=== PATIENT | female | born 1940 | race Caucasian/White ===

== ENCOUNTER 2018-06-20 16:50 | Inpatient (IN) ==
[2018-06-20] MEDS ORDERED: 0.9 % SODIUM CHLORIDE 1,000 ML IV ONE (16:56)
--- NOTE | 2018-06-20 17:32 | XRay Report ---
CLINICAL INFORMATION: hypoxia COMPARISON: 06/19/2018 FINDINGS: Mild cardiomegaly is unchanged. Implantable cardioverter defibrillator is in stable satisfactory position without application. Mediastinum is unremarkable. Pulmonary vessels are now mildly distended and there is minimal perihilar edema. No infiltrates. Chronic elevation right diaphragm again noted. Small bilateral pleural effusions are present. IMPRESSION: Mild CHF Interpreted and Authenticated by: Inocente Cuellar 06/20/18
[2018-06-20] MEDS ORDERED: IPRATROPIUM/ALBUTEROL 3 ML AMPUL.NEB NEB ONE (17:37)
[2018-06-20 18:54] LABS: Basophils # (Auto) 0 K/mcL (0.0-0.3); Basophils % (Auto) 0.3 % (0.0-2.0); Eosinophils # (Auto) 0.1 K/mcL (0.0-0.7); Granulocytes % (Auto) 70.7 % (38.0-78.0); Lymphocytes % (Auto) 20.6 % (15.5-49.0); Mean Cell Volume 81.1 fL (80.0-100.0); Mean Corpuscular HGB Conc 31.7 g/dL (31.0-36.0); Mean Corpuscular Hemoglobin 25.7 pg (26.0-34.0); Monocytes # (Auto) 0.7 K/mcL (0.1-0.9); Monocytes % (Auto) 7.4 % (1.0-12.0); Platelet Count 309 K/mcL (140-440); RBC 4.19 M/mcL (4.00-5.20); Red Cell Distribution Width 16.4 % (11.5-14.5)
[2018-06-20 19:27] LABS: ALT/SGPT 9 U/l (0-40); Albumin 3.9 gm/dL (3.2-5.2); Albumin/Globulin Ratio 1.6 (1.0-2.3); Alkaline Phosphatase 61 U/L (39-117); Blood Urea Nitrogen 17 mg/dl (8-23)
[2018-06-20] MEDS ORDERED: FUROSEMIDE 20 MG/2 ML VIAL IV ONE (19:27)
--- NOTE | 2018-06-20 19:29 | Emergency Department Note ---
SOB HPI - General Chief Complaint: Shortness of Breath/Dyspnea Stated Complaint: SOB Time Seen by Provider: 06/20/18 16:55 Source: patient, EMS, old records reviewed Mode of arrival: EMS Limitations: no limitations - History of Present Illness 70-year-old female here from [facility] with shortness of breath but has not been getting better over the last 3 weeks. She was seen previously and diagnosed with pneumonia but not better on antibiotics. She is not on home oxygen however now she is requiring 2 L oxygen to keep her saturations up. She is having shortness of breath along with a productive cough. Notes fever. Denies nausea vomiting diarrhea Reviewed last note by Dr. beard in the ER - Related Data Home Medications Medication Instructions Recorded Confirmed aluminum-mag hydroxide-simethicone 30 ml PO Q6HP PRN ml 07/02/17 06/21/18 200 mg-200 mg-20 mg/5 mL oral susp bisacodyl 10 mg rectal suppository 10 mg MD QDAY PRN 07/02/17 06/21/18 emollient combination no.93 1 applic TOPICAL DAILYP PRN 07/02/17 06/20/18 topical cream hydrocodone 7.5 mg-acetaminophen 1 tab PO Q4H PRN tab 07/02/17 06/20/18 325 mg tablet magnesium hydroxide 400 mg/5 mL 400 mg PO DAILYP PRN 07/02/17 06/20/18 oral suspension nystatin 100,000 unit/gram topical 1 applic TOPICAL BID PRN 07/02/17 06/20/18 powder polyvinyl alcohol 1.4 % eye drops 1 drp OPHTHALMIC BID-QID PRN 07/02/17 06/20/18 simvastatin 20 mg tablet 20 mg PO QPM 07/02/17 06/20/18 acetaminophen 500 mg tablet 1,000 mg PO Q6H PRN 09/17/17 06/20/18 sennosides 8.6 mg tablet 8.6 mg PO QDAY PRN 09/17/17 06/20/18 guaifenesin ER 600 mg tablet, 600 mg PO Q12H PRN 06/19/18 06/20/18 extended release 12 hr trolamine salicylate 10 % lotion 1 applic TOPICAL QDAY PRN 06/19/18 06/20/18 Cranberry Conc/C/Bacill Coag 1 each PO BID 06/20/18 06/20/18 [Cranberry Tablet] Estradiol [Estrace] 0.5 g VAGINAL Q48H 06/20/18 06/20/18 Furosemide [Lasix] 40 mg PO QDAY 06/20/18 06/20/18 Imipramine HCl [Tofranil] 25 mg PO QHS 06/20/18 06/20/18 Insulin Aspart [Novolog Flexpen] 2 unit SQ DAILYP PRN 06/20/18 06/20/18 Insulin Aspart [Novolog Flexpen] 100 unit SQ ACHS 06/20/18 06/20/18 Insulin Glargine,Hum.rec.anlog 35 unit SQ QHS 06/20/18 06/20/18 [Lantus Solostar] Melatonin 5 mg PO QHS PRN 06/20/18 06/20/18 Solifenacin Succinate [Vesicare] 10 mg PO QHS 06/20/18 06/20/18 guaiFENesin/DEXTROMETHORPHAN 10 ml PO Q6HP PRN 06/20/18 06/20/18 [Robafen Dm Cgh-Chest Jaya Liq] rOPINIRole HCL [Requip] 1 mg PO QHS 06/20/18 06/20/18 traMADol HCL [Ultram] 100 mg PO QHS PRN 06/20/18 06/20/18 traZODone HCL [Trazodone HCl] 100 mg PO QHS 06/20/18 06/20/18 Previous Rx's Medication Instructions Recorded duloxetine 60 mg capsule,delayed 60 mg PO QDAY #90 cap 04/15/17 release liraglutide 0.6 mg/0.1 mL (18 mg/3 1.8 mg SUB-Q QDAY #6 ml 04/15/17 mL) subcutaneous pen injector amlodipine 5 mg tablet 5 mg PO QDAY #90 tab 04/17/17 gabapentin 300 mg capsule 300 mg PO QDAY #90 cap 04/22/17 ropinirole 1 mg tablet 1 mg PO BID #60 tab 04/22/17 metformin 1,000 mg tablet 1,000 mg PO BID #180 tab 04/23/17 potassium chloride ER 20 mEq 20 meq PO QDAY #90 tab 04/28/17 tablet,extended release hydroxychloroquine 200 mg tablet 400 mg PO QDAY #180 tab 06/16/17 polyethylene glycol 3350 17 gram 17 g PO QDAY #100 each 09/08/17 oral powder packet carvedilol 25 mg tablet 12.5 mg PO BID #180 tab 09/17/17 losartan 100 mg tablet 100 mg PO QDAY #90 tab 03/11/18 mupirocin 2 % topical ointment 1 applic TOPICAL BID #30 g 05/04/18 Allergies Allergy/AdvReac Type Severity Reaction Status Date / Time kiwi Allergy Severe Throat Verified 06/21/18 07:10 swells shut meperidine [From Demerol] AdvReac Mild Vomiting Verified 06/21/18 07:10 Review of Systems All systems ED: reviewed and negative except as stated. Past Medical History - Past Medical History Attestation: Yes: The following information was validated with the patient. 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) Other specified urinary incontinence (Chronic) Urinary tract infection (Chronic) Muscle weakness (generalized) (Chronic) Low back pain (Chronic) Cervicalgia (Chronic) Pain in right shoulder (Chronic) Disorder of the skin and subcutaneous tissue, unspecified (Chronic) Constipation, unspecified (Chronic) GERD without esophagitis (Chronic) Allergic rhinitis, unspecified (Chronic) Heart failure, unspecified (Chronic) Other cardiomyopathies (Chronic) Essential (primary) hypertension (Chronic) Dry eye syndrome (Chronic) Other chronic pain (Chronic) Obstructive sleep apnea (adult) (pediatric) (Chronic) Insomnia, unspecified (Chronic) Restless leg syndrome (Chronic) Parkinson disease (Chronic) Anxiety disorder, unspecified (Chronic) Major depressive disorder, single episode, unspecified (Chronic) Hyperlipidemia, unspecified (Chronic) Vitamin deficiency, unspecified (Chronic) Type 2 diabetes mellitus without complications (Chronic) Type 2 diabetes mellitus with diabetic polyneuropathy (Chronic) Presence of cardiac pacemaker (Chronic) Past Surgical History (Last Reviewed 06/19/18 @ 11:22 by Brionna Jamison PA-C) Cardiac defibrillator in place (Chronic) History of cholecystectomy (Chronic ~1977) History of foot surgery (Chronic) History of knee replacement (Chronic ~2004) History of laparotomy (Chronic ~1975) History of orthopedic surgery (Chronic ~2003) History of permanent cardiac pacemaker placement (Chronic) History of shoulder surgery (Chronic ~1982) History of toe surgery (Chronic) History of tonsillectomy and adenoidectomy (Chronic ~1944) History of total abdominal hysterectomy (Chronic ~1983) Family History (Last Reviewed 06/19/18 @ 11:22 by Brionna Jamison PA-C) Unknown Heart problem Emphysema, unspecified Other Breast cancer Cancer Diabetes Hypertension Stroke Medical history: Reports: CHF, other (Diabetes, chronic pain. 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 Normocephalic atraumatic. Conjunctive are clear sclerae nonicteric. No nasal discharge or congestion. Wearing nasal cannula oxygen without difficulty. Oropharynx is pink and moist. Posterior pharynx clear. Neck is supple without lymphadenopathy thyromegaly or carotid bruit. Heart is regular rate and rhythm no murmur appreciated. Lungs are clear to auscultation bilaterally without wheezes rales rhonchi or respiratory distress. Abdomen is soft nontender nondistended. No rigidity peritoneal signs or guarding. No pedal edema. +2 radial pulse. Alert oriented Limitations: no limitations Course Vital Signs Pulse Rate 96 H 06/20/18 16:50 Respiratory Rate 28 H 06/20/18 16:50 Temperature 97.7 F 06/21/18 04:00 Pulse Rate 105 H 06/20/18 23:54 Respiratory Rate 32 H 06/21/18 06:47 Blood Pressure 123/66 06/21/18 04:00 Pulse Oximetry (%) 92 06/21/18 06:47 Shortness of Breath/Dyspnea - Lab Data Lab results reviewed: Yes I reviewed the patient's lab results. Result diagrams: 06/20/18 16:56 06/20/18 16:56 Lab Results 06/20/18 06/20/18 06/20/18 Range/Units 16:56 16:56 16:56 WBC 9.6 (4.5-11.0) K/mcL RBC 4.19 (4.00-5.20) M/mcL Hgb 10.8 L (12.0-15.0) g/dL Hct 34.0 L (36.0-48.0) % MCV 81.1 (80.0-100.0) fL MCH 25.7 L (26.0-34.0) pg MCHC 31.7 (31.0-36.0) g/dL RDW 16.4 H (11.5-14.5) % Plt Count 309 (140-440) K/mcL MPV 7.9 (7.4-10.4) fL Gran % 70.7 (38.0-78.0) % Lymph % (Auto) 20.6 (15.5-49.0) % [place] % (Auto) 7.4 (1.0-12.0) % Eos % (Auto) 1.0 (0.0-7.0) % Baso % (Auto) 0.3 (0.0-2.0) % Gran # 6.8 (1.8-8.0) K/mcL Lymph # (Auto) 2.0 (1.5-4.8) K/mcL [place] # (Auto) 0.7 (0.1-0.9) K/mcL Eos # (Auto) 0.1 (0.0-0.7) K/mcL Baso # (Auto) 0 (0.0-0.3) K/mcL VBG Lactic Acid 1.6 (0.5-2.0) mmol/L Sodium 138 (133-145) mmol/L Potassium 4.7 (3.3-5.1) mmol/L Chloride 99 (96-108) mmol/L Carbon Dioxide 24 (22-30) mmol/L Anion Gap 15.0 (8-16) BUN 17 (8-23) mg/dl Creatinine 0.9 (0.6-1.1) mg/dl GFR Calculation 61 Glucose 139 H (70-105) mg/dL Calcium 9.1 (8.6-10.4) mg/dl Magnesium 1.7 (1.6-2.5) mg/dL Total Bilirubin 0.5 (0.0-1.0) mg/dL AST 14 (0-37) U/l ALT 9 (0-40) U/l Alkaline Phosphatase 61 (39-117) U/L NT-Pro-B Natriuret Pep (0-450) pg/ml Total Protein 6.3 (5.9-8.4) gm/dL Albumin 3.9 (3.2-5.2) gm/dL Globulin 2.4 (2.2-3.7) gm/dL Albumin/Globulin Ratio 1.6 (1.0-2.3) Procalcitonin (<0.10) ng/mL 06/20/18 06/20/18 Range/Units 16:58 17:58 WBC (4.5-11.0) K/mcL RBC (4.00-5.20) M/mcL Hgb (12.0-15.0) g/dL Hct (36.0-48.0) % MCV (80.0-100.0) fL MCH (26.0-34.0) pg MCHC (31.0-36.0) g/dL RDW (11.5-14.5) % Plt Count (140-440) K/mcL MPV (7.4-10.4) fL Gran % (38.0-78.0) % Lymph % (Auto) (15.5-49.0) % [place] % (Auto) (1.0-12.0) % Eos % (Auto) (0.0-7.0) % Baso % (Auto) (0.0-2.0) % Gran # (1.8-8.0) K/mcL Lymph # (Auto) (1.5-4.8) K/mcL [place] # (Auto) (0.1-0.9) K/mcL Eos # (Auto) (0.0-0.7) K/mcL Baso # (Auto) (0.0-0.3) K/mcL VBG Lactic Acid (0.5-2.0) mmol/L Sodium (133-145) mmol/L Potassium (3.3-5.1) mmol/L Chloride (96-108) mmol/L Carbon Dioxide (22-30) mmol/L Anion Gap (8-16) BUN (8-23) mg/dl Creatinine (0.6-1.1) mg/dl GFR Calculation Glucose (70-105) mg/dL Calcium (8.6-10.4) mg/dl Magnesium (1.6-2.5) mg/dL Total Bilirubin (0.0-1.0) mg/dL AST (0-37) U/l ALT (0-40) U/l Alkaline Phosphatase (39-117) U/L NT-Pro-B Natriuret Pep 4836.0 H (0-450) pg/ml Total Protein (5.9-8.4) gm/dL Albumin (3.2-5.2) gm/dL Globulin (2.2-3.7) gm/dL Albumin/Globulin Ratio (1.0-2.3) Procalcitonin < 0.05 (<0.10) ng/mL - Radiology Data Radiology results reviewed: Yes I reviewed the patient's radiology results. Chest x-ray shows pulmonary vascular congestion - EKG Data EKG attestation: Yes I reviewed and interpreted this EKG. EKG results narrative: EKG shows a rate of 93 with possible atrial fibrillation and T wave inversion in 1 and aVL. It is difficult to see P waves so this could be atrial fibrillation versus artifact Disposition Pt seen by [employer]OR SCREEN DRIER/PA only: No Clinical Impression: Bronchitis, Hypoxia CHF (congestive heart failure) Qualifiers: Heart failure type: unspecified Heart failure chronicity: acute on chronic Qualified Code(s): I50.9 - Heart failure, unspecified Summary: Worked up for shortness of breath with x-ray EKG laboratory. Continue oxygen for hypoxia on admission. Workup shows likely CHF with elevated BNP and pulmonary vascular markings on x- ray. However she also has fever. Suspect bronchitis as well. Start antibiotics after cultures; increase diuretic Discussed case with Dr. Stephanie Hills, hospitalist, who agreed to accept the patient for further care and evaluation in the hospital Disposition: Xfer As Inpt ([facility]) Condition: Fair
[2018-06-20] MEDS ORDERED: LEVOFLOXACIN 500 MG/100 ML BAG IV ONE (19:30)
--- NOTE | 2018-06-20 22:06 | Internal Med History&Physical ---
Medical - H&P: HPI Patient information: Note initiated : 06/20/18 at 10:04 pm Service Date, if different from initiated Date: [] Patient: Stacie Thomas a 78 y/o F admitted on for Shortness of breath. Chief Complaint: Dyspnea History of present illness: Ms. Thomas is a 78 year old F with a history of type 2 diabetes mellitus and mild dilated cardiomyopathy with history of pacemaker and defibrillator placed about 12 years ago, anemia, sleep apnea who presents with worsening dyspnea. History is obtained in speaking with the patient, as well as reviewing old records as summarized below. The patient was seen in this facility on 06/03 and diagnosed right upper lobe pneumonia. She was treated with azithromycin. Since that time she states that she is "still ill". By that means she has exhaustion with any exertion as well as significant dyspnea with any exertion. She is coughs, particularly at night when she is supine. She gets short of breath when she lies supine, that worsened over the last few days, to where she is spent a portion of the evening sitting up in a recliner due to dyspnea. She wakes up short of breath, has to sit up to catch her breath. She's noted no lower extremity edema associated with this. She's had no abdominal bloating or distention. She's had a cough which occurs at night, it's nonproductive. Has noticed worse while supine. She 's had some burning lower chest symptoms, similar to reflux symptoms she's had in the past, though it coming more frequently. Her "heartburn" is not necessarily associated with exertion. She has no history of myocardial infarction or angina. Patient has a history of dilated cardiomyopathy, ejection fraction in July of this year was 4045 percent. There is borderline dilated. She states back when she had her defibrillator placed about 12 years ago her ejection fraction was 25%. At that time she was told she had clean coronaries. She is unsure why her heart was not functioning well. She presented for follow-up yesterday at Dr. Messer's office. Radiograph confirmed that there was near complete resolution of her pneumonia. Lab work was drawn and the patient was to call for follow-up. Today she was looking even more poorly and someone at [facility] encouraged to come to the ED. The emergency department she was found to have new hypoxia, requiring 3 L nasal cannula to maintain saturations. Radiograph today shows evidence of heart failure, BNP is in the 4800 range, when it was in the 2100 range yesterday. Mejias, the patient had fever to 100.2 in the ED, was wheezing. She received nebulizer treatment with some improvement in her symptoms, received furosemide, however still requires oxygen is being admitted for acute exacerbation of chronic systolic heart failure. The patient is having reflux symptoms as noted. Occasionally she gets nauseated and has emesis without warning, the last occurred about one month ago. She's had some dysuria recently, and appears to have a new urinary tract infection. No abdominal pain, no diarrhea. No pleuritic chest pains, no anginal symptoms with exertion or at rest. All systems: reviewed and no additional remarkable complaints except as stated Medical - H&P: PMH Medical history: Diabetes mellitus with peripheral angiopathy (Chronic) High cholesterol (Chronic) GERD without esophagitis (Chronic) Heart failure, unspecified (Chronic) Presence of cardiac pacemaker (Chronic) Other cardiomyopathies (Chronic) Essential (primary) hypertension (Chronic) Other specified urinary incontinence (Chronic) Urinary tract infection (Chronic) Obstructive sleep apnea (adult) (pediatric) (Chronic) Allergic rhinitis, unspecified (Chronic) Knee contusion (Chronic) Bilateral knee pain (Chronic) Lumbar spondylosis (Chronic) Cervical sprain (Chronic) Primary osteoarthritis of left knee (Chronic) Callus (Chronic) Onychomycosis (Chronic) Paresthesias (Chronic) Hammertoe (Chronic) 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) Muscle weakness (generalized) (Chronic) Pain in right shoulder (Chronic) Disorder of the skin and subcutaneous tissue, unspecified (Chronic) Constipation, unspecified (Chronic) Other chronic pain (Chronic) Insomnia, unspecified (Chronic) Restless leg syndrome (Chronic) Parkinson disease (Chronic) Anxiety disorder, unspecified (Chronic) Major depressive disorder, single episode, unspecified (Chronic) Vitamin deficiency, unspecified (Chronic) Surgical history: Cardiac defibrillator in place (Chronic) History of cholecystectomy (Chronic ~1977) History of foot surgery (Chronic) History of knee replacement (Chronic ~2004) History of laparotomy (Chronic ~1975) History of orthopedic surgery (Chronic ~2003) History of permanent cardiac pacemaker placement (Chronic) History of shoulder surgery (Chronic ~1982) History of toe surgery (Chronic) History of tonsillectomy and adenoidectomy (Chronic ~194) History of total abdominal hysterectomy (Chronic ~1983) Pertinent family history: Unknown Heart problem Emphysema, unspecified Other Breast cancer Cancer Diabetes Hypertension Stroke Social history: The patient will except [facility] [place] [facility] assisted [facility]. She does not smoke cigarettes. She has a rare alcoholic beverage. Medical - H&P: Meds Home Medications Medication Instructions Recorded Confirmed Type duloxetine 60 mg capsule,delayed 60 mg PO QDAY #90 cap 04/15/17 06/20/18 Rx release liraglutide 0.6 mg/0.1 mL (18 mg/3 1.8 mg SUB-Q QDAY #6 ml 04/15/17 06/20/18 Rx mL) subcutaneous pen injector amlodipine 5 mg tablet 5 mg PO QDAY #90 tab 04/17/17 06/20/18 Rx gabapentin 300 mg capsule 300 mg PO QDAY #90 cap 04/22/17 06/20/18 Rx ropinirole 1 mg tablet 1 mg PO BID #60 tab 04/22/17 06/20/18 Rx metformin 1,000 mg tablet 1,000 mg PO BID #180 tab 04/23/17 06/20/18 Rx potassium chloride ER 20 mEq 20 meq PO QDAY #90 tab 04/28/17 06/20/18 Rx tablet,extended release hydroxychloroquine 200 mg tablet 400 mg PO QDAY #180 tab 06/16/17 06/20/18 Rx aluminum-mag hydroxide-simethicone 30 ml PO Q6HP PRN ml 07/02/17 06/20/18 History 200 mg-200 mg-20 mg/5 mL oral susp bisacodyl 10 mg rectal suppository 10 mg [place] QDAY PRN 07/02/17 06/20/18 History emollient combination no.93 1 applic TOPICAL DAILYP PRN 07/02/17 06/20/18 History topical cream hydrocodone 7.5 mg-acetaminophen 1 tab PO Q4H PRN tab 07/02/17 06/20/18 History 325 mg tablet magnesium hydroxide 400 mg/5 mL 400 mg PO DAILYP PRN 07/02/17 06/20/18 History oral suspension nystatin 100,000 unit/gram topical 1 applic TOPICAL BID PRN 07/02/17 06/20/18 History powder polyvinyl alcohol 1.4 % eye drops 1 drp OPHTHALMIC BID-QID PRN 07/02/17 History simvastatin 20 mg tablet 20 mg PO QPM 07/02/17 06/20/18 History polyethylene glycol 3350 17 gram 17 g PO QDAY #100 each 09/08/17 06/20/18 Rx oral powder packet acetaminophen 500 mg tablet 1,000 mg PO Q6H PRN 09/17/17 06/20/18 History carvedilol 25 mg tablet 12.5 mg PO BID #180 tab 09/17/17 06/20/18 Rx sennosides 8.6 mg tablet 8.6 mg PO QDAY PRN 09/17/17 06/20/18 History losartan 100 mg tablet 100 mg PO QDAY #90 tab 03/11/18 06/20/18 Rx mupirocin 2 % topical ointment 1 applic TOPICAL BID #30 g 05/04/18 06/20/18 Rx guaifenesin ER 600 mg tablet, 600 mg PO Q12H PRN 06/19/18 06/20/18 History extended release 12 hr trolamine salicylate 10 % lotion 1 applic TOPICAL QDAY PRN 06/19/18 06/20/18 History ALPRAZolam [Xanax] 1 mg PO DAILYP PRN 06/20/18 06/20/18 History Acetaminophen [Tylenol] 1,000 mg PO Q6HP PRN 06/20/18 06/20/18 History Cranberry Conc/C/Bacill Coag 1 each PO BID 06/20/18 06/20/18 History [Cranberry Tablet] Estradiol [Estrace] 0.5 g VAGINAL Q48H 06/20/18 06/20/18 History Furosemide [Lasix] 40 mg PO QDAY 06/20/18 06/20/18 History Imipramine HCl [Tofranil] 25 mg PO QHS 06/20/18 06/20/18 History Insulin Aspart [Novolog Flexpen] 2 unit SQ DAILYP PRN 06/20/18 06/20/18 History Insulin Aspart [Novolog Flexpen] 100 unit SQ ACHS 06/20/18 06/20/18 History Insulin Glargine,Hum.rec.anlog 35 unit SQ QHS 06/20/18 06/20/18 History [Lantus Solostar] Melatonin 5 mg PO QHS PRN 06/20/18 06/20/18 History Solifenacin Succinate [Vesicare] 10 mg PO QHS 06/20/18 06/20/18 History guaiFENesin/DEXTROMETHORPHAN 10 ml PO Q6HP PRN 06/20/18 06/20/18 History [Robafen Dm Cgh-Chest Jaya Liq] rOPINIRole HCL [Requip] 1 mg PO QHS 06/20/18 06/20/18 History traMADol HCL [Ultram] 100 mg PO QHS PRN 06/20/18 06/20/18 History traZODone HCL [Trazodone HCl] 100 mg PO QHS 06/20/18 06/20/18 History Allergies Allergy/AdvReac Type Severity Reaction Status Date / Time kiwi Allergy Unknown Throat Verified 06/20/18 16:50 swells shut meperidine [From Demerol] Allergy Unknown Vomiting Verified 06/20/18 16:50 Medical - H&P: Exam - Constitutional Vitals: Temp Pulse Resp BP Pulse Ox 98.1 F 98 H 30 H 135/62 94 06/20/18 18:44 06/20/18 20:16 06/20/18 21:31 06/20/18 21:31 06/20/18 20:16 Exam: GENERAL: Alert, oriented, in no acute distress. Cooperative, appears stated age. HEENT: Atraumatic. PERRL, conjunctiva clear, no scleral icterus. Hearing grossly intact. Oropharynx with dry mucous membranes, no lip or gum lesions, no pharyngeal erythema or exudate. Tongue midline. NECK: Supple without meningismus, no thyromegaly RESPIRATORY: Breath sounds decreased at the right base, a few rales above that, few rales at the left base. Respirations are mildly labored. CARDIOVASCULAR: Regular rate and rhythm, no murmur gallop or rub appreciated though heart tones are a bit distant.. No peripheral edema. Carotid pulses 2+ without bruit. Pedal pulses 1+. Jugular venous pressure is 3 cm above the clavicle while sitting at 60 upright GI: Abdomen obese soft, nontender, no guarding or rebound. Bowel sounds are present. No hepatosplenomegaly appreciated though exam is limited by body habitus. LYMPHATIC: No cervical or supraclavicular lymphadenopathy MUSCULOSKELETAL: No joint erythema or swelling, normal range of motion in extremities. SKIN: Intact, warm, dry. Skin turgor normal. NEUROLOGIC: Cranial nerves II through XII grossly intact. Muscle mass normal for age. Strength 5/5 in the upper and lower extremities. Sensation intact to light touch bilaterally. PSYCHIATRIC: Alert, oriented x3, normal mood and affect, normal insight. Medical - H&P: Reslt - Labs CBC & Chem 7: 06/20/18 16:56 06/20/18 16:56 Labs: Short CBC 06/20/18 Range/Units 16:56 WBC 9.6 (4.5-11.0) K/mcL Hgb 10.8 L (12.0-15.0) g/dL Hct 34.0 L (36.0-48.0) % Plt Count 309 (140-440) K/mcL BMP 06/20/18 16:56 Sodium 138 Potassium 4.7 Chloride 99 Carbon Dioxide 24 BUN 17 Creatinine 0.9 Glucose 139 H Calcium 9.1 Liver Function 06/20/18 Range/Units 16:56 Total Bilirubin 0.5 (0.0-1.0) mg/dL AST 14 (0-37) U/l ALT 9 (0-40) U/l Alkaline Phosphatase 61 (39-117) U/L Albumin 3.9 (3.2-5.2) gm/dL - EKG Data Prior EKG available for review: yes EKG comments: Sinus rhythm at 96 with interventricular conduction delay. No acute injury. - Imaging and Cardiology Chest x-ray Status: image reviewed by me Additional comments: Date of Service: 06/20/18 Procedure(s): XR chest 2V FINDINGS: Mild cardiomegaly is unchanged. Implantable cardioverter defibrillator is in stable satisfactory position without application. Mediastinum is unremarkable. Pulmonary vessels are now mildly distended and there is minimal perihilar edema. No infiltrates. Chronic elevation right diaphragm again noted. Small bilateral pleural effusions are present. IMPRESSION: Mild CHF Medical - H&P: A/P (1) Acute on chronic systolic (congestive) heart failure Current visit: Yes Status: Acute - Narrative A/P Narrative: 78-year-old female presents with worsening dyspnea for the last 2-1/2 weeks and she is diagnosed with pneumonia on 06/03. Found to have congestive heart failure, also fever and evidence bronchitis. Acute on chronic systolic congestive heart failure. Patient has a known dilated cardiomyopathy, previously an ejection fraction 25%, most recently 40 45 percent in July this year. On exam she has evidence of volume overload, BNP has increased significantly over the last few weeks and is in the 4800 range. Radiograph shows volume overload. Etiology may be dietary indiscretion , may have been increased fluid intake associated with illness. Cannot rule out intervening coronary disease, though has no history of angina. May also be a possible effect of viral illness if that was a viral pneumonia. Plan: 1. Inpatient admission 2. IV diuresis, follow intake and output, daily weights 3. Check echocardiogram to reevaluate ejection fraction. Bronchitis. The patient fever and wheezing presentation. Improved after DuoNeb. May have been secondary to heart failure, though given low-grade fever suspect some bronchitis as well. She received levofloxacin in the ED. Plan: Continue levofloxacin. If no evidence of recurrent infiltrate and no further fever, will stop after 3 doses. Type 2 diabetes mellitus. Plan: Controlled carbohydrate diet, continue with diabetes meds. Hypercholesterolemia. Stable. Plan: Continue medications. Urinary incontinence, urge incontinence. Seen by Dr. Junior Plan: Continue Vesicare. Prophylaxis: Lovenox. CODE STATUS: Patient has had DNR in the past, but at this point for this hospitalization she wishes a CODE STATUS of full code.
[2018-06-20] MEDS ORDERED: MAG HYDROX/AL HYDROX/SIMETH 30 ML ORAL.SUSP PO PRN (23:39)
[2018-06-20] MEDS ORDERED: ONDANSETRON 4 MG/2 ML VIAL IV PRN (23:39)
[2018-06-20] MEDS ORDERED: HYDROCODONE/APAP 7.5/325MG TABLET PO PRN (23:39)
[2018-06-20] MEDS ORDERED: POLYVINYL ALCOHOL OPHTH DROPS 15ML BOTTLE OU PRN (23:39)
[2018-06-20] MEDS ORDERED: guaiFENesin 600 MG TAB.SR.12H PO PRN (23:39)
[2018-06-20] MEDS ORDERED: ALPRAZolam 0.5 MG TABLET PO PRN (23:39)
[2018-06-20] MEDS ORDERED: ACETAMINOPHEN 325 MG TABLET PO PRN (23:39)
[2018-06-20] MEDS ORDERED: ALBUTEROL SULFATE 2.5 MG/3 ML NEBULIZER NEB PRN (23:39)
[2018-06-21] MEDS ORDERED: traMADol 50 MG TABLET PO ONE ×2 (00:07→00:08)
[2018-06-21] MEDS: 0.9 % SODIUM CHLORIDE 10 ML SYRINGE IV SCH ×4 (00:14→21:13)
[2018-06-21] MEDS: SIMVASTATIN 20 MG TABLET PO SCH ×2 (00:15→21:00)
[2018-06-21] MEDS: rOPINIRole 1 MG TABLET PO SCH ×4 (00:16→21:01)
[2018-06-21] MEDS: MELATONIN 3 MG TABLET PO PRN (00:20)
[2018-06-21] MEDS: Solifenacin Succinate [Vesicare] 10 mg Tab PO SCH ×2 (00:23→21:02)
[2018-06-21] MEDS: IMIPRAMINE 25 MG TABLET PO SCH ×2 (00:24→21:05)
[2018-06-21 07:58] LABS: Basophils # (Auto) 0 K/mcL (0.0-0.3); Basophils % (Auto) 0.4 % (0.0-2.0); Eosinophils # (Auto) 0.1 K/mcL (0.0-0.7); Eosinophils % (Auto) 1.4 % (0.0-7.0); Granulocytes % (Auto) 72.5 % (38.0-78.0); Lymphocytes # (Auto) 1.7 K/mcL (1.5-4.8); Lymphocytes % (Auto) 17.7 % (15.5-49.0); Mean Cell Volume 82.5 fL (80.0-100.0); Mean Corpuscular HGB Conc 31.7 g/dL (31.0-36.0); Mean Corpuscular Hemoglobin 26.1 pg (26.0-34.0); Monocytes # (Auto) 0.8 K/mcL (0.1-0.9); Platelet Count 249 K/mcL (140-440); Red Cell Distribution Width 16.4 % (11.5-14.5)
[2018-06-21] MEDS: POTASSIUM CHLORIDE 20 MEQ TABLET PO SCH (08:01)
[2018-06-21] MEDS: CARVEDILOL 12.5 MG TABLET PO SCH ×2 (08:01→17:38)
[2018-06-21 08:27] LABS: Blood Urea Nitrogen 16 mg/dl (8-23)
[2018-06-21] MEDS: ENOXAPARIN 40 MG/0.4 ML SYRINGE SQ SCH (08:47)
[2018-06-21] MEDS: DULoxetine 30 MG CAPSULE PO SCH (08:47)
[2018-06-21] MEDS: LEVOFLOXACIN 500 MG TABLET PO SCH (08:48)
[2018-06-21] MEDS: GABAPENTIN 300 MG CAPSULE PO SCH (08:48)
[2018-06-21] MEDS: HYDROXYCHLOROQUINE 200 MG TABLET PO SCH (08:48)
[2018-06-21] MEDS: amLODIPine 5 MG TABLET PO SCH (08:48)
[2018-06-21] MEDS: FUROSEMIDE 40 MG/4 ML VIAL IV SCH ×2 (08:49→15:52)
[2018-06-21] MEDS ORDERED: LOSARTAN 50 MG TABLET PO SCH (09:00)
[2018-06-21] MEDS: MAGNESIUM HYDROXIDE 30 ML ORAL.SUSP PO PRN (15:13)
--- NOTE | 2018-06-21 17:10 | Internal Med Progress Note ---
Medical - PN: Subj Patient information: Note initiated : 06/21/18 at 5:06 pm Service Date, if different from initiated Date: [] Patient: Stacie Thomas a 78 y/o F admitted on 06/20/18 for Shortness of breath. Chief Complaint: f/u CHF Interval history: 06/20 Ms. Thomas is a 78 year old F with a history of type 2 diabetes mellitus and mild dilated cardiomyopathy with history of pacemaker and defibrillator placed about 12 years ago, anemia, sleep apnea who presents with worsening dyspnea. History is obtained in speaking with the patient, as well as reviewing old records as summarized below. The patient was seen in this facility on 06/03 and diagnosed right upper lobe pneumonia. She was treated with azithromycin. Since that time she states that she is "still ill". By that means she has exhaustion with any exertion as well as significant dyspnea with any exertion. She is coughs, particularly at night when she is supine. She gets short of breath when she lies supine, that worsened over the last few days, to where she is spent a portion of the evening sitting up in a recliner due to dyspnea. She wakes up short of breath, has to sit up to catch her breath. She's noted no lower extremity edema associated with this. She's had no abdominal bloating or distention. She's had a cough which occurs at night, it's nonproductive. Has noticed worse while supine. She 's had some burning lower chest symptoms, similar to reflux symptoms she's had in the past, though it coming more frequently. Her "heartburn" is not necessarily associated with exertion. She has no history of myocardial infarction or angina. Patient has a history of dilated cardiomyopathy, ejection fraction in July of this year was 4045 percent. There is borderline dilated. She states back when she had her defibrillator placed about 12 years ago her ejection fraction was 25%. At that time she was told she had clean coronaries. She is unsure why her heart was not functioning well. She presented for follow-up yesterday at Dr. Messer's office. Radiograph confirmed that there was near complete resolution of her pneumonia. Lab work was drawn and the patient was to call for follow-up. Today she was looking even more poorly and someone at [facility] encouraged to come to the ED. In the emergency department she was found to have new hypoxia, requiring 3 L nasal cannula to maintain saturations. Radiograph today shows evidence of heart failure, BNP is in the 4800 range, when it was in the 2100 range yesterday. Mejias, the patient had fever to 100.2 in the ED, was wheezing. She received nebulizer treatment with some improvement in her symptoms, received furosemide, however still requires oxygen is being admitted for acute exacerbation of chronic systolic heart failure. 06/21 Feels improved this afternoon, has had diuresis with IV furosemide. Still on oxygen, still with dyspnea, though better than admission. No chest pain, no nausea vomiting. - Constitutional Vitals: Vital Signs Temp Pulse Resp BP Pulse Ox 97.8 F 85 26 H 118/58 96 06/21/18 15:25 06/21/18 15:25 06/21/18 15:25 06/21/18 15:25 06/21/18 15:25 Period Temp Pulse Resp BP Sys/Mcintosh Pulse Ox Last 24 Hr 97.7 F-98.8 F 85-105 16-38 104-153/53-140 87-100 Intake and Output 06/21/18 06/21/18 06/21/18 05:59 13:59 21:59 Intake Total 50 / 50 200 / 200 540 / 540 Output Total 400 / 400 403 / 403 725 / 725 Balance -350 / -350 -203 / -203 -185 / -185 Weight 277 lb 8 oz Intake & Output: Intake & Output 06/21/18 06/21/18 06/21/18 05:59 13:59 21:59 Intake Total 50 / 50 200 / 200 540 / 540 Output Total 400 / 400 403 / 403 725 / 725 Balance -350 / -350 -203 / -203 -185 / -185 Weight 277 lb 8 oz Intake: Oral 50 / 50 200 / 200 540 / 540 Output: Void Amount 400 / 400 400 / 400 725 / 725 # of times incontinent of urine 3 / 3 Other: Meal Breakfast Lunch Percent of Meal Consumed 100% 100% Feeding Ability Independent Independent Urine Appearance Clear Clear Urine Color Pale Pale Urine Odor Normal # Voids 4 1 Exam: General: In no acute distress Chest: Few basilar rales, decreased right base, unlabored Cardiovascular: Regular, JVP 3 cm above clavicle while sitting upright Abdomen: Obese, soft, nontender Neuro: Alert, oriented 3, nonfocal Medical - PN: Obj Da - Labs CBC & Chem 7: 06/21/18 04:30 06/21/18 04:30 Labs: Abnormal Lab Results 06/21/18 06/20/18 06/20/18 04:30 17:58 16:56 Hgb 10.4 L Hct 33.0 L MCH RDW 16.4 H Glucose 139 H NT-Pro-B Natriuret Pep 4836.0 H 06/20/18 16:56 Hgb 10.8 L Hct 34.0 L MCH 25.7 L RDW 16.4 H Glucose NT-Pro-B Natriuret Pep Meds: Medications Acetaminophen (Tylenol) 650 mg PO Q6HP PRN PRN Reason: PAIN/FEVER > 101 Hydrocodone Bitart/Acetaminophen (Alamo 7.5/325mg) 1 tab PO Q4H PRN PRN Reason: pain Al Hydrox/Mg Hydrox/Simethicone (Maalox) 30 ml PO Q6HP PRN PRN Reason: stomach upset Albuterol Sulfate (Ventolin) 2.5 mg NEB Q4HP PRN PRN Reason: Wheezing Alprazolam (Xanax) 1 mg PO DAILYP PRN PRN Reason: Anxiety Amlodipine Besylate (Norvasc) 5 mg PO QDAY [facility] Last Admin: 06/21/18 08:48 Dose: 5 mg Artificial Tears (Artificial Tears Ophth Drops) 1 gtt OU BID-QID PRN PRN Reason: Dry Eyes Carvedilol (Coreg) 12.5 mg PO BIDCC [facility] Last Admin: 06/21/18 08:01 Dose: 12.5 mg Duloxetine HCl (Cymbalta) 60 mg PO DAILY [facility] Last Admin: 06/21/18 08:47 Dose: 60 mg Enoxaparin Sodium (Lovenox) 40 mg SQ DAILY [facility] Last Admin: 06/21/18 08:47 Dose: 40 mg Furosemide (Lasix) 40 mg IV BIDD [facility] Last Admin: 06/21/18 15:52 Dose: 40 mg Gabapentin (Neurontin) 300 mg PO QDAY [facility] Last Admin: 06/21/18 08:48 Dose: 300 mg Guaifenesin (Mucinex) 600 mg PO Q12H PRN PRN Reason: Congestion Hydroxychloroquine Sulfate (Plaquenil) 400 mg PO QDAY [facility] Last Admin: 06/21/18 08:48 Dose: 400 mg Imipramine HCl (Tofranil) 25 mg PO QHS [facility] Last Admin: 06/21/18 00:24 Dose: 25 mg Insulin Glargine (Lantus) 35 unit SQ [facility] Levofloxacin (Levaquin) 500 mg PO DAILY [facility] Last Admin: 06/21/18 08:48 Dose: 500 mg Losartan Potassium (Cozaar) 100 mg PO DAILY [facility] Last Admin: 06/21/18 08:48 Dose: 100 mg Magnesium Hydroxide (Milk Of Magnesia) 30 ml PO DAILYP PRN PRN Reason: Constipation Last Admin: 06/21/18 15:13 Dose: 30 ml Melatonin (Melatonin 3mg Tablet) 6 mg PO HSP PRN PRN Reason: Sleep Last Admin: 06/21/18 00:20 Dose: 6 mg Solifenacin Succinate [Vesicare] 10 Mg Tab 10 mg PO QHS [facility] Last Admin: 06/21/18 00:23 Dose: 10 mg Ondansetron HCl (Zofran) 4 mg IV Q4HP PRN PRN Reason: Nausea And Vomiting Potassium Chloride (Kdur) 20 meq PO QAC [facility] Last Admin: 06/21/18 08:01 Dose: 20 meq Ropinirole HCl (Requip) 1 mg PO QHS [facility] Last Admin: 06/21/18 00:16 Dose: 1 mg Ropinirole HCl (Requip) 1 mg PO BID [facility] Last Admin: 06/21/18 08:48 Dose: 1 mg Simvastatin (Zocor) 20 mg PO QPM [facility] Last Admin: 06/21/18 00:15 Dose: 20 mg Sodium Chloride (Saline Flush) 10 ml IV Q8 [facility] Last Admin: 06/21/18 15:13 Dose: 10 ml Tramadol HCl (Ultram) 100 mg PO QHS PRN PRN Reason: Pain Trazodone HCl (Desyrel) 100 mg PO QHS [facility] Medical - PN: A/P - Time Spent With Patient Total time spent is greater than 50% in coordination of care (as documented) at patient's floor/unit and/or counseling patient: 25 - 35 minutes (1) Acute on chronic systolic (congestive) heart failure Status: Acute Current Visit: Yes - Narrative A/P Narrative: 78-year-old female presents with worsening dyspnea for the last 2-1/2 weeks and she is diagnosed with pneumonia on 06/03. Found to have congestive heart failure, also fever and evidence bronchitis. Acute on chronic systolic congestive heart failure. Patient has a known dilated cardiomyopathy, previously an ejection fraction 25%, most recently 40-45 % in July this year. Starting to improve with diuresis. Echocardiogram performed, results pending. Plan: Continue to diurese, follow I/O, daily weights. F/u echo results for LV function. Bronchitis. The patient fever and wheezing presentation. Improved after DuoNeb. Plan: Continue levofloxacin, if no evidence of recurrent infiltrate and no further fever, will stop after 3 doses. Type 2 diabetes mellitus. Plan: Controlled carbohydrate diet, continue with diabetes meds. Hypercholesterolemia. Stable. Plan: Continue medications. Urinary incontinence, urge incontinence. Seen by Dr. Junior Plan: Continue Vesicare. Medical - PN: Qual - VTE Deep Vein Thrombosis/Pulmonary Embolism Present on Admission: No
[2018-06-21] MEDS ORDERED: DEXTROSE 50% 50 ML VIAL IV PRN (17:25)
[2018-06-21] MEDS ORDERED: DEXTROSE 31 GM ORAL.SUSP PO PRN (17:25)
[2018-06-21] MEDS: INSULIN LISPRO 1 UNIT/0.01 ML UNIT SQ SCH (20:55)
[2018-06-21] MEDS: traZODone HCL 100 MG TABLET PO SCH (20:59)
[2018-06-21] MEDS: INSULIN GLARGINE, HUMAN 1 UNIT/0.01 ML SQ SCH (21:00)
[2018-06-21] MEDS: traMADol 50 MG TABLET PO PRN (21:12)
[2018-06-22] MEDS: 0.9 % SODIUM CHLORIDE 10 ML SYRINGE IV SCH ×3 (05:07→20:29)
[2018-06-22] MEDS: INSULIN LISPRO 1 UNIT/0.01 ML UNIT SQ SCH ×4 (07:02→20:22)
[2018-06-22 07:11] LABS: Blood Urea Nitrogen 29 mg/dl (8-23)
[2018-06-22] MEDS: CARVEDILOL 12.5 MG TABLET PO SCH ×2 (08:00→16:27)
[2018-06-22] MEDS: POTASSIUM CHLORIDE 20 MEQ TABLET PO SCH (08:00)
[2018-06-22] MEDS: GABAPENTIN 300 MG CAPSULE PO SCH (08:01)
[2018-06-22] MEDS: HYDROXYCHLOROQUINE 200 MG TABLET PO SCH (08:01)
[2018-06-22] MEDS: LEVOFLOXACIN 500 MG TABLET PO SCH (08:01)
[2018-06-22] MEDS: DULoxetine 30 MG CAPSULE PO SCH (08:01)
[2018-06-22] MEDS: amLODIPine 5 MG TABLET PO SCH (08:01)
[2018-06-22] MEDS: FUROSEMIDE 40 MG/4 ML VIAL IV SCH (08:02)
[2018-06-22] MEDS: ENOXAPARIN 40 MG/0.4 ML SYRINGE SQ SCH (08:02)
[2018-06-22] MEDS: rOPINIRole 1 MG TABLET PO SCH ×3 (08:02→20:13)
--- NOTE | 2018-06-22 09:04 | Internal Med Progress Note ---
Medical - PN: Subj Patient information: Note initiated : 06/22/18 at 9:02 am Service Date, if different from initiated Date: [] Patient: Stacie Thomas a 78 y/o F admitted on 06/20/18 for SOB . Chief Complaint: Follow-up CHF Interval history: 06/20 Ms. Thomas is a 78 year old F with a history of type 2 diabetes mellitus and mild dilated cardiomyopathy with history of pacemaker and defibrillator placed about 12 years ago, anemia, sleep apnea who presents with worsening dyspnea. History is obtained in speaking with the patient, as well as reviewing old records as summarized below. The patient was seen in this facility on 06/03 and diagnosed right upper lobe pneumonia. She was treated with azithromycin. Since that time she states that she is "still ill". By that means she has exhaustion with any exertion as well as significant dyspnea with any exertion. She is coughs, particularly at night when she is supine. She gets short of breath when she lies supine, that worsened over the last few days, to where she is spent a portion of the evening sitting up in a recliner due to dyspnea. She wakes up short of breath, has to sit up to catch her breath. She's noted no lower extremity edema associated with this. She's had no abdominal bloating or distention. She's had a cough which occurs at night, it's nonproductive. Has noticed worse while supine. She 's had some burning lower chest symptoms, similar to reflux symptoms she's had in the past, though it coming more frequently. Her "heartburn" is not necessarily associated with exertion. She has no history of myocardial infarction or angina. Patient has a history of dilated cardiomyopathy, ejection fraction in July of this year was 4045 percent. There is borderline dilated. She states back when she had her defibrillator placed about 12 years ago her ejection fraction was 25%. At that time she was told she had clean coronaries. She is unsure why her heart was not functioning well. She presented for follow-up yesterday at Dr. Messer's office. Radiograph confirmed that there was near complete resolution of her pneumonia. Lab work was drawn and the patient was to call for follow-up. Today she was looking even more poorly and someone at [facility] encouraged to come to the ED. In the emergency department she was found to have new hypoxia, requiring 3 L nasal cannula to maintain saturations. Radiograph today shows evidence of heart failure, BNP is in the 4800 range, when it was in the 2100 range yesterday. Mejias, the patient had fever to 100.2 in the ED, was wheezing. She received nebulizer treatment with some improvement in her symptoms, received furosemide, however still requires oxygen is being admitted for acute exacerbation of chronic systolic heart failure. 06/21 Feels improved this afternoon, has had diuresis with IV furosemide. Still on oxygen, still with dyspnea, though better than admission. No chest pain, no nausea vomiting. 06/22 Did not notice much diuresis after p.m. dose of Lasix yesterday. Creatinine is creeping up. Up and ambulating, off of oxygen this morning. Dyspnea continues slowly improved. Slept much better last night. No chest pain, no nausea, no vomiting. Appetite is good. - Constitutional Vitals: Vital Signs Temp Pulse Resp BP Pulse Ox 98.3 F 78 14 122/60 94 06/22/18 07:03 06/22/18 07:03 06/22/18 07:03 06/22/18 07:03 06/22/18 07:03 Period Temp Pulse Resp BP Sys/Mcintosh Pulse Ox Last 24 Hr 97.4 F-98.6 F 78-91 14-26 99-122/58-73 94-100 Intake and Output 06/21/18 06/22/18 06/22/18 21:59 05:59 13:59 Intake Total 1040 / 1040 150 / 150 240 / 240 Output Total 926 / 926 Balance 114 / 114 150 / 150 240 / 240 Weight 218 lb 8 oz Intake & Output: Intake & Output 06/21/18 06/22/18 06/22/18 21:59 05:59 13:59 Intake Total 1040 / 1040 150 / 150 240 / 240 Output Total 926 / 926 Balance 114 / 114 150 / 150 240 / 240 Weight 218 lb 8 oz Intake: Oral 1040 / 1040 150 / 150 240 / 240 Output: Void Amount 925 / 925 # of times incontinent of urine Other: Meal Dinner Percent of Meal Consumed 100% Feeding Ability Independent Urine Appearance Clear Urine Color Bright Yellow Exam: General: Up in chair in no acute distress Chest: Diminished at right base (chronic) with some superior bronchial breath sounds, improve after deep respirations. Few left basal rales Cardiovascular: Regular rate and rhythm, JVP above clavicle while sitting upright Abdomen: Obese, soft, nontender Neuro: Alert, oriented, ambulating with walker Medical - PN: Obj Da - Labs CBC & Chem 7: 06/21/18 04:30 06/22/18 04:00 Labs: Abnormal Lab Results 06/22/18 06/21/18 06/20/18 04:00 04:30 17:58 Hgb 10.4 L Hct 33.0 L MCH RDW 16.4 H BUN 29 H Creatinine 1.4 H Glucose NT-Pro-B Natriuret Pep 4836.0 H 06/20/18 06/20/18 16:56 16:56 Hgb 10.8 L Hct 34.0 L MCH 25.7 L RDW 16.4 H BUN Creatinine Glucose 139 H NT-Pro-B Natriuret Pep Meds: Medications Acetaminophen (Tylenol) 650 mg PO Q6HP PRN PRN Reason: PAIN/FEVER > 101 Hydrocodone Bitart/Acetaminophen ([place] 7.5/325mg) 1 tab PO Q4H PRN PRN Reason: pain Al Hydrox/Mg Hydrox/Simethicone (Maalox) 30 ml PO Q6HP PRN PRN Reason: stomach upset Albuterol Sulfate (Ventolin) 2.5 mg NEB Q4HP PRN PRN Reason: Wheezing Alprazolam (Xanax) 1 mg PO DAILYP PRN PRN Reason: Anxiety Amlodipine Besylate (Norvasc) 5 mg PO QDAY [facility] Last Admin: 06/22/18 08:01 Dose: 5 mg Artificial Tears (Artificial Tears Ophth Drops) 1 gtt OU BID-QID PRN PRN Reason: Dry Eyes Carvedilol (Coreg) 12.5 mg PO BIDCC [facility] Last Admin: 06/22/18 08:00 Dose: 12.5 mg Dextrose (Dextrose 50%) 0 ml IV UD PRN PRN Reason: Hypoglycemia Diagnostic Test (Pha) (Accu-Chek) 1 each FS ACHS [facility] Last Admin: 06/22/18 07:02 Dose: 1 each Duloxetine HCl (Cymbalta) 60 mg PO DAILY [facility] Last Admin: 06/22/18 08:01 Dose: 60 mg Enoxaparin Sodium (Lovenox) 40 mg SQ DAILY [facility] Last Admin: 06/22/18 08:02 Dose: 40 mg Furosemide (Lasix) 40 mg IV DAILY [facility] Last Admin: 06/22/18 08:02 Dose: 40 mg Gabapentin (Neurontin) 300 mg PO QDAY [facility] Last Admin: 06/22/18 08:01 Dose: 300 mg Glucose (Insta-Glucose) 15 gm PO PRN PRN PRN Reason: Hypoglycemia Guaifenesin (Mucinex) 600 mg PO Q12H PRN PRN Reason: Congestion Hydroxychloroquine Sulfate (Plaquenil) 400 mg PO QDAY [facility] Last Admin: 06/22/18 08:01 Dose: 400 mg Imipramine HCl (Tofranil) 25 mg PO QHS [facility] Last Admin: 06/21/18 21:05 Dose: 25 mg Insulin Glargine (Lantus) 35 unit SQ [facility] Last Admin: 06/21/18 21:00 Dose: 35 unit Insulin Human Lispro (Humalog) 0 unit SQ [facility]; Protocol Last Admin: 06/22/18 07:02 Dose: Not Given Magnesium Hydroxide (Milk Of Magnesia) 30 ml PO DAILYP PRN PRN Reason: Constipation Last Admin: 06/21/18 15:13 Dose: 30 ml Melatonin (Melatonin 3mg Tablet) 6 mg PO HSP PRN PRN Reason: Sleep Last Admin: 06/21/18 00:20 Dose: 6 mg Solifenacin Succinate [Vesicare] 10 Mg Tab 10 mg PO QHS [facility] Last Admin: 06/21/18 21:02 Dose: 10 mg Ondansetron HCl (Zofran) 4 mg IV Q4HP PRN PRN Reason: Nausea And Vomiting Potassium Chloride (Kdur) 20 meq PO QAMCC [facility] Last Admin: 06/22/18 08:00 Dose: 20 meq Ropinirole HCl (Requip) 1 mg PO QHS [facility] Last Admin: 06/21/18 21:00 Dose: 1 mg Ropinirole HCl (Requip) 1 mg PO BID [facility] Last Admin: 06/22/18 08:02 Dose: 1 mg Simvastatin (Zocor) 20 mg PO QPM [facility] Last Admin: 06/21/18 21:00 Dose: 20 mg Sodium Chloride (Saline Flush) 10 ml IV Q8 [facility] Last Admin: 06/22/18 05:07 Dose: 10 ml Tramadol HCl (Ultram) 100 mg PO QHS PRN PRN Reason: Pain Last Admin: 06/21/18 21:12 Dose: 100 mg Trazodone HCl (Desyrel) 100 mg PO QHS [facility] Last Admin: 06/21/18 20:59 Dose: 100 mg Medical - PN: A/P - Time Spent With Patient Total time spent is greater than 50% in coordination of care (as documented) at patient's floor/unit and/or counseling patient: 25 - 35 minutes (1) Acute on chronic systolic (congestive) heart failure Status: Acute Current Visit: Yes - Narrative A/P Narrative: 78-year-old female presents with worsening dyspnea for the last 2-1/2 weeks and she is diagnosed with pneumonia on 06/03. Found to have congestive heart failure, also fever and evidence bronchitis. Acute on chronic systolic congestive heart failure. Patient has a known dilated cardiomyopathy, previously an ejection fraction 25%, most recently 40-45 % in July this year. Starting to improve with diuresis. Echocardiogram performed, results pending Friday a.m. Creatinine up to 1.4 Friday a.m. Plan: Decrease furosemide to daily, hold losartan while diuresing. Follow I/O , daily weights. F/u echo results for LV function and adjust regimen if needed based on LVEF. Bronchitis. The patient fever and wheezing presentation. Improved after DuoNeb. Plan: Stop levofloxacin today, status post 3 doses. Type 2 diabetes mellitus. Plan: Controlled carbohydrate diet, continue with diabetes meds. Hypercholesterolemia. Stable. Plan: Continue medications. Urinary incontinence, urge incontinence. Seen by Dr. Junior Plan: Continue Vesicare. Medical - PN: Qual - VTE Deep Vein Thrombosis/Pulmonary Embolism Present on Admission: No
[2018-06-22] MEDS: MAGNESIUM HYDROXIDE 30 ML ORAL.SUSP PO PRN (17:51)
[2018-06-22] MEDS: SIMVASTATIN 20 MG TABLET PO SCH (20:11)
[2018-06-22] MEDS: traZODone HCL 100 MG TABLET PO SCH (20:12)
[2018-06-22] MEDS: traMADol 50 MG TABLET PO PRN (20:15)
[2018-06-22] MEDS: MELATONIN 3 MG TABLET PO PRN (20:16)
[2018-06-22] MEDS: Solifenacin Succinate [Vesicare] 10 mg Tab PO SCH (20:18)
[2018-06-22] MEDS: INSULIN GLARGINE, HUMAN 1 UNIT/0.01 ML SQ SCH (20:18)
[2018-06-22] MEDS: IMIPRAMINE 25 MG TABLET PO SCH (20:29)
[2018-06-23] MEDS: 0.9 % SODIUM CHLORIDE 10 ML SYRINGE IV SCH ×4 (06:10→20:40)
[2018-06-23 06:26] LABS: Blood Urea Nitrogen 35 mg/dl (8-23)
[2018-06-23] MEDS: HYDROXYCHLOROQUINE 200 MG TABLET PO SCH (08:16)
[2018-06-23] MEDS: DULoxetine 30 MG CAPSULE PO SCH (08:17)
[2018-06-23] MEDS: ENOXAPARIN 40 MG/0.4 ML SYRINGE SQ SCH (08:18)
[2018-06-23] MEDS: CARVEDILOL 12.5 MG TABLET PO SCH ×2 (08:18→17:13)
[2018-06-23] MEDS: FUROSEMIDE 40 MG/4 ML VIAL IV SCH (08:18)
[2018-06-23] MEDS: INSULIN LISPRO 1 UNIT/0.01 ML UNIT SQ SCH ×4 (08:19→21:03)
[2018-06-23] MEDS: rOPINIRole 1 MG TABLET PO SCH ×3 (08:29→20:43)
[2018-06-23] MEDS: GABAPENTIN 300 MG CAPSULE PO SCH (08:29)
[2018-06-23] MEDS ORDERED: METOPROLOL TARTRATE 5 MG/5 ML VIAL IV ONE (10:29)
[2018-06-23] MEDS: amLODIPine 5 MG TABLET PO SCH (10:47)
[2018-06-23] MEDS: POTASSIUM CHLORIDE 20 MEQ TABLET PO SCH (10:47)
[2018-06-23] MEDS: METOPROLOL TARTRATE 5 MG/5 ML VIAL IV SCH ×3 (10:55→12:16)
--- NOTE | 2018-06-23 11:57 | Internal Med Progress Note ---
Medical - PN: Subj Patient information: Note initiated : 06/23/18 at 11:39 am Service Date, if different from initiated Date: [] Patient: Stacie Thomas a 78 y/o F admitted on 06/20/18 for SOB . Chief Complaint: [] Interval history: 06/20 Ms. Thomas is a 78 year old F with a history of type 2 diabetes mellitus and mild dilated cardiomyopathy with history of pacemaker and defibrillator placed about 12 years ago, anemia, sleep apnea who presents with worsening dyspnea. History is obtained in speaking with the patient, as well as reviewing old records as summarized below. The patient was seen in this facility on 06/03 and diagnosed right upper lobe pneumonia. She was treated with azithromycin. Since that time she states that she is "still ill". By that means she has exhaustion with any exertion as well as significant dyspnea with any exertion. She is coughs, particularly at night when she is supine. She gets short of breath when she lies supine, that worsened over the last few days, to where she is spent a portion of the evening sitting up in a recliner due to dyspnea. She wakes up short of breath, has to sit up to catch her breath. She's noted no lower extremity edema associated with this. She's had no abdominal bloating or distention. She's had a cough which occurs at night, it's nonproductive. Has noticed worse while supine. She 's had some burning lower chest symptoms, similar to reflux symptoms she's had in the past, though it coming more frequently. Her "heartburn" is not necessarily associated with exertion. She has no history of myocardial infarction or angina. Patient has a history of dilated cardiomyopathy, ejection fraction in July of this year was 4045 percent. There is borderline dilated. She states back when she had her defibrillator placed about 12 years ago her ejection fraction was 25%. At that time she was told she had clean coronaries. She is unsure why her heart was not functioning well. She presented for follow-up yesterday at Dr. Messer's office. Radiograph confirmed that there was near complete resolution of her pneumonia. Lab work was drawn and the patient was to call for follow-up. Today she was looking even more poorly and someone at [facility] encouraged to come to the ED. In the emergency department she was found to have new hypoxia, requiring 3 L nasal cannula to maintain saturations. Radiograph today shows evidence of heart failure, BNP is in the 4800 range, when it was in the 2100 range yesterday. Mejias, the patient had fever to 100.2 in the ED, was wheezing. She received nebulizer treatment with some improvement in her symptoms, received furosemide, however still requires oxygen is being admitted for acute exacerbation of chronic systolic heart failure. 06/21 Feels improved this afternoon, has had diuresis with IV furosemide. Still on oxygen, still with dyspnea, though better than admission. No chest pain, no nausea vomiting. 06/22 Did not notice much diuresis after p.m. dose of Lasix yesterday. Creatinine is creeping up. Up and ambulating, off of oxygen this morning. Dyspnea continues slowly improved. Slept much better last night. No chest pain, no nausea, no vomiting. Appetite is good. 06/23-patient doing well. Improved shortness of ongoing diuresis. Restart losartan. Await discussions with cardiology for optimization of treatment. Currently on losartan/Coreg. Hold amlodipine. Repeat echo 25% EF with grade 3 diastolic dysfunction. Increase diuretics to twice daily. Continue telemetry monitoring - Constitutional Vitals: Vital Signs Temp Pulse Resp BP Pulse Ox 99.8 F H 80 18 106/64 95 06/23/18 07:27 06/23/18 07:27 06/23/18 07:27 06/23/18 07:27 06/23/18 07:27 Period Temp Pulse Resp BP Sys/Mcintosh Pulse Ox Last 24 Hr 97.7 F-99.8 F 80-84 16-22 94-106/53-64 88-96 Intake and Output 06/22/18 06/23/18 06/23/18 21:59 05:59 13:59 Intake Total 530 / 530 150 / 150 Output Total 150 / 150 0 / 0 Balance 380 / 380 150 / 150 Weight 280 lb 12.8 oz Intake & Output: Intake & Output 06/22/18 06/23/18 06/23/18 21:59 05:59 13:59 Intake Total 530 / 530 150 / 150 Output Total 150 / 150 0 / 0 Balance 380 / 380 150 / 150 Weight 280 lb 12.8 oz Intake: Oral 530 / 530 150 / 150 Output: Void Amount 150 / 150 0 / 0 Other: Urine Appearance Clear Urine Color Pale General appearance: no acute distress Exam: Alert oriented Nonlabored breathing Feels anxious Lymphedema improved Medical - PN: Obj Da - Labs CBC & Chem 7: 06/21/18 04:30 06/23/18 04:26 Labs: Abnormal Lab Results 06/23/18 06/22/18 06/21/18 04:26 04:00 04:30 Hgb 10.4 L Hct 33.0 L MCH RDW 16.4 H Potassium 5.3 H BUN 35 H 29 H Creatinine 1.3 H 1.4 H Glucose 114 H Calcium 8.2 L NT-Pro-B Natriuret Pep 1403.0 H 06/20/18 06/20/18 06/20/18 17:58 16:56 16:56 Hgb 10.8 L Hct 34.0 L MCH 25.7 L RDW 16.4 H Potassium BUN Creatinine Glucose 139 H Calcium NT-Pro-B Natriuret Pep 4836.0 H Meds: Medications Acetaminophen (Tylenol) 650 mg PO Q6HP PRN PRN Reason: PAIN/FEVER > 101 Last Admin: 06/23/18 11:10 Dose: 650 mg Hydrocodone Bitart/Acetaminophen ([place] 7.5/325mg) 1 tab PO Q4H PRN PRN Reason: pain Al Hydrox/Mg Hydrox/Simethicone (Maalox) 30 ml PO Q6HP PRN PRN Reason: stomach upset Albuterol Sulfate (Ventolin) 2.5 mg NEB Q4HP PRN PRN Reason: Wheezing Alprazolam (Xanax) 1 mg PO DAILYP PRN PRN Reason: Anxiety Artificial Tears (Artificial Tears Ophth Drops) 1 gtt OU BID-QID PRN PRN Reason: Dry Eyes Carvedilol (Coreg) 12.5 mg PO BIDCC [facility] Last Admin: 06/23/18 08:18 Dose: 12.5 mg Dextrose (Dextrose 50%) 0 ml IV UD PRN PRN Reason: Hypoglycemia Diagnostic Test (Pha) (Accu-Chek) 1 each FS ACHS [facility] Last Admin: 06/23/18 08:19 Dose: 1 each Duloxetine HCl (Cymbalta) 60 mg PO DAILY [facility] Last Admin: 06/23/18 08:17 Dose: 60 mg Enoxaparin Sodium (Lovenox) 40 mg SQ DAILY [facility] Last Admin: 06/23/18 08:18 Dose: 40 mg Furosemide (Lasix) 40 mg IV DAILY [facility] Last Admin: 06/23/18 08:18 Dose: 40 mg Gabapentin (Neurontin) 300 mg PO QDAY [facility] Last Admin: 06/23/18 08:29 Dose: 300 mg Glucose (Insta-Glucose) 15 gm PO PRN PRN PRN Reason: Hypoglycemia Guaifenesin (Mucinex) 600 mg PO Q12H PRN PRN Reason: Congestion Hydroxychloroquine Sulfate (Plaquenil) 400 mg PO QDAY [facility] Last Admin: 06/23/18 08:16 Dose: 400 mg Imipramine HCl (Tofranil) 25 mg PO QHS [facility] Last Admin: 06/22/18 20:29 Dose: 25 mg Insulin Glargine (Lantus) 35 unit SQ HS [facility] Last Admin: 06/22/18 20:18 Dose: 35 unit Insulin Human Lispro (Humalog) 0 unit SQ [facility]; Protocol Last Admin: 06/23/18 08:19 Dose: Not Given Losartan Potassium (Cozaar) 100 mg PO DAILY [facility] Magnesium Hydroxide (Milk Of Magnesia) 30 ml PO DAILYP PRN PRN Reason: Constipation Last Admin: 06/22/18 17:51 Dose: 30 ml Melatonin (Melatonin 3mg Tablet) 6 mg PO HSP PRN PRN Reason: Sleep Last Admin: 06/22/18 20:16 Dose: 6 mg Solifenacin Succinate [Vesicare] 10 Mg Tab 10 mg PO QHS [facility] Last Admin: 06/22/18 20:18 Dose: 10 mg Ondansetron HCl (Zofran) 4 mg IV Q4HP PRN PRN Reason: Nausea And Vomiting Potassium Chloride (Kdur) 20 meq PO QAMCC [facility] Last Admin: 06/23/18 10:47 Dose: Not Given Ropinirole HCl (Requip) 1 mg PO QHS [facility] Last Admin: 06/22/18 20:13 Dose: Not Given Ropinirole HCl (Requip) 1 mg PO BID [facility] Last Admin: 06/23/18 08:29 Dose: 1 mg Simvastatin (Zocor) 20 mg PO QPM [facility] Last Admin: 06/22/18 20:11 Dose: 20 mg Sodium Chloride (Saline Flush) 10 ml IV Q8 [facility] Last Admin: 12/04/18 11:01 Dose: 10 ml Tramadol HCl (Ultram) 100 mg PO QHS PRN PRN Reason: Pain Last Admin: 06/22/18 20:15 Dose: 100 mg Trazodone HCl (Desyrel) 100 mg PO QHS [facility] Last Admin: 06/22/18 20:12 Dose: 100 mg Medical - PN: A/P - Time Spent With Patient Total time spent is greater than 50% in coordination of care (as documented) at patient's floor/unit and/or counseling patient: 25 - 35 minutes (1) Heart failure, systolic, with acute decompensation Status: Acute Assessment and plan: 78-year-old female presents with worsening dyspnea for the last 2-1/2 weeks and she is diagnosed with pneumonia on 06/03. Found to have congestive heart failure, also fever and evidence bronchitis. * Acute decompensated heart failure. 25% with global hypokinesis on echo. Start losartan, continue Coreg, hold calcium channel bruce. Await discussion with cardiology Dr. Medrano. continue diuresis. Monitor renal function. * Bronchitis.status post 3 doses of levofloxacin * Type 2 diabetes mellitus.-Continue CCD/basal panel insulin. * Hypercholesterolemia. Stable. * Urinary incontinence, urge incontinence. Seen by Dr. Junior urology, Continue Vesicare. * Prophylaxis enoxaparin * Full code Plan * Start ARB * Continue diuresis * Cardiology consult with Dr. Medrano * Pre-existing medical condition management as above Current Visit: Yes Medical - PN: Qual - VTE Deep Vein Thrombosis/Pulmonary Embolism Present on Admission: No
[2018-06-23] MEDS: LOSARTAN 50 MG TABLET PO SCH (12:14)
[2018-06-23] MEDS ORDERED: DILTIAZEM 25 MG/5 ML VIAL IV ONE ×2 (16:49→17:09)
[2018-06-23] MEDS: DILTIAZEM 30 MG TABLET PO SCH (18:10)
[2018-06-23] MEDS: traMADol 50 MG TABLET PO PRN (19:05)
[2018-06-23] MEDS: Solifenacin Succinate [Vesicare] 10 mg Tab PO SCH (20:36)
[2018-06-23] MEDS: IMIPRAMINE 25 MG TABLET PO SCH (20:37)
[2018-06-23] MEDS: MELATONIN 3 MG TABLET PO PRN (20:38)
[2018-06-23] MEDS: ATORVASTATIN 20 MG TABLET PO SCH (20:38)
[2018-06-23] MEDS: traZODone HCL 100 MG TABLET PO SCH (20:39)
[2018-06-23] MEDS: INSULIN GLARGINE, HUMAN 1 UNIT/0.01 ML SQ SCH (20:42)
[2018-06-24] MEDS: DILTIAZEM 30 MG TABLET PO SCH ×5 (00:05→23:25)
[2018-06-24] MEDS: 0.9 % SODIUM CHLORIDE 10 ML SYRINGE IV SCH ×3 (05:58→21:08)
[2018-06-24] MEDS: INSULIN LISPRO 1 UNIT/0.01 ML UNIT SQ SCH ×4 (07:11→21:15)
[2018-06-24 07:47] LABS: ALT/SGPT 9 U/l (0-40); Albumin 3.9 gm/dL (3.2-5.2); Albumin/Globulin Ratio 1.3 (1.0-2.3); Alkaline Phosphatase 62 U/L (39-117); Blood Urea Nitrogen 50 mg/dl (8-23)
[2018-06-24] MEDS: CARVEDILOL 12.5 MG TABLET PO SCH ×2 (07:59→17:03)
[2018-06-24 08:07] LABS: Basophils # (Auto) 0 K/mcL (0.0-0.3); Basophils % (Auto) 0.4 % (0.0-2.0); Eosinophils # (Auto) 0.2 K/mcL (0.0-0.7); Eosinophils % (Auto) 1.8 % (0.0-7.0); Granulocytes % (Auto) 74.5 % (38.0-78.0); Lymphocytes # (Auto) 1.4 K/mcL (1.5-4.8); Mean Cell Volume 82.8 fL (80.0-100.0); Mean Corpuscular HGB Conc 31.5 g/dL (31.0-36.0); Mean Corpuscular Hemoglobin 26.1 pg (26.0-34.0); Monocytes # (Auto) 0.8 K/mcL (0.1-0.9); Monocytes % (Auto) 8.3 % (1.0-12.0); Platelet Count 311 K/mcL (140-440); RBC 4.07 M/mcL (4.00-5.20); Red Cell Distribution Width 16.6 % (11.5-14.5)
--- NOTE | 2018-06-24 09:13 | XRay Report ---
HISTORY: Shortness of breath FINDINGS: Lung volumes are small. There is moderate elevation right diaphragm causing atelectasis in the basilar segments of the right lower lobe. Heart size is difficult to evaluate but probably within normal limits. There is no pulmonary vascular congestion. Pacemaker remains well-positioned. The pulmonary vessels are less prominent today than they were on 06/20/18. IMPRESSION: Elevated right diaphragm causing compressive atelectasis of the right lower lobe Interpreted and Authenticated by: Terry Hung 06/24/18
[2018-06-24] MEDS ORDERED: DIGOXIN 500 MCG/2 ML AMPUL IV ONE (09:15)
[2018-06-24] MEDS: POTASSIUM CHLORIDE 20 MEQ TABLET PO SCH (09:28)
[2018-06-24] MEDS: FUROSEMIDE 40 MG/4 ML VIAL IV SCH (09:30)
[2018-06-24] MEDS: ENOXAPARIN 40 MG/0.4 ML SYRINGE SQ SCH (10:48)
--- NOTE | 2018-06-24 11:20 | Ultrasound Report ---
History: Acute kidney injury and right renal cyst FINDINGS: Patient was technically difficult to scan due to large body habitus. The right kidney measures 4.3 x 4.8 x 11.0 cm and the left measures 5.8 x 5.9 x 11.4 cm. There may be mild increased echogenicity of the renal cortex. Cortex does not appear to be abnormally thin. There is no evidence of kidney stone or hydronephrosis. An exophytic 3.2 x 2.8 cm cyst is present at the lower pole of the right kidney. Doppler shows flow of urine through both ureters into the bladder. Before voiding the bladder contained 433 cc of urine. After voiding there was complete emptying. Allowing for differences in technique there has been no significant change from the prior CT done on 03/26/18. IMPRESSION: Anatomically normal kidneys with a simple cyst in the lower pole the right kidney Interpreted and Authenticated by: Terry Hung 06/24/18
[2018-06-24] MEDS ORDERED: ALPRAZolam 0.25 MG TABLET PO PRN (11:24)
--- NOTE | 2018-06-24 11:26 | Internal Med Progress Note ---
Medical - PN: Subj Patient information: Note initiated : 06/24/18 at 11:23 am Service Date, if different from initiated Date: [] Patient: Stacie Thomas a 78 y/o F admitted on 06/20/18 for SOB . Chief Complaint: [] Interval history: 06/20 Ms. Thomas is a 78 year old F with a history of type 2 diabetes mellitus and mild dilated cardiomyopathy with history of pacemaker and defibrillator placed about 12 years ago, anemia, sleep apnea who presents with worsening dyspnea. History is obtained in speaking with the patient, as well as reviewing old records as summarized below. The patient was seen in this facility on 06/03 and diagnosed right upper lobe pneumonia. She was treated with azithromycin. Since that time she states that she is "still ill". By that means she has exhaustion with any exertion as well as significant dyspnea with any exertion. She is coughs, particularly at night when she is supine. She gets short of breath when she lies supine, that worsened over the last few days, to where she is spent a portion of the evening sitting up in a recliner due to dyspnea. She wakes up short of breath, has to sit up to catch her breath. She's noted no lower extremity edema associated with this. She's had no abdominal bloating or distention. She's had a cough which occurs at night, it's nonproductive. Has noticed worse while supine. She 's had some burning lower chest symptoms, similar to reflux symptoms she's had in the past, though it coming more frequently. Her "heartburn" is not necessarily associated with exertion. She has no history of myocardial infarction or angina. Patient has a history of dilated cardiomyopathy, ejection fraction in July of this year was 4045 percent. There is borderline dilated. She states back when she had her defibrillator placed about 12 years ago her ejection fraction was 25%. At that time she was told she had clean coronaries. She is unsure why her heart was not functioning well. She presented for follow-up yesterday at Dr. Messer's office. Radiograph confirmed that there was near complete resolution of her pneumonia. Lab work was drawn and the patient was to call for follow-up. Today she was looking even more poorly and someone at [facility] encouraged to come to the ED. In the emergency department she was found to have new hypoxia, requiring 3 L nasal cannula to maintain saturations. Radiograph today shows evidence of heart failure, BNP is in the 4800 range, when it was in the 2100 range yesterday. Mejias, the patient had fever to 100.2 in the ED, was wheezing. She received nebulizer treatment with some improvement in her symptoms, received furosemide, however still requires oxygen is being admitted for acute exacerbation of chronic systolic heart failure. 06/21 Feels improved this afternoon, has had diuresis with IV furosemide. Still on oxygen, still with dyspnea, though better than admission. No chest pain, no nausea vomiting. 06/22 Did not notice much diuresis after p.m. dose of Lasix yesterday. Creatinine is creeping up. Up and ambulating, off of oxygen this morning. Dyspnea continues slowly improved. Slept much better last night. No chest pain, no nausea, no vomiting. Appetite is good. 06/23-patient doing well. Improved shortness of ongoing diuresis. Restart losartan. Await discussions with cardiology for optimization of treatment. Currently on losartan/Coreg. Hold amlodipine. Repeat echo 25% EF with grade 3 diastolic dysfunction. Increase diuretics to twice daily. Continue telemetry monitoring Discussed patient's clinical status with Dr. Martin cardiology. Recommends continuing losartan/Coreg and twice daily diuretics. Recommends holding calcium channel bruce if her blood pressures are adequately controlled. 06/24-patient clinically deteriorating with more somnolence. Stat ABG shows respiratory acidosis with pH 7.29. Patient started on BiPAP. Unclear etiology. Also elevated creatinine to 1.7. Losartan on hold. Nephrology consulted. Await UA/renal ultrasound. Lower dose of Xanax 2.25 from 1 mg, trazodone 50 from 100. Coreg dose increased to 25 mg twice daily along with diltiazem 30 every 6 in light of persistent A. fib with RVR, also loaded on digoxin. On electronic device monitor frequent pacer firing noted and hence will be interrogated as likely to RVR pacer driven. - Constitutional Vitals: Vital Signs Temp Pulse Resp BP Pulse Ox 99.5 F H 128 H 33 H 126/76 99 06/24/18 08:00 06/24/18 10:05 06/24/18 10:05 06/24/18 08:00 06/24/18 10:05 Period Temp Pulse Resp BP Sys/Mcintosh Pulse Ox Last 24 Hr 96.9 F-99.5 F 61-134 16-33 96-127/54-90 90-99 Intake and Output 06/23/18 06/24/18 06/24/18 21:59 05:59 13:59 Intake Total 420 / 420 200 / 200 Output Total 400 / 400 100 / 100 Balance 20 / 20 100 / 100 Weight 276 lb Intake & Output: Intake & Output 06/23/18 06/24/18 06/24/18 21:59 05:59 13:59 Intake Total 420 / 420 200 / 200 Output Total 400 / 400 100 / 100 Balance 20 / 20 100 / 100 Weight 276 lb Intake: Oral 420 / 420 200 / 200 Output: Void Amount 400 / 400 100 / 100 Other: Meal Dinner Percent of Meal Consumed 75% Urine Appearance Clear Urine Color Dark Yellow Urine Odor Strong Medical - PN: Obj Da - Labs CBC & Chem 7: 06/24/18 07:23 06/24/18 06:57 Labs: Abnormal Lab Results 06/24/18 06/24/18 06/23/18 07:23 06:57 04:26 Hgb 10.6 L Hct 33.7 L RDW 16.6 H Lymph % (Auto) 15.0 L Lymph # (Auto) 1.4 L Potassium 5.3 H 5.3 H BUN 50 H 35 H Creatinine 1.7 H 1.3 H Glucose 160 H 114 H Calcium 8.2 L NT-Pro-B Natriuret Pep 1403.0 H 06/22/18 04:00 Hgb Hct RDW Lymph % (Auto) Lymph # (Auto) Potassium BUN 29 H Creatinine 1.4 H Glucose Calcium NT-Pro-B Natriuret Pep Meds: Medications Acetaminophen (Tylenol) 650 mg PO Q6HP PRN PRN Reason: PAIN/FEVER > 101 Last Admin: 06/23/18 11:10 Dose: 650 mg Hydrocodone Bitart/Acetaminophen (Farber 7.5/325mg) 1 tab PO Q4H PRN PRN Reason: pain Al Hydrox/Mg Hydrox/Simethicone (Maalox) 30 ml PO Q6HP PRN PRN Reason: stomach upset Albuterol Sulfate (Ventolin) 2.5 mg NEB Q4HP PRN PRN Reason: Wheezing Alprazolam (Xanax) 1 mg PO DAILYP PRN PRN Reason: Anxiety Last Admin: 06/23/18 20:39 Dose: 1 mg Artificial Tears (Artificial Tears Ophth Drops) 1 gtt OU BID-QID PRN PRN Reason: Dry Eyes Atorvastatin Calcium (Lipitor) 10 mg PO HS [facility] Last Admin: 06/23/18 20:38 Dose: 10 mg Carvedilol (Coreg) 25 mg PO BIDCC [facility] Last Admin: 06/24/18 07:59 Dose: 25 mg Dextrose (Dextrose 50%) 0 ml IV UD PRN PRN Reason: Hypoglycemia Diagnostic Test (Pha) (Accu-Chek) 1 each FS [facility] Last Admin: 06/24/18 07:10 Dose: 1 each Diltiazem HCl (Cardizem) 30 mg PO Q6 [facility] Last Admin: 06/24/18 05:57 Dose: 30 mg Duloxetine HCl (Cymbalta) 60 mg PO DAILY [facility] Last Admin: 06/23/18 08:17 Dose: 60 mg Enoxaparin Sodium (Lovenox) 40 mg SQ DAILY [facility] Last Admin: 06/24/18 10:48 Dose: 40 mg Furosemide (Lasix) 20 mg IV DAILY [facility] Last Admin: 06/24/18 09:30 Dose: 20 mg Gabapentin (Neurontin) 300 mg PO QDAY [facility] Last Admin: 06/23/18 08:29 Dose: 300 mg Glucose (Insta-Glucose) 15 gm PO PRN PRN PRN Reason: Hypoglycemia Guaifenesin (Mucinex) 600 mg PO Q12H PRN PRN Reason: Congestion Hydroxychloroquine Sulfate (Plaquenil) 400 mg PO QDAY [facility] Last Admin: 06/23/18 08:16 Dose: 400 mg Imipramine HCl (Tofranil) 25 mg PO QHS [facility] Last Admin: 06/23/18 20:37 Dose: 25 mg Insulin Glargine (Lantus) 35 unit SQ [facility] Last Admin: 06/23/18 20:42 Dose: 35 unit Insulin Human Lispro (Humalog) 0 unit SQ [facility]; Protocol Last Admin: 06/24/18 07:11 Dose: 2 units Magnesium Hydroxide (Milk Of Magnesia) 30 ml PO DAILYP PRN PRN Reason: Constipation Last Admin: 06/22/18 17:51 Dose: 30 ml Melatonin (Melatonin 3mg Tablet) 6 mg PO HSP PRN PRN Reason: Sleep Last Admin: 06/23/18 20:38 Dose: 6 mg Solifenacin Succinate [Vesicare] 10 Mg Tab 10 mg PO QHS [facility] Last Admin: 06/23/18 20:36 Dose: 10 mg Ondansetron HCl (Zofran) 4 mg IV Q4HP PRN PRN Reason: Nausea And Vomiting Potassium Chloride (Kdur) 20 meq PO QAC [facility] Last Admin: 06/24/18 09:28 Dose: Not Given Ropinirole HCl (Requip) 1 mg PO QHS [facility] Last Admin: 06/23/18 20:43 Dose: Not Given Ropinirole HCl (Requip) 1 mg PO BID [facility] Last Admin: 06/23/18 20:37 Dose: 1 mg Sodium Chloride (Saline Flush) 10 ml IV Q8 [facility] Last Admin: 06/24/18 05:58 Dose: 10 ml Trazodone HCl (Desyrel) 100 mg PO QHS [facility] Last Admin: 06/23/18 20:39 Dose: 100 mg Medical - PN: A/P - Time Spent With Patient Total time spent is greater than 50% in coordination of care (as documented) at patient's floor/unit and/or counseling patient: 25 - 35 minutes (Critical care time) (1) Heart failure, systolic, with acute decompensation Status: Acute Assessment and plan: 78-year-old female presents with worsening dyspnea for the last 2-1/2 weeks and she is diagnosed with pneumonia on 06/03. Found to have congestive heart failure, also fever and evidence bronchitis. * Acute hypercapnic respiratory failure-transferred to ICU's, start noninvasive ventilation. Serial ABGs. ABG 7.29//65 * A. fib with RVR-not responding to CCB/beta-bruce despite increased dose. Start digoxin load 250 mcg. Frequent pacer spikes noted on telemetry. Interrogate as likely RVR is related to pacemaker malfunction * Acute kidney injury- Nephrology consulted. Losartan held. * Acute decompensated heart failure. 25% with global hypokinesis on echo. continue Coreg. Cardiology Dr. Medrano recommends ARB/beta-bruce and diuretics to continue. * Bronchitis.resolved. Status post 3 doses of levofloxacin * Type 2 diabetes mellitus.-Continue CCD/basal panel insulin. * Hypercholesterolemia. Stable. * Urinary incontinence, urge incontinence. Seen by Dr. Junior urology, Continue Vesicare. * Prophylaxis enoxaparin * Full code Plan * Transferred to ICU * Noninvasive ventilation * Cardiology consult * Chest x-ray/Serial ABG * Digoxin load * Pacemaker interrogation * Nephrology consult * UA/renal ultrasound, hold losartan * Lower diuretic dose * Pre-existing medical condition management as above Current Visit: Yes Medical - PN: Qual - VTE Deep Vein Thrombosis/Pulmonary Embolism Present on Admission: No
[2018-06-24] MEDS ORDERED: 0.9 % SODIUM CHLORIDE 250 ML IV ONE (12:26)
[2018-06-24 13:38] LABS: Appearance,Urine CLEAR; Bacteria,Urine MANY /hpf (0); Bilirubin,Urine NEG (NEG); Color,Urine YELLOW; Glucose,Urine (UA) NEGATIVE (NEG); Leukocyte Esterase,Urine NEG /uL (NEG); Mucus,Urine FEW /hpf (0); Protein,Urine NEG (NEG); Specific Gravity,Urine 1.018 (1.000-1.035); Urine Blood NEG mg/dL (<0.03); Urine Hyaline Cast 10 /lpf (0-2); Urine RBC < 1 /hpf (0-1); Urine Squamous Epithelial Cell < 1 /hpf (0-4); Urine WBC 2 /hpf (0-4); Urobilinogen,Urine NEG (NEG)
[2018-06-24] MEDS: rOPINIRole 1 MG TABLET PO SCH ×2 (13:48→20:58)
[2018-06-24] MEDS: HYDROXYCHLOROQUINE 200 MG TABLET PO SCH (13:48)
[2018-06-24] MEDS: DULoxetine 30 MG CAPSULE PO SCH (13:49)
[2018-06-24] MEDS: GABAPENTIN 300 MG CAPSULE PO SCH (13:49)
[2018-06-24 13:57] LABS: Creatinine,Urine Random 160.3 mg/dl
[2018-06-24] MEDS: LOSARTAN 50 MG TABLET PO SCH (14:46)
--- NOTE | 2018-06-24 17:08 | Nephrology Consult Note ---
History of Present Illness - Reason for Consult Patient information: Note initiated : 06/24/18 at 5:00 pm Service Date, if different from initiated Date: [] Patient: Stacie Thomas 78 y/o F admitted on 06/20/18 for SOB . Chief Complaint: [] Consult date: 06/24/18 acute renal failure Requesting physician: Tadeo Freedman - Chief Complaint SOB - History of Present Illness Patient is a 78 y/o white female with multiple medical issues who presented to the ER over the weekend for SOB, she was diagnosed with CHF/bronchitis and is been treated with IV diuretics/antibiotics and bronchodilators Patient is noted to have worsening renal function and hence nephrology is consulted Patient is a little drowsy today and did not give me a clear history so information obtained partly from her and partly from review of medical records She has h/o PNA which was treated with azithromycin last mth, she states she however did not recover completely and continued to have some SOB, she presented to ER because of worsening of her symptoms. In ER patient noted to have fever, wheezing, elevated pro bnp and CXR with vascular congestion and hence she was been treated for CHF and possible bronchitis. Echo shows worsening EF, IVC could not be seen. She is more drowsy today, has persistent tachycardia, respiratory acidosis Patient is noted to have s.creatinine os 1.2-1.5-1.7 and hence nephrology consulted she denies LE edema no GI symptoms no other details obtained Review of Systems All systems PM: reviewed and no additional remarkable complaints except as stated (as in HPI) Past History Past medical history: HTN DM type 2 dyslipidemia cardiomyopathy, EF of 25% on most recent echo, s/p pacemaker placement dyslipidemia obesity ALFRED parkinson's disease but currently no on meds depression/anxiety disorder restless leg syndrome Past surgical history: History of toe surgery Chronic History of foot surgery Chronic History of shoulder surgery Chronic ~1982 History of cholecystectomy Chronic ~1977 History of orthopedic surgery Chronic ~2003 History of knee replacement Chronic ~2004 History of laparotomy Chronic ~1975 History of tonsillectomy and adenoidectomy Chronic ~1944 History of total abdominal hysterectomy Chronic ~1983 History of permanent cardiac pacemaker placement Chronic Cardiac defibrillator in place Past family history: Breast cancer Cancer Diabetes Hypertension Stroke Heart problem Unknown Emphysema, unspecified Unknown Past social history: , lives in assisted living facility denies any addictions Medications and Allergies Home Medications Medication Instructions Recorded Confirmed Type duloxetine 60 mg capsule,delayed 60 mg PO QDAY #90 cap 04/15/17 06/20/18 Rx release liraglutide 0.6 mg/0.1 mL (18 mg/3 1.8 mg SUB-Q QDAY #6 ml 04/15/17 06/20/18 Rx mL) subcutaneous pen injector amlodipine 5 mg tablet 5 mg PO QDAY #90 tab 04/17/17 06/20/18 Rx gabapentin 300 mg capsule 300 mg PO QDAY #90 cap 04/22/17 06/20/18 Rx ropinirole 1 mg tablet 1 mg PO BID #60 tab 04/22/17 06/20/18 Rx metformin 1,000 mg tablet 1,000 mg PO BID #180 tab 04/23/17 06/20/18 Rx potassium chloride ER 20 mEq 20 meq PO QDAY #90 tab 04/28/17 06/20/18 Rx tablet,extended release hydroxychloroquine 200 mg tablet 400 mg PO QDAY #180 tab 06/16/17 06/20/18 Rx aluminum-mag hydroxide-simethicone 30 ml PO Q6HP PRN ml 07/02/17 06/21/18 History 200 mg-200 mg-20 mg/5 mL oral susp bisacodyl 10 mg rectal suppository 10 mg NE QDAY PRN 07/02/17 06/21/18 History emollient combination no.93 1 applic TOPICAL DAILYP PRN 07/02/17 06/20/18 History topical cream hydrocodone 7.5 mg-acetaminophen 1 tab PO Q4H PRN tab 07/02/17 06/20/18 History 325 mg tablet magnesium hydroxide 400 mg/5 mL 400 mg PO DAILYP PRN 07/02/17 06/20/18 History oral suspension nystatin 100,000 unit/gram topical 1 applic TOPICAL BID PRN 07/02/17 06/20/18 History powder polyvinyl alcohol 1.4 % eye drops 1 drp OPHTHALMIC BID-QID PRN 07/02/17 History simvastatin 20 mg tablet 20 mg PO QPM 07/02/17 06/20/18 History polyethylene glycol 3350 17 gram 17 g PO QDAY #100 each 09/08/17 06/20/18 Rx oral powder packet acetaminophen 500 mg tablet 1,000 mg PO Q6H PRN 09/17/17 06/20/18 History carvedilol 25 mg tablet 12.5 mg PO BID #180 tab 09/17/17 06/20/18 Rx sennosides 8.6 mg tablet 8.6 mg PO QDAY PRN 09/17/17 06/20/18 History losartan 100 mg tablet 100 mg PO QDAY #90 tab 03/11/18 06/20/18 Rx mupirocin 2 % topical ointment 1 applic TOPICAL BID #30 g 05/04/18 06/20/18 Rx guaifenesin ER 600 mg tablet, 600 mg PO Q12H PRN 06/19/18 06/20/18 History extended release 12 hr trolamine salicylate 10 % lotion 1 applic TOPICAL QDAY PRN 06/19/18 06/20/18 History Cranberry Conc/C/Bacill Coag 1 each PO BID 06/20/18 06/20/18 History [Cranberry Tablet] Estradiol [Estrace] 0.5 g VAGINAL Q48H 06/20/18 06/20/18 History Furosemide [Lasix] 40 mg PO QDAY 06/20/18 06/20/18 History Imipramine HCl [Tofranil] 25 mg PO QHS 06/20/18 06/20/18 History Insulin Aspart [Novolog Flexpen] 2 unit SQ DAILYP PRN 06/20/18 06/20/18 History Insulin Aspart [Novolog Flexpen] 100 unit SQ ACHS 06/20/18 06/20/18 History Insulin Glargine,Hum.rec.anlog 35 unit SQ QHS 06/20/18 06/20/18 History [Lantus Solostar] Melatonin 5 mg PO QHS PRN 06/20/18 06/20/18 History Solifenacin Succinate [Vesicare] 10 mg PO QHS 06/20/18 06/20/18 History guaiFENesin/DEXTROMETHORPHAN 10 ml PO Q6HP PRN 06/20/18 06/20/18 History [Robafen Dm Cgh-Chest Jaya Liq] rOPINIRole HCL [Requip] 1 mg PO QHS 06/20/18 06/20/18 History traMADol HCL [Ultram] 100 mg PO QHS PRN 06/20/18 06/20/18 History traZODone HCL [Trazodone HCl] 100 mg PO QHS 06/20/18 06/20/18 History Allergies Allergy/AdvReac Type Severity Reaction Status Date / Time kiwi Allergy Severe Throat Verified 06/21/18 07:10 swells shut meperidine [From Demerol] AdvReac Mild Vomiting Verified 06/21/18 07:10 Exam - Vital Signs Vital signs: Temp Pulse Resp BP Pulse Ox 99.5 F H 128 H 33 H 126/76 99 06/24/18 08:00 06/24/18 10:05 06/24/18 10:05 06/24/18 08:00 06/24/18 10:05 - General Appearance General appearance: appears started age, obese EENT: mucous membranes moist Neck: no JVD Respiratory: clear Cardiology: no rub, no edema, rapid rhythm Gastrointestinal: no tenderness Integumentary: warm and dry Neurologic: alert and oriented x3 (but a little drowsy, did get ativan last night ) Musculoskeletal: no erythema, no cyanosis Psychiatric: mood/affect appropriate Results - Lab Results 06/24/18 07:23 06/24/18 06:57 Most recent lab results Calcium 9.2 mg/dl (8.6-10.4) 06/24/18 06:57 Magnesium 1.8 mg/dL (1.6-2.5) 06/21/18 04:30 Assessment and Plan (1) Acute renal failure Status: Acute (2) CHF (congestive heart failure) Status: Acute Qualifiers: Heart failure type: unspecified Heart failure chronicity: acute on chronic Qualified Code(s): I50.9 - Heart failure, unspecified (3) Anemia Status: Acute - Narrative A/P Narrative: s.creatinine trend of 1.2-1.5-1.7 non oliguric UA with hyaline casts Fena is 0.3% renal US unremarkable pre renal vs cardiorenal renal however no pulmonary edema on CXR, pro bnp at 1000 trending down and no s/o fluid excess on clinic exam given this consider pre renal state, however her ef if 25% plan: agree with holding losartan gentle IV hydration as tolerated given poor cardiac reserve, normal saline 250cc plus oral hydration hold furosemide will follow labs, Hb trend, if drops will obtain work up please monitor I/O, daily weight avoid nephrotoxic meds dose meds to egfr will follow along. Thank you for giving me an opportunity to participate in Ms Thomas's medical care, appreciate it
[2018-06-24] MEDS: ATORVASTATIN 20 MG TABLET PO SCH (20:57)
[2018-06-24] MEDS: traZODone HCL 50 MG TABLET PO SCH (20:57)
[2018-06-24] MEDS: IMIPRAMINE 25 MG TABLET PO SCH (20:58)
[2018-06-24] MEDS: INSULIN GLARGINE, HUMAN 1 UNIT/0.01 ML SQ SCH (21:14)
[2018-06-24] MEDS: Solifenacin Succinate [Vesicare] 10 mg Tab PO SCH (23:27)
[2018-06-25] MEDS: rOPINIRole 1 MG TABLET PO SCH ×4 (02:56→20:50)
[2018-06-25] MEDS: DILTIAZEM 30 MG TABLET PO SCH (05:48)
[2018-06-25] MEDS: 0.9 % SODIUM CHLORIDE 10 ML SYRINGE IV SCH ×3 (05:48→20:52)
[2018-06-25 06:30] LABS: ALT/SGPT 12 U/l (0-40); Albumin 3.1 gm/dL (3.2-5.2); Alkaline Phosphatase 59 U/L (39-117); Blood Urea Nitrogen 50 mg/dl (8-23)
[2018-06-25 06:40] LABS: Basophils # (Auto) 0 K/mcL (0.0-0.3); Basophils % (Auto) 0.3 % (0.0-2.0); Eosinophils # (Auto) 0.2 K/mcL (0.0-0.7); Eosinophils % (Auto) 2.3 % (0.0-7.0); Granulocytes % (Auto) 68.4 % (38.0-78.0); Lymphocytes # (Auto) 1.6 K/mcL (1.5-4.8); Lymphocytes % (Auto) 21.1 % (15.5-49.0); Mean Cell Volume 83.2 fL (80.0-100.0); Mean Corpuscular HGB Conc 31.1 g/dL (31.0-36.0); Mean Corpuscular Hemoglobin 25.9 pg (26.0-34.0); Monocytes # (Auto) 0.6 K/mcL (0.1-0.9); Monocytes % (Auto) 7.9 % (1.0-12.0); Platelet Count 196 K/mcL (140-440); RBC 3.96 M/mcL (4.00-5.20); Red Cell Distribution Width 16.2 % (11.5-14.5)
[2018-06-25] MEDS: INSULIN LISPRO 1 UNIT/0.01 ML UNIT SQ SCH ×4 (07:32→20:51)
[2018-06-25] MEDS: FUROSEMIDE 40 MG/4 ML VIAL IV SCH (09:44)
[2018-06-25] MEDS: GABAPENTIN 300 MG CAPSULE PO SCH (09:56)
[2018-06-25] MEDS: HYDROXYCHLOROQUINE 200 MG TABLET PO SCH (09:56)
[2018-06-25] MEDS: DULoxetine 30 MG CAPSULE PO SCH (09:56)
[2018-06-25] MEDS: ENOXAPARIN 40 MG/0.4 ML SYRINGE SQ SCH (09:56)
[2018-06-25] MEDS: POTASSIUM CHLORIDE 20 MEQ TABLET PO SCH (09:56)
[2018-06-25] MEDS: CARVEDILOL 12.5 MG TABLET PO SCH ×2 (09:56→17:23)
[2018-06-25] MEDS ORDERED: AMIODARONE 150 MG in DEXTROSE 5% IN WATER 50 ML IV ONE (10:00)
[2018-06-25] MEDS ORDERED: AMIODARONE 360 MG in PREMIX 1 BAG IV SCH ×2 (10:00→11:00)
--- NOTE | 2018-06-25 12:45 | Internal Med Progress Note ---
Medical - PN: Subj Patient information: Note initiated : 06/25/18 at 12:39 pm Service Date, if different from initiated Date: [] Patient: Stacie Thomas a 78 y/o F admitted on 06/20/18 for SOB . Chief Complaint: [] Interval history: 06/20 Ms. Thomas is a 78 year old F with a history of type 2 diabetes mellitus and mild dilated cardiomyopathy with history of pacemaker and defibrillator placed about 12 years ago, anemia, sleep apnea who presents with worsening dyspnea. History is obtained in speaking with the patient, as well as reviewing old records as summarized below. The patient was seen in this facility on 06/03 and diagnosed right upper lobe pneumonia. She was treated with azithromycin. Since that time she states that she is "still ill". By that means she has exhaustion with any exertion as well as significant dyspnea with any exertion. She is coughs, particularly at night when she is supine. She gets short of breath when she lies supine, that worsened over the last few days, to where she is spent a portion of the evening sitting up in a recliner due to dyspnea. She wakes up short of breath, has to sit up to catch her breath. She's noted no lower extremity edema associated with this. She's had no abdominal bloating or distention. She's had a cough which occurs at night, it's nonproductive. Has noticed worse while supine. She 's had some burning lower chest symptoms, similar to reflux symptoms she's had in the past, though it coming more frequently. Her "heartburn" is not necessarily associated with exertion. She has no history of myocardial infarction or angina. Patient has a history of dilated cardiomyopathy, ejection fraction in July of this year was 4045 percent. There is borderline dilated. She states back when she had her defibrillator placed about 12 years ago her ejection fraction was 25%. At that time she was told she had clean coronaries. She is unsure why her heart was not functioning well. She presented for follow-up yesterday at Dr. Messer's office. Radiograph confirmed that there was near complete resolution of her pneumonia. Lab work was drawn and the patient was to call for follow-up. Today she was looking even more poorly and someone at [facility] encouraged to come to the ED. In the emergency department she was found to have new hypoxia, requiring 3 L nasal cannula to maintain saturations. Radiograph today shows evidence of heart failure, BNP is in the 4800 range, when it was in the 2100 range yesterday. Mejias, the patient had fever to 100.2 in the ED, was wheezing. She received nebulizer treatment with some improvement in her symptoms, received furosemide, however still requires oxygen is being admitted for acute exacerbation of chronic systolic heart failure. 06/21 Feels improved this afternoon, has had diuresis with IV furosemide. Still on oxygen, still with dyspnea, though better than admission. No chest pain, no nausea vomiting. 06/22 Did not notice much diuresis after p.m. dose of Lasix yesterday. Creatinine is creeping up. Up and ambulating, off of oxygen this morning. Dyspnea continues slowly improved. Slept much better last night. No chest pain, no nausea, no vomiting. Appetite is good. 06/23-patient doing well. Improved shortness of ongoing diuresis. Restart losartan. Await discussions with cardiology for optimization of treatment. Currently on losartan/Coreg. Hold amlodipine. Repeat echo 25% EF with grade 3 diastolic dysfunction. Increase diuretics to twice daily. Continue telemetry monitoring Discussed patient's clinical status with Dr. Martin cardiology. Recommends continuing losartan/Coreg and twice daily diuretics. Recommends holding calcium channel bruce if her blood pressures are adequately controlled. 06/24-patient clinically deteriorating with more somnolence. Stat ABG shows respiratory acidosis with pH 7.29. Patient started on BiPAP. Unclear etiology. Also elevated creatinine to 1.7. Losartan on hold. Nephrology consulted. Await UA/renal ultrasound. Lower dose of Xanax 2.25 from 1 mg, trazodone 50 from 100. Coreg dose increased to 25 mg twice daily along with diltiazem 30 every 6 in light of persistent A. fib with RVR, also loaded on digoxin. On residential monitor frequent pacer firing noted and hence will be interrogated as likely to RVR pacer driven. 06/25-persistent A. fib with RVR despite beta-bruce/calcium bruce and digoxin. Amiodarone load. Pacemaker interrogated, working on previous settings. Improved mentation and now off BiPAP. Improving renal function. Diuretics on hold. Discontinue diltiazem. Case discussed with patient's daughter on phone yesterday and updated on clinical status. No significant shortness of breath. Renal ultrasound unremarkable except for renal cyst. Diuretic and losartan on hold. - Constitutional Vitals: Vital Signs Temp Pulse Resp BP Pulse Ox 98.0 F 118 H 21 113/66 97 06/25/18 12:01 06/25/18 08:00 06/25/18 12:01 06/25/18 12:01 06/25/18 12:01 Period Temp Pulse Resp BP Sys/Mcintosh Pulse Ox Last 24 Hr 97.3 F-98.4 F 49-133 16-22 69-167/46-146 88-100 Intake and Output 06/24/18 06/25/18 06/25/18 21:59 05:59 13:59 Intake Total 630 / 630 340 / 340 473 / 473 Output Total 700 / 700 375 / 375 Balance -70 / -70 -35 / -35 473 / 473 Intake & Output: Intake & Output 06/24/18 06/25/18 06/25/18 21:59 05:59 13:59 Intake Total 630 / 630 340 / 340 473 / 473 Output Total 700 / 700 375 / 375 Balance -70 / -70 -35 / -35 473 / 473 Intake: IV 250 / 250 53 / 53 Cordarone 150 mg In Dextrose 5% 53 / 53 in Water 50 ml @ 300 mls/hr IV ONCE ONE Rx#:[id number] Oral 380 / 380 340 / 340 420 / 420 Output: Urine Catheter Amount 700 / 700 375 / 375 Other: Meal Lunch Breakfast Percent of Meal Consumed 25% 100% Feeding Ability Assist with Tray Set Up Assist with Tray Set Up Urine Appearance Clear Clear Uretheral (Lozano) Clear Clear Urine Color Light [place] Dark Yellow Uretheral (Lozano) Light [place] Dark Yellow Urine Odor Strong Uretheral (Lozano) Strong General appearance: morbidly obese, no acute distress Exam: Alert and responding to verbal commands off BiPAP this morning Nonlabored breathing No lymphedema Telemetry persistent A. fib with intermittent paced rhythm around 120 Medical - PN: Obj Da - Labs CBC & Chem 7: 06/25/18 04:04 06/25/18 04:04 Labs: Abnormal Lab Results 06/25/18 06/25/18 06/24/18 04:04 04:04 13:02 RBC 3.96 L Hgb 10.3 L Hct 33.0 L MCH 25.9 L RDW 16.2 H Lymph % (Auto) Lymph # (Auto) Potassium 5.3 H BUN 50 H Creatinine 1.3 H Glucose 122 H Calcium NT-Pro-B Natriuret Pep Albumin 3.1 L Urine Bacteria Many A Hyaline Casts 10 H 06/24/18 06/24/18 06/23/18 07:23 06:57 04:26 RBC Hgb 10.6 L Hct 33.7 L MCH RDW 16.6 H Lymph % (Auto) 15.0 L Lymph # (Auto) 1.4 L Potassium 5.3 H 5.3 H BUN 50 H 35 H Creatinine 1.7 H 1.3 H Glucose 160 H 114 H Calcium 8.2 L NT-Pro-B Natriuret Pep 1403.0 H Albumin Urine Bacteria Hyaline Casts Meds: Medications Acetaminophen (Tylenol) 650 mg PO Q6HP PRN PRN Reason: PAIN/FEVER > 101 Last Admin: 06/23/18 11:10 Dose: 650 mg Hydrocodone Bitart/Acetaminophen ([place] 7.5/325mg) 1 tab PO Q4H PRN PRN Reason: pain Last Admin: 06/24/18 20:57 Dose: 1 tab Al Hydrox/Mg Hydrox/Simethicone (Maalox) 30 ml PO Q6HP PRN PRN Reason: stomach upset Albuterol Sulfate (Ventolin) 2.5 mg NEB Q4HP PRN PRN Reason: Wheezing Alprazolam (Xanax) 0.25 mg PO DAILYP PRN PRN Reason: Anxiety Artificial Tears (Artificial Tears Ophth Drops) 1 gtt OU BID-QID PRN PRN Reason: Dry Eyes Atorvastatin Calcium (Lipitor) 10 mg PO HS [facility] Last Admin: 06/24/18 20:57 Dose: 10 mg Carvedilol (Coreg) 25 mg PO BIDCC [facility] Last Admin: 06/25/18 09:56 Dose: 25 mg Dextrose (Dextrose 50%) 0 ml IV UD PRN PRN Reason: Hypoglycemia Diagnostic Test (Pha) (Accu-Chek) 1 each FS ACHS [facility] Last Admin: 06/25/18 11:15 Dose: 1 each Duloxetine HCl (Cymbalta) 60 mg PO DAILY [facility] Last Admin: 06/25/18 09:56 Dose: 60 mg Enoxaparin Sodium (Lovenox) 40 mg SQ DAILY [facility] Last Admin: 06/25/18 09:56 Dose: 40 mg Gabapentin (Neurontin) 300 mg PO QDAY [facility] Last Admin: 06/25/18 09:56 Dose: 300 mg Glucose (Insta-Glucose) 15 gm PO PRN PRN PRN Reason: Hypoglycemia Guaifenesin (Mucinex) 600 mg PO Q12H PRN PRN Reason: Congestion Hydroxychloroquine Sulfate (Plaquenil) 400 mg PO QDAY [facility] Last Admin: 06/25/18 09:56 Dose: 400 mg AMIODARONE 360 mg/ Premix 200 mls @ 33.33 mls/hr IV .Q6H1M [facility]; Protocol Stop: 06/25/18 17:00 Last Admin: 06/25/18 11:03 Dose: 1 mg/min, 33.33 mls/hr AMIODARONE 360 mg/ Premix 200 mls @ 16.66 mls/hr IV .Q12H1M [facility]; Protocol Stop: 06/26/18 10:59 Imipramine HCl (Tofranil) 25 mg PO QHS [facility] Last Admin: 06/24/18 20:58 Dose: 25 mg Insulin Glargine (Lantus) 35 unit SQ HS [facility] Last Admin: 06/24/18 21:14 Dose: 35 unit Insulin Human Lispro (Humalog) 0 unit SQ [facility]; Protocol Last Admin: 06/25/18 11:17 Dose: 4 units Magnesium Hydroxide (Milk Of Magnesia) 30 ml PO DAILYP PRN PRN Reason: Constipation Last Admin: 06/22/18 17:51 Dose: 30 ml Melatonin (Melatonin 3mg Tablet) 6 mg PO HSP PRN PRN Reason: Sleep Last Admin: 06/23/18 20:38 Dose: 6 mg Solifenacin Succinate [[facility]icare] 10 Mg Tab [facility] Last Admin: 06/24/18 23:27 Dose: 10 mg Ondansetron HCl (Zofran) 4 mg IV Q4HP PRN PRN Reason: Nausea And Vomiting Potassium Chloride (Kdur) 20 meq PO QAC [facility] Last Admin: 06/25/18 09:56 Dose: 20 meq Ropinirole HCl (Requip) 1 mg PO QHS [facility] Last Admin: 06/25/18 02:56 Dose: Not Given Ropinirole HCl (Requip) 1 mg PO BID [facility] Last Admin: 06/25/18 09:56 Dose: 1 mg Sodium Chloride (Saline Flush) 10 ml IV Q8 [facility] Last Admin: 06/25/18 12:27 Dose: 10 ml Trazodone HCl (Desyrel) 50 mg PO HS [facility] Last Admin: 06/24/18 20:57 Dose: 50 mg Medical - PN: A/P - Time Spent With Patient Total time spent is greater than 50% in coordination of care (as documented) at patient's floor/unit and/or counseling patient: 25 - 35 minutes (1) Heart failure, systolic, with acute decompensation Status: Acute Assessment and plan: 78-year-old female presents with worsening dyspnea for the last 2-1/2 weeks and she is diagnosed with pneumonia on 06/03. Found to have congestive heart failure, also fever and evidence bronchitis. * Acute hypercapnic respiratory failure-clinical improvement noted on noninvasive ventilation. Currently on nasal cannula oxygen. * A. fib with RVR-not responding to CCB/beta-bruce despite increased dose/ digoxin. Started on amiodarone as per cardiology recommendations. He now is cardiology consultation could not be performed as cardiology out of town. Recommendations obtained on phone * Acute kidney injury- Nephrology consulted. Losartan and diuretic held. Creatinine down to 1.3 from 1.7 * Acute decompensated heart failure. 25% with global hypokinesis on echo. continue Coreg. Cardiology Dr. Martin recommends ARB/beta-bruce and diuretics to continue. Will restart once steady state achieved prior to discharge. * Bronchitis- resolved. Status post 3 doses of levofloxacin * Type 2 diabetes mellitus.-Continue CCD/basal panel insulin. * Hypercholesterolemia. Stable. * Urinary incontinence, urge incontinence. Seen by Dr. Junior urology, Continue Vesicare. * Prophylaxis enoxaparin * Full code Plan * Continue monitoring * As needed noninvasive ventilation * Amiodarone load * Pre-existing medical condition management as above Current Visit: Yes Medical - PN: Qual - VTE Deep Vein Thrombosis/Pulmonary Embolism Present on Admission: No
[2018-06-25] MEDS: MAGNESIUM HYDROXIDE 30 ML ORAL.SUSP PO PRN (15:19)
[2018-06-25] MEDS: AMIODARONE 360 MG in PREMIX 1 BAG IV SCH (17:17)
[2018-06-25] MEDS: ATORVASTATIN 20 MG TABLET PO SCH (20:50)
[2018-06-25] MEDS: traZODone HCL 50 MG TABLET PO SCH (20:50)
[2018-06-25] MEDS: IMIPRAMINE 25 MG TABLET PO SCH (20:51)
[2018-06-25] MEDS: INSULIN GLARGINE, HUMAN 1 UNIT/0.01 ML SQ SCH (20:51)
[2018-06-25] MEDS: Solifenacin Succinate [Vesicare] 10 mg Tab PO SCH (20:53)
[2018-06-26] MEDS: AMIODARONE 360 MG in PREMIX 1 BAG IV SCH (05:14)
[2018-06-26] MEDS ORDERED: PREMIX 1 BAG IV ONE (05:19)
[2018-06-26] MEDS: 0.9 % SODIUM CHLORIDE 10 ML SYRINGE IV SCH ×3 (05:19→20:37)
[2018-06-26] MEDS: CARVEDILOL 12.5 MG TABLET PO SCH ×2 (07:32→17:45)
[2018-06-26] MEDS: POTASSIUM CHLORIDE 20 MEQ TABLET PO SCH (07:33)
[2018-06-26] MEDS: INSULIN LISPRO 1 UNIT/0.01 ML UNIT SQ SCH ×4 (08:31→20:49)
[2018-06-26] MEDS: HYDROXYCHLOROQUINE 200 MG TABLET PO SCH (08:35)
[2018-06-26] MEDS: ENOXAPARIN 40 MG/0.4 ML SYRINGE SQ SCH (08:35)
[2018-06-26] MEDS: DULoxetine 30 MG CAPSULE PO SCH (08:35)
[2018-06-26] MEDS: rOPINIRole 1 MG TABLET PO SCH ×2 (08:35→20:37)
[2018-06-26] MEDS: GABAPENTIN 300 MG CAPSULE PO SCH (08:36)
[2018-06-26 09:17] LABS: Basophils # (Auto) 0.1 K/mcL (0.0-0.3); Basophils % (Auto) 0.7 % (0.0-2.0); Eosinophils # (Auto) 0.2 K/mcL (0.0-0.7); Eosinophils % (Auto) 1.9 % (0.0-7.0); Granulocytes % (Auto) 69.7 % (38.0-78.0); Lymphocytes # (Auto) 1.8 K/mcL (1.5-4.8); Lymphocytes % (Auto) 18.6 % (15.5-49.0); Mean Cell Volume 82.5 fL (80.0-100.0); Mean Corpuscular HGB Conc 31.5 g/dL (31.0-36.0); Monocytes # (Auto) 0.9 K/mcL (0.1-0.9); Monocytes % (Auto) 9.1 % (1.0-12.0); Platelet Count 286 K/mcL (140-440); RBC 4.28 M/mcL (4.00-5.20); Red Cell Distribution Width 16.1 % (11.5-14.5)
[2018-06-26 09:35] LABS: ALT/SGPT 22 U/l (0-40); Albumin 3.8 gm/dL (3.2-5.2); Albumin/Globulin Ratio 1.4 (1.0-2.3); Alkaline Phosphatase 70 U/L (39-117); Blood Urea Nitrogen 54 mg/dl (8-23)
--- NOTE | 2018-06-26 12:40 | Internal Med Progress Note ---
Medical - PN: Subj Patient information: Note initiated : 06/26/18 at 12:25 pm Service Date, if different from initiated Date: [] Patient: Stacie Thomas a 78 y/o F admitted on 06/20/18 for SOB . Chief Complaint: [] Interval history: 06/20 Ms. Thomas is a 78 year old F with a history of type 2 diabetes mellitus and mild dilated cardiomyopathy with history of pacemaker and defibrillator placed about 12 years ago, anemia, sleep apnea who presents with worsening dyspnea. History is obtained in speaking with the patient, as well as reviewing old records as summarized below. The patient was seen in this facility on 06/03 and diagnosed right upper lobe pneumonia. She was treated with azithromycin. Since that time she states that she is "still ill". By that means she has exhaustion with any exertion as well as significant dyspnea with any exertion. She is coughs, particularly at night when she is supine. She gets short of breath when she lies supine, that worsened over the last few days, to where she is spent a portion of the evening sitting up in a recliner due to dyspnea. She wakes up short of breath, has to sit up to catch her breath. She's noted no lower extremity edema associated with this. She's had no abdominal bloating or distention. She's had a cough which occurs at night, it's nonproductive. Has noticed worse while supine. She 's had some burning lower chest symptoms, similar to reflux symptoms she's had in the past, though it coming more frequently. Her "heartburn" is not necessarily associated with exertion. She has no history of myocardial infarction or angina. Patient has a history of dilated cardiomyopathy, ejection fraction in July of this year was 4045 percent. There is borderline dilated. She states back when she had her defibrillator placed about 12 years ago her ejection fraction was 25%. At that time she was told she had clean coronaries. She is unsure why her heart was not functioning well. She presented for follow-up yesterday at Dr. Messer's office. Radiograph confirmed that there was near complete resolution of her pneumonia. Lab work was drawn and the patient was to call for follow-up. Today she was looking even more poorly and someone at [facility] encouraged to come to the ED. In the emergency department she was found to have new hypoxia, requiring 3 L nasal cannula to maintain saturations. Radiograph today shows evidence of heart failure, BNP is in the 4800 range, when it was in the 2100 range yesterday. Mejias, the patient had fever to 100.2 in the ED, was wheezing. She received nebulizer treatment with some improvement in her symptoms, received furosemide, however still requires oxygen is being admitted for acute exacerbation of chronic systolic heart failure. 06/21 Feels improved this afternoon, has had diuresis with IV furosemide. Still on oxygen, still with dyspnea, though better than admission. No chest pain, no nausea vomiting. 06/22 Did not notice much diuresis after p.m. dose of Lasix yesterday. Creatinine is creeping up. Up and ambulating, off of oxygen this morning. Dyspnea continues slowly improved. Slept much better last night. No chest pain, no nausea, no vomiting. Appetite is good. 06/23-patient doing well. Improved shortness of ongoing diuresis. Restart losartan. Await discussions with cardiology for optimization of treatment. Currently on losartan/Coreg. Hold amlodipine. Repeat echo 25% EF with grade 3 diastolic dysfunction. Increase diuretics to twice daily. Continue telemetry monitoring Discussed patient's clinical status with Dr. Martin cardiology. Recommends continuing losartan/Coreg and twice daily diuretics. Recommends holding calcium channel bruce if her blood pressures are adequately controlled. 06/24-patient clinically deteriorating with more somnolence. Stat ABG shows respiratory acidosis with pH 7.29. Patient started on BiPAP. Unclear etiology. Also elevated creatinine to 1.7. Losartan on hold. Nephrology consulted. Await UA/renal ultrasound. Lower dose of Xanax 2.25 from 1 mg, trazodone 50 from 100. Coreg dose increased to 25 mg twice daily along with diltiazem 30 every 6 in light of persistent A. fib with RVR, also loaded on digoxin. On distribution spec frequent pacer firing noted and hence will be interrogated as likely to RVR pacer driven. 06/25-persistent A. fib with RVR despite beta-bruce/calcium bruce and digoxin. Amiodarone load. Pacemaker interrogated, working on previous settings. Improved mentation and now off BiPAP. Improving renal function. Diuretics on hold. Discontinue diltiazem. Case discussed with patient's daughter on phone yesterday and updated on clinical status. No significant shortness of breath. Renal ultrasound unremarkable except for renal cyst. Diuretic and losartan on hold. Nephrology on board 06/26-patient doing well. Present downtrending. Potassium 4.9. Off noninvasive ventilation. Heart rate around 100 on amiodarone. No overnight fever chills or concerns per staff. Able to get out of bed and ambulating without symptoms. Transition to telemetry today. - Constitutional Vitals: Vital Signs Temp Pulse Resp BP Pulse Ox 97.6 F 118 H 18 116/93 98 06/26/18 11:32 06/25/18 08:00 06/25/18 20:00 06/26/18 05:01 06/26/18 00:02 Period Temp Pulse Resp BP Sys/Mcintosh Pulse Ox Last 24 Hr 97.4 F-98.0 F 18 73-116/39-95 94-100 Intake and Output 06/25/18 06/26/18 06/26/18 21:59 05:59 13:59 Intake Total 420 / 420 199 / 199 Output Total 350 / 350 250 / 250 Balance 70 / 70 -51 / -51 Weight 276 lb Intake & Output: Intake & Output 06/25/18 06/26/18 06/26/18 21:59 05:59 13:59 Intake Total 420 / 420 199 / 199 Output Total 350 / 350 250 / 250 Balance 70 / 70 -51 / -51 Weight 276 lb Intake: IV 200 / 200 199 / 199 Nexterone 360 mg In Premix 1 200 / 200 199 / 199 Bag @ 0.5 MG/MIN 16.66 mls/hr IV .Q12H1M [facility] Rx#:[id number] Oral 220 / 220 Output: Urine Catheter Amount 350 / 350 250 / 250 Other: Meal Dinner Percent of Meal Consumed 25% Feeding Ability Assist with Tray Set Up Urine Appearance Uretheral (Lozano) Clear Stool Size Large Stool Color Brown Stool Consistency Soft Formed # Bowel Movements 1 General appearance: cooperative, no acute distress Exam: Alert oriented nonlabored breathing Intermittent pacemaker spikes noted on telemetry Atrial fibrillation now rate controlled around 100 No anxiety no lymphedema Medical - PN: Obj Da - Labs CBC & Chem 7: 06/26/18 08:48 06/26/18 08:48 Labs: Abnormal Lab Results 06/26/18 06/26/18 06/25/18 08:48 08:48 04:04 RBC 3.96 L Hgb 11.1 L 10.3 L Hct 35.3 L 33.0 L MCH 25.9 L RDW 16.1 H 16.2 H Lymph % (Auto) Lymph # (Auto) Potassium Chloride 94 L BUN 54 H Creatinine 1.2 H Glucose 163 H Albumin Urine Bacteria Hyaline Casts 06/25/18 06/24/18 06/24/18 04:04 13:02 07:23 RBC Hgb 10.6 L Hct 33.7 L MCH RDW 16.6 H Lymph % (Auto) 15.0 L Lymph # (Auto) 1.4 L Potassium 5.3 H Chloride BUN 50 H Creatinine 1.3 H Glucose 122 H Albumin 3.1 L Urine Bacteria Many A Hyaline Casts 10 H 06/24/18 06:57 RBC Hgb Hct MCH RDW Lymph % (Auto) Lymph # (Auto) Potassium 5.3 H Chloride BUN 50 H Creatinine 1.7 H Glucose 160 H Albumin Urine Bacteria Hyaline Casts Meds: Medications Acetaminophen (Tylenol) 650 mg PO Q6HP PRN PRN Reason: PAIN/FEVER > 101 Last Admin: 06/23/18 11:10 Dose: 650 mg Hydrocodone Bitart/Acetaminophen ([place] 7.5/325mg) 1 tab PO Q4H PRN PRN Reason: pain Last Admin: 06/24/18 20:57 Dose: 1 tab Al Hydrox/Mg Hydrox/Simethicone (Maalox) 30 ml PO Q6HP PRN PRN Reason: stomach upset Albuterol Sulfate (Ventolin) 2.5 mg NEB Q4HP PRN PRN Reason: Wheezing Alprazolam (Xanax) 0.25 mg PO DAILYP PRN PRN Reason: Anxiety Artificial Tears (Artificial Tears Ophth Drops) 1 gtt OU BID-QID PRN PRN Reason: Dry Eyes Atorvastatin Calcium (Lipitor) 10 mg PO HS [facility] Last Admin: 06/25/18 20:50 Dose: 10 mg Carvedilol (Coreg) 25 mg PO BIDCC [facility] Last Admin: 06/26/18 07:32 Dose: 25 mg Dextrose (Dextrose 50%) 0 ml IV UD PRN PRN Reason: Hypoglycemia Diagnostic Test (Pha) (Accu-Chek) 1 each FS ACHS [facility] Last Admin: 06/26/18 12:16 Dose: 1 each Duloxetine HCl (Cymbalta) 60 mg PO DAILY [facility] Last Admin: 06/26/18 08:35 Dose: 60 mg Enoxaparin Sodium (Lovenox) 40 mg SQ DAILY [facility] Last Admin: 06/26/18 08:35 Dose: 40 mg Gabapentin (Neurontin) 300 mg PO QDAY [facility] Last Admin: 06/26/18 08:36 Dose: 300 mg Glucose (Insta-Glucose) 15 gm PO PRN PRN PRN Reason: Hypoglycemia Guaifenesin (Mucinex) 600 mg PO Q12H PRN PRN Reason: Congestion Hydroxychloroquine Sulfate (Plaquenil) 400 mg PO QDAY [facility] Last Admin: 06/26/18 08:35 Dose: 400 mg Imipramine HCl (Tofranil) 25 mg PO QHS [facility] Last Admin: 06/25/18 20:51 Dose: 25 mg Insulin Glargine (Lantus) 35 unit SQ [facility] Last Admin: 06/25/18 20:51 Dose: 35 unit Insulin Human Lispro (Humalog) 0 unit SQ [facility]; Protocol Last Admin: 06/26/18 12:16 Dose: Not Given Magnesium Hydroxide (Milk Of Magnesia) 30 ml PO DAILYP PRN PRN Reason: Constipation Last Admin: 06/25/18 15:19 Dose: 30 ml Melatonin (Melatonin 3mg Tablet) 6 mg PO HSP PRN PRN Reason: Sleep Last Admin: 06/23/18 20:38 Dose: 6 mg Solifenacin Succinate [Vesicare] 10 Mg Tab 10 mg PO QHS [facility] Last Admin: 06/25/18 20:53 Dose: 10 mg Ondansetron HCl (Zofran) 4 mg IV Q4HP PRN PRN Reason: Nausea And Vomiting Potassium Chloride (Kdur) 20 meq PO QAMCC [facility] Last Admin: 06/26/18 07:33 Dose: 20 meq Ropinirole HCl (Requip) 1 mg PO QHS [facility] Last Admin: 06/25/18 20:50 Dose: Not Given Ropinirole HCl (Requip) 1 mg PO BID [facility] Last Admin: 06/26/18 08:35 Dose: 1 mg Sodium Chloride (Saline Flush) 10 ml IV Q8 [facility] Last Admin: 06/26/18 12:16 Dose: 10 ml Trazodone HCl (Desyrel) 50 mg PO [facility] Last Admin: 06/25/18 20:50 Dose: 50 mg Medical - PN: A/P - Time Spent With Patient Total time spent is greater than 50% in coordination of care (as documented) at patient's floor/unit and/or counseling patient: 25 - 35 minutes (1) Heart failure, systolic, with acute decompensation Status: Acute Assessment and plan: 78-year-old female presents with worsening dyspnea for the last 2-1/2 weeks and she is diagnosed with pneumonia on 06/03. Found to have congestive heart failure, also fever and evidence bronchitis. * Acute hypercapnic respiratory failure-clinical improvement -now off noninvasive ventilation. transfer to telemetry * A. fib with RVR-responded well to amiodarone load. Now rate around 100. cardiology consultation could not be performed as cardiology out of town. Recommendations obtained on phone. Continue beta-bruce/amiodarone * Acute kidney injury- Nephrology consulted. Losartan and diuretic held. Creatinine down to 1.3 from 1.7 * Acute decompensated heart failure. 25% with global hypokinesis on echo. continue Coreg. Cardiology Dr. Martin recommends ARB/beta-bruce and diuretics as outpatient. Will restart once clinically improved prior to discharge. * Bronchitis- resolved. Status post 3 doses of levofloxacin * Type 2 diabetes mellitus.-Continue CCD/basal panel insulin. * Hypercholesterolemia. Stable. * Urinary incontinence, urge incontinence. Seen by Dr. Junior urology, Continue Vesicare. * Prophylaxis enoxaparin * Full code Plan * Transfer to telemetry * Continue amiodarone * Monitor renal function * Pre-existing medical condition management as above Current Visit: Yes Medical - PN: Qual - VTE Deep Vein Thrombosis/Pulmonary Embolism Present on Admission: No
[2018-06-26] MEDS: Solifenacin Succinate [Vesicare] 10 mg Tab PO SCH (20:37)
[2018-06-26] MEDS: traZODone HCL 50 MG TABLET PO SCH (20:37)
[2018-06-26] MEDS: IMIPRAMINE 25 MG TABLET PO SCH (20:37)
[2018-06-26] MEDS: INSULIN GLARGINE, HUMAN 1 UNIT/0.01 ML SQ SCH (20:49)
[2018-06-26] MEDS: MELATONIN 3 MG TABLET PO PRN (21:41)
[2018-06-26] MEDS: ATORVASTATIN 20 MG TABLET PO SCH (21:55)
[2018-06-27] MEDS: 0.9 % SODIUM CHLORIDE 10 ML SYRINGE IV SCH ×3 (06:16→20:43)
[2018-06-27] MEDS: INSULIN LISPRO 1 UNIT/0.01 ML UNIT SQ SCH ×4 (08:22→20:53)
[2018-06-27] MEDS: GABAPENTIN 300 MG CAPSULE PO SCH (09:26)
[2018-06-27] MEDS: rOPINIRole 1 MG TABLET PO SCH ×2 (09:26→20:44)
[2018-06-27] MEDS: HYDROXYCHLOROQUINE 200 MG TABLET PO SCH (09:26)
[2018-06-27] MEDS: ENOXAPARIN 40 MG/0.4 ML SYRINGE SQ SCH (09:26)
[2018-06-27] MEDS: CARVEDILOL 12.5 MG TABLET PO SCH ×2 (09:26→17:24)
[2018-06-27] MEDS: DULoxetine 30 MG CAPSULE PO SCH (09:26)
[2018-06-27] MEDS: POTASSIUM CHLORIDE 20 MEQ TABLET PO SCH (09:26)
[2018-06-27] MEDS: AMIODARONE HCL 200 MG TABLET PO SCH ×2 (09:43→17:24)
--- NOTE | 2018-06-27 09:44 | Internal Med Progress Note ---
Medical - PN: Subj Patient information: Note initiated : 06/27/18 at 9:40 am Service Date, if different from initiated Date: [] Patient: Stacie Thomas a 78 y/o F admitted on 06/20/18 for SOB . Chief Complaint: [] Interval history: 06/20 Ms. Thomas is a 78 year old F with a history of type 2 diabetes mellitus and mild dilated cardiomyopathy with history of pacemaker and defibrillator placed about 12 years ago, anemia, sleep apnea who presents with worsening dyspnea. History is obtained in speaking with the patient, as well as reviewing old records as summarized below. The patient was seen in this facility on 06/03 and diagnosed right upper lobe pneumonia. She was treated with azithromycin. Since that time she states that she is "still ill". By that means she has exhaustion with any exertion as well as significant dyspnea with any exertion. She is coughs, particularly at night when she is supine. She gets short of breath when she lies supine, that worsened over the last few days, to where she is spent a portion of the evening sitting up in a recliner due to dyspnea. She wakes up short of breath, has to sit up to catch her breath. She's noted no lower extremity edema associated with this. She's had no abdominal bloating or distention. She's had a cough which occurs at night, it's nonproductive. Has noticed worse while supine. She 's had some burning lower chest symptoms, similar to reflux symptoms she's had in the past, though it coming more frequently. Her "heartburn" is not necessarily associated with exertion. She has no history of myocardial infarction or angina. Patient has a history of dilated cardiomyopathy, ejection fraction in July of this year was 4045 percent. There is borderline dilated. She states back when she had her defibrillator placed about 12 years ago her ejection fraction was 25%. At that time she was told she had clean coronaries. She is unsure why her heart was not functioning well. She presented for follow-up yesterday at Dr. Messer's office. Radiograph confirmed that there was near complete resolution of her pneumonia. Lab work was drawn and the patient was to call for follow-up. Today she was looking even more poorly and someone at [facility] encouraged to come to the ED. In the emergency department she was found to have new hypoxia, requiring 3 L nasal cannula to maintain saturations. Radiograph today shows evidence of heart failure, BNP is in the 4800 range, when it was in the 2100 range yesterday. Mejias, the patient had fever to 100.2 in the ED, was wheezing. She received nebulizer treatment with some improvement in her symptoms, received furosemide, however still requires oxygen is being admitted for acute exacerbation of chronic systolic heart failure. 06/21 Feels improved this afternoon, has had diuresis with IV furosemide. Still on oxygen, still with dyspnea, though better than admission. No chest pain, no nausea vomiting. 06/22 Did not notice much diuresis after p.m. dose of Lasix yesterday. Creatinine is creeping up. Up and ambulating, off of oxygen this morning. Dyspnea continues slowly improved. Slept much better last night. No chest pain, no nausea, no vomiting. Appetite is good. 06/23-patient doing well. Improved shortness of ongoing diuresis. Restart losartan. Await discussions with cardiology for optimization of treatment. Currently on losartan/Coreg. Hold amlodipine. Repeat echo 25% EF with grade 3 diastolic dysfunction. Increase diuretics to twice daily. Continue telemetry monitoring Discussed patient's clinical status with Dr. Martin cardiology. Recommends continuing losartan/Coreg and twice daily diuretics. Recommends holding calcium channel bruce if her blood pressures are adequately controlled. 06/24-patient clinically deteriorating with more somnolence. Stat ABG shows respiratory acidosis with pH 7.29. Patient started on BiPAP. Unclear etiology. Also elevated creatinine to 1.7. Losartan on hold. Nephrology consulted. Await UA/renal ultrasound. Lower dose of Xanax 2.25 from 1 mg, trazodone 50 from 100. Coreg dose increased to 25 mg twice daily along with diltiazem 30 every 6 in light of persistent A. fib with RVR, also loaded on digoxin. On monitoring analyst frequent pacer firing noted and hence will be interrogated as likely to RVR pacer driven. 06/25-persistent A. fib with RVR despite beta-bruce/calcium bruce and digoxin. Amiodarone load. Pacemaker interrogated, working on previous settings. Improved mentation and now off BiPAP. Improving renal function. Diuretics on hold. Discontinue diltiazem. Case discussed with patient's daughter on phone yesterday and updated on clinical status. No significant shortness of breath. Renal ultrasound unremarkable except for renal cyst. Diuretic and losartan on hold. Nephrology on board 06/26-patient doing well. Present downtrending. Potassium 4.9. Off noninvasive ventilation. Heart rate around 100 on amiodarone. No overnight fever chills or concerns per staff. Able to get out of bed and ambulating without symptoms. Transition to telemetry today. 06/27-patient doing well. No overnight events. No concerns per staff, persistent A. fib RVR. Off BiPAP. Renal function improving the creatinine 1.2. Start amiodarone 100 twice daily. Will start gentle diuresis in light of the EF 25% and high risk worsening CHF. Continue physical therapy. Anticipate discharge on Friday to [facility] - Constitutional Vitals: Vital Signs Temp Pulse Resp BP Pulse Ox 96.7 F L 109 H 28 H 107/82 91 06/27/18 03:49 06/27/18 00:00 06/27/18 03:49 06/27/18 03:49 06/27/18 04:00 Period Temp Pulse Resp BP Sys/Mcintosh Pulse Ox Last 24 Hr 96.7 F-98.2 F 96-109 18-28 95-124/67-109 89-95 Intake and Output 06/26/18 06/27/18 06/27/18 21:59 05:59 13:59 Intake Total 340 / 340 Output Total 350 / 350 350 / 350 Balance -350 / -350 -10 / -10 Weight 284 lb 11.2 oz Intake & Output: Intake & Output 06/26/18 06/27/18 06/27/18 21:59 05:59 13:59 Intake Total 340 / 340 Output Total 350 / 350 350 / 350 Balance -350 / -350 -10 / -10 Weight 284 lb 11.2 oz Intake: Oral 340 / 340 Output: Urine Catheter Amount 350 / 350 350 / 350 Other: Urine Appearance Clear Uretheral (Lozano) Clear Urine Color Light [place] Urine Odor Normal Stool Size Large Stool Color Brown Stool Consistency Formed General appearance: cooperative, no acute distress Exam: Persistent A. fib RVR on telemetry Sitting on chair Nonlabored breathing No lymphedema Lozano is draining clear urine Medical - PN: Obj Da - Labs CBC & Chem 7: 06/26/18 08:48 06/26/18 08:48 Labs: Abnormal Lab Results 06/26/18 06/26/18 06/25/18 08:48 08:48 04:04 RBC 3.96 L Hgb 11.1 L 10.3 L Hct 35.3 L 33.0 L MCH 25.9 L RDW 16.1 H 16.2 H Potassium Chloride 94 L BUN 54 H Creatinine 1.2 H Glucose 163 H Albumin Urine Bacteria Hyaline Casts 06/25/18 06/24/18 04:04 13:02 RBC Hgb Hct MCH RDW Potassium 5.3 H Chloride BUN 50 H Creatinine 1.3 H Glucose 122 H Albumin 3.1 L Urine Bacteria Many A Hyaline Casts 10 H Meds: Medications Acetaminophen (Tylenol) 650 mg PO Q6HP PRN PRN Reason: PAIN/FEVER > 101 Last Admin: 06/23/18 11:10 Dose: 650 mg Hydrocodone Bitart/Acetaminophen ([place] 7.5/325mg) 1 tab PO Q4H PRN PRN Reason: pain Last Admin: 06/24/18 20:57 Dose: 1 tab Al Hydrox/Mg Hydrox/Simethicone (Maalox) 30 ml PO Q6HP PRN PRN Reason: stomach upset Albuterol Sulfate (Ventolin) 2.5 mg NEB Q4HP PRN PRN Reason: Wheezing Alprazolam (Xanax) 0.25 mg PO DAILYP PRN PRN Reason: Anxiety Amiodarone HCl (Cordarone) 100 mg PO BIDCC [facility] Artificial Tears (Artificial Tears Ophth Drops) 1 gtt OU BID-QID PRN PRN Reason: Dry Eyes Atorvastatin Calcium (Lipitor) 10 mg PO HS [facility] Last Admin: 06/26/18 21:55 Dose: 10 mg Carvedilol (Coreg) 25 mg PO BIDCC [facility] Last Admin: 06/27/18 09:26 Dose: 25 mg Dextrose (Dextrose 50%) 0 ml IV UD PRN PRN Reason: Hypoglycemia Diagnostic Test (Pha) (Accu-Chek) 1 each FS ACHS [facility] Last Admin: 06/27/18 08:21 Dose: 1 each Duloxetine HCl (Cymbalta) 60 mg PO DAILY [facility] Last Admin: 06/27/18 09:26 Dose: 60 mg Enoxaparin Sodium (Lovenox) 40 mg SQ DAILY [facility] Last Admin: 06/27/18 09:26 Dose: 40 mg Gabapentin (Neurontin) 300 mg PO QDAY [facility] Last Admin: 06/27/18 09:26 Dose: 300 mg Glucose (Insta-Glucose) 15 gm PO PRN PRN PRN Reason: Hypoglycemia Guaifenesin (Mucinex) 600 mg PO Q12H PRN PRN Reason: Congestion Hydroxychloroquine Sulfate (Plaquenil) 400 mg PO QDAY [facility] Last Admin: 06/27/18 09:26 Dose: 400 mg Imipramine HCl (Tofranil) 25 mg PO QHS [facility] Last Admin: 06/26/18 20:37 Dose: 25 mg Insulin Glargine (Lantus) 35 unit SQ [facility] Last Admin: 06/26/18 20:49 Dose: 35 unit Insulin Human Lispro (Humalog) 0 unit SQ [facility]; Protocol Last Admin: 06/27/18 08:22 Dose: Not Given Magnesium Hydroxide (Milk Of Magnesia) 30 ml PO DAILYP PRN PRN Reason: Constipation Last Admin: 06/25/18 15:19 Dose: 30 ml Melatonin (Melatonin 3mg Tablet) 6 mg PO HSP PRN PRN Reason: Sleep Last Admin: 06/26/18 21:41 Dose: 6 mg Solifenacin Succinate [Vesicare] 10 Mg Tab 10 mg PO QHS [facility] Last Admin: 06/26/18 20:37 Dose: 10 mg Ondansetron HCl (Zofran) 4 mg IV Q4HP PRN PRN Reason: Nausea And Vomiting Potassium Chloride (Kdur) 20 meq PO QAC [facility] Last Admin: 06/27/18 09:26 Dose: 20 meq Ropinirole HCl (Requip) 1 mg PO BID [facility] Last Admin: 06/27/18 09:26 Dose: 1 mg Sodium Chloride (Saline Flush) 10 ml IV Q8 [facility] Last Admin: 06/27/18 06:16 Dose: 10 ml Trazodone HCl (Desyrel) 50 mg PO [facility] Last Admin: 06/26/18 20:37 Dose: 50 mg Medical - PN: A/P - Time Spent With Patient Total time spent is greater than 50% in coordination of care (as documented) at patient's floor/unit and/or counseling patient: 25 - 35 minutes (1) Heart failure, systolic, with acute decompensation Status: Acute Assessment and plan: 78-year-old female presents with worsening dyspnea for the last 2-1/2 weeks and she is diagnosed with pneumonia on 06/03. Found to have congestive heart failure, also fever and evidence bronchitis. * Acute hypercapnic respiratory failure-clinically resolved. Off BiPAP. * A. fib with RVR-responded well to amiodarone load. Start oral amiodarone. Cardiology consultation could not be performed as Dr. Medrano out of town. Recommendations obtained on phone. Continue beta-rbuce/amiodarone * Acute kidney injury- Nephrology consulted. Losartan on hold. Creatinine down to 1.2 from 1.7 * Acute decompensated heart failure. 25% with global hypokinesis on echo. continue Coreg. Restart low-dose Lasix. Cardiology Dr. Martin recommends ARB/ beta-bruce and diuretics as outpatient. Will restart ARB once renal function stabilize. * Bronchitis- resolved. Status post 3 doses of levofloxacin * Type 2 diabetes mellitus.-Continue CCD/basal panel insulin. * Hypercholesterolemia. Stable. * Urinary incontinence, urge incontinence. Seen by Dr. Junior urology, Continue Vesicare. * Prophylaxis enoxaparin * Full code Plan * Start amiodarone 100 twice daily * DC Lozano's catheter * Aggressive physical therapy * Restart gentle diuresis * Monitor renal function * Pre-existing medical condition management as above * Possible transfer to [facility] on Friday with home health Current Visit: Yes Medical - PN: Qual - VTE Deep Vein Thrombosis/Pulmonary Embolism Present on Admission: No
[2018-06-27] MEDS: FUROSEMIDE 20 MG/2 ML VIAL IV SCH (10:46)
[2018-06-27] MEDS: MELATONIN 3 MG TABLET PO PRN (20:44)
[2018-06-27] MEDS: ATORVASTATIN 20 MG TABLET PO SCH (20:44)
[2018-06-27] MEDS: traZODone HCL 50 MG TABLET PO SCH (20:45)
[2018-06-27] MEDS: IMIPRAMINE 25 MG TABLET PO SCH (20:45)
[2018-06-27] MEDS: Solifenacin Succinate [Vesicare] 10 mg Tab PO SCH (20:46)
[2018-06-27] MEDS: INSULIN GLARGINE, HUMAN 1 UNIT/0.01 ML SQ SCH (20:53)
[2018-06-28] MEDS: 0.9 % SODIUM CHLORIDE 10 ML SYRINGE IV SCH ×4 (05:25→20:55)
[2018-06-28] MEDS: INSULIN LISPRO 1 UNIT/0.01 ML UNIT SQ SCH ×4 (07:30→20:59)
[2018-06-28] MEDS: CARVEDILOL 12.5 MG TABLET PO SCH ×2 (08:00→17:49)
[2018-06-28] MEDS: AMIODARONE HCL 200 MG TABLET PO SCH ×2 (08:00→17:49)
[2018-06-28 08:52] LABS: ALT/SGPT 123 U/l (0-40); Albumin 3.7 gm/dL (3.2-5.2); Albumin/Globulin Ratio 1.3 (1.0-2.3); Alkaline Phosphatase 148 U/L (39-117); Basophils # (Auto) 0.1 K/mcL (0.0-0.3); Basophils % (Auto) 0.6 % (0.0-2.0); Bilirubin,Direct < 0.2 mg/dL (0.0-0.3); Blood Urea Nitrogen 50 mg/dl (8-23); Eosinophils # (Auto) 0 K/mcL (0.0-0.7); Eosinophils % (Auto) 0.4 % (0.0-7.0); Gamma Glutamyl Transpeptidase 65 U/L (5-36); Granulocytes % (Auto) 73.3 % (38.0-78.0); Lymphocytes # (Auto) 1.9 K/mcL (1.5-4.8); Lymphocytes % (Auto) 16.9 % (15.5-49.0); Mean Cell Volume 81.6 fL (80.0-100.0); Mean Corpuscular HGB Conc 31.2 g/dL (31.0-36.0); Mean Corpuscular Hemoglobin 25.4 pg (26.0-34.0); Monocytes % (Auto) 8.8 % (1.0-12.0); Platelet Count 373 K/mcL (140-440); RBC 4.55 M/mcL (4.00-5.20); Red Cell Distribution Width 16.5 % (11.5-14.5); Uric Acid 10.7 mg/dL (2.5-8.0)
--- NOTE | 2018-06-28 09:02 | XRay Report ---
HISTORY: Shortness of breath FINDINGS: Portable AP image was obtained. The right diaphragm remains moderately elevated. This is a chronic finding, of undetermined etiology. Associated with this is mild compressive atelectasis of the basilar segments of the right lower lobe. Left lung is clear. There is improved aeration of both lungs since yesterday. The heart does not appear to be enlarged and there is no congestive heart failure. IMPRESSION: Improving aeration of both lungs with residual compressive atelectasis in the right lung base Interpreted and Authenticated by: Terry Hung 06/28/18
[2018-06-28] MEDS: HYDROXYCHLOROQUINE 200 MG TABLET PO SCH (09:06)
[2018-06-28] MEDS: DULoxetine 30 MG CAPSULE PO SCH (09:06)
[2018-06-28] MEDS: rOPINIRole 1 MG TABLET PO SCH ×2 (09:06→20:56)
[2018-06-28] MEDS: POTASSIUM CHLORIDE 20 MEQ TABLET PO SCH (09:06)
[2018-06-28] MEDS: GABAPENTIN 300 MG CAPSULE PO SCH (09:06)
[2018-06-28] MEDS: ENOXAPARIN 40 MG/0.4 ML SYRINGE SQ SCH (09:06)
[2018-06-28] MEDS: FUROSEMIDE 20 MG/2 ML VIAL IV SCH (09:06)
--- NOTE | 2018-06-28 11:09 | Internal Med Progress Note ---
Medical - PN: Subj Patient information: Note initiated : 06/28/18 at 11:07 am Service Date, if different from initiated Date: [] Patient: Stacie Thomas a 78 y/o F admitted on 06/20/18 for SOB . Chief Complaint: [] Interval history: 06/20 Ms. Thomas is a 78 year old F with a history of type 2 diabetes mellitus and mild dilated cardiomyopathy with history of pacemaker and defibrillator placed about 12 years ago, anemia, sleep apnea who presents with worsening dyspnea. History is obtained in speaking with the patient, as well as reviewing old records as summarized below. The patient was seen in this facility on 06/03 and diagnosed right upper lobe pneumonia. She was treated with azithromycin. Since that time she states that she is "still ill". By that means she has exhaustion with any exertion as well as significant dyspnea with any exertion. She is coughs, particularly at night when she is supine. She gets short of breath when she lies supine, that worsened over the last few days, to where she is spent a portion of the evening sitting up in a recliner due to dyspnea. She wakes up short of breath, has to sit up to catch her breath. She's noted no lower extremity edema associated with this. She's had no abdominal bloating or distention. She's had a cough which occurs at night, it's nonproductive. Has noticed worse while supine. She 's had some burning lower chest symptoms, similar to reflux symptoms she's had in the past, though it coming more frequently. Her "heartburn" is not necessarily associated with exertion. She has no history of myocardial infarction or angina. Patient has a history of dilated cardiomyopathy, ejection fraction in July of this year was 4045 percent. There is borderline dilated. She states back when she had her defibrillator placed about 12 years ago her ejection fraction was 25%. At that time she was told she had clean coronaries. She is unsure why her heart was not functioning well. She presented for follow-up yesterday at Dr. Messer's office. Radiograph confirmed that there was near complete resolution of her pneumonia. Lab work was drawn and the patient was to call for follow-up. Today she was looking even more poorly and someone at [facility] encouraged to come to the ED. In the emergency department she was found to have new hypoxia, requiring 3 L nasal cannula to maintain saturations. Radiograph today shows evidence of heart failure, BNP is in the 4800 range, when it was in the 2100 range yesterday. Mejias, the patient had fever to 100.2 in the ED, was wheezing. She received nebulizer treatment with some improvement in her symptoms, received furosemide, however still requires oxygen is being admitted for acute exacerbation of chronic systolic heart failure. 06/21 Feels improved this afternoon, has had diuresis with IV furosemide. Still on oxygen, still with dyspnea, though better than admission. No chest pain, no nausea vomiting. 06/22 Did not notice much diuresis after p.m. dose of Lasix yesterday. Creatinine is creeping up. Up and ambulating, off of oxygen this morning. Dyspnea continues slowly improved. Slept much better last night. No chest pain, no nausea, no vomiting. Appetite is good. 06/23-patient doing well. Improved shortness of ongoing diuresis. Restart losartan. Await discussions with cardiology for optimization of treatment. Currently on losartan/Coreg. Hold amlodipine. Repeat echo 25% EF with grade 3 diastolic dysfunction. Increase diuretics to twice daily. Continue telemetry monitoring Discussed patient's clinical status with Dr. Martin cardiology. Recommends continuing losartan/Coreg and twice daily diuretics. Recommends holding calcium channel bruce if her blood pressures are adequately controlled. 06/24-patient clinically deteriorating with more somnolence. Stat ABG shows respiratory acidosis with pH 7.29. Patient started on BiPAP. Unclear etiology. Also elevated creatinine to 1.7. Losartan on hold. Nephrology consulted. Await UA/renal ultrasound. Lower dose of Xanax 2.25 from 1 mg, trazodone 50 from 100. Coreg dose increased to 25 mg twice daily along with diltiazem 30 every 6 in light of persistent A. fib with RVR, also loaded on digoxin. On sales demonstrator frequent pacer firing noted and hence will be interrogated as likely to RVR pacer driven. 06/25-persistent A. fib with RVR despite beta-bruce/calcium bruce and digoxin. Amiodarone load. Pacemaker interrogated, working on previous settings. Improved mentation and now off BiPAP. Improving renal function. Diuretics on hold. Discontinue diltiazem. Case discussed with patient's daughter on phone yesterday and updated on clinical status. No significant shortness of breath. Renal ultrasound unremarkable except for renal cyst. Diuretic and losartan on hold. Nephrology on board 06/26-patient doing well. Present downtrending. Potassium 4.9. Off noninvasive ventilation. Heart rate around 100 on amiodarone. No overnight fever chills or concerns per staff. Able to get out of bed and ambulating without symptoms. Transition to telemetry today. 06/27-patient doing well. No overnight events. No concerns per staff, persistent A. fib RVR. Off BiPAP. Renal function improving the creatinine 1.2. Start amiodarone 100 twice daily. Will start gentle diuresis in light of the EF 25% and high risk worsening CHF. Continue physical therapy. Anticipate discharge on Friday to 06/28 Pt seen examined, no acute overnight issues, remains in afib with rvr, on coreg 25mg bid, bp is soft hence on amiodarone, clinically not volume overloaded. TSH on admission was normal, pt is not hypoxic. Pertinent ROS: Denies headache, dizziness Denies chest pain, palpitations Denies cough, but has significant shortness of breath on minimal activity. Denies abdominal pain, nausea or vomiting. - Constitutional Vitals: Vital Signs Temp Pulse Resp BP Pulse Ox 96.7 F L 124 H 22 136/97 92 06/28/18 07:41 06/28/18 06:58 06/28/18 07:41 06/28/18 07:41 06/28/18 07:41 Period Temp Pulse Resp BP Sys/Mcintosh Pulse Ox Last 24 Hr 96.7 F-98.1 F 116-125 19-22 100-136/60-97 92-96 Intake and Output 06/27/18 06/28/18 06/28/18 21:59 05:59 13:59 Intake Total 240 / 240 Output Total 3 / 3 Balance 237 / 237 Weight 200 lb 6.4 oz Intake & Output: Intake & Output 06/27/18 06/28/18 06/28/18 21:59 05:59 13:59 Intake Total 240 / 240 Output Total 3 / 3 Balance 237 / 237 Weight 200 lb 6.4 oz Intake: Oral 240 / 240 Output: # of times incontinent of urine 3 / 3 Other: Meal Dinner Percent of Meal Consumed 25% Feeding Ability Independent Urine Appearance Clear Urine Color Light [place] Urine Odor Normal Stool Size Large Stool Color Brown Stool Consistency Soft # Voids 1 # Bowel Movements 1 # of times incontinent of 1 Bowels Exam: Constitutional; Afebrile, cooperative, alert, not in distress. Eyes- No icterus, , No periorbital swelling Ears- Ext ear normal, hearing normal to conversation. Neck- Midline trachea, supple Respiratory system: Air Entry equal on both sides, No crackles or wheezing, no rhonchi. CVS- Rate tachycardic, rhythm irregular, S1,S2 heard, no gallop, no rub. Abdomen- Soft nontender abdomen, no organomegaly, no tenderness, no guarding or rigidity, HAND CEMENTER- AOOx3, moving all extremities, no gross focal deficit noted. Medical - PN: Obj Da - Labs CBC & Chem 7: 06/28/18 07:34 06/28/18 07:34 Labs: Abnormal Lab Results 06/28/18 06/28/18 06/26/18 07:34 07:34 08:48 WBC 11.5 H Hgb 11.6 L Hct MCH 25.4 L RDW 16.5 H Gran # 8.4 H [place] # (Auto) 1.0 H Chloride 94 L BUN 50 H 54 H Creatinine 1.3 H 1.2 H Glucose 54 L 163 H Uric Acid 10.7 H Phosphorus 5.5 H GGT 65 H AST 136 H ALT 123 H Alkaline Phosphatase 148 H Lactate Dehydrogenase 440 H 06/26/18 08:48 WBC Hgb 11.1 L Hct 35.3 L MCH RDW 16.1 H Gran # [place] # (Auto) Chloride BUN Creatinine Glucose Uric Acid Phosphorus GGT AST ALT Alkaline Phosphatase Lactate Dehydrogenase Meds: Medications Acetaminophen (Tylenol) 650 mg PO Q6HP PRN PRN Reason: PAIN/FEVER > 101 Last Admin: 06/23/18 11:10 Dose: 650 mg Hydrocodone Bitart/Acetaminophen ([place] 7.5/325mg) 1 tab PO Q4H PRN PRN Reason: pain Last Admin: 06/24/18 20:57 Dose: 1 tab Al Hydrox/Mg Hydrox/Simethicone (Maalox) 30 ml PO Q6HP PRN PRN Reason: stomach upset Albuterol Sulfate (Ventolin) 2.5 mg NEB Q4HP PRN PRN Reason: Wheezing Alprazolam (Xanax) 0.25 mg PO DAILYP PRN PRN Reason: Anxiety Last Admin: 06/27/18 10:45 Dose: 0.25 mg Amiodarone HCl (Cordarone) 100 mg PO BIDCC [facility] Last Admin: 06/28/18 08:00 Dose: 100 mg Artificial Tears (Artificial Tears Ophth Drops) 1 gtt OU BID-QID PRN PRN Reason: Dry Eyes Atorvastatin Calcium (Lipitor) 10 mg PO HS [facility] Last Admin: 06/27/18 20:44 Dose: 10 mg Carvedilol (Coreg) 25 mg PO BIDCC [facility] Last Admin: 06/28/18 08:00 Dose: 25 mg Dextrose (Dextrose 50%) 0 ml IV UD PRN PRN Reason: Hypoglycemia Diagnostic Test (Pha) (Accu-Chek) 1 each FS [facility] Last Admin: 06/28/18 07:30 Dose: 1 each Duloxetine HCl (Cymbalta) 60 mg PO DAILY [facility] Last Admin: 06/28/18 09:06 Dose: 60 mg Enoxaparin Sodium (Lovenox) 40 mg SQ DAILY [facility] Last Admin: 06/28/18 09:06 Dose: 40 mg Furosemide (Lasix) 20 mg IV DAILY [facility] Last Admin: 06/28/18 09:06 Dose: 20 mg Gabapentin (Neurontin) 300 mg PO QDAY [facility] Last Admin: 06/28/18 09:06 Dose: 300 mg Glucose (Insta-Glucose) 15 gm PO PRN PRN PRN Reason: Hypoglycemia Guaifenesin (Mucinex) 600 mg PO Q12H PRN PRN Reason: Congestion Hydroxychloroquine Sulfate (Plaquenil) 400 mg PO QDAY [facility] Last Admin: 06/28/18 09:06 Dose: 400 mg Imipramine HCl (Tofranil) 25 mg PO QHS [facility] Last Admin: 06/27/18 20:45 Dose: 25 mg Insulin Glargine (Lantus) 35 unit SQ [facility] Last Admin: 06/27/18 20:53 Dose: 35 unit Insulin Human Lispro (Humalog) 0 unit SQ [facility]; Protocol Last Admin: 06/28/18 07:30 Dose: Not Given Magnesium Hydroxide (Milk Of Magnesia) 30 ml PO DAILYP PRN PRN Reason: Constipation Last Admin: 06/25/18 15:19 Dose: 30 ml Melatonin (Melatonin 3mg Tablet) 6 mg PO HSP PRN PRN Reason: Sleep Last Admin: 06/27/18 20:44 Dose: 6 mg Solifenacin Succinate [Vesicare] 10 Mg Tab 10 mg PO QHS [facility] Last Admin: 06/27/18 20:46 Dose: 10 mg Ondansetron HCl (Zofran) 4 mg IV Q4HP PRN PRN Reason: Nausea And Vomiting Potassium Chloride (Kdur) 20 meq PO QAMCC [facility] Last Admin: 06/28/18 09:06 Dose: 20 meq Ropinirole HCl (Requip) 1 mg PO BID [facility] Last Admin: 06/28/18 09:06 Dose: 1 mg Sodium Chloride (Saline Flush) 10 ml IV Q8 [facility] Last Admin: 06/28/18 05:25 Dose: 10 ml Trazodone HCl (Desyrel) 50 mg PO [facility] Last Admin: 06/27/18 20:45 Dose: 50 mg Medical - PN: A/P - Time Spent With Patient Total time spent is greater than 50% in coordination of care (as documented) at patient's floor/unit and/or counseling patient: - Narrative A/P Narrative: 78-year-old female presents with worsening dyspnea for the last 2-1/2 weeks and she is diagnosed with pneumonia on 06/03. Found to have congestive heart failure, also fever and evidence bronchitis. Acute hypercapnic resp failure- resolved Afib with rVR- on coreg, and oral amiodarone, monitor, will try to see if we can touch base with Dr Martin tomorrow. consider starting digoxin LORE -creat stable, improving renal function, off arb for now monitor Congestive heart failuire, s/p aicd- LVEF 25%, not volume overloaded at this time, off arb give renal dysfunction. follows with Dr Martin DM- ssi insulin, low glucose in AM, will monitor for now, adjust lantus if needed Bronchitis resolved HLD stable Urinary incontinence- follows with Dr Junior, on vesicare DVT on enoxaparin OT/PT Medical - PN: Qual - VTE Deep Vein Thrombosis/Pulmonary Embolism Present on Admission: No
[2018-06-28] MEDS: DIGOXIN 500 MCG/2 ML AMPUL IV SCH ×2 (14:59→19:41)
--- NOTE | 2018-06-28 15:22 | Ultrasound Report ---
History: Elevated liver enzymes FINDINGS: The patient is very difficult to exam due to body habitus. The liver is located relatively high in the upper abdomen and can only be visualized intercostally. Prior CT done on 03/26/18 showed the anterior portion of the right lobe is either absent or hypoplastic. This also makes visualization of the liver by ultrasound difficult since there is no good anterior window. Visualized portions of the liver appear homogeneous, without evidence of a mass. There is normal blood flow in the hepatic and portal veins. The gallbladder is surgically absent. The common hepatic duct measures up to 7.6 mm which is upper limits of normal. There is no fluid in the gallbladder fossa. Small segments of the pancreas are visualized and appear normal. IMPRESSION: very limited exam with no acute abnormality identified. Interpreted and Authenticated by: Terry Hung 06/28/18
[2018-06-28] MEDS: ATORVASTATIN 20 MG TABLET PO SCH (20:56)
[2018-06-28] MEDS: traZODone HCL 50 MG TABLET PO SCH (20:56)
[2018-06-28] MEDS: IMIPRAMINE 25 MG TABLET PO SCH (20:56)
[2018-06-28] MEDS: Solifenacin Succinate [Vesicare] 10 mg Tab PO SCH (20:57)
[2018-06-28] MEDS: INSULIN GLARGINE, HUMAN 1 UNIT/0.01 ML SQ SCH (21:11)
[2018-06-29] MEDS: DIGOXIN 500 MCG/2 ML AMPUL IV SCH ×2 (01:05→07:17)
[2018-06-29] MEDS: 0.9 % SODIUM CHLORIDE 10 ML SYRINGE IV SCH (05:12)
[2018-06-29 06:00] LABS: Basophils # (Auto) 0 K/mcL (0.0-0.3); Basophils % (Auto) 0.5 % (0.0-2.0); Eosinophils # (Auto) 0.2 K/mcL (0.0-0.7); Eosinophils % (Auto) 1.6 % (0.0-7.0); Granulocytes % (Auto) 64.7 % (38.0-78.0); Lymphocytes # (Auto) 2.2 K/mcL (1.5-4.8); Lymphocytes % (Auto) 23.2 % (15.5-49.0); Mean Cell Volume 81.3 fL (80.0-100.0); Mean Corpuscular HGB Conc 31.8 g/dL (31.0-36.0); Mean Corpuscular Hemoglobin 25.9 pg (26.0-34.0); Platelet Count 273 K/mcL (140-440); RBC 4.13 M/mcL (4.00-5.20); Red Cell Distribution Width 16.3 % (11.5-14.5)
[2018-06-29 06:19] LABS: ALT/SGPT 110 U/l (0-40); Albumin 3.2 gm/dL (3.2-5.2); Albumin/Globulin Ratio 1.1 (1.0-2.3); Alkaline Phosphatase 125 U/L (39-117); Bilirubin,Direct < 0.2 mg/dL (0.0-0.3); Blood Urea Nitrogen 50 mg/dl (8-23); Gamma Glutamyl Transpeptidase 52 U/L (5-36); Uric Acid 11.5 mg/dL (2.5-8.0)
[2018-06-29] MEDS: INSULIN LISPRO 1 UNIT/0.01 ML UNIT SQ SCH ×2 (07:25→12:15)
[2018-06-29] MEDS: AMIODARONE HCL 200 MG TABLET PO SCH (08:13)
[2018-06-29] MEDS: CARVEDILOL 12.5 MG TABLET PO SCH (08:14)
[2018-06-29] MEDS: POTASSIUM CHLORIDE 20 MEQ TABLET PO SCH (08:14)
[2018-06-29] MEDS: HYDROXYCHLOROQUINE 200 MG TABLET PO SCH (09:22)
[2018-06-29] MEDS: FUROSEMIDE 20 MG/2 ML VIAL IV SCH (09:23)
[2018-06-29] MEDS: rOPINIRole 1 MG TABLET PO SCH (09:23)
[2018-06-29] MEDS: DULoxetine 30 MG CAPSULE PO SCH (09:23)
[2018-06-29] MEDS: ENOXAPARIN 40 MG/0.4 ML SYRINGE SQ SCH (09:23)
[2018-06-29] MEDS: GABAPENTIN 300 MG CAPSULE PO SCH (09:23)
--- NOTE | 2018-06-29 11:26 | Discharge Summary ---
Medical - DS: Prov Patient information: Note initiated : 06/29/18 at 11:09 am Service Date, if different from initiated Date: [] Patient: Stacie Thomas 78 y/o F admitted on 06/20/18 for SOB . Chief Complaint: [] Date of admission: 06/20/18 23:38 Discharge date: 06/29/18 Primary care physician: Inocente Messer Admitting clinician: Stephanie Gallegos Consults: 06/24/18 09:17 Consult to Physician [CONS] Routine Comment: Consulting Provider: Olesya Arriaza Reason For Exam: Physician to Consult Discharging clinician: Mitali Hammond Medical - DS: Meds - Discharge Medications Prescriptions: traMADol HCL [Ultram] 100 mg PO QHS PRN #20 tab PRN Reason: Pain Hydrocodone/APAP 7.5/325Mg [[place] 7.5-325Mg] 1 tab PO Q4H PRN #30 tab PRN Reason: pain Active and Home Medications: Home Medications duloxetine 60 mg capsule,delayed release 60 mg PO QDAY #90 cap 04/15/17 [Rx Confirmed 06/20/18 Last Taken 06/20/18 08:30] liraglutide 0.6 mg/0.1 mL (18 mg/3 mL) subcutaneous pen injector 1.8 mg SUB-Q QDAY #6 ml 04/15/17 [Rx Confirmed 06/20/18 Last Taken 06/20/18 07:00] amlodipine 5 mg tablet 5 mg PO QDAY #90 tab 04/17/17 [Rx Confirmed 06/20/18 Last Taken 06/20/18 08:00] gabapentin 300 mg capsule 300 mg PO QDAY #90 cap 04/22/17 [Rx Confirmed Last Taken 06/20/18 08:30] ropinirole 1 mg tablet 1 mg PO BID #60 tab 04/22/17 [Rx Confirmed 06/20/18 Last Taken 06/20/18 08:00] metformin 1,000 mg tablet 1,000 mg PO BID #180 tab 04/23/17 [Rx Confirmed Last Taken 06/20/18 08:00] potassium chloride ER 20 mEq tablet,extended release 20 meq PO QDAY #90 tab 04/06 [Rx Confirmed 06/20/18 Last Taken 06/20/18 08:00] hydroxychloroquine 200 mg tablet 400 mg PO QDAY #180 tab 06/16/17 [Rx Confirmed 06/20/18 Last Taken 06/20/18 07:00] aluminum-mag hydroxide-simethicone 200 mg-200 mg-20 mg/5 mL oral susp 30 ml PO Q6HP PRN ml 07/02/17 [History Confirmed 06/21/18 Last Taken 06/19/18 09:00] bisacodyl 10 mg rectal suppository 10 mg [place] QDAY PRN 07/02/17 [History Confirmed 06/21/18 Last Taken 05/21/18 09:00] emollient combination no.93 topical cream 1 applic TOPICAL DAILYP PRN 07/02/17 [ History Confirmed 06/20/18 Last Taken Unknown] hydrocodone 7.5 mg-acetaminophen 325 mg tablet 1 tab PO Q4H PRN tab 07/02/17 [ History Confirmed 06/20/18 Last Taken Unknown] magnesium hydroxide 400 mg/5 mL oral suspension 400 mg PO DAILYP PRN 07/02/17 [ History Confirmed 06/20/18 Last Taken Unknown] nystatin 100,000 unit/gram topical powder 1 applic TOPICAL BID PRN 07/02/17 [ History Confirmed 06/20/18 Last Taken Unknown] polyvinyl alcohol 1.4 % eye drops 1 drp OPHTHALMIC BID-QID PRN 07/02/17 [ History Confirmed 06/20/18 Last Taken Unknown] simvastatin 20 mg tablet 20 mg PO QPM 07/02/17 [History Confirmed 06/20/18 Last Taken Unknown] polyethylene glycol 3350 17 gram oral powder packet 17 g PO QDAY #100 each 09/08 [Rx Confirmed 06/20/18 Last Taken 06/20/18 08:00] acetaminophen 500 mg tablet 1,000 mg PO Q6H PRN 09/17/17 [History Confirmed 08/07 Last Taken 06/20/18 12:00] carvedilol 25 mg tablet 12.5 mg PO BID #180 tab 09/17/17 [Rx Confirmed 06/20/18 Last Taken 06/20/18 08:00] sennosides 8.6 mg tablet 8.6 mg PO QDAY PRN 09/17/17 [History Confirmed Last Taken Unknown] losartan 100 mg tablet 100 mg PO QDAY #90 tab 03/11/18 [Rx Confirmed 06/20/18 Last Taken 06/20/18 08:00] mupirocin 2 % topical ointment 1 applic TOPICAL BID #30 g 05/04/18 [Rx Confirmed 06/20/18 Last Taken 06/20/18 08:00] guaifenesin ER 600 mg tablet, extended release 12 hr 600 mg PO Q12H PRN [History Confirmed 06/20/18 Last Taken 06/20/18 16:16] trolamine salicylate 10 % lotion 1 applic TOPICAL QDAY PRN 06/19/18 [History Confirmed 06/20/18 Last Taken Unknown] Cranberry Conc/C/Bacill Coag [Cranberry Tablet] 1 each PO BID 06/20/18 [History Confirmed 06/20/18 Last Taken 06/20/18 08:00] Estradiol [Estrace] 0.5 g VAGINAL Q48H 06/20/18 [History Confirmed 06/20/18 Last Taken Unknown] Furosemide [Lasix] 40 mg PO QDAY 06/20/18 [History Confirmed 06/20/18 Last Taken 06/20/18 09:00] Imipramine HCl [Tofranil] 25 mg PO QHS 06/20/18 [History Confirmed 06/20/18 Last Taken Unknown] Insulin Aspart [Novolog Flexpen] 2 unit SQ DAILYP PRN 06/20/18 [History Confirmed 06/20/18 Last Taken Unknown] Insulin Aspart [Novolog Flexpen] 100 unit SQ ACHS 06/20/18 [History Confirmed Last Taken Unknown] Insulin Glargine,Hum.rec.anlog [Lantus Solostar] 35 unit SQ QHS 06/20/18 [ History Confirmed 06/20/18 Last Taken Unknown] Melatonin 5 mg PO QHS PRN 06/20/18 [History Confirmed 06/20/18 Last Taken Unknown] Solifenacin Succinate [Vesicare] 10 mg PO QHS 06/20/18 [History Confirmed Last Taken Unknown] guaiFENesin/DEXTROMETHORPHAN [Robafen Dm Cgh-Chest Jaya Liq] 10 ml PO Q6HP PRN 06/20/18 [History Confirmed 06/20/18 Last Taken Unknown] rOPINIRole HCL [Requip] 1 mg PO QHS 06/20/18 [History Confirmed 06/20/18 Last Taken Unknown] traMADol HCL [Ultram] 100 mg PO QHS PRN 06/20/18 [History Confirmed 06/20/18 Last Taken Unknown] traZODone HCL [Trazodone HCl] 100 mg PO QHS 06/20/18 [History Confirmed Last Taken Unknown] Medical - DS: Hosp Hospital course: Ms. Thomas is a 78 year old F with a history of type 2 diabetes mellitus and mild dilated cardiomyopathy with history of pacemaker and defibrillator placed about 12 years ago, anemia, sleep apnea who presents with worsening dyspnea. History is obtained in speaking with the patient, as well as reviewing old records as summarized below. The patient was seen in this facility on 06/03 and diagnosed right upper lobe pneumonia. She was treated with azithromycin. Since that time she states that she is "still ill". By that means she has exhaustion with any exertion as well as significant dyspnea with any exertion. She is coughs, particularly at night when she is supine. She gets short of breath when she lies supine, that worsened over the last few days, to where she is spent a portion of the evening sitting up in a recliner due to dyspnea. She wakes up short of breath, has to sit up to catch her breath. She's noted no lower extremity edema associated with this. She's had no abdominal bloating or distention. She's had a cough which occurs at night, it's nonproductive. Has noticed worse while supine. She's had some burning lower chest symptoms, similar to reflux symptoms she's had in the past, though it coming more frequently. Her "heartburn" is not necessarily associated with exertion. She has no history of myocardial infarction or angina. Patient has a history of dilated cardiomyopathy, ejection fraction in July of this year was 4045 percent. There is borderline dilated. She states back when she had her defibrillator placed about 12 years ago her ejection fraction was 25%. At that time she was told she had clean coronaries. She is unsure why her heart was not functioning well. She presented for follow-up yesterday at Dr. Messer's office. Radiograph confirmed that there was near complete resolution of her pneumonia. Lab work was drawn and the patient was to call for follow-up. Today she was looking even more poorly and someone at [facility] living encouraged to come to the ED. In the emergency department she was found to have new hypoxia, requiring 3 L nasal cannula to maintain saturations. Radiograph today shows evidence of heart failure, BNP is in the 4800 range, when it was in the 2100 range yesterday. Mejias, the patient had fever to 100.2 in the ED, was wheezing. She received nebulizer treatment with some improvement in her symptoms, received furosemide, however still requires oxygen is being admitted for acute exacerbation of chronic systolic heart failure. 06/21 Feels improved this afternoon, has had diuresis with IV furosemide. Still on oxygen, still with dyspnea, though better than admission. No chest pain, no nausea vomiting. 06/22 Did not notice much diuresis after p.m. dose of Lasix yesterday. Creatinine is creeping up. Up and ambulating, off of oxygen this morning. Dyspnea continues slowly improved. Slept much better last night. No chest pain, no nausea, no vomiting. Appetite is good. 06/23-patient doing well. Improved shortness of ongoing diuresis. Restart losartan. Await discussions with cardiology for optimization of treatment. Currently on losartan/Coreg. Hold amlodipine. Repeat echo 25% EF with grade 3 diastolic dysfunction. Increase diuretics to twice daily. Continue telemetry monitoring Discussed patient's clinical status with Dr. Martin cardiology. Recommends continuing losartan/Coreg and twice daily diuretics. Recommends holding calcium channel bruce if her blood pressures are adequately controlled. 06/24-patient clinically deteriorating with more somnolence. Stat ABG shows respiratory acidosis with pH 7.29. Patient started on BiPAP. Unclear etiology. Also elevated creatinine to 1.7. Losartan on hold. Nephrology consulted. Await UA/renal ultrasound. Lower dose of Xanax 2.25 from 1 mg, trazodone 50 from 100. Coreg dose increased to 25 mg twice daily along with diltiazem 30 every 6 in light of persistent A. fib with RVR, also loaded on digoxin. On manager monitoring frequent pacer firing noted and hence will be interrogated as likely to RVR pacer driven. 06/25-persistent A. fib with RVR despite beta-bruce/calcium bruce and digoxin. Amiodarone load. Pacemaker interrogated, working on previous settings. Improved mentation and now off BiPAP. Improving renal function. Diuretics on hold. Discontinue diltiazem. Case discussed with patient's daughter on phone yesterday and updated on clinical status. No significant shortness of breath. Renal ultrasound unremarkable except for renal cyst. Diuretic and losartan on hold. Nephrology on board 06/26-patient doing well. Present downtrending. Potassium 4.9. Off noninvasive ventilation. Heart rate around 100 on amiodarone. No overnight fever chills or concerns per staff. Able to get out of bed and ambulating without symptoms. Transition to telemetry today. 06/27-patient doing well. No overnight events. No concerns per staff, persistent A. fib RVR. Off BiPAP. Renal function improving the creatinine 1.2. Start amiodarone 100 twice daily. Will start gentle diuresis in light of the EF 25% and high risk worsening CHF. Continue physical therapy. Anticipate discharge on Friday to [place] 06/28 Pt seen examined, no acute overnight issues, remains in afib with rvr, on coreg 25mg bid, bp is soft hence on amiodarone, clinically not volume overloaded. TSH on admission was normal, pt is not hypoxic. 06/29 Patient seen examined, no acute changes, converted to sinus rhythm this AM, off oxygen, working with PT to improve her endurance. The patient is stable for discharge, but needs therapy before can go back to assisted living. Hence will be discharged to SNF She will be discharged on amiodarone 100mg bid, with outpatient cardiology follow up. In short 78-year-old female presents with worsening dyspnea for the last 2-1/2 weeks and she is diagnosed with pneumonia on 06/03. Found to have congestive heart failure, also fever and evidence bronchitis. Acute hypercapnic resp failure- resolved Afib with rVR- Happened during this visit, is on coreg, dose upped from 12.5mg bid to 25mg bid during this visit , and oral amiodarone 100m bid, her HR is back to sinus. I have not started her on anticoagulation at this time, I will leave this decision with her site leader. LORE -creat stable, improving renal function, off arb for now monitor, creat at the time of discharge is 1.3, I have not started ARB At the time of discharge, would wait for labs to be stable and then resume the dose of ARB Congestive heart failuire, s/p aicd- LVEF 25%, not volume overloaded at this time, off arb give renal dysfunction. follows with Dr Martin, pt had LVEF 40-45% before? outpatient managment per Dr Martin. BAck on lasix oral and KCL supplement at discharge. DM- Home dose of insulin seemed too high, will cut back lantus to 25units qhs, and medium scale ssi for glucose management, hold metforin in light of abnl lft , will resume liraglutide at discharge. Glucose monitoring and further dose adjustment per pcp abnormal liver function test- Noted while in the hospital, likely to low bp, patient lft trending down, usg liver unremarkable. Bronchitis resolved chr pain0- resume home doses of hydrocodone/ tramadol Urinary incontinence- follows with Dr Junior, on vesicare Discharge diagnosis: CHF exacerbation, Afib with RVR, Resp failure - Time Spent with Patient Total time spent providing and/or coordinating discharge services: Greater than 30 minutes Medical - DS: Exam - Constitutional Vitals: Vital Signs Temp Pulse Resp BP Pulse Ox 06/29/18 08:30 98.3 F 142/70 100 06/29/18 08:00 69 100 06/29/18 05:19 20 136/59 98 06/29/18 03:07 96.7 F L 20 116/74 91 06/29/18 01:00 86 L 06/29/18 00:30 86 L 06/29/18 00:29 97.1 F 18 118/67 87 L 06/28/18 19:29 97.7 F 20 105/79 94 06/28/18 16:19 97.9 F 155/95 92 06/28/18 12:34 98.0 F 110/79 92 Intake and Output 06/28/18 06/29/18 06/29/18 21:59 05:59 13:59 Intake Total 300 / 300 840 / 840 Output Total 2 / 2 2 / 2 2 / 2 Balance -2 / -2 298 / 298 838 / 838 Intake: Oral 300 / 300 840 / 840 Output: # of times incontinent of urine 2 / 2 2 / 2 2 / 2 Other: Meal Dinner Breakfast Percent of Meal Consumed 25% 75% Feeding Ability Independent Stool Size Moderate Stool Color Brown Stool Consistency Liquid Loose # Voids 1 # Bowel Movements 1 Weight 279 lb 1.6 oz Additional comments: Constitutional; Afebrile, cooperative, alert, not in distress. Respiratory system: Air Entry equal on both sides, No crackles or wheezing, no rhonchi. CVS- Rate rhythm regular, S1,S2 heard, no gallop, no rub. Abdomen- Soft nontender abdomen, no organomegaly, no tenderness, no guarding or rigidity, LATHE TURNER- AOOx3, moving all extremities, no gross focal deficit noted. Medical - DS: Data Labs on day of discharge: Labs from last 24 hours 06/29/18 06/29/18 03:49 03:49 WBC 9.5 RBC 4.13 Hgb 10.7 L Hct 33.6 L MCV 81.3 MCH 25.9 L MCHC 31.8 RDW 16.3 H Plt Count 273 MPV 8.7 Gran % 64.7 Lymph % (Auto) 23.2 [place] % (Auto) 10.0 Eos % (Auto) 1.6 Baso % (Auto) 0.5 Gran # 6.2 Lymph # (Auto) 2.2 [place] # (Auto) 1.0 H Eos # (Auto) 0.2 Baso # (Auto) 0 Sodium 141 Potassium 4.6 Chloride 104 Carbon Dioxide 26 Anion Gap 11.0 BUN 50 H Creatinine 1.3 H GFR Calculation 39 Glucose 77 Uric Acid 11.5 H Calcium 8.6 Phosphorus 5.8 H Magnesium 2.4 Total Bilirubin 0.3 Direct Bilirubin < 0.2 GGT 52 H AST 74 H ALT 110 H Alkaline Phosphatase 125 H Lactate Dehydrogenase 293 H Total Protein 6.0 Albumin 3.2 Globulin 2.8 Albumin/Globulin Ratio 1.1 Triglycerides 107 Medical - DS: A/P - Patient/Caregiver Discharge Instructions Activity: as per physical therapy, increase activity as tolerated Diet: Cardiac, Consistent Carbohydrate Additional Instructions: Please continue with OT/PT at rehab center Follow up with Dr martin in 1-2 weeks Follow up with PCP within 1 week after being discahrged from SNF Go to the ER if worsening symptoms, chest pain, shortness of breath or any other acute concern. Recommend PCP/ Physician at SNF check CMP in 1 week to evaluate liver and renal functions and adjust doses of medications accordingly. - Follow up Plan Follow up with: Inocente Messer DO [Primary Care Provider] - Russell Martin MD [Physician] - Disposition: Xfer SNF Prognosis: Fair Rehab Potential: Fair I certify that the patient requires SNF services: Yes Overall status at discharge: patient is progressing back to baseline Medical - DS: Qual - VTE Deep Vein Thrombosis/Pulmonary Embolism Present on Admission: No
== END 2018-06-29 13:11 | DRG 291 ==
LOC: ED 16:50 → ICU 23:35
PROVIDERS: ADMIT Internal Medicine; ATTEND Internal Medicine
CPT/HCPCS: 84145; 97161; 99231; J0282; J1160; J1650; J1815; J1817; J1940; J1956; J7030; J7050; J7060; J7620; J7620-GY

== ENCOUNTER 2018-07-13 12:00 | Inpatient (IN) ==
[2018-07-13] MEDS ORDERED: IOPAMIDOL 100 ML BOTTLE IV ONE (12:01)
--- NOTE | 2018-07-13 12:30 | XRay Report ---
CLINICAL INFORMATION: short of breath COMPARISON: 06/28/2018 FINDINGS: Implantable cardioverter defibrillator remains in stable satisfactory position. Heart is mildly enlarged but stable. The mediastinum is unremarkable. Pulmonary vessels are mildly distended. There may be minimal perihilar edema. Right diaphragm is chronically elevated. There is minor atelectasis right base IMPRESSION: Equivocal CHF or volume overload. Chronic elevation right diaphragm Interpreted and Authenticated by: Inocente Cuellar 07/13/18
[2018-07-13] MEDS ORDERED: FUROSEMIDE 40 MG/4 ML VIAL IV ONE (12:36)
[2018-07-13 13:18] LABS: Basophils # (Auto) 0.1 K/mcL (0.0-0.3); Basophils % (Auto) 0.3 % (0.0-2.0); Eosinophils # (Auto) 0 K/mcL (0.0-0.7); Eosinophils % (Auto) 0 % (0.0-7.0); Granulocytes % (Auto) 85.7 % (38.0-78.0); Lymphocytes # (Auto) 1.3 K/mcL (1.5-4.8); Lymphocytes % (Auto) 7.8 % (15.5-49.0); Mean Cell Volume 81.1 fL (80.0-100.0); Mean Corpuscular HGB Conc 31.3 g/dL (31.0-36.0); Monocytes # (Auto) 1.1 K/mcL (0.1-0.9); Monocytes % (Auto) 6.2 % (1.0-12.0); Platelet Count 292 K/mcL (140-440); RBC 4.22 M/mcL (4.00-5.20); Red Cell Distribution Width 16.4 % (11.5-14.5)
[2018-07-13] MEDS ORDERED: cefTRIAXone 1 GM VIAL IV ONE (13:52)
[2018-07-13 13:55] LABS: ALT/SGPT 81 U/l (0-40); Albumin/Globulin Ratio 1.2 (1.0-2.3); Alkaline Phosphatase 117 U/L (39-117); Blood Urea Nitrogen 46 mg/dl (8-23)
[2018-07-13] MEDS ORDERED: CALCIUM CHLORIDE 1,000 MG/10 ML SYRINGE IV ONE (14:01)
[2018-07-13 14:03] LABS: Appearance,Urine CLOUDY; Bacteria,Urine FEW /hpf (0); Bilirubin,Urine NEG (NEG); Color,Urine YELLOW; Glucose,Urine (UA) NEGATIVE (NEG); Leukocyte Esterase,Urine 500 /uL (NEG); Mucus,Urine MOD /hpf (0); Protein,Urine 30 mg/dL (NEG); Specific Gravity,Urine 1.024 (1.000-1.035); Urine Blood NEG mg/dL (<0.03); Urine Granular Cast 3 /lpf (0); Urine Hyaline Cast 100 /lpf (0-2); Urine RBC 2 /hpf (0-1); Urine Squamous Epithelial Cell 1 /hpf (0-4); Urine Transitional Epi Cells < 1 /hpf (0-2); Urine WBC 112 /hpf (0-4); Urobilinogen,Urine NEG (NEG)
--- NOTE | 2018-07-13 14:06 | Emergency Department Note ---
SOB HPI - General Chief Complaint: Shortness of Breath/Dyspnea Stated Complaint: SOB, neck pain Time Seen by Provider: 07/13/18 12:05 Source: patient, EMS Mode of arrival: EMS Limitations: no limitations - History of Present Illness 78-year-old female presents with shortness of breath and swelling to the right side of her face and neck. States this all started yesterday and is worse today. She also feels weak and shaky. Believe she has had a fever although she has not taken her temperature. She does have a mild sore throat. No nausea , vomiting, or diarrhea. States she has a lot of generalized weakness and feels sleepy and not right. States she does have some chronic shortness of breath but it has been much worse over the last 48 hours and especially this morning. She is supposed to wear home O2 however when she got there EMS reports she was not wearing her home O2. Known history of: COPD, congestive heart failure Associated symptoms: Reports: fever, cough, orthopnea. Denies: chest pain, pain with inspiration, wheezing, sputum production, lower extremity pain, palpitations, nausea/vomiting, syncope, rash - Related Data Home Medications Medication Instructions Recorded Confirmed aluminum-mag hydroxide-simethicone 30 ml PO Q6HP PRN ml 07/02/17 06/21/18 200 mg-200 mg-20 mg/5 mL oral susp bisacodyl 10 mg rectal suppository 10 mg [place] QDAY PRN 07/02/17 06/21/18 emollient combination no.93 1 applic TOPICAL DAILYP PRN 07/02/17 06/20/18 topical cream magnesium hydroxide 400 mg/5 mL 400 mg PO DAILYP PRN 07/02/17 06/20/18 oral suspension nystatin 100,000 unit/gram topical 1 applic TOPICAL BID PRN 07/02/17 06/20/18 powder polyvinyl alcohol 1.4 % eye drops 1 drp OPHTHALMIC BID-QID PRN 07/02/17 06/20/18 simvastatin 20 mg tablet 20 mg PO QPM 07/02/17 06/20/18 acetaminophen 500 mg tablet 1,000 mg PO Q6H PRN 09/17/17 06/20/18 sennosides 8.6 mg tablet 8.6 mg PO QDAY PRN 09/17/17 06/20/18 guaifenesin ER 600 mg tablet, 600 mg PO Q12H PRN 06/19/18 06/20/18 extended release 12 hr trolamine salicylate 10 % lotion 1 applic TOPICAL QDAY PRN 06/19/18 06/20/18 Cranberry Conc/C/Bacill Coag 1 each PO BID 06/20/18 06/20/18 [Cranberry Tablet] Estradiol [Estrace] 0.5 g VAGINAL Q48H 06/20/18 06/20/18 Furosemide [Lasix] 40 mg PO QDAY 06/20/18 06/20/18 Imipramine HCl [Tofranil] 25 mg PO QHS 06/20/18 06/20/18 Melatonin 5 mg PO QHS PRN 06/20/18 06/20/18 Solifenacin Succinate [Vesicare] 10 mg PO QHS 06/20/18 06/20/18 guaiFENesin/DEXTROMETHORPHAN 10 ml PO Q6HP PRN 06/20/18 06/20/18 [Robafen Dm Cgh-Chest Jaya Syrp] rOPINIRole HCL [Requip] 1 mg PO QHS 06/20/18 06/20/18 traZODone HCL [Trazodone HCl] 100 mg PO QHS 06/20/18 06/20/18 Previous Rx's Medication Instructions Recorded duloxetine 60 mg capsule,delayed 60 mg PO QDAY #90 cap 04/15/17 release liraglutide 0.6 mg/0.1 mL (18 mg/3 1.8 mg SUB-Q QDAY #6 ml 04/15/17 mL) subcutaneous pen injector amlodipine 5 mg tablet 5 mg PO QDAY #90 tab 04/17/17 gabapentin 300 mg capsule 300 mg PO QDAY #90 cap 04/22/17 ropinirole 1 mg tablet 1 mg PO BID #60 tab 04/22/17 potassium chloride ER 20 mEq 20 meq PO QDAY #90 tab 04/28/17 tablet,extended release hydroxychloroquine 200 mg tablet 400 mg PO QDAY #180 tab 06/16/17 polyethylene glycol 3350 17 gram 17 g PO QDAY #100 each 09/08/17 oral powder packet mupirocin 2 % topical ointment 1 applic TOPICAL BID #30 g 05/04/18 Accu-Chek 1 each FS ACHS strip 06/29/18 Albuterol Sulfate [Ventolin] 2.5 mg NEB Q4HP PRN ampul.neb 06/29/18 Amiodarone HCl [Cordarone] 100 mg PO BIDCC tablet 06/29/18 Carvedilol [Coreg] 25 mg PO BIDCC tablet 06/29/18 Dextrose [Insta-Glucose] 15 gm PO PRN PRN oral.susp 06/29/18 Hydrocodone/APAP 7.5/325Mg [[place] 1 tab PO Q4H PRN #30 tab 06/29/18 7.5-325Mg] Insulin Glargine, Human [Lantus] 25 unit SQ HS unit 06/29/18 Insulin Lispro [Humalog] See Protocol SQ ACHS unit 06/29/18 traMADol HCL [Ultram] 100 mg PO QHS PRN #20 tab 06/29/18 Allergies Allergy/AdvReac Type Severity Reaction Status Date / Time kiwi Allergy Severe Throat Verified 06/21/18 07:10 swells shut meperidine [From Demerol] AdvReac Mild Vomiting Verified 06/21/18 07:10 Review of Systems All systems ED: reviewed and negative except as stated. 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) Other specified urinary incontinence (Chronic) Urinary tract infection (Chronic) Muscle weakness (generalized) (Chronic) Low back pain (Chronic) Cervicalgia (Chronic) Pain in right shoulder (Chronic) Disorder of the skin and subcutaneous tissue, unspecified (Chronic) Constipation, unspecified (Chronic) GERD without esophagitis (Chronic) Allergic rhinitis, unspecified (Chronic) Heart failure, unspecified (Chronic) Other cardiomyopathies (Chronic) Essential (primary) hypertension (Chronic) Dry eye syndrome (Chronic) Other chronic pain (Chronic) Obstructive sleep apnea (adult) (pediatric) (Chronic) Insomnia, unspecified (Chronic) Restless leg syndrome (Chronic) Parkinson disease (Chronic) Anxiety disorder, unspecified (Chronic) Major depressive disorder, single episode, unspecified (Chronic) Hyperlipidemia, unspecified (Chronic) Vitamin deficiency, unspecified (Chronic) Type 2 diabetes mellitus without complications (Chronic) Type 2 diabetes mellitus with diabetic polyneuropathy (Chronic) Presence of cardiac pacemaker (Chronic) Past Surgical History (Last Reviewed 06/19/18 @ 11:22 by Brionna Jamison PA-C) Cardiac defibrillator in place (Chronic) History of cholecystectomy (Chronic ~1977) History of foot surgery (Chronic) History of knee replacement (Chronic ~2004) History of laparotomy (Chronic ~1975) History of orthopedic surgery (Chronic ~2003) History of permanent cardiac pacemaker placement (Chronic) History of shoulder surgery (Chronic ~1982) History of toe surgery (Chronic) History of tonsillectomy and adenoidectomy (Chronic ~1944) History of total abdominal hysterectomy (Chronic ~1983) Medical history: Reports: CHF, other (Diabetes, chronic pain. Osteoarthritis, rheumatoid arthritis,) Psychiatric history: Reports: no psych history [employer] history: Reports: non-contributory Surgical history ED: Reports: other (Right knee replacement, right ankle surgery ) - Social History smoking status: Never smoker Alcohol use: Reports: None Drug use: Reports: none Physical Exam Limitations: no limitations General appearance: alert, other (Speaks 4-5 words at a time. Mild shortness of breath with exertion or speaking) Head: atraumatic, normocephalic, normal inspection Eye: Present: normal appearance. Absent: conjunctival injection ENT: normal exam, normal oropharynx, mucous membranes moist, TM's normal bilaterally, normal external ear exam, other (Right side of face and parotid area with a edema and tender. No redness or warmth. Edema goes slightly into the right side of the neck.) Neck: Present: normal inspection, full ROM, trachea midline Chest: Present: symmetric chest wall rise Respiratory: Present: normal lung sounds bilaterally. Absent: respiratory distress, rales/crackles, accessory muscle use Cardiovascular: Present: regular rate, normal heart sounds Neurological: Present: alert, oriented X3 Psychiatric: Present: normal affect, normal mood Skin: Present: warm, dry, intact, normal color Course Course Narrative: @1453 Dr. Hammond, hospitalist agrees to accept pt. Dr. Shields was down and consulted on pt while here seeing another pt as well Vital Signs Temperature 98.6 F 07/13/18 12:05 Pulse Rate 75 07/13/18 12:05 Respiratory Rate 23 H 07/13/18 12:05 Pulse Oximetry (%) 92 07/13/18 12:05 Temperature 98.6 F 07/13/18 12:05 Pulse Rate 78 07/13/18 14:46 Respiratory Rate 22 07/13/18 14:46 Blood Pressure 129/94 07/13/18 14:41 Pulse Oximetry (%) 96 07/13/18 14:46 Shortness of Breath/Dyspnea - Lab Data Lab results reviewed: Yes I reviewed the patient's lab results. Result diagrams: 07/13/18 12:25 07/13/18 12:25 Lab Results 07/13/18 07/13/18 07/13/18 Range/Units 12:25 12:25 12:25 WBC 17.3 H (4.5-11.0) K/mcL RBC 4.22 (4.00-5.20) M/mcL Hgb 10.7 L (12.0-15.0) g/dL Hct 34.2 L (36.0-48.0) % MCV 81.1 (80.0-100.0) fL MCH 25.4 L (26.0-34.0) pg MCHC 31.3 (31.0-36.0) g/dL RDW 16.4 H (11.5-14.5) % Plt Count 292 (140-440) K/mcL MPV 8.6 (7.4-10.4) fL Gran % 85.7 H (38.0-78.0) % Lymph % (Auto) 7.8 L (15.5-49.0) % [place] % (Auto) 6.2 (1.0-12.0) % Eos % (Auto) 0 (0.0-7.0) % Baso % (Auto) 0.3 (0.0-2.0) % Gran # 14.8 H (1.8-8.0) K/mcL Lymph # (Auto) 1.3 L (1.5-4.8) K/mcL [place] # (Auto) 1.1 H (0.1-0.9) K/mcL Eos # (Auto) 0 (0.0-0.7) K/mcL Baso # (Auto) 0.1 (0.0-0.3) K/mcL VBG Lactic Acid 1.6 (0.5-2.0) mmol/L Sodium 138 (133-145) mmol/L Potassium 5.9 H* (3.3-5.1) mmol/L Chloride 97 (96-108) mmol/L Carbon Dioxide 25 (22-30) mmol/L Anion Gap 16.0 (8-16) BUN 46 H (8-23) mg/dl Creatinine 1.7 H (0.6-1.1) mg/dl GFR Calculation 28 Glucose 146 H (70-105) mg/dL Calcium 9.0 (8.6-10.4) mg/dl Total Bilirubin 0.6 (0.0-1.0) mg/dL AST 82 H (0-37) U/l ALT 81 H (0-40) U/l Alkaline Phosphatase 117 (39-117) U/L Total Protein 7.3 (5.9-8.4) gm/dL Albumin 4.0 (3.2-5.2) gm/dL Globulin 3.3 (2.2-3.7) gm/dL Albumin/Globulin Ratio 1.2 (1.0-2.3) Urine Color Urine Appearance Urine pH (5.0-9.0) Ur Specific [place] (1.000-1.035) Urine Protein (NEG) mg/dL Urine Glucose (UA) (NEG) mg/dL Urine Ketones (NEG) mg/dL Urine Occult Blood (<0.03) mg/dL Urine Nitrate (NEG) Urine Bilirubin (NEG) mg/dL Urine Urobilinogen (NEG) mg/dL Ur Leukocyte Esterase (NEG) /uL Urine RBC (0-1) /hpf Urine WBC (0-4) /hpf Ur Squamous Epith Cells (0-4) /hpf Ur Transition Epith Cell (0-2) /hpf Urine Bacteria (0) /hpf Hyaline Casts (0-2) /lpf Granular Casts (0) /lpf Urine Mucus (0) /hpf Ur Culture Indicated? 07/13/18 Range/Units 12:45 WBC (4.5-11.0) K/mcL RBC (4.00-5.20) M/mcL Hgb (12.0-15.0) g/dL Hct (36.0-48.0) % MCV (80.0-100.0) fL MCH (26.0-34.0) pg MCHC (31.0-36.0) g/dL RDW (11.5-14.5) % Plt Count (140-440) K/mcL MPV (7.4-10.4) fL Gran % (38.0-78.0) % Lymph % (Auto) (15.5-49.0) % [place] % (Auto) (1.0-12.0) % Eos % (Auto) (0.0-7.0) % Baso % (Auto) (0.0-2.0) % Gran # (1.8-8.0) K/mcL Lymph # (Auto) (1.5-4.8) K/mcL [place] # (Auto) (0.1-0.9) K/mcL Eos # (Auto) (0.0-0.7) K/mcL Baso # (Auto) (0.0-0.3) K/mcL VBG Lactic Acid (0.5-2.0) mmol/L Sodium (133-145) mmol/L Potassium (3.3-5.1) mmol/L Chloride (96-108) mmol/L Carbon Dioxide (22-30) mmol/L Anion Gap (8-16) BUN (8-23) mg/dl Creatinine (0.6-1.1) mg/dl GFR Calculation Glucose (70-105) mg/dL Calcium (8.6-10.4) mg/dl Total Bilirubin (0.0-1.0) mg/dL AST (0-37) U/l ALT (0-40) U/l Alkaline Phosphatase (39-117) U/L Total Protein (5.9-8.4) gm/dL Albumin (3.2-5.2) gm/dL Globulin (2.2-3.7) gm/dL Albumin/Globulin Ratio (1.0-2.3) Urine Color Yellow Urine Appearance Cloudy Urine pH 5.0 (5.0-9.0) Ur Specific [place] 1.024 (1.000-1.035) Urine Protein 30 A (NEG) mg/dL Urine Glucose (UA) Negative (NEG) mg/dL Urine Ketones Neg (NEG) mg/dL Urine Occult Blood Neg (<0.03) mg/dL Urine Nitrate Neg (NEG) Urine Bilirubin Neg (NEG) mg/dL Urine Urobilinogen Neg (NEG) mg/dL Ur Leukocyte Esterase 500 A (NEG) /uL Urine RBC 2 H (0-1) /hpf Urine WBC 112 H (0-4) /hpf Ur Squamous Epith Cells 1 (0-4) /hpf Ur Transition Epith Cell < 1 (0-2) /hpf Urine Bacteria Few A (0) /hpf Hyaline Casts 100 H (0-2) /lpf Granular Casts 3 H (0) /lpf Urine Mucus Mod (0) /hpf Ur Culture Indicated? Yes - Radiology Data Radiology results reviewed: Yes I reviewed the patient's radiology results. Disposition Pt seen by CERTIFIED DIABETES EDUCATOR/PA only: Yes Clinical Impression: Parotiditis, UTI (urinary tract infection), SOB (shortness of breath), CHF ( congestive heart failure) Disposition: Xfer As Inpt ([facility]) Condition: Serious Referrals: Inocente Messer DO [Primary Care Provider] - Time of Disposition: 14:55
[2018-07-13] MEDS ORDERED: ALBUTEROL SULFATE 5 MG/ML NEB SOLUTION BOTTLE NEB ONE (14:11)
[2018-07-13] MEDS ORDERED: DEXTROSE 50% 50 ML VIAL IV ONE (14:12)
[2018-07-13] MEDS ORDERED: INSULIN REGULAR, HUMAN 1 UNIT/0.01 ML UNIT IV ONE (14:12)
--- NOTE | 2018-07-13 15:40 | Internal Med History&Physical ---
Medical - H&P: HPI Patient information: Note initiated : 07/13/18 at 3:37 pm Service Date, if different from initiated Date: [] Patient: Stacie Thomas a 78 y/o F admitted on for SOB, neck pain. Chief Complaint: [] History of present illness: Ms. Thomas is a 78 year old F who was recently discharged from this facility, presents to the hospital with complaints of shortness of breath and pain and swelling on the right side of the face. At the time of my evaluation patient was drowsy confused and was unable to provide any meaningful history. Most of the history from chart review The patient apparently was alert x3 when she presented, and and complained about shortness of breath as well as pain and swelling on the right side of the face that has been bothering her since yesterday. No other acute complaints were reported to the ED provider In the emergency room patient was worked up for same. The patient was hemodynamically stable afebrile with elevated blood pressures on presentation. Saturating 92% on 2 L of oxygen. She had a white blood cell count of 17,000 hemoglobin 10.7 platelets 292 potassium was elevated at 5.9 sodium 138 bicarbonate 25 creatinine 1.7 glucose 146 AST 82 ALT 81 alkaline phosphatase 117. UA suggestive of UTI According to the nurse in the ED as well as the ED provider the patient started to deteriorate after 45 minutes presenting to the ED. Her mental status declined and she started hallucinating and not answering questions appropriately. Given hyperkalemia hyperkalemia protocol was initiated by the ED provider. CT neck showed parotidits On my evaluation the patient was having significant shortness of breath, abdominal breathing she was opening her eyes to verbal stimulus knew she was in the hospital but was not able to maintain any meaningful conversation. ABG was ordered which showed pH of 7.25 PCO2 of 70 and PO2 of 85. Patient is being admitted to PCU status for further management. ROS unobtainable: due to mental status Medical - H&P: PMH Medical history: Medical History (Last Reviewed 06/19/18 @ 11:22 by Brionna Jamison PA-C) Knee contusion (Chronic) Primary osteoarthritis of left knee (Chronic) Diabetes mellitus with peripheral angiopathy (Chronic) Callus (Chronic) Onychomycosis (Chronic) Diabetic neuropathy (Chronic) Paresthesias (Chronic) Hammertoe (Chronic) Bilateral knee pain (Chronic) Lumbar spondylosis (Chronic) Cervical sprain (Chronic) Diabetes (Chronic) High cholesterol (Chronic) 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) Other specified urinary incontinence (Chronic) Urinary tract infection (Chronic) Muscle weakness (generalized) (Chronic) Low back pain (Chronic) Cervicalgia (Chronic) Pain in right shoulder (Chronic) Disorder of the skin and subcutaneous tissue, unspecified (Chronic) Constipation, unspecified (Chronic) GERD without esophagitis (Chronic) Allergic rhinitis, unspecified (Chronic) Heart failure, unspecified (Chronic) Other cardiomyopathies (Chronic) Essential (primary) hypertension (Chronic) Dry eye syndrome (Chronic) Other chronic pain (Chronic) Obstructive sleep apnea (adult) (pediatric) (Chronic) Insomnia, unspecified (Chronic) Restless leg syndrome (Chronic) Parkinson disease (Chronic) Anxiety disorder, unspecified (Chronic) Major depressive disorder, single episode, unspecified (Chronic) Hyperlipidemia, unspecified (Chronic) Vitamin deficiency, unspecified (Chronic) Type 2 diabetes mellitus without complications (Chronic) Type 2 diabetes mellitus with diabetic polyneuropathy (Chronic) Presence of cardiac pacemaker (Chronic) Surgical history: Past Surgical History (Last Reviewed 06/19/18 @ 11:22 by Brionna Jamison PA-C) Cardiac defibrillator in place (Chronic) History of cholecystectomy (Chronic ~1977) History of foot surgery (Chronic) History of knee replacement (Chronic ~2004) History of laparotomy (Chronic ~1975) History of orthopedic surgery (Chronic ~2003) History of permanent cardiac pacemaker placement (Chronic) History of shoulder surgery (Chronic ~1982) History of toe surgery (Chronic) History of tonsillectomy and adenoidectomy (Chronic ~1944) History of total abdominal hysterectomy (Chronic ~1983) Pertinent family history: Family History (Last Reviewed 06/19/18 @ 11:22 by Brionna Jamison PA-C) Unknown Heart problem Emphysema, unspecified Other Breast cancer Cancer Diabetes Hypertension Stroke Medical - H&P: Meds Home Medications Medication Instructions Recorded Confirmed Type duloxetine 60 mg capsule,delayed 60 mg PO QDAY #90 cap 04/15/17 06/20/18 Rx release liraglutide 0.6 mg/0.1 mL (18 mg/3 1.8 mg SUB-Q QDAY #6 ml 04/15/17 06/20/18 Rx mL) subcutaneous pen injector amlodipine 5 mg tablet 5 mg PO QDAY #90 tab 04/17/17 06/20/18 Rx gabapentin 300 mg capsule 300 mg PO QDAY #90 cap 04/22/17 06/20/18 Rx ropinirole 1 mg tablet 1 mg PO BID #60 tab 04/22/17 06/20/18 Rx potassium chloride ER 20 mEq 20 meq PO QDAY #90 tab 04/28/17 06/20/18 Rx tablet,extended release hydroxychloroquine 200 mg tablet 400 mg PO QDAY #180 tab 06/16/17 06/20/18 Rx aluminum-mag hydroxide-simethicone 30 ml PO Q6HP PRN ml 07/02/17 06/21/18 History 200 mg-200 mg-20 mg/5 mL oral susp bisacodyl 10 mg rectal suppository 10 mg [place] QDAY PRN 07/02/17 06/21/18 History emollient combination no.93 1 applic TOPICAL DAILYP PRN 07/02/17 06/20/18 History topical cream magnesium hydroxide 400 mg/5 mL 400 mg PO DAILYP PRN 07/02/17 06/20/18 History oral suspension nystatin 100,000 unit/gram topical 1 applic TOPICAL BID PRN 07/02/17 06/20/18 History powder polyvinyl alcohol 1.4 % eye drops 1 drp OPHTHALMIC BID-QID PRN 07/02/17 History simvastatin 20 mg tablet 20 mg PO QPM 07/02/17 06/20/18 History polyethylene glycol 3350 17 gram 17 g PO QDAY #100 each 09/08/17 06/20/18 Rx oral powder packet acetaminophen 500 mg tablet 1,000 mg PO Q6H PRN 09/17/17 06/20/18 History sennosides 8.6 mg tablet 8.6 mg PO QDAY PRN 09/17/17 06/20/18 History mupirocin 2 % topical ointment 1 applic TOPICAL BID #30 g 05/04/18 06/20/18 Rx guaifenesin ER 600 mg tablet, 600 mg PO Q12H PRN 06/19/18 06/20/18 History extended release 12 hr trolamine salicylate 10 % lotion 1 applic TOPICAL QDAY PRN 06/19/18 06/20/18 History Cranberry Conc/C/Bacill Coag 1 each PO BID 12/01/18 12/01/18 History [Cranberry Tablet] Estradiol [Estrace] 0.5 g VAGINAL Q48H 06/20/18 06/20/18 History Furosemide [Lasix] 40 mg PO QDAY 06/20/18 06/20/18 History Imipramine HCl [Tofranil] 25 mg PO QHS 06/20/18 06/20/18 History Melatonin 5 mg PO QHS PRN 06/20/18 06/20/18 History Solifenacin Succinate [Vesicare] 10 mg PO QHS 06/20/18 06/20/18 History guaiFENesin/DEXTROMETHORPHAN 10 ml PO Q6HP PRN 06/20/18 06/20/18 History [Robafen Dm Cgh-Chest Jaya Syrp] rOPINIRole HCL [Requip] 1 mg PO QHS 06/20/18 06/20/18 History traZODone HCL [Trazodone HCl] 100 mg PO QHS 06/20/18 06/20/18 History Accu-Chek 1 each FS ACHS strip 06/29/18 Rx Albuterol Sulfate [Ventolin] 2.5 mg NEB Q4HP PRN ampul.neb 06/29/18 Rx Amiodarone HCl [Cordarone] 100 mg PO BIDCC tablet 06/29/18 Rx Carvedilol [Coreg] 25 mg PO BIDCC tablet 06/29/18 Rx Dextrose [Insta-Glucose] 15 gm PO PRN PRN oral.susp 06/29/18 Rx Hydrocodone/APAP 7.5/325Mg [[place] 1 tab PO Q4H PRN #30 tab 06/29/18 Rx 7.5-325Mg] Insulin Glargine, Human [Lantus] 25 unit SQ HS unit 06/29/18 Rx Insulin Lispro [Humalog] See Protocol SQ ACHS unit 06/29/18 Rx traMADol HCL [Ultram] 100 mg PO QHS PRN #20 tab 06/29/18 Rx Allergies Allergy/AdvReac Type Severity Reaction Status Date / Time kiwi Allergy Severe Throat Verified 06/21/18 07:10 swells shut meperidine [From Demerol] AdvReac Mild Vomiting Verified 06/21/18 07:10 Medical - H&P: Exam - Constitutional Vitals: Temp Pulse Resp BP Pulse Ox 98.6 F 82 28 H 144/103 95 07/13/18 12:05 07/13/18 15:21 07/13/18 15:21 07/13/18 15:21 07/13/18 15:21 Exam: GENERAL: The patient is a well-developed morbidly obese in moderate resp disterss, abdominal breathing, aoox2 but drowsy. VITAL SIGNS: Reviewed and as noted elsewhere. HEENT: Head is normocephalic and atraumatic. Extraocular muscles are intact. Pupils are equal, round, and reactive to light. Nares appeared normal. Mouth appears any without lesions. Mucous membranes are dry NECK: Normal to inspection, Supple, No lymphadenopathy or thyromegaly. LUNGS: Air entry equal on both sides, mild exp wheeze, prolonged exp phase. decreased air entry bilaterally,no crackles or rhonchi noted. abdominal muscles used for respiration HEART: Regular rate and rhythm normal, S1 and S2 heard, no Gallop, S3 or Rub Noted, No Gross murmur heard. ABDOMEN: Soft, nontender, and nondistended. Positive bowel sounds. No hepatosplenomegaly was noted. large pannus EXTREMITIES: No cyanosis, clubbing, rash, lesions or edema. NEUROLOGIC: Cranial nerves II through XII are grossly intact. Motor and Sensory System Grossly Intact PSYCHIATRIC: confused SKIN: No ulceration or wounds noted, No jaundice, No rash noted. Medical - H&P: Reslt - Labs CBC & Chem 7: 07/13/18 12:25 07/13/18 12:25 Labs: Short CBC 07/13/18 Range/Units 12:25 WBC 17.3 H (4.5-11.0) K/mcL Hgb 10.7 L (12.0-15.0) g/dL Hct 34.2 L (36.0-48.0) % Plt Count 292 (140-440) K/mcL BMP 07/13/18 12:25 Sodium 138 Potassium 5.9 H* Chloride 97 Carbon Dioxide 25 BUN 46 H Creatinine 1.7 H Glucose 146 H Calcium 9.0 Liver Function 07/13/18 Range/Units 12:25 Total Bilirubin 0.6 (0.0-1.0) mg/dL AST 82 H (0-37) U/l ALT 81 H (0-40) U/l Alkaline Phosphatase 117 (39-117) U/L Albumin 4.0 (3.2-5.2) gm/dL Urine 07/13/18 Range/Units 12:45 Urine Color Yellow Urine Appearance Cloudy Urine pH 5.0 (5.0-9.0) Ur Specific [place] 1.024 (1.000-1.035) Urine Protein 30 A (NEG) mg/dL Urine Glucose (UA) Negative (NEG) mg/dL Medical - H&P: A/P - Narrative A/P Narrative: A/P Acute on Chronic Respiratory failure- Pt at baseline on 2 L oxygen, presents with shortness of breath and also has respiratory acidosis. TO be treated with BIPAP to help with oxygenation and ventilation. Acute COPD exacerbation- Treat with IV steroids, duonebs and antibiotics, CXR is neg Acute parotiditis _ with sepsis- IV vancomycin and zosyn for now, await official CT read, follow blood cultures. CHF/s/p Pacemaker- CXR shows fluid overload, no crackles on exam, thacker in place , judicious use of IV fluids. DM- SSI insulin for glucose control. HTN- monitor bp, hold bp meds for now, resume if bp trends up Morbid obesity- Outpatient follow up Acute Kidney Injury- Pre renal? monitor for now, gentle hydration. Will send urine studies, Nephrology consulted by ER Hyperkalemia- K 5.9, EKG reviewed,no peaked t waves, but did have first deg HB, Protocol given in Er, recheck labs in few hours. DVT hep sq Diet carb consistent DNR code status. Total 60 mins spent rendering critical care to this patient, managing non invasive vent, abg, cxr, care coordination. Social History - Social History marital status: occupational status: retired - Tobacco smoking status: Never smoker - Alcohol alcohol intake frequency: does not drink - Substance use substance use type: does not use
--- NOTE | 2018-07-13 15:45 | Nephrology Consult Note ---
History of Present Illness - Reason for Consult Patient information: Note initiated : 07/13/18 at 3:43 pm Patient: Stacie Thomas 78 y/o F admitted on for SOB, neck pain. 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 She could not provide history due to sleepiness. Review of Systems ROS unobtainable: due to mental status Past History Past medical history: Medical History (Last Reviewed 06/19/18 @ 11:22 by Brionna Jamison PA-C) Knee contusion (Chronic) Primary osteoarthritis of left knee (Chronic) Diabetes mellitus with peripheral angiopathy (Chronic) Callus (Chronic) Onychomycosis (Chronic) Diabetic neuropathy (Chronic) Paresthesias (Chronic) Hammertoe (Chronic) Bilateral knee pain (Chronic) Lumbar spondylosis (Chronic) Cervical sprain (Chronic) Diabetes (Chronic) High cholesterol (Chronic) 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) Other specified urinary incontinence (Chronic) Urinary tract infection (Chronic) Muscle weakness (generalized) (Chronic) Low back pain (Chronic) Cervicalgia (Chronic) Pain in right shoulder (Chronic) Disorder of the skin and subcutaneous tissue, unspecified (Chronic) Constipation, unspecified (Chronic) GERD without esophagitis (Chronic) Allergic rhinitis, unspecified (Chronic) Heart failure, unspecified (Chronic) Other cardiomyopathies (Chronic) Essential (primary) hypertension (Chronic) Dry eye syndrome (Chronic) Other chronic pain (Chronic) Obstructive sleep apnea (adult) (pediatric) (Chronic) Insomnia, unspecified (Chronic) Restless leg syndrome (Chronic) Parkinson disease (Chronic) Anxiety disorder, unspecified (Chronic) Major depressive disorder, single episode, unspecified (Chronic) Hyperlipidemia, unspecified (Chronic) Vitamin deficiency, unspecified (Chronic) Type 2 diabetes mellitus without complications (Chronic) Type 2 diabetes mellitus with diabetic polyneuropathy (Chronic) Presence of cardiac pacemaker (Chronic) Past surgical history: Past Surgical History (Last Reviewed 06/19/18 @ 11:22 by Brionna Jamison PA-C) Cardiac defibrillator in place (Chronic) History of cholecystectomy (Chronic ~1977) History of foot surgery (Chronic) History of knee replacement (Chronic ~2004) History of laparotomy (Chronic ~1975) History of orthopedic surgery (Chronic ~2003) History of permanent cardiac pacemaker placement (Chronic) History of shoulder surgery (Chronic ~1982) History of toe surgery (Chronic) History of tonsillectomy and adenoidectomy (Chronic ~1944) History of total abdominal hysterectomy (Chronic ~1983) Past family history: Family History (Last Reviewed 06/19/18 @ 11:22 by Brionna Jamison PA-C) Unknown Heart problem Emphysema, unspecified Other Breast cancer Cancer Diabetes Hypertension Stroke Medications and Allergies Home Medications Medication Instructions Recorded Confirmed Type duloxetine 60 mg capsule,delayed 60 mg PO QDAY #90 cap 04/15/17 06/20/18 Rx release liraglutide 0.6 mg/0.1 mL (18 mg/3 1.8 mg SUB-Q QDAY #6 ml 04/15/17 06/20/18 Rx mL) subcutaneous pen injector amlodipine 5 mg tablet 5 mg PO QDAY #90 tab 04/17/17 06/20/18 Rx gabapentin 300 mg capsule 300 mg PO QDAY #90 cap 04/22/17 06/20/18 Rx ropinirole 1 mg tablet 1 mg PO BID #60 tab 04/22/17 06/20/18 Rx potassium chloride ER 20 mEq 20 meq PO QDAY #90 tab 04/28/17 06/20/18 Rx tablet,extended release hydroxychloroquine 200 mg tablet 400 mg PO QDAY #180 tab 06/16/17 06/20/18 Rx aluminum-mag hydroxide-simethicone 30 ml PO Q6HP PRN ml 07/02/17 06/21/18 History 200 mg-200 mg-20 mg/5 mL oral susp bisacodyl 10 mg rectal suppository 10 mg IA QDAY PRN 07/02/17 06/21/18 History emollient combination no.93 1 applic TOPICAL DAILYP PRN 07/02/17 06/20/18 History topical cream magnesium hydroxide 400 mg/5 mL 400 mg PO DAILYP PRN 07/02/17 06/20/18 History oral suspension nystatin 100,000 unit/gram topical 1 applic TOPICAL BID PRN 07/02/17 06/20/18 History powder polyvinyl alcohol 1.4 % eye drops 1 drp OPHTHALMIC BID-QID PRN 07/02/17 History simvastatin 20 mg tablet 10 mg PO QPM 07/02/17 06/20/18 History polyethylene glycol 3350 17 gram 17 g PO QDAY #100 each 09/08/17 06/20/18 Rx oral powder packet acetaminophen 500 mg tablet 1,000 mg PO Q6H PRN 09/17/17 06/20/18 History sennosides 8.6 mg tablet 8.6 mg PO QDAY PRN 09/17/17 06/20/18 History mupirocin 2 % topical ointment 1 applic TOPICAL BID #30 g 05/04/18 06/20/18 Rx guaifenesin ER 600 mg tablet, 600 mg PO Q12H PRN 06/19/18 06/20/18 History extended release 12 hr trolamine salicylate 10 % lotion 1 applic TOPICAL QDAY PRN 06/19/18 06/20/18 History Cranberry Conc/C/Bacill Coag 1 each PO BID 06/20/18 06/20/18 History [Cranberry Tablet] Estradiol [Estrace] 0.5 g VAGINAL Q48H 06/20/18 06/20/18 History Furosemide [Lasix] 40 mg PO QDAY 06/20/18 06/20/18 History Imipramine HCl [Tofranil] 25 mg PO QHS 06/20/18 06/20/18 History Melatonin 5 mg PO QHS PRN 06/20/18 06/20/18 History Solifenacin Succinate [Vesicare] 10 mg PO QHS 06/20/18 06/20/18 History guaiFENesin/DEXTROMETHORPHAN 10 ml PO Q6HP PRN 06/20/18 06/20/18 History [Robafen Dm Cgh-Chest Jaya Syrp] rOPINIRole HCL [Requip] 1 mg PO QHS 06/20/18 06/20/18 History traZODone HCL [Trazodone HCl] 100 mg PO QHS 06/20/18 06/20/18 History Accu-Chek 1 each FS ACHS strip 06/29/18 Rx Albuterol Sulfate [Ventolin] 2.5 mg NEB Q4HP PRN ampul.neb 06/29/18 Rx Amiodarone HCl [Cordarone] 100 mg PO BIDCC tablet 06/29/18 Rx Carvedilol [Coreg] 25 mg PO BIDCC tablet 06/29/18 Rx Dextrose [Insta-Glucose] 15 gm PO PRN PRN oral.susp 06/29/18 Rx Hydrocodone/APAP 7.5/325Mg [[place] 1 tab PO Q4H PRN #30 tab 06/29/18 Rx 7.5-325Mg] Insulin Glargine, Human [Lantus] 25 unit SQ HS unit 06/29/18 Rx Insulin Lispro [Humalog] See Protocol SQ ACHS unit 06/29/18 Rx traMADol HCL [Ultram] 100 mg PO QHS PRN #20 tab 06/29/18 Rx Allergies Allergy/AdvReac Type Severity Reaction Status Date / Time kiwi Allergy Severe Throat Verified 06/21/18 07:10 swells shut meperidine [From Demerol] AdvReac Mild Vomiting Verified 06/21/18 07:10 Exam - Vital Signs Vital signs: Temp Pulse Resp BP Pulse Ox 98.6 F 82 28 H 144/103 95 07/13/18 12:05 07/13/18 15:21 07/13/18 15:21 07/13/18 15:21 07/13/18 15:21 - General Appearance General appearance: appears started age, obese, frail EENT: mucous membranes dry Neck: supple Respiratory: rales Cardiology: no edema Gastrointestinal: no tenderness Integumentary: no rash, warm and dry Neurologic: obtunded Musculoskeletal: no deformities Psychiatric: cooperative Results - Lab Results 07/13/18 12:25 07/13/18 12:25 Most recent lab results Calcium 9.0 mg/dl (8.6-10.4) 07/13/18 12:25 Assessment and Plan (1) Acute renal failure Acute kidney injury with hyperkalemia and suspected acute cystitis, present on arrival. There is no recent history of IV contrast administration or NSAID use. The patient has been on Potassium Chloride 20 mEq daily. Work up: Urinalysis on 07/13/18: Yellow, Cloudy, pH 5.0, SG 1.024, protein 30, occult blood negative, leukocyte esterase 500, urine WBC. 112, culture pending. US Renal on 06/24/18: Normal with right simple cyst. Plan: Hyperkalemia being treated in ED. No acute hemodialysis need. Avoid ACEI/ARB, NSAIDs, nephrotoxic medications and IV contrast. Monitor BMP and urine output. Status: Acute Priority: High Qualifiers: Acute renal failure type: unspecified Qualified Code(s): N17.9 - Acute kidney failure, unspecified (2) Hyperkalemia, diminished renal excretion Please see above Status: Acute Priority: High
--- NOTE | 2018-07-13 16:04 | Cat Scan Report ---
CLINICAL INFORMATION: Right parotid swelling on physical exam COMPARISON: None. TECHNIQUE: 80 cc of Isovue-300 were injected intravenously and 25 seconds later, 2.5 mm helical slices were obtained from the inferior orbit through the supraclavicular region. Following reconstruction, 2.5 mm sagittal and coronal reformations were processed. The exam was reviewed at bone and soft tissue windows . The exam was performed using radiation dose optimization techniques including, but not limited to, automated exposure control, adjustment of the mA and/or kV according to patient size and use of iterative reconstruction technique. FINDINGS: Right parotid gland is enlarged and inflamed with injection in the adjacent periparotid fat. Findings are compatible with simple parotiditis. No evidence of abscess or stone seen within the parotid duct. A few mildly enlarged the cervical lymph nodes are seen in the adjacent soft tissues about with reactive adenopathy. The left parotid and both submandibular glands are normal in size and configuration. The epiglottis, aryepiglottic folds, true lateral false vocal cords,, base and prevertebral soft tissues are normal. Thyroid is unremarkable. Both TMJ show minimal degenerative change. Lung apices are unremarkable. IMPRESSION: Right parotiditis. No evidence of abscess, parotid duct stone or other complication. Atherosclerotic plaque in both proximal internal carotid arteries. On the left side, there is a mild mild (less than 50%) stenosis. Suggest: Follow-up carotid Doppler duplex study in one to two years. Interpreted and Authenticated by: Inocente Cuellar 07/13/18
[2018-07-13] MEDS ORDERED: ACETAMINOPHEN 325 MG TABLET PO PRN (17:10)
[2018-07-13] MEDS ORDERED: DEXTROSE 31 GM ORAL.SUSP PO PRN (17:10)
[2018-07-13] MEDS ORDERED: VANCOMYCIN PER PHARMACY IV ONE (17:10)
[2018-07-13] MEDS ORDERED: ONDANSETRON 4 MG/2 ML VIAL IV PRN (17:10)
[2018-07-13] MEDS ORDERED: DEXTROSE 50% 50 ML VIAL IV PRN (17:10)
[2018-07-13] MEDS ORDERED: NALOXONE HCL 0.4 MG/ML VIAL IV PRN (17:10)
--- NOTE | 2018-07-13 17:34 | Emergency Department Note ---
ED Note Addendum Note Addendum: I reviewed discussed his case with Dinora JOHNSTON. I agree with her evaluation management documentation. In particular recommend patient come in for further care to the hospital. I briefly discussed the case as well with Dr. Shields, the animation artist as well
[2018-07-13] MEDS: INSULIN LISPRO 1 UNIT/0.01 ML UNIT SQ SCH ×2 (18:06→21:46)
[2018-07-13] MEDS: IPRATROPIUM/ALBUTEROL 3 ML AMPUL.NEB NEB SCH ×2 (18:47→22:36)
[2018-07-13] MEDS ORDERED: VANCOMYCIN 1,500 MG in 0.9 % SODIUM CHLORIDE 500 ML IV ONE (19:00)
[2018-07-13 19:46] LABS: Blood Urea Nitrogen 47 mg/dl (8-23)
[2018-07-13] MEDS: PIPERACILLIN SODIUM/TAZOBACTAM 3.375 GM in DEXTROSE 5% IN WATER 50 ML IV SCH (20:30)
[2018-07-13] MEDS: methylPREDNISolone SOD SUCC 125 MG/2 ML VIAL IV SCH ×2 (20:42→23:35)
[2018-07-13] MEDS ORDERED: INSULIN GLARGINE, HUMAN 1 UNIT/0.01 ML SQ SCH (21:00)
[2018-07-13] MEDS ORDERED: SIMVASTATIN 10 MG TABLET PO SCH (21:00)
[2018-07-13] MEDS ORDERED: rOPINIRole 1 MG TABLET PO SCH (21:00)
[2018-07-13] MEDS ORDERED: SODIUM POLYSTYRENE SULFONATE 15 GM/60 ML SUSPENSION PO SCH (21:00)
[2018-07-13] MEDS ORDERED: IMIPRAMINE 25 MG TABLET PO SCH (21:00)
[2018-07-13] MEDS ORDERED: traZODone HCL 50 MG TABLET PO SCH (21:00)
[2018-07-13] MEDS ORDERED: Solifenacin Succinate [Vesicare] 10 MG PO SCH (21:00)
[2018-07-13] MEDS: HEPARIN 5,000 UNIT/ML VIAL SQ SCH (22:02)
[2018-07-13] MEDS: 0.9 % SODIUM CHLORIDE 10 ML SYRINGE IV SCH (22:04)
[2018-07-14] MEDS: PIPERACILLIN SODIUM/TAZOBACTAM 3.375 GM in DEXTROSE 5% IN WATER 50 ML IV SCH ×3 (03:07→20:22)
[2018-07-14] MEDS: IPRATROPIUM/ALBUTEROL 3 ML AMPUL.NEB NEB SCH ×4 (03:08→19:19)
[2018-07-14] MEDS: 0.9 % SODIUM CHLORIDE 10 ML SYRINGE IV SCH ×3 (05:48→20:43)
[2018-07-14] MEDS: methylPREDNISolone SOD SUCC 125 MG/2 ML VIAL IV SCH ×3 (05:49→20:43)
[2018-07-14 05:55] LABS: Basophils # (Auto) 0 K/mcL (0.0-0.3); Basophils % (Auto) 0 % (0.0-2.0); Eosinophils # (Auto) 0 K/mcL (0.0-0.7); Eosinophils % (Auto) 0 % (0.0-7.0); Granulocytes % (Auto) 97.3 % (38.0-78.0); Lymphocytes # (Auto) 0.4 K/mcL (1.5-4.8); Lymphocytes % (Auto) 1.9 % (15.5-49.0); Mean Cell Volume 82.3 fL (80.0-100.0); Mean Corpuscular HGB Conc 31.3 g/dL (31.0-36.0); Monocytes # (Auto) 0.2 K/mcL (0.1-0.9); Monocytes % (Auto) 0.8 % (1.0-12.0); Platelet Count 221 K/mcL (140-440); RBC 3.93 M/mcL (4.00-5.20); Red Cell Distribution Width 15.9 % (11.5-14.5)
[2018-07-14 06:15] LABS: ALT/SGPT 80 U/l (0-40); Albumin 3.4 gm/dL (3.2-5.2); Albumin/Globulin Ratio 1.1 (1.0-2.3); Alkaline Phosphatase 108 U/L (39-117); Bilirubin,Direct < 0.2 mg/dL (0.0-0.3); Blood Urea Nitrogen 41 mg/dl (8-23); Gamma Glutamyl Transpeptidase 27 U/L (5-36)
--- NOTE | 2018-07-14 06:32 | Nephrology Progress Note ---
Subjective Patient information: Note initiated : 07/14/18 at 6:31 am Service Date, if different from initiated Date: [] Patient: Stacie Thomas 78 y/o F admitted on 07/13/18 for SOB, neck pain. Chief Complaint: [] Principal diagnosis: Acute kidney injury Pertinent ROS: Weakness No chest pain No abdominal pain Lozano catheter Objective - Vital Signs Vital signs: Vital Signs Temp Pulse Pulse Resp BP BP Pulse Ox 07/14/18 05:33 73 21 100 07/14/18 05:01 73 15 153/92 100 07/14/18 04:05 75 17 100 07/14/18 04:01 98.4 F 75 13 137/77 100 07/14/18 03:01 69 20 150/87 99 07/14/18 02:18 68 18 98 07/14/18 02:01 68 21 149/77 100 07/14/18 01:04 72 19 152/85 100 07/14/18 01:02 70 22 172/133 100 07/14/18 00:42 69 100 07/14/18 00:01 98.9 F 69 18 150/81 99 07/13/18 23:01 70 22 153/80 99 07/13/18 22:37 70 19 97 07/13/18 22:35 72 21 07/13/18 22:01 72 24 H 157/84 99 07/13/18 21:01 73 24 H 140/96 98 07/13/18 20:55 73 26 H 99 07/13/18 20:01 99.1 F H 73 24 H 152/81 99 07/13/18 19:40 73 25 H 152/79 99 07/13/18 19:30 74 98 07/13/18 18:47 73 22 98 07/13/18 18:45 76 21 07/13/18 18:06 72 24 H 99 07/13/18 18:01 72 22 142/85 99 07/13/18 17:11 71 25 H 95 07/13/18 17:07 12 130/66 07/13/18 17:00 98.6 F 71 25 H 130/72 95 07/13/18 16:55 99.1 F H 71 22 130/66 97 07/13/18 16:41 72 21 140/75 95 07/13/18 16:31 72 21 135/74 96 07/13/18 16:21 73 22 133/72 95 07/13/18 16:12 73 22 95 07/13/18 16:11 74 22 130/72 95 07/13/18 16:07 75 21 135/72 94 07/13/18 16:01 75 24 H 137/74 95 07/13/18 15:51 79 27 H 97 07/13/18 15:47 80 15 99 07/13/18 15:41 80 26 H 138/79 97 07/13/18 15:21 82 28 H 144/103 95 07/13/18 15:01 81 25 H 142/76 96 07/13/18 14:46 78 22 96 07/13/18 14:41 79 21 129/94 96 07/13/18 14:35 73 20 129/80 99 07/13/18 13:43 75 32 H 104/59 98 07/13/18 13:37 74 19 86/75 99 07/13/18 12:55 72 100 07/13/18 12:17 76 26 H 95 07/13/18 12:07 74 28 H 94 07/13/18 12:05 98.6 F 75 23 H 92 Intake and Output 07/13/18 07/14/18 07/14/18 21:59 05:59 13:59 Intake Total 50 / 50 50 / 50 Output Total 1325 / 1325 650 / 650 Balance -1275 / -1275 -600 / -600 Intake: IV 50 / 50 50 / 50 Zosyn 3.375 gm In Dextrose 5% 50 / 50 50 / 50 in Water 50 ml @ 100 mls/hr IV Q8H [facility] Rx#:[id number] Output: Urine Catheter Amount 1325 / 1325 650 / 650 Other: Urine Appearance Clear Clear Uretheral (Lozano) Clear Clear Urine Color Straw Straw Uretheral (Lozano) Straw Straw Urine Odor Normal Weight 276 lb 1.6 oz Intake & Output: Intake & Output 07/13/18 07/14/18 07/14/18 21:59 05:59 13:59 Intake Total 50 / 50 50 / 50 Output Total 1325 / 1325 650 / 650 Balance -1275 / -1275 -600 / -600 Weight 276 lb 1.6 oz Intake: IV 50 / 50 50 / 50 Zosyn 3.375 gm In Dextrose 5% 50 / 50 50 / 50 in Water 50 ml @ 100 mls/hr IV Q8H [facility] Rx#:[id number] Output: Urine Catheter Amount 1325 / 1325 650 / 650 Other: Urine Appearance Clear Clear Uretheral (Lozano) Clear Clear Urine Color Straw Straw Uretheral (Lozano) Straw Straw Urine Odor Normal - General Appearance General appearance: chronically ill, fatigue EENT: mucous membranes dry Neck: supple Respiratory: clear Cardiology: edema Gastrointestinal: no tenderness Integumentary: warm and dry Neurologic: no focal deficit, alert and oriented x3 Musculoskeletal: no deformities Psychiatric: mood/affect appropriate, cooperative - Lab 07/14/18 04:00 07/14/18 04:00 Most recent lab results Calcium 8.7 mg/dl (8.6-10.4) 07/14/18 04:00 Phosphorus 6.3 mg/dL (2.7-4.5) H* 07/14/18 04:00 Magnesium 2.4 mg/dL (1.6-2.5) 07/14/18 04:00 Assessment and Plan (1) Acute renal failure Stacie Thomas is a 78-year-old female with 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 Acute kidney injury with hyperkalemia and suspected acute cystitis, present on arrival. The patient has been on Potassium Chloride 20 mEq daily before admission. The patient was also given IV contrast in ED on the day of admission. Work up: Urinalysis on 07/13/18: Yellow, Cloudy, pH 5.0, SG 1.024, protein 30, occult blood negative, leukocyte esterase 500, urine WBC. 112, culture pending. US Renal on 06/24/18: Normal with right simple cyst. Progress: Urine output: 1975 ml reported in the past 20 hours. Serum creatinine decreased from 1.7 to 1.4 in the past 20 hours. Hyperkalemia, resolved. Plan: No acute hemodialysis need. Avoid ACEI/ARB, NSAIDs, nephrotoxic medications and IV contrast. Monitor BMP and urine output. Status: Acute Priority: High Qualifiers: Acute renal failure type: unspecified Qualified Code(s): N17.9 - Acute kidney failure, unspecified (2) Hyperkalemia, diminished renal excretion Status: Resolved Priority: High
[2018-07-14] MEDS ORDERED: MAGNESIUM HYDROXIDE 30 ML ORAL.SUSP PO PRN ×2 (06:52→11:12)
[2018-07-14] MEDS ORDERED: BISACODYL 10 MG SUPP.RECT PR PRN ×2 (06:52→11:12)
[2018-07-14] MEDS ORDERED: VANCOMYCIN PER PHARMACY IV SCH ×2 (07:00→11:12)
[2018-07-14] MEDS ORDERED: rOPINIRole 1 MG TABLET PO SCH ×2 (07:30→21:00)
[2018-07-14] MEDS ORDERED: PANTOPRAZOLE 40 MG TABLET PO SCH (07:30)
[2018-07-14] MEDS: INSULIN LISPRO 1 UNIT/0.01 ML UNIT SQ SCH ×4 (07:58→20:13)
[2018-07-14] MEDS ORDERED: AMIODARONE HCL 200 MG TABLET PO SCH (08:00)
[2018-07-14] MEDS: HEPARIN 5,000 UNIT/ML VIAL SQ SCH ×2 (08:23→20:13)
[2018-07-14] MEDS ORDERED: HYDROXYCHLOROQUINE 200 MG TABLET PO SCH (09:00)
[2018-07-14] MEDS ORDERED: FUROSEMIDE 20 MG TABLET PO SCH (09:00)
[2018-07-14] MEDS ORDERED: DULoxetine 30 MG CAPSULE PO SCH (09:00)
[2018-07-14] MEDS ORDERED: DOCUSATE SODIUM 100 MG CAPSULE PO SCH (09:00)
[2018-07-14] MEDS ORDERED: GABAPENTIN 300 MG CAPSULE PO SCH (09:00)
[2018-07-14] MEDS ORDERED: DEXTROSE 50% 50 ML VIAL IV PRN (11:12)
[2018-07-14] MEDS ORDERED: NALOXONE HCL 0.4 MG/ML VIAL IV PRN (11:12)
[2018-07-14] MEDS ORDERED: DEXTROSE 31 GM ORAL.SUSP PO PRN (11:12)
[2018-07-14] MEDS ORDERED: ONDANSETRON 4 MG/2 ML VIAL IV PRN (11:12)
[2018-07-14] MEDS ORDERED: ACETAMINOPHEN 325 MG TABLET PO PRN (11:12)
[2018-07-14] MEDS ORDERED: VANCOMYCIN 1,500 MG in 0.9 % SODIUM CHLORIDE 500 ML IV ONE (13:30)
--- NOTE | 2018-07-14 13:55 | Internal Med Progress Note ---
Medical - PN: Subj Patient information: Note initiated : 07/14/18 at 1:52 pm Service Date, if different from initiated Date: [] Patient: Stacie Thomas a 78 y/o F admitted on 07/13/18 for SOB, neck pain. Chief Complaint: [] Interval history: Ms. Thomas is a 78 year old F who was recently discharged from this facility, presents to the hospital with complaints of shortness of breath and pain and swelling on the right side of the face. At the time of my evaluation patient was drowsy confused and was unable to provide any meaningful history. Most of the history from chart review The patient apparently was alert x3 when she presented, and and complained about shortness of breath as well as pain and swelling on the right side of the face that has been bothering her since yesterday. No other acute complaints were reported to the ED provider In the emergency room patient was worked up for same. The patient was hemodynamically stable afebrile with elevated blood pressures on presentation. Saturating 92% on 2 L of oxygen. She had a white blood cell count of 17,000 hemoglobin 10.7 platelets 292 potassium was elevated at 5.9 sodium 138 bicarbonate 25 creatinine 1.7 glucose 146 AST 82 ALT 81 alkaline phosphatase 117. UA suggestive of UTI According to the nurse in the ED as well as the ED provider the patient started to deteriorate after 45 minutes presenting to the ED. Her mental status declined and she started hallucinating and not answering questions appropriately. Given hyperkalemia hyperkalemia protocol was initiated by the ED provider. CT neck showed parotidits On my evaluation the patient was having significant shortness of breath, abdominal breathing she was opening her eyes to verbal stimulus knew she was in the hospital but was not able to maintain any meaningful conversation. ABG was ordered which showed pH of 7.25 PCO2 of 70 and PO2 of 85. Patient is being admitted to PCU status for further management. 07/14 Patient seen and examined no acute overnight events of BiPAP now saturating well hemodynamically stable. Transfer from PCU to telemetry status. She denies any shortness of breath still has pain on the right jaw. Blood cultures positive for staph aureus urine culture positive for staph aureus likely source is parotid gland. Patient is on vancomycin and Zosyn. I reviewed with the CODE STATUS again with her she wishes to be full code. Pertinent ROS: Denies headache, dizziness Denies chest pain, palpitations Denies cough or shortness of breath Denies abdominal pain, nausea or vomiting. - Constitutional Vitals: Vital Signs Temp Pulse Resp BP Pulse Ox 98.4 F 70 25 H 114/53 96 07/14/18 04:01 07/14/18 12:01 07/14/18 12:01 07/14/18 10:01 07/14/18 12:01 Period Temp Pulse Resp BP Sys/Mcintosh Pulse Ox Last 24 Hr 98.4 F-99.1 F 68-82 12-28 114-172/53-133 93-100 Intake and Output 07/13/18 07/14/18 07/14/18 21:59 05:59 13:59 Intake Total 50 / 50 50 / 50 480 / 480 Output Total 1325 / 1325 650 / 650 Balance -1275 / -1275 -600 / -600 480 / 480 Weight 276 lb 1.6 oz Intake & Output: Intake & Output 07/13/18 07/14/18 07/14/18 21:59 05:59 13:59 Intake Total 50 / 50 50 / 50 480 / 480 Output Total 1325 / 1325 650 / 650 Balance -1275 / -1275 -600 / -600 480 / 480 Weight 276 lb 1.6 oz Intake: IV 50 / 50 50 / 50 Zosyn 3.375 gm In Dextrose 5% 50 / 50 50 / 50 in Water 50 ml @ 100 mls/hr IV Q8H [facility] Rx#:[id number] Oral 480 / 480 Output: Urine Catheter Amount 1325 / 1325 650 / 650 Other: Meal Breakfast Percent of Meal Consumed 100% Urine Appearance Clear Clear Uretheral (Thacker) Clear Clear Clear Urine Color Straw Straw Uretheral (Thacker) Straw Straw Pale Urine Odor Normal Exam: Constitutional; Afebrile, cooperative, alert, not in distress. Right parotid gland swollen and tender, no abscess noted unchanged from yesterday. Respiratory system: Air Entry equal on both sides, No crackles or wheezing, no rhonchi. CVS- Rate rhythm regular, S1,S2 heard, no gallop, no rub. 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 Medical - PN: Obj Da - Labs CBC & Chem 7: 07/14/18 04:00 07/14/18 04:00 Labs: Abnormal Lab Results 07/14/18 07/14/18 07/13/18 04:00 04:00 18:49 WBC 21.7 H RBC 3.93 L Hgb 10.1 L Hct 32.4 L MCH 25.8 L RDW 15.9 H Gran % 97.3 H Lymph % (Auto) 1.9 L [place] % (Auto) 0.8 L Gran # 21.2 H Lymph # (Auto) 0.4 L [place] # (Auto) Potassium BUN 41 H 47 H Creatinine 1.4 H 1.6 H Glucose 127 H 109 H Phosphorus 6.3 H* AST 58 H ALT 80 H Lactate Dehydrogenase 356 H Urine Protein Ur Leukocyte Esterase Urine RBC Urine WBC Urine Bacteria Hyaline Casts Granular Casts 07/13/18 07/13/18 07/13/18 12:45 12:25 12:25 WBC 17.3 H RBC Hgb 10.7 L Hct 34.2 L MCH 25.4 L RDW 16.4 H Gran % 85.7 H Lymph % (Auto) 7.8 L [place] % (Auto) Gran # 14.8 H Lymph # (Auto) 1.3 L [place] # (Auto) 1.1 H Potassium 5.9 H* BUN 46 H Creatinine 1.7 H Glucose 146 H Phosphorus AST 82 H ALT 81 H Lactate Dehydrogenase Urine Protein 30 A Ur Leukocyte Esterase 500 A Urine RBC 2 H Urine WBC 112 H Urine Bacteria Few A Hyaline Casts 100 H Granular Casts 3 H Meds: Medications Acetaminophen (Tylenol) 650 mg PO Q4-6HP PRN PRN Reason: PAIN/FEVER > 101 Albuterol/Ipratropium (Duoneb) 3 ml NEB Q4HRT [facility] Amiodarone HCl (Cordarone) 100 mg PO BIDCC [facility] Bisacodyl (Dulcolax) 10 mg [place] Q2-3DAYS PRN PRN Reason: Constipation Dextrose (Dextrose 50%) 0 ml IV UD PRN PRN Reason: Hypoglycemia Diagnostic Test (Pha) (Accu-Chek) 1 each FS ACHS [facility] Last Admin: 07/14/18 12:29 Dose: 1 each Docusate Sodium (Colace) 100 mg PO BID [facility] Duloxetine HCl (Cymbalta) 60 mg PO DAILY [facility] Furosemide (Lasix) 40 mg PO QDAY [facility] Gabapentin (Neurontin) 300 mg PO QDAY [facility] Glucose (Insta-Glucose) 15 gm PO PRN PRN PRN Reason: Hypoglycemia Heparin Sodium (Porcine) (Heparin) 5,000 unit SQ Q12 [facility] Hydroxychloroquine Sulfate (Plaquenil) 400 mg PO QDAY [facility] Piperacillin Sod/Tazobactam (Sod 3.375 gm/ Dextrose) 50 mls @ 100 mls/hr IV Q8H [facility] Vancomycin HCl 1,500 mg/ (Sodium Chloride) 500 mls @ 333.3 mls/hr IV ONCE ONE Stop: 07/14/18 15:00 Imipramine HCl (Tofranil) 25 mg PO QHS [facility] Insulin Glargine (Lantus) 25 unit SQ HS [facility] Insulin Human Lispro (Humalog) 0 unit SQ ACHS [facility]; Protocol Last Admin: 07/14/18 12:29 Dose: 8 unit Magnesium Hydroxide (Milk Of Magnesia) 30 ml PO DAILYP PRN PRN Reason: Constipation Methylprednisolone Sodium Succinate (Solu-Medrol) 62.5 mg IV Q8 [facility] Naloxone HCl (Narcan) 0.1 mg IV Q2MIN PRN PRN Reason: Opiate Reversal Ondansetron HCl (Zofran) 4 mg IV Q4-6HP PRN PRN Reason: Nausea And Vomiting Pantoprazole Sodium (Protonix) 40 mg PO QAMAC [facility] Solifenacin Succinate [Vesicare] 10 Mg Tab 1 dose PO HS [facility] Ropinirole HCl (Requip) 1 mg PO BIDAC [facility] Ropinirole HCl (Requip) 1 mg PO HS [facility] Simvastatin (Zocor) 10 mg PO HS [facility] Sodium Chloride (Saline Flush) 10 ml IV Q8 [facility] Trazodone HCl (Desyrel) 100 mg PO HS [facility] Vancomycin HCl (Vancomycin Per Pharmacy) 1 order IV UD [facility] Medical - PN: A/P - Time Spent With Patient Total time spent is greater than 50% in coordination of care (as documented) at patient's floor/unit and/or counseling patient: - Narrative A/P Narrative: A/P Acute on Chronic Respiratory failure- off bipap now, back to [facility] oxygen needs Acute COPD exacerbation- - Improving. Treat with IV steroids, duonebs and antibiotics, CXR is neg, clear exam today. Acute parotiditis _ with sepsis- IV vancomycin and zosyn for now, await official CT read, blood cultures positive for staph aureus. sensitivity pending Gram positive bactermia- Due to acute parotiditis, Urine cultures aslo growing staph, likely hematogenous spread. repeat blood culture, get echo. Will need atleast 4 weeks of IV antibiotics CHF/s/p Pacemaker- CXR shows fluid overload, no crackles on exam, thacker in place , judicious use of IV fluids. DM- SSI insulin for glucose control. HTN- monitor bp, hold bp meds for now, resume if bp trends up Morbid obesity- Outpatient follow up Acute Kidney Injury- renal function improving Hyperkalemia- K back to normal, resolved. DVT hep sq Diet carb consistent FUll code. Medical - PN: Qual - VTE Deep Vein Thrombosis/Pulmonary Embolism Present on Admission: No
[2018-07-14] MEDS ORDERED: IPRATROPIUM/ALBUTEROL 3 ML AMPUL.NEB NEB SCH (15:00)
[2018-07-14] MEDS: rOPINIRole 1 MG TABLET PO SCH (17:41)
[2018-07-14] MEDS: AMIODARONE HCL 200 MG TABLET PO SCH (17:41)
[2018-07-14] MEDS: DOCUSATE SODIUM 100 MG CAPSULE PO SCH (20:14)
[2018-07-14] MEDS ORDERED: INSULIN GLARGINE, HUMAN 1 UNIT/0.01 ML SQ SCH (21:00)
[2018-07-14] MEDS ORDERED: IMIPRAMINE 25 MG TABLET PO SCH (21:00)
[2018-07-14] MEDS ORDERED: SIMVASTATIN 10 MG TABLET PO SCH (21:00)
[2018-07-14] MEDS ORDERED: Solifenacin Succinate [Vesicare] 10 mg Tab PO SCH (21:00)
[2018-07-14] MEDS ORDERED: traZODone HCL 50 MG TABLET PO SCH (21:00)
[2018-07-15] MEDS: IPRATROPIUM/ALBUTEROL 3 ML AMPUL.NEB NEB SCH ×4 (01:30→19:01)
[2018-07-15] MEDS: methylPREDNISolone SOD SUCC 125 MG/2 ML VIAL IV SCH ×3 (05:46→21:17)
[2018-07-15] MEDS: PIPERACILLIN SODIUM/TAZOBACTAM 3.375 GM in DEXTROSE 5% IN WATER 50 ML IV SCH (05:46)
[2018-07-15] MEDS: 0.9 % SODIUM CHLORIDE 10 ML SYRINGE IV SCH ×3 (05:46→22:24)
[2018-07-15 05:51] LABS: Basophils # (Auto) 0 K/mcL (0.0-0.3); Basophils % (Auto) 0 % (0.0-2.0); Eosinophils # (Auto) 0 K/mcL (0.0-0.7); Eosinophils % (Auto) 0 % (0.0-7.0); Granulocytes % (Auto) 96.3 % (38.0-78.0); Lymphocytes # (Auto) 0.5 K/mcL (1.5-4.8); Lymphocytes % (Auto) 2.4 % (15.5-49.0); Mean Corpuscular HGB Conc 31.1 g/dL (31.0-36.0); Monocytes # (Auto) 0.3 K/mcL (0.1-0.9); Monocytes % (Auto) 1.3 % (1.0-12.0); Platelet Count 275 K/mcL (140-440); RBC 4.11 M/mcL (4.00-5.20)
[2018-07-15 06:26] LABS: ALT/SGPT 59 U/l (0-40); Albumin 3.2 gm/dL (3.2-5.2); Alkaline Phosphatase 110 U/L (39-117); Bilirubin,Direct < 0.2 mg/dL (0.0-0.3); Blood Urea Nitrogen 50 mg/dl (8-23); Gamma Glutamyl Transpeptidase 27 U/L (5-36); Uric Acid 7.5 mg/dL (2.5-8.0)
--- NOTE | 2018-07-15 06:56 | Nephrology Progress Note ---
Subjective Patient information: Note initiated : 07/15/18 at 6:54 am Patient: Stacie Thomas 78 y/o F admitted on 07/13/18 for SOB, neck pain. Chief Complaint: Right parotid pain Principal diagnosis: Acute kidney injury Pertinent ROS: Right parotid pain Weakness No chest pain No abdominal pain Lozano catheter Objective - Vital Signs Vital signs: Vital Signs Temp Pulse Resp BP Pulse Ox 07/15/18 04:20 74 30 H 91 07/15/18 04:01 98.8 F 75 31 H 124/67 95 07/15/18 03:55 75 20 125/66 92 07/15/18 00:27 71 23 H 100 07/15/18 00:08 98.5 F 72 21 134/66 96 07/14/18 23:10 80 18 97 07/14/18 20:49 98.5 F 73 23 H 140/75 92 07/14/18 20:46 74 21 99 07/14/18 19:20 79 18 07/14/18 18:11 82 24 H 94 07/14/18 16:22 75 28 H 135/81 99 07/14/18 15:30 97.8 F 78 29 H 99 07/14/18 13:01 72 22 135/69 95 07/14/18 12:12 73 20 130/59 95 07/14/18 12:01 70 25 H 96 07/14/18 11:06 74 15 93 07/14/18 10:17 78 16 07/14/18 10:01 80 21 114/53 99 07/14/18 09:13 77 22 99 07/14/18 09:12 78 25 H 97 07/14/18 09:01 77 21 132/73 96 07/14/18 08:02 79 19 126/95 94 07/14/18 08:00 96 07/14/18 07:28 75 21 95 07/14/18 07:26 77 20 07/14/18 07:01 78 18 149/84 96 Intake and Output 07/14/18 07/15/18 07/15/18 21:59 05:59 13:59 Intake Total 300 / 300 50 / 50 Output Total 350 / 350 550 / 550 Balance -50 / -50 -500 / -500 Intake: IV 50 / 50 Zosyn 3.375 gm In Dextrose 5% 50 / 50 in Water 50 ml @ 100 mls/hr IV Q8H [facility] Rx#:[id number] Oral 300 / 300 Output: Urine Catheter Amount 350 / 350 550 / 550 Other: Meal Dinner Percent of Meal Consumed 100% Urine Appearance Sediment Uretheral (Lozano) Clear Urine Color Light Patria Bright Yellow Uretheral (Lozano) Pale Urine Odor Strong Weight 281 lb 4.957 oz Intake & Output: Intake & Output 07/14/18 07/15/18 07/15/18 21:59 05:59 13:59 Intake Total 300 / 300 50 / 50 Output Total 350 / 350 550 / 550 Balance -50 / -50 -500 / -500 Weight 281 lb 4.957 oz Intake: IV 50 / 50 Zosyn 3.375 gm In Dextrose 5% 50 / 50 in Water 50 ml @ 100 mls/hr IV Q8H [facility] Rx#:[id number] Oral 300 / 300 Output: Urine Catheter Amount 350 / 350 550 / 550 Other: Meal Dinner Percent of Meal Consumed 100% Urine Appearance Sediment Uretheral (Lozano) Clear Urine Color Light Patria Bright Yellow Uretheral (Lozano) Pale Urine Odor Strong - General Appearance General appearance: appears started age EENT: mucous membranes moist Neck: supple Respiratory: clear Cardiology: no edema Gastrointestinal: no tenderness Integumentary: warm and dry Neurologic: no focal deficit, alert and oriented x3 Musculoskeletal: no deformities Psychiatric: mood/affect appropriate, cooperative - Lab 07/15/18 03:40 07/15/18 03:40 Most recent lab results Calcium 8.7 mg/dl (8.6-10.4) 07/15/18 03:40 Phosphorus 3.9 mg/dL (2.7-4.5) 07/15/18 03:40 Magnesium 2.4 mg/dL (1.6-2.5) 07/15/18 03:40 Assessment and Plan (1) Acute renal failure Stacie Thomas is a 78-year-old female with 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 Acute kidney injury with hyperkalemia and suspected acute cystitis, present on arrival. The patient has been on Potassium Chloride 20 mEq daily before admission. The patient was also given IV contrast in ED on the day of admission. Work up: Urinalysis on 07/13/18: Yellow, Cloudy, pH 5.0, SG 1.024, protein 30, occult blood negative, leukocyte esterase 500, urine WBC. 112, culture pending. US Renal on 06/24/18: Normal with right simple cyst. Progress: Urine output: 900 ml reported in the past 20 hours. Serum creatinine decreased from 1.4 to 1.3 in the past 20 hours. Hyperkalemia, resolved. Plan: Anticipate no acute hemodialysis need. Nephrology will sign off. Status: Acute Priority: High Qualifiers: Acute renal failure type: unspecified Qualified Code(s): N17.9 - Acute kidney failure, unspecified
[2018-07-15] MEDS ORDERED: PANTOPRAZOLE 40 MG TABLET PO SCH (07:30)
[2018-07-15] MEDS: INSULIN LISPRO 1 UNIT/0.01 ML UNIT SQ SCH ×4 (08:07→21:13)
[2018-07-15] MEDS ORDERED: DULoxetine 30 MG CAPSULE PO SCH (09:00)
[2018-07-15] MEDS ORDERED: FUROSEMIDE 20 MG TABLET PO SCH (09:00)
[2018-07-15] MEDS ORDERED: GABAPENTIN 300 MG CAPSULE PO SCH (09:00)
[2018-07-15] MEDS ORDERED: HYDROXYCHLOROQUINE 200 MG TABLET PO SCH (09:00)
--- NOTE | 2018-07-15 09:32 | Infectious Disease Consult ---
History of Present Illness Patient information: Note initiated : 07/15/18 at 9:29 am Service Date, if different from initiated Date: [] Patient: Stacie Thomas 78 y/o F admitted on 07/13/18 for SOB, neck pain. Chief Complaint: [] Consult date: 07/15/18 Requesting Physician: Mitali Hammond Reason for Consult: Staph aureus bacteremia Chief complaint: my right side of face and throat hurts History of present illness: 78-year-old lady with past medical history pertinent for: Heart Failure with low ejection fraction, status post ICD and pacemaker placement about 12 years ago followed by a replacement about 7 years ago Type 2 diabetes: Currently on Lantus and Victoza Rheumatoid arthritis: On Plaquenil Patient lives at an assisted living in [place]. She was admitted after being transferred from the facility on 07/13 with complaints of being drowsy, confused. According to patient around last Friday she noticed pain in her right side of throat which was followed by extension to the right lower face. She says that she does not remember what happened afterwards and when she woke up she was in the hospital. In the ER at [facility], her vital signs were stable except for O2 sats which were 92% on 2 L of oxygen. Her white cell count was 17,000 with neutrophilic predominance, creatinine 1.7, potassium 5.9, UA with positive leukocyte esterase and negative nitrites. Patient was admitted to ICU because of altered mental status, and her ABG showing a pH of 7.25, PCO2 of 70 and a PO2 of 85. A CT neck was done because of the complaints of right lower facial pain which showed parotitis without any abscess or phlegmon. Patient had blood cultures and urine cultures sent in the ED and she was started on IV vancomycin and Zosyn. Blood culture 1 out of 2 bottles from 07/13 came back positive for staph aureus , sensitivities pending, mecA gene neg. Urine cultures came back positive for MRSA [Vanc NAZ 1, sensitive to Bactrim and doxycycline]. At time of my visit today patient confirmed the above history. She was feeling better in terms of her right-sided facial pain and sore throat, her overall consciousness. She had just finished eating the breakfast. She denied any recent skin sores. She denied any pain or redness or tenderness around her pacemaker pocket. She denied any allergies except for to kiwi fruit. Review of Systems All systems PM: reviewed and no additional remarkable complaints except as stated Past History Past medical history: Mentioned in HPI Past family history: Not pertinent to current medical presentation Past social history: Lives in assisted living in [place] for last few years Medications and Allergies Home Medications Medication Instructions Recorded Confirmed Type duloxetine 60 mg capsule,delayed 60 mg PO QDAY #90 cap 04/15/17 07/13/18 Rx release liraglutide 0.6 mg/0.1 mL (18 mg/3 1.8 mg SUB-Q QDAY #6 ml 04/15/17 07/13/18 Rx mL) subcutaneous pen injector amlodipine 5 mg tablet 5 mg PO QDAY #90 tab 04/17/17 07/13/18 Rx gabapentin 300 mg capsule 300 mg PO QDAY #90 cap 04/22/17 07/13/18 Rx potassium chloride ER 20 mEq 20 meq PO QDAY #90 tab 04/28/17 07/13/18 Rx tablet,extended release hydroxychloroquine 200 mg tablet 400 mg PO QDAY #180 tab 06/16/17 07/13/18 Rx aluminum-mag hydroxide-simethicone 30 ml PO Q6HP PRN ml 07/02/17 07/13/18 History 200 mg-200 mg-20 mg/5 mL oral susp bisacodyl 10 mg rectal suppository 10 mg MI QDAY PRN 07/02/17 07/13/18 History emollient combination no.93 1 applic TOPICAL DAILYP PRN 07/02/17 07/13/18 History topical cream magnesium hydroxide 400 mg/5 mL 400 mg PO DAILYP PRN 07/02/17 07/13/18 History oral suspension polyvinyl alcohol 1.4 % eye drops 1 drp OPHTHALMIC BID-QID PRN 07/02/17 History simvastatin 20 mg tablet 10 mg PO QPM 07/02/17 07/13/18 History polyethylene glycol 3350 17 gram 17 g PO QDAY #100 each 09/08/17 07/13/18 Rx oral powder packet acetaminophen 500 mg tablet 1,000 mg PO Q6H PRN 09/17/17 07/13/18 History sennosides 8.6 mg tablet 8.6 mg PO QDAY PRN 09/17/17 07/13/18 History guaifenesin ER 600 mg tablet, 600 mg PO Q12H PRN 06/19/18 07/13/18 History extended release 12 hr trolamine salicylate 10 % lotion 1 applic TOPICAL QDAY PRN 06/19/18 07/13/18 History Cranberry Conc/C/Bacill Coag 1 each PO BID 06/20/18 07/13/18 History [Cranberry Tablet] Furosemide [Lasix] 40 mg PO QDAY 06/20/18 07/13/18 History Imipramine HCl [Tofranil] 25 mg PO QHS 06/20/18 07/13/18 History Melatonin 5 mg PO QHS PRN 06/20/18 07/13/18 History Solifenacin Succinate [Vesicare] 10 mg PO QHS 06/20/18 07/13/18 History guaiFENesin/DEXTROMETHORPHAN 10 ml PO Q6HP PRN 06/20/18 07/13/18 History [Robafen Dm Cgh-Chest Jaya Syrp] rOPINIRole HCL [Requip] 1 mg PO BIDAC 06/20/18 07/13/18 History traZODone HCL [Trazodone HCl] 100 mg PO QHS 06/20/18 07/13/18 History Accu-Chek 1 each FS ACHS strip 06/29/18 07/13/18 Rx Amiodarone HCl [Cordarone] 100 mg PO BIDCC tablet 06/29/18 07/13/18 Rx Carvedilol [Coreg] 25 mg PO BIDCC tablet 06/29/18 07/13/18 Rx Dextrose [Insta-Glucose] 15 gm PO PRN PRN oral.susp 06/29/18 07/13/18 Rx Hydrocodone/APAP 7.5/325Mg [[place] 1 tab PO Q4H PRN #30 tab 06/29/18 07/13/18 Rx 7.5-325Mg] Insulin Glargine, Human [Lantus] 25 unit SQ HS unit 06/29/18 07/13/18 Rx Insulin Lispro [Humalog] See Protocol SQ ACHS unit 06/29/18 07/13/18 Rx traMADol HCL [Ultram] 100 mg PO QHS PRN #20 tab 06/29/18 07/13/18 Rx Acetaminophen 650 mg PO Q4HP PRN 07/13/18 07/13/18 History Albuterol Sulfate [Ventolin] 2.5 mg NEB Q4HP PRN 07/13/18 07/13/18 History Na Phos,M-B/Na Phos,Di-Ba [Fleets 1 dose MI PRN PRN 07/13/18 07/13/18 History Adult] rOPINIRole HCL [Requip] 1 mg PO HS 07/13/18 07/13/18 History Allergies Allergy/AdvReac Type Severity Reaction Status Date / Time kiwi Allergy Severe Throat Verified 06/21/18 07:10 swells shut meperidine [From Demerol] AdvReac Mild Vomiting Verified 06/21/18 07:10 Physical Examination Vital signs: Temp Pulse Resp BP Pulse Ox 37.2 C 76 14 155/90 92 07/15/18 08:17 07/15/18 08:17 07/15/18 08:17 07/15/18 08:17 07/15/18 08:17 General appearance: no acute distress, alert Eyes pulmonary: nonicteric Auscultation: right: diminished breath sounds (Decreased breath sounds in the lower half of the right posterior lung fry), bilateral: rales (Mainly in the lung bases) Cardiovascular: regular rate and rhythm Gastrointestinal: normoactive bowel sounds Integumentary: normal Extremities: no edema The pacemaker pocket does not have any redness, swelling, tenderness, any drainage Results - Laboratory Findings CBC and BMP: 07/15/18 03:40 07/15/18 03:40 Abnormal lab findings: Abnormal Labs 07/13/18 07/13/18 07/13/18 12:25 12:25 12:45 WBC 17.3 H RBC Hgb 10.7 L Hct 34.2 L MCH 25.4 L RDW 16.4 H Gran % 85.7 H Lymph % (Auto) 7.8 L Manati % (Auto) Gran # 14.8 H Lymph # (Auto) 1.3 L [place] # (Auto) 1.1 H Potassium 5.9 H* BUN 46 H Creatinine 1.7 H Glucose 146 H Phosphorus AST 82 H ALT 81 H Lactate Dehydrogenase Urine Protein 30 A Ur Leukocyte Esterase 500 A Urine RBC 2 H Urine WBC 112 H Urine Bacteria Few A Hyaline Casts 100 H Granular Casts 3 H 07/13/18 07/14/1818 18:49 04:00 04:00 WBC 21.7 H RBC 3.93 L Hgb 10.1 L Hct 32.4 L MCH 25.8 L RDW 15.9 H Gran % 97.3 H Lymph % (Auto) 1.9 L Manati % (Auto) 0.8 L Gran # 21.2 H Lymph # (Auto) 0.4 L [place] # (Auto) Potassium BUN 47 H 41 H Creatinine 1.6 H 1.4 H Glucose 109 H 127 H Phosphorus 6.3 H* AST 58 H ALT 80 H Lactate Dehydrogenase 356 H Urine Protein Ur Leukocyte Esterase Urine RBC Urine WBC Urine Bacteria Hyaline Casts Granular Casts 07/15/18 07/15/18 03:40 03:40 WBC 20.0 H RBC Hgb 10.5 L Hct 33.7 L MCH 25.5 L RDW 16.0 H Gran % 96.3 H Lymph % (Auto) 2.4 L Man[place] % (Auto) Gran # 19.3 H Lymph # (Auto) 0.5 L [place] # (Auto) Potassium BUN 50 H Creatinine 1.3 H Glucose 242 H Phosphorus AST ALT 59 H Lactate Dehydrogenase 260 H Urine Protein Ur Leukocyte Esterase Urine RBC Urine WBC Urine Bacteria Hyaline Casts Granular Casts Microbiology: Microbiology 07/13/18 12:25 Blood Blood Culture - Preliminary 07/13/18 12:45 Urine - Clean Void Mid-Stream Urine Culture - Preliminary Staphylococcus aureus 07/13/18 14:03 Blood Blood Culture - Preliminary Gram positive cocci Assessment and Plan - Narrative A/P Narrative: Assessment: 1. Staph aureus bacteremia: Sensitivities pending mec A gene being negative suggests that it is MSSA, but will wait for final since these as in certain percentage of cases it could be MRSA due to mec C gene Unclear what the source is, patient could be a carrier of staph aureus 2. CHF exacerbation 3. Right-sided parotitis: Likely secondary to staph aureus bacteremia Recommendations: Continue IV vancomycin per pharmacy assisted dosing. Given elevated creatinine , random levels of 12 seem fine [target 10-20] Stop Zosyn. Start IV cefazolin and 2 g every 12 based on current creatinine clearance of 39. Dose could be increased to 2 g every 8 hours once creatinine clearance is more than 50 Repeat 2 sets of blood cultures tomorrow Await official report of TTE. Given patient has a intracardiac pacemaker/ICD, a MENG would be ideal investigating any involvement of lead or valvular vegetation MRSA nasal screening. If positive will recommend decolonization Will follow Anders Odell MD Infectious disease
[2018-07-15] MEDS ORDERED: ceFAZolin 1 GM VIAL IV SCH ×2 (10:00)
[2018-07-15] MEDS: AMIODARONE HCL 200 MG TABLET PO SCH ×2 (10:37→17:10)
[2018-07-15] MEDS: DOCUSATE SODIUM 100 MG CAPSULE PO SCH ×2 (10:38→21:19)
[2018-07-15] MEDS: HEPARIN 5,000 UNIT/ML VIAL SQ SCH ×2 (10:38→21:15)
[2018-07-15] MEDS: rOPINIRole 1 MG TABLET PO SCH ×3 (11:02→22:22)
[2018-07-15] MEDS ORDERED: MAGNESIUM HYDROXIDE 30 ML ORAL.SUSP PO PRN (13:33)
[2018-07-15] MEDS ORDERED: VANCOMYCIN PER PHARMACY IV SCH (13:33)
[2018-07-15] MEDS ORDERED: NALOXONE HCL 0.4 MG/ML VIAL IV PRN (13:33)
[2018-07-15] MEDS ORDERED: BISACODYL 10 MG SUPP.RECT PR PRN (13:33)
[2018-07-15] MEDS ORDERED: DEXTROSE 50% 50 ML VIAL IV PRN (13:33)
[2018-07-15] MEDS ORDERED: ONDANSETRON 4 MG/2 ML VIAL IV PRN (13:33)
[2018-07-15] MEDS ORDERED: DEXTROSE 31 GM ORAL.SUSP PO PRN (13:33)
[2018-07-15] MEDS ORDERED: ACETAMINOPHEN 325 MG TABLET PO PRN (13:33)
[2018-07-15] MEDS ORDERED: VANCOMYCIN 1,500 MG in 0.9 % SODIUM CHLORIDE 500 ML IV SCH (15:00)
--- NOTE | 2018-07-15 15:52 | Internal Med Progress Note ---
Medical - PN: Subj Patient information: Note initiated : 07/15/18 at 3:49 pm Service Date, if different from initiated Date: [] Patient: Stacie Thomas a 78 y/o F admitted on 07/13/18 for SOB, neck pain. Chief Complaint: [] Interval history: Ms. Thomas is a 78 year old F who was recently discharged from this facility, presents to the hospital with complaints of shortness of breath and pain and swelling on the right side of the face. At the time of my evaluation patient was drowsy confused and was unable to provide any meaningful history. Most of the history from chart review The patient apparently was alert x3 when she presented, and and complained about shortness of breath as well as pain and swelling on the right side of the face that has been bothering her since yesterday. No other acute complaints were reported to the ED provider In the emergency room patient was worked up for same. The patient was hemodynamically stable afebrile with elevated blood pressures on presentation. Saturating 92% on 2 L of oxygen. She had a white blood cell count of 17,000 hemoglobin 10.7 platelets 292 potassium was elevated at 5.9 sodium 138 bicarbonate 25 creatinine 1.7 glucose 146 AST 82 ALT 81 alkaline phosphatase 117. UA suggestive of UTI According to the nurse in the ED as well as the ED provider the patient started to deteriorate after 45 minutes presenting to the ED. Her mental status declined and she started hallucinating and not answering questions appropriately. Given hyperkalemia hyperkalemia protocol was initiated by the ED provider. CT neck showed parotidits On my evaluation the patient was having significant shortness of breath, abdominal breathing she was opening her eyes to verbal stimulus knew she was in the hospital but was not able to maintain any meaningful conversation. ABG was ordered which showed pH of 7.25 PCO2 of 70 and PO2 of 85. Patient is being admitted to PCU status for further management. 07/14 Patient seen and examined no acute overnight events of BiPAP now saturating well hemodynamically stable. Transfer from PCU to telemetry status. She denies any shortness of breath still has pain on the right jaw. Blood cultures positive for staph aureus urine culture positive for staph aureus likely source is parotid gland. Patient is on vancomycin and Zosyn. I reviewed with the CODE STATUS again with her she wishes to be full code. 07/15 Pt seen examined, no acute issues wbc at 20K trending down ID consulted. On IV vanco and anceph per ID Pt has no new complaints or concerns. Parotid gland swelling better Pertinent ROS: Denies headache, dizziness Denies chest pain, palpitations Denies cough or shortness of breath Denies abdominal pain, nausea or vomiting. - Constitutional Vitals: Vital Signs Temp Pulse Resp BP Pulse Ox 97.1 F 76 20 137/83 94 07/15/18 12:00 07/15/18 08:17 07/15/18 12:00 07/15/18 12:00 07/15/18 12:00 Period Temp Pulse Resp BP Sys/Mcintosh Pulse Ox Last 24 Hr 97.1 F-99 F 69-82 14-31 124-155/60-90 91-100 Intake and Output 07/15/18 07/15/18 07/15/18 05:59 13:59 21:59 Intake Total 50 / 50 Output Total 550 / 550 375 / 375 Balance -500 / -500 -375 / -375 Weight 281 lb 4.957 oz Patient Weight 07/16/18 05:59 Weight 281 lb 4.957 oz Intake & Output: Intake & Output 07/15/18 07/15/18 07/15/18 05:59 13:59 21:59 Intake Total 50 / 50 Output Total 550 / 550 375 / 375 Balance -500 / -500 -375 / -375 Weight 281 lb 4.957 oz Intake: IV 50 / 50 Zosyn 3.375 gm In Dextrose 5% 50 / 50 in Water 50 ml @ 100 mls/hr IV Q8H [facility] Rx#:[id number] Output: Urine Catheter Amount 550 / 550 Void Amount 375 / 375 # of times incontinent of urine 0 / 0 Other: Urine Appearance Sediment Cloudy Uretheral (Thacker) Clear Urine Color Bright Yellow Yellow Brown Urine Odor Foul # Voids 1 Exam: Constitutional; Afebrile, cooperative, alert, not in distress. Respiratory system: Air Entry equal on both sides, No crackles or wheezing, no rhonchi. CVS- Rate rhythm regular, S1,S2 heard, no gallop, no rub. 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 Medical - PN: Obj Da - Labs CBC & Chem 7: 07/15/18 03:40 07/15/18 03:40 Labs: Abnormal Lab Results 07/15/18 07/15/18 07/14/18 03:40 03:40 04:00 WBC 20.0 H RBC Hgb 10.5 L Hct 33.7 L MCH 25.5 L RDW 16.0 H Gran % 96.3 H Lymph % (Auto) 2.4 L [place] % (Auto) Gran # 19.3 H Lymph # (Auto) 0.5 L [place] # (Auto) Potassium BUN 50 H 41 H Creatinine 1.3 H 1.4 H Glucose 242 H 127 H Phosphorus 6.3 H* AST 58 H ALT 59 H 80 H Lactate Dehydrogenase 260 H 356 H Urine Protein Ur Leukocyte Esterase Urine RBC Urine WBC Urine Bacteria Hyaline Casts Granular Casts 07/14/18 07/13/18 07/13/18 04:00 18:49 12:45 WBC 21.7 H RBC 3.93 L Hgb 10.1 L Hct 32.4 L MCH 25.8 L RDW 15.9 H Gran % 97.3 H Lymph % (Auto) 1.9 L [place] % (Auto) 0.8 L Gran # 21.2 H Lymph # (Auto) 0.4 L [place] # (Auto) Potassium BUN 47 H Creatinine 1.6 H Glucose 109 H Phosphorus AST ALT Lactate Dehydrogenase Urine Protein 30 A Ur Leukocyte Esterase 500 A Urine RBC 2 H Urine WBC 112 H Urine Bacteria Few A Hyaline Casts 100 H Granular Casts 3 H 07/13/18 07/13/18 12:25 12:25 WBC 17.3 H RBC Hgb 10.7 L Hct 34.2 L MCH 25.4 L RDW 16.4 H Gran % 85.7 H Lymph % (Auto) 7.8 L [place] % (Auto) Gran # 14.8 H Lymph # (Auto) 1.3 L [place] # (Auto) 1.1 H Potassium 5.9 H* BUN 46 H Creatinine 1.7 H Glucose 146 H Phosphorus AST 82 H ALT 81 H Lactate Dehydrogenase Urine Protein Ur Leukocyte Esterase Urine RBC Urine WBC Urine Bacteria Hyaline Casts Granular Casts Meds: Medications Acetaminophen (Tylenol) 650 mg PO Q4-6HP PRN PRN Reason: PAIN/FEVER > 101 Albuterol/Ipratropium (Duoneb) 3 ml NEB Q6HRT [facility] Amiodarone HCl (Cordarone) 100 mg PO BIDCC [facility] Bisacodyl (Dulcolax) 10 mg IA Q2-3DAYS PRN PRN Reason: Constipation Cefazolin Sodium (Ancef) 2 gm IV Q12 [facility] Dextrose (Dextrose 50%) 0 ml IV UD PRN PRN Reason: Hypoglycemia Diagnostic Test (Pha) (Accu-Chek) 1 each FS ACHS [facility] Docusate Sodium (Colace) 100 mg PO BID [facility] Duloxetine HCl (Cymbalta) 60 mg PO DAILY [facility] Furosemide (Lasix) 40 mg PO QDAY [facility] Gabapentin (Neurontin) 300 mg PO QDAY [facility] Glucose (Insta-Glucose) 15 gm PO PRN PRN PRN Reason: Hypoglycemia Heparin Sodium (Porcine) (Heparin) 5,000 unit SQ Q12 [facility] Hydroxychloroquine Sulfate (Plaquenil) 400 mg PO QDAY [facility] Vancomycin HCl 1,500 mg/ (Sodium Chloride) 500 mls @ 333.3 mls/hr IV Q24H [facility] Last Admin: 07/15/18 15:05 Dose: 333.3 mls/hr Imipramine HCl (Tofranil) 25 mg PO QHS [facility] Insulin Glargine (Lantus) 25 unit SQ HS [facility] Insulin Human Lispro (Humalog) 0 unit SQ ACHS [facility]; Protocol Magnesium Hydroxide (Milk Of Magnesia) 30 ml PO DAILYP PRN PRN Reason: Constipation Methylprednisolone Sodium Succinate (Solu-Medrol) 62.5 mg IV Q8 [facility] Last Admin: 07/15/18 15:05 Dose: 62.5 mg Naloxone HCl (Narcan) 0.1 mg IV Q2MIN PRN PRN Reason: Opiate Reversal Ondansetron HCl (Zofran) 4 mg IV Q4-6HP PRN PRN Reason: Nausea And Vomiting Pantoprazole Sodium (Protonix) 40 mg PO QAMAC [facility] Solifenacin Succinate [Vesicare] 10 Mg Tab 1 dose PO HS [facility] Ropinirole HCl (Requip) 1 mg PO BIDAC [facility] Ropinirole HCl (Requip) 1 mg PO HS [facility] Simvastatin (Zocor) 10 mg PO HS [facility] Sodium Chloride (Saline Flush) 10 ml IV Q8 [facility] Last Admin: 07/15/18 15:06 Dose: 10 ml Trazodone HCl (Desyrel) 100 mg PO HS [facility] Vancomycin HCl (Vancomycin Per Pharmacy) 1 order IV UD [facility] Medical - PN: A/P - Time Spent With Patient Total time spent is greater than 50% in coordination of care (as documented) at patient's floor/unit and/or counseling patient: - Narrative A/P Narrative: A/P Acute on Chronic Respiratory failure- off bipap now, back to baseline oxygen needs Acute COPD exacerbation- - Improving. Treat with IV steroids, duonebs and antibiotics, CXR is neg, chest exam clear. Acute parotiditis _ with sepsis- IV vancomycin and cefazolin for now, await official CT read, blood cultures positive for staph aureus. sensitivity pending Gram positive bactermia- Due to acute parotiditis, Urine cultures also growing staph, likely hematogenous spread. repeat blood culture, ID consulted, echo results awaited. CHF/s/p Pacemaker- CXR shows fluid overload, no crackles on exam, d/c thacker. DM- SSI insulin for glucose control. HTN- monitor bp, resume amlodipine nad coreg Morbid obesity- Outpatient follow up Acute Kidney Injury- renal function improving, creat is 1.3 today Hyperkalemia- K back to normal, resolved. hold KCL supplements for now, DVT hep sq Diet carb consistent FUll code. Xfer to med surg status. Medical - PN: Qual - VTE Deep Vein Thrombosis/Pulmonary Embolism Present on Admission: No
[2018-07-15] MEDS: CARVEDILOL 12.5 MG TABLET PO SCH (17:10)
[2018-07-15] MEDS: amLODIPine 5 MG TABLET PO SCH (17:11)
[2018-07-15] MEDS: INSULIN GLARGINE, HUMAN 1 UNIT/0.01 ML SQ SCH (21:14)
[2018-07-15] MEDS: ceFAZolin 1 GM VIAL IV SCH (21:17)
[2018-07-15] MEDS: IMIPRAMINE 25 MG TABLET PO SCH (21:19)
[2018-07-15] MEDS: SIMVASTATIN 10 MG TABLET PO SCH (21:21)
[2018-07-15] MEDS: traZODone HCL 50 MG TABLET PO SCH (21:21)
[2018-07-15] MEDS: Solifenacin Succinate [Vesicare] 10 mg Tab PO SCH (22:21)
[2018-07-16] MEDS: IPRATROPIUM/ALBUTEROL 3 ML AMPUL.NEB NEB SCH ×2 (00:50→07:18)
[2018-07-16 05:37] LABS: Basophils # (Auto) 0 K/mcL (0.0-0.3); Basophils % (Auto) 0 % (0.0-2.0); Eosinophils # (Auto) 0 K/mcL (0.0-0.7); Eosinophils % (Auto) 0 % (0.0-7.0); Granulocytes % (Auto) 95.2 % (38.0-78.0); Lymphocytes # (Auto) 0.5 K/mcL (1.5-4.8); Lymphocytes % (Auto) 3.3 % (15.5-49.0); Mean Cell Volume 81.9 fL (80.0-100.0); Mean Corpuscular HGB Conc 30.9 g/dL (31.0-36.0); Monocytes # (Auto) 0.2 K/mcL (0.1-0.9); Monocytes % (Auto) 1.5 % (1.0-12.0); Platelet Count 295 K/mcL (140-440); RBC 4.12 M/mcL (4.00-5.20); Red Cell Distribution Width 16.6 % (11.5-14.5)
[2018-07-16 06:26] LABS: ALT/SGPT 45 U/l (0-40); Albumin 3.1 gm/dL (3.2-5.2); Alkaline Phosphatase 99 U/L (39-117); Bilirubin,Direct < 0.2 mg/dL (0.0-0.3); Blood Urea Nitrogen 48 mg/dl (8-23); Gamma Glutamyl Transpeptidase 26 U/L (5-36); Uric Acid 7.5 mg/dL (2.5-8.0)
[2018-07-16] MEDS: methylPREDNISolone SOD SUCC 125 MG/2 ML VIAL IV SCH (06:35)
[2018-07-16] MEDS: 0.9 % SODIUM CHLORIDE 10 ML SYRINGE IV SCH ×3 (06:36→20:10)
[2018-07-16] MEDS: INSULIN LISPRO 1 UNIT/0.01 ML UNIT SQ SCH ×4 (07:14→20:23)
[2018-07-16] MEDS: rOPINIRole 1 MG TABLET PO SCH ×3 (07:15→20:24)
[2018-07-16] MEDS: PANTOPRAZOLE 40 MG TABLET PO SCH (07:15)
[2018-07-16] MEDS ORDERED: NON FORMULARY MEDICATION 1 DOSE MISCELL (Potassium Chloride [K-Tab Er] 20 MEQ) PO SCH (09:00)
[2018-07-16] MEDS: CARVEDILOL 12.5 MG TABLET PO SCH ×2 (09:35→17:16)
[2018-07-16] MEDS: DOCUSATE SODIUM 100 MG CAPSULE PO SCH ×2 (09:36→20:09)
[2018-07-16] MEDS: GABAPENTIN 300 MG CAPSULE PO SCH (09:36)
[2018-07-16] MEDS: AMIODARONE HCL 200 MG TABLET PO SCH ×2 (09:36→17:16)
[2018-07-16] MEDS: amLODIPine 5 MG TABLET PO SCH (09:36)
[2018-07-16] MEDS: FUROSEMIDE 20 MG TABLET PO SCH (09:37)
[2018-07-16] MEDS: HYDROXYCHLOROQUINE 200 MG TABLET PO SCH (09:38)
[2018-07-16] MEDS: ceFAZolin 1 GM VIAL IV SCH ×2 (09:38→20:09)
[2018-07-16] MEDS: DULoxetine 30 MG CAPSULE PO SCH (09:38)
[2018-07-16] MEDS: HEPARIN 5,000 UNIT/ML VIAL SQ SCH ×2 (09:38→20:09)
--- NOTE | 2018-07-16 09:39 | Infectious Disease Prog Note ---
Subjective Patient information: Note initiated : 07/16/18 at 9:36 am Service Date, if different from initiated Date: [] Patient: Stacie Thomas 78 y/o F admitted on 07/13/18 for SOB, neck pain. Chief Complaint: [] Principal diagnosis: Acute kidney injury Interval history: Patient doing well overall. Denies any fever, chills, nausea, vomiting, diarrhea. Had a BM this morning. Mentions that her facial pain is significantly better. Patient was working with physical therapy at time of visit. Denies any pain or swelling at the site of pacemaker Objective Objective Narrative: Alert, oriented x3 No oral thrush Chest clear to auscultation except at bases where there are still some crackles S1-S2 normal, 2/6 ejection systolic murmur heard at right second intercostal space Bowel sounds present No edema The pacemaker pocket on the left side of the chest: No redness, tenderness, swelling, warmth - Vital Signs Vital signs: Vital Signs Temp Pulse Pulse Resp BP BP BP 07/16/18 07:30 36.5 C 73 21 140/71 07/16/18 07:21 18 07/16/18 07:18 78 16 07/16/18 03:40 37.1 C 73 16 113/59 07/16/18 00:46 36.5 C 75 24 H 119/60 07/15/18 19:32 37.6 C H 62 20 116/67 07/15/18 19:05 07/15/18 19:01 76 22 07/15/18 17:14 37.0 C 69 22 122/70 07/15/18 12:00 36.2 C 20 137/83 Pulse Ox 07/16/18 07:30 94 07/16/18 07:21 07/16/18 07:18 07/16/18 03:40 93 07/16/18 00:46 91 07/15/18 19:32 94 07/15/18 19:05 94 07/15/18 19:01 07/15/18 17:14 94 07/15/18 12:00 94 Intake and Output 07/15/18 07/16/18 07/16/18 21:59 05:59 13:59 Intake Total 320 / 320 750 / 750 Output Total 650 / 650 575 / 575 Balance -330 / -330 175 / 175 Intake: IV 500 / 500 Vancomycin 1,500 mg In Sodium 500 / 500 Chloride 0.9% 500 ml @ 333.3 mls/hr IV Q24H [facility] Rx#: [id number] Oral 320 / 320 250 / 250 Output: Urine Catheter Amount 650 / 650 575 / 575 Other: Meal Dinner Percent of Meal Consumed 100% Urine Appearance Clear Clear Uretheral (Lozano) Clear Clear Urine Color Dark Yellow Dark Yellow Uretheral (Lozano) Pale Dark Yellow Urine Odor Foul Weight 131.315 kg Intake & Output: Intake & Output 07/15/18 07/16/18 07/16/18 21:59 05:59 13:59 Intake Total 320 / 320 750 / 750 Output Total 650 / 650 575 / 575 Balance -330 / -330 175 / 175 Weight 131.315 kg Intake: IV 500 / 500 Vancomycin 1,500 mg In Sodium 500 / 500 Chloride 0.9% 500 ml @ 333.3 mls/hr IV Q24H [facility] Rx#: [id number] Oral 320 / 320 250 / 250 Output: Urine Catheter Amount 650 / 650 575 / 575 Other: Meal Dinner Percent of Meal Consumed 100% Urine Appearance Clear Clear Uretheral (Lozano) Clear Clear Urine Color Dark Yellow Dark Yellow Uretheral (Lozano) Pale Dark Yellow Urine Odor Foul - Lab 07/16/18 03:50 07/16/18 03:50 Most recent lab results Calcium 8.8 mg/dl (8.6-10.4) 07/16/18 03:50 Phosphorus 3.2 mg/dL (2.7-4.5) 07/16/18 03:50 Magnesium 2.3 mg/dL (1.6-2.5) 07/16/18 03:50 Microbiology 07/13/18 12:45 Urine - Clean Void Mid-Stream Urine Culture - Final Methicillin resistant s.aureus 07/15/18 16:55 Nose - Both Right and Left MRSA (PCR) - Final MRSA PCR positive 07/14/18 09:15 Blood Blood Culture - Preliminary 07/14/18 09:25 Blood Blood Culture - Preliminary 07/13/18 12:25 Blood Blood Culture - Preliminary Staphylococcus aureus 07/13/18 14:03 Blood Blood Culture - Preliminary Gram positive cocci Medications Active Medications: Acetaminophen (Tylenol) 650 mg PO Q4-6HP PRN PRN Reason: PAIN/FEVER > 101 Albuterol/Ipratropium (Duoneb) 3 ml NEB Q6HRT [facility] Last Admin: 07/16/18 07:18 Dose: Admin: 07/16/18 00:50 Dose: 3 ml Admin: 07/15/18 19:01 Dose: 3 ml Amiodarone HCl (Cordarone) 100 mg PO BIDCC [facility] Last Admin: 07/15/18 17:10 Dose: 100 mg Amlodipine Besylate (Norvasc) 5 mg PO QDAY [facility] Last Admin: 07/15/18 17:11 Dose: 5 mg Bisacodyl (Dulcolax) 10 mg PA Q2-3DAYS PRN PRN Reason: Constipation Carvedilol (Coreg) 25 mg PO BIDCC [facility] Last Admin: 07/15/18 17:10 Dose: 25 mg Cefazolin Sodium (Ancef) 2 gm IV Q12 [facility] Last Admin: 07/15/18 21:17 Dose: 2 gm Dextrose (Dextrose 50%) 0 ml IV UD PRN PRN Reason: Hypoglycemia Diagnostic Test (Pha) (Accu-Chek) 1 each FS ACHS [facility] Last Admin: 07/16/18 07:08 Dose: 1 each Admin: 07/15/18 22:36 Dose: 1 each Admin: 07/15/18 16:35 Dose: 1 each Docusate Sodium (Colace) 100 mg PO BID [facility] Last Admin: 07/15/18 21:19 Dose: 100 mg Duloxetine HCl (Cymbalta) 60 mg PO DAILY [facility] Furosemide (Lasix) 40 mg PO QDAY [facility] Gabapentin (Neurontin) 300 mg PO QDAY [facility] Glucose (Insta-Glucose) 15 gm PO PRN PRN PRN Reason: Hypoglycemia Heparin Sodium (Porcine) (Heparin) 5,000 unit SQ Q12 [facility] Last Admin: 07/15/18 21:15 Dose: 5,000 unit Comments: Will get Plaquenil in am; did not get today Hydroxychloroquine Sulfate (Plaquenil) 400 mg PO QDAY [facility] Imipramine HCl (Tofranil) 25 mg PO QHS [facility] Last Admin: 07/15/18 21:19 Dose: 25 mg Insulin Glargine (Lantus) 25 unit SQ HS [facility] Last Admin: 07/15/18 21:14 Dose: 25 units Comments: BG 334 Insulin Human Lispro (Humalog) 0 unit SQ [facility]; Protocol Last Admin: 07/16/18 07:14 Dose: 10 units Admin: 07/15/18 21:13 Dose: 10 units Comments: BG 334 Admin: 07/15/18 16:53 Dose: 8 units Magnesium Hydroxide (Milk Of Magnesia) 30 ml PO DAILYP PRN PRN Reason: Constipation Methylprednisolone Sodium Succinate (Solu-Medrol) 62.5 mg IV Q8 [facility] Last Admin: 07/16/18 06:35 Dose: 62.5 mg Admin: 07/15/18 21:17 Dose: 62.5 mg Comments: 1 mL/62.5 mg administered IV Admin: 07/15/18 15:05 Dose: 62.5 mg Naloxone HCl (Narcan) 0.1 mg IV Q2MIN PRN PRN Reason: Opiate Reversal Ondansetron HCl (Zofran) 4 mg IV Q4-6HP PRN PRN Reason: Nausea And Vomiting Pantoprazole Sodium (Protonix) 40 mg PO [facility] Last Admin: 07/16/18 07:15 Dose: 40 mg Solifenacin Succinate [Vesicare] 10 Mg Tab 1 dose PO [facility] Last Admin: 07/15/18 22:21 Dose: [facility] Last Admin: 07/16/18 07:15 Dose: 1 mg Admin: 07/15/18 17:11 Dose: 1 mg Ropinirole HCl (Requip) 1 mg PO [facility] Last Admin: 07/15/18 22:22 Dose: 1 mg Simvastatin (Zocor) 10 mg PO [facility] Last Admin: 07/15/18 21:21 Dose: 10 mg Sodium Chloride (Saline Flush) 10 ml IV Q8 [facility] Last Admin: 07/16/18 06:36 Dose: 10 ml Admin: 07/15/18 22:24 Dose: 10 ml Admin: 07/15/18 15:06 Dose: 10 ml Trazodone HCl (Desyrel) 100 mg PO [facility] Last Admin: 07/15/18 21:21 Dose: 100 mg Assessment and Plan - Narrative A/P Narrative: Assessment: 1. MSSA bacteremia with unclear source: Last positive blood culture on 07/13, cultures from 07/14 are no growth till date -TTE negative for any vegetations -MENG is ideal and recommended for ruling out any infection of pacemaker/ICD 2. CHF exacerbation: Patient symptomatically better, on room air 3. Right-sided parotitis: Likely secondary to MSSA bacteremia Recovering 4. 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 Patient already has received about 3 days of therapy Continue IV cefazolin 2 g every 12 hours based on current creatinine clearance of 39. Dose could be increased to 2 g every 8 hours once creatinine clearance is more than 50 If blood cultures from 07/14 continue to be negative till tomorrow, consider PICC line placement According to primary team, plan for a MENG as outpatient due to logistic reasons. If MENG is negative will treat for 4 weeks of IV antibiotics. If MENG is positive for any lead vegetation or intracardiac infection, will consider a longer treatment course and appropriate surgical intervention Will order intranasal mupirocin 2% to be applied in both nostrils twice a day for 5 days and below neck whole body chlorhexidine wipes 2% once daily to be applied for 5 days Will follow Anders Odell MD Infectious disease
[2018-07-16] MEDS ORDERED: IPRATROPIUM/ALBUTEROL 3 ML AMPUL.NEB NEB PRN (10:06)
[2018-07-16] MEDS: MUPIROCIN OINT 2% 22GM TOPICAL SCH ×2 (11:22→20:09)
--- NOTE | 2018-07-16 12:45 | Internal Med Progress Note ---
Medical - PN: Subj Patient information: Note initiated : 07/16/18 at 12:39 pm Service Date, if different from initiated Date: [] Patient: Stacie Thomas a 78 y/o F admitted on 07/13/18 for SOB, neck pain. Chief Complaint: [] Interval history: Ms. Thomas is a 78 year old F who was recently discharged from this facility, presents to the hospital with complaints of shortness of breath and pain and swelling on the right side of the face. At the time of my evaluation patient was drowsy confused and was unable to provide any meaningful history. Most of the history from chart review The patient apparently was alert x3 when she presented, and and complained about shortness of breath as well as pain and swelling on the right side of the face that has been bothering her since yesterday. No other acute complaints were reported to the ED provider In the emergency room patient was worked up for same. The patient was hemodynamically stable afebrile with elevated blood pressures on presentation. Saturating 92% on 2 L of oxygen. She had a white blood cell count of 17,000 hemoglobin 10.7 platelets 292 potassium was elevated at 5.9 sodium 138 bicarbonate 25 creatinine 1.7 glucose 146 AST 82 ALT 81 alkaline phosphatase 117. UA suggestive of UTI According to the nurse in the ED as well as the ED provider the patient started to deteriorate after 45 minutes presenting to the ED. Her mental status declined and she started hallucinating and not answering questions appropriately. Given hyperkalemia hyperkalemia protocol was initiated by the ED provider. CT neck showed parotidits On my evaluation the patient was having significant shortness of breath, abdominal breathing she was opening her eyes to verbal stimulus knew she was in the hospital but was not able to maintain any meaningful conversation. ABG was ordered which showed pH of 7.25 PCO2 of 70 and PO2 of 85. Patient is being admitted to PCU status for further management. 07/14 Patient seen and examined no acute overnight events of BiPAP now saturating well hemodynamically stable. Transfer from PCU to telemetry status. She denies any shortness of breath still has pain on the right jaw. Blood cultures positive for staph aureus urine culture positive for staph aureus likely source is parotid gland. Patient is on vancomycin and Zosyn. I reviewed with the CODE STATUS again with her she wishes to be full code. 07/15 Pt seen examined, no acute issues wbc at 20K trending down ID consulted. On IV vanco and anceph per ID Pt has no new complaints or concerns. Parotid gland swelling better 07/16 Pt seen and examined no acute overnight events. WBC continues to trend down. Appreciate ID involvement. Patient is on IV Ancef at this time for MSSA bacteremia. Given that the patient has cardiac pacemaker infectious disease wishes to obtain a transesophageal echo. At this point in time we do not have the ability to get transesophageal echo done at this facility. However since the patient is hemodynamically stable and the fact that transesophageal echo will only change the duration of antibiotic treatment at this time this can be obtained as an outpatient. We will try to arrange this as an outpatient and have the results faxed to infectious disease clinic. Pertinent ROS: Denies headache, dizziness Denies chest pain, palpitations Denies cough or shortness of breath Denies abdominal pain, nausea or vomiting. - Constitutional Vitals: Vital Signs Temp Pulse Resp BP Pulse Ox 97.7 F 73 21 140/71 94 07/16/18 07:30 07/16/18 07:30 07/16/18 07:30 07/16/18 07:30 07/16/18 07:30 Period Temp Pulse Resp BP Sys/Mcintosh Pulse Ox Last 24 Hr 97.7 F-99.7 F 62-78 16-24 113-140/59-71 91-94 Intake and Output 07/15/18 07/16/18 07/16/18 21:59 05:59 13:59 Intake Total 320 / 320 750 / 750 Output Total 650 / 650 575 / 575 Balance -330 / -330 175 / 175 Weight 289 lb 8 oz Intake & Output: Intake & Output 07/15/18 07/16/18 07/16/18 21:59 05:59 13:59 Intake Total 320 / 320 750 / 750 Output Total 650 / 650 575 / 575 Balance -330 / -330 175 / 175 Weight 289 lb 8 oz Intake: IV 500 / 500 Vancomycin 1,500 mg In Sodium 500 / 500 Chloride 0.9% 500 ml @ 333.3 mls/hr IV Q24H [facility] Rx#: [id number] Oral 320 / 320 250 / 250 Output: Urine Catheter Amount 650 / 650 575 / 575 Other: Meal Dinner Percent of Meal Consumed 100% Urine Appearance Clear Clear Uretheral (Thacker) Clear Clear Urine Color Dark Yellow Dark Yellow Uretheral (Thacker) Pale Dark Yellow Urine Odor Foul Exam: Constitutional; Afebrile, cooperative, alert, not in distress. Neck- Parotid swelling improved, tenderness improved. Respiratory system: Air Entry equal on both sides, No crackles or wheezing, no rhonchi. CVS- Rate rhythm regular, S1,S2 heard, no gallop, no rub. Abdomen- Soft nontender abdomen, no organomegaly, no tenderness, no guarding or rigidity, [employer]- AOOx3, moving all extremities, no gross focal deficit noted. Medical - PN: Obj Da - Labs CBC & Chem 7: 07/16/18 03:50 07/16/18 03:50 Labs: Abnormal Lab Results 07/16/18 07/16/18 07/15/18 03:50 03:50 03:40 WBC 15.6 H RBC Hgb 10.4 L Hct 33.7 L MCH 25.3 L MCHC 30.9 L RDW 16.6 H Gran % 95.2 H Lymph % (Auto) 3.3 L Nelson % (Auto) Gran # 14.8 H Lymph # (Auto) 0.5 L Nelson # (Auto) Potassium BUN 48 H 50 H Creatinine 1.3 H 1.3 H Glucose 267 H 242 H Phosphorus AST ALT 45 H 59 H Lactate Dehydrogenase 263 H 260 H Albumin 3.1 L Urine Protein Ur Leukocyte Esterase Urine RBC Urine WBC Urine Bacteria Hyaline Casts Granular Casts 07/15/18 07/14/18 07/14/18 03:40 04:00 04:00 WBC 20.0 H 21.7 H RBC 3.93 L Hgb 10.5 L 10.1 L Hct 33.7 L 32.4 L MCH 25.5 L 25.8 L MCHC RDW 16.0 H 15.9 H Gran % 96.3 H 97.3 H Lymph % (Auto) 2.4 L 1.9 L Nelson % (Auto) 0.8 L Gran # 19.3 H 21.2 H Lymph # (Auto) 0.5 L 0.4 L Nelson # (Auto) Potassium BUN 41 H Creatinine 1.4 H Glucose 127 H Phosphorus 6.3 H* AST 58 H ALT 80 H Lactate Dehydrogenase 356 H Albumin Urine Protein Ur Leukocyte Esterase Urine RBC Urine WBC Urine Bacteria Hyaline Casts Granular Casts 07/13/18 07/13/18 07/13/18 18:49 12:45 12:25 WBC RBC Hgb Hct MCH MCHC RDW Gran % Lymph % (Auto) Nelson % (Auto) Gran # Lymph # (Auto) Nelson # (Auto) Potassium 5.9 H* BUN 47 H 46 H Creatinine 1.6 H 1.7 H Glucose 109 H 146 H Phosphorus AST 82 H ALT 81 H Lactate Dehydrogenase Albumin Urine Protein 30 A Ur Leukocyte Esterase 500 A Urine RBC 2 H Urine WBC 112 H Urine Bacteria Few A Hyaline Casts 100 H Granular Casts 3 H 07/13/18 12:25 WBC 17.3 H RBC Hgb 10.7 L Hct 34.2 L MCH 25.4 L MCHC RDW 16.4 H Gran % 85.7 H Lymph % (Auto) 7.8 L Nelson % (Auto) Gran # 14.8 H Lymph # (Auto) 1.3 L Nelson # (Auto) 1.1 H Potassium BUN Creatinine Glucose Phosphorus AST ALT Lactate Dehydrogenase Albumin Urine Protein Ur Leukocyte Esterase Urine RBC Urine WBC Urine Bacteria Hyaline Casts Granular Casts Meds: Medications Acetaminophen (Tylenol) 650 mg PO Q4-6HP PRN PRN Reason: PAIN/FEVER > 101 Albuterol/Ipratropium (Duoneb) 3 ml NEB Q6HRT PRN PRN Reason: Shortness Of Breath Or Wheezing Amiodarone HCl (Cordarone) 100 mg PO BIDCC [facility] Last Admin: 07/16/18 09:36 Dose: 100 mg Amlodipine Besylate (Norvasc) 5 mg PO QDAY [facility] Last Admin: 07/16/18 09:36 Dose: 5 mg Bisacodyl (Dulcolax) 10 mg [place] Q2-3DAYS PRN PRN Reason: Constipation Carvedilol (Coreg) 25 mg PO BIDCC [facility] Last Admin: 07/16/18 09:35 Dose: 25 mg Cefazolin Sodium (Ancef) 2 gm IV Q12 [facility] Last Admin: 07/16/18 09:38 Dose: 2 gm Dextrose (Dextrose 50%) 0 ml IV UD PRN PRN Reason: Hypoglycemia Diagnostic Test (Pha) (Accu-Chek) 1 each FS ACHS [facility] Last Admin: 07/16/18 11:58 Dose: 1 each Docusate Sodium (Colace) 100 mg PO BID [facility] Last Admin: 07/16/18 09:36 Dose: 100 mg Duloxetine HCl (Cymbalta) 60 mg PO DAILY [facility] Last Admin: 07/16/18 09:38 Dose: 60 mg Furosemide (Lasix) 40 mg PO QDAY [facility] Last Admin: 07/16/18 09:37 Dose: 40 mg Gabapentin (Neurontin) 300 mg PO QDAY [facility] Last Admin: 07/16/18 09:36 Dose: 300 mg Glucose (Insta-Glucose) 15 gm PO PRN PRN PRN Reason: Hypoglycemia Heparin Sodium (Porcine) (Heparin) 5,000 unit SQ Q12 [facility] Last Admin: 07/16/18 09:38 Dose: 5,000 unit Hydroxychloroquine Sulfate (Plaquenil) 400 mg PO QDAY [facility] Last Admin: 07/16/18 09:38 Dose: 400 mg Imipramine HCl (Tofranil) 25 mg PO QHS [facility] Last Admin: 07/15/18 21:19 Dose: 25 mg Insulin Glargine (Lantus) 25 unit SQ [facility] Last Admin: 07/15/18 21:14 Dose: 25 units Insulin Human Lispro (Humalog) 0 unit SQ [facility]; Protocol Last Admin: 07/16/18 11:21 Dose: 10 units Magnesium Hydroxide (Milk Of Magnesia) 30 ml PO DAILYP PRN PRN Reason: Constipation Methylprednisolone Sodium Succinate (Solu-Medrol) 62.5 mg IV Q8 [facility] Last Admin: 07/16/18 06:35 Dose: 62.5 mg Mupirocin (Bactroban Oint 2%) 0 dose TOPICAL BID [facility] Stop: 07/21/18 09:01 Last Admin: 07/16/18 11:22 Dose: 1 dose Naloxone HCl (Narcan) 0.1 mg IV Q2MIN PRN PRN Reason: Opiate Reversal Ondansetron HCl (Zofran) 4 mg IV Q4-6HP PRN PRN Reason: Nausea And Vomiting Pantoprazole Sodium (Protonix) 40 mg PO QAMAC [facility] Last Admin: 07/16/18 07:15 Dose: 40 mg Solifenacin Succinate [Vesicare] 10 Mg Tab 1 dose PO [facility] Last Admin: 07/15/18 22:21 Dose: Not Given [facility]) [facility] Last Admin: 07/16/18 07:15 Dose: 1 mg Ropinirole HCl (Requip) 1 mg PO HS [facility] Last Admin: 07/15/18 22:22 Dose: 1 mg Simvastatin (Zocor) 10 mg PO HS [facility] Last Admin: 07/15/18 21:21 Dose: 10 mg Sodium Chloride (Saline Flush) 10 ml IV Q8 [facility] Last Admin: 07/16/18 06:36 Dose: 10 ml Trazodone HCl (Desyrel) 100 mg PO HS [facility] Last Admin: 07/15/18 21:21 Dose: 100 mg Medical - PN: A/P - Time Spent With Patient Total time spent is greater than 50% in coordination of care (as documented) at patient's floor/unit and/or counseling patient: - Narrative A/P Narrative: A/P Acute on Chronic Respiratory failure- off bipap now, back to baseline oxygen needs Acute COPD exacerbation- - Improving. switch to oral steroids, no wheezing noted , prn duonebs for now to see how she does. Acute parotiditis _ with sepsis- IV vancomycin and cefazolin for now, await official CT read, blood cultures positive for staph aureus MSSA. Gram positive bacteremia- Due to acute parotiditis, Urine cultures also growing staph, likely hematogenous spread. repeat blood culture, ID consulted, MENG to be done as outpatient, at present plan ofr 4 weeks of abx, will be extended to 6 weeks if MENG positive. CHF/s/p Pacemaker- CXR shows fluid overload, no crackles on exam, d/c thacker. DM- SSI insulin for glucose control. HTN- monitor bp, resume amlodipine nad coreg Morbid obesity- Outpatient follow up Acute Kidney Injury- renal function improving, creat stable, 1.3 Hyperkalemia- K back to normal, resolved. hold KCL supplements for now, DVT hep sq Diet carb consistent FUll code. PICC tomorrow if cultures remain neg, and then can be discharged. Medical - PN: Qual - VTE Deep Vein Thrombosis/Pulmonary Embolism Present on Admission: No
[2018-07-16] MEDS: traZODone HCL 50 MG TABLET PO SCH (20:08)
[2018-07-16] MEDS: SIMVASTATIN 10 MG TABLET PO SCH (20:08)
[2018-07-16] MEDS: IMIPRAMINE 25 MG TABLET PO SCH (20:09)
[2018-07-16] MEDS: Solifenacin Succinate [Vesicare] 10 mg Tab PO SCH (20:10)
[2018-07-16] MEDS: INSULIN GLARGINE, HUMAN 1 UNIT/0.01 ML SQ SCH (20:23)
[2018-07-17] MEDS: 0.9 % SODIUM CHLORIDE 10 ML SYRINGE IV SCH ×5 (04:11→21:59)
[2018-07-17 05:52] LABS: Basophils # (Auto) 0 K/mcL (0.0-0.3); Basophils % (Auto) 0 % (0.0-2.0); Eosinophils # (Auto) 0 K/mcL (0.0-0.7); Eosinophils % (Auto) 0 % (0.0-7.0); Granulocytes % (Auto) 86.6 % (38.0-78.0); Lymphocytes # (Auto) 0.8 K/mcL (1.5-4.8); Lymphocytes % (Auto) 7.6 % (15.5-49.0); Mean Cell Volume 81.6 fL (80.0-100.0); Mean Corpuscular HGB Conc 31.2 g/dL (31.0-36.0); Monocytes # (Auto) 0.6 K/mcL (0.1-0.9); Monocytes % (Auto) 5.8 % (1.0-12.0); Platelet Count 272 K/mcL (140-440); RBC 4.07 M/mcL (4.00-5.20); Red Cell Distribution Width 16.4 % (11.5-14.5)
[2018-07-17 06:21] LABS: ALT/SGPT 38 U/l (0-40); Albumin 2.9 gm/dL (3.2-5.2); Albumin/Globulin Ratio 1.1 (1.0-2.3); Alkaline Phosphatase 80 U/L (39-117); Bilirubin,Direct < 0.2 mg/dL (0.0-0.3); Blood Urea Nitrogen 39 mg/dl (8-23); Gamma Glutamyl Transpeptidase 28 U/L (5-36)
[2018-07-17] MEDS: DULoxetine 30 MG CAPSULE PO SCH (07:36)
[2018-07-17] MEDS: HYDROXYCHLOROQUINE 200 MG TABLET PO SCH (07:36)
[2018-07-17] MEDS: INSULIN LISPRO 1 UNIT/0.01 ML UNIT SQ SCH ×4 (07:36→21:55)
[2018-07-17] MEDS: PANTOPRAZOLE 40 MG TABLET PO SCH (07:37)
[2018-07-17] MEDS: predniSONE 20 MG TABLET PO SCH (07:37)
[2018-07-17] MEDS: AMIODARONE HCL 200 MG TABLET PO SCH ×2 (07:37→16:46)
[2018-07-17] MEDS: GABAPENTIN 300 MG CAPSULE PO SCH (07:37)
[2018-07-17] MEDS: FUROSEMIDE 20 MG TABLET PO SCH (07:37)
[2018-07-17] MEDS: CARVEDILOL 12.5 MG TABLET PO SCH ×2 (07:37→16:46)
[2018-07-17] MEDS: rOPINIRole 1 MG TABLET PO SCH ×3 (07:38→21:54)
[2018-07-17] MEDS: amLODIPine 5 MG TABLET PO SCH (07:38)
[2018-07-17] MEDS: DOCUSATE SODIUM 100 MG CAPSULE PO SCH ×2 (07:38→21:53)
[2018-07-17] MEDS ORDERED: 0.9 % SODIUM CHLORIDE 10 ML SYRINGE IV PRN (07:40)
[2018-07-17] MEDS: MUPIROCIN OINT 2% 22GM TOPICAL SCH ×2 (07:42→21:53)
[2018-07-17] MEDS: HEPARIN 5,000 UNIT/ML VIAL SQ SCH ×3 (09:03→21:54)
[2018-07-17] MEDS: ceFAZolin 1 GM VIAL IV SCH ×3 (09:03→22:46)
--- NOTE | 2018-07-17 12:48 | Internal Med Progress Note ---
Medical - PN: Subj Patient information: Note initiated : 07/17/18 at 12:39 pm Service Date, if different from initiated Date: [] Patient: Stacie Thomas a 78 y/o F admitted on 07/13/18 for SOB, neck pain. Chief Complaint: [] Interval history: Ms. Thomas is a 78 year old F who was recently discharged from this facility, presents to the hospital with complaints of shortness of breath and pain and swelling on the right side of the face. At the time of my evaluation patient was drowsy confused and was unable to provide any meaningful history. Most of the history from chart review The patient apparently was alert x3 when she presented, and and complained about shortness of breath as well as pain and swelling on the right side of the face that has been bothering her since yesterday. No other acute complaints were reported to the ED provider In the emergency room patient was worked up for same. The patient was hemodynamically stable afebrile with elevated blood pressures on presentation. Saturating 92% on 2 L of oxygen. She had a white blood cell count of 17,000 hemoglobin 10.7 platelets 292 potassium was elevated at 5.9 sodium 138 bicarbonate 25 creatinine 1.7 glucose 146 AST 82 ALT 81 alkaline phosphatase 117. UA suggestive of UTI According to the nurse in the ED as well as the ED provider the patient started to deteriorate after 45 minutes presenting to the ED. Her mental status declined and she started hallucinating and not answering questions appropriately. Given hyperkalemia hyperkalemia protocol was initiated by the ED provider. CT neck showed parotidits On my evaluation the patient was having significant shortness of breath, abdominal breathing she was opening her eyes to verbal stimulus knew she was in the hospital but was not able to maintain any meaningful conversation. ABG was ordered which showed pH of 7.25 PCO2 of 70 and PO2 of 85. Patient is being admitted to PCU status for further management. 07/14 Patient seen and examined no acute overnight events of BiPAP now saturating well hemodynamically stable. Transfer from PCU to telemetry status. She denies any shortness of breath still has pain on the right jaw. Blood cultures positive for staph aureus urine culture positive for staph aureus likely source is parotid gland. Patient is on vancomycin and Zosyn. I reviewed with the CODE STATUS again with her she wishes to be full code. 07/15 Pt seen examined, no acute issues wbc at 20K trending down ID consulted. On IV vanco and anceph per ID Pt has no new complaints or concerns. Parotid gland swelling better 07/16 Pt seen and examined no acute overnight events. WBC continues to trend down. Appreciate ID involvement. Patient is on IV Ancef at this time for MSSA bacteremia. Given that the patient has cardiac pacemaker infectious disease wishes to obtain a transesophageal echo. At this point in time we do not have the ability to get transesophageal echo done at this facility. However since the patient is hemodynamically stable and the fact that transesophageal echo will only change the duration of antibiotic treatment at this time this can be obtained as an outpatient. We will try to arrange this as an outpatient and have the results faxed to infectious disease clinic. 07/17 Pt seen examined, no acute overnight issues, pt feeling much better, MENG as outpatient not possible as SNF not wanting to pay for this study. will try to get this done as inpatient before discharge, likely will happen on friday repeat culture are negative, plan for PICC Pertinent ROS: Denies headache, dizziness Denies chest pain, palpitations Denies cough or shortness of breath Denies abdominal pain, nausea or vomiting. - Constitutional Vitals: Vital Signs Temp Pulse Resp BP Pulse Ox 98.4 F 68 20 124/56 95 07/17/18 11:55 07/17/18 04:00 07/17/18 11:55 07/17/18 11:55 07/17/18 11:55 Period Temp Pulse Resp BP Sys/Mcintosh Pulse Ox Last 24 Hr 97.1 F-98.7 F 62-83 18-20 120-138/56-76 93-97 Intake and Output 07/16/18 07/17/18 07/17/18 21:59 05:59 13:59 Intake Total 880 / 880 500 / 500 240 / 240 Output Total 1275 / 1275 2 / 2 200 / 200 Balance -395 / -395 498 / 498 40 / 40 Weight 267 lb Intake & Output: Intake & Output 07/16/18 07/17/18 07/17/18 21:59 05:59 13:59 Intake Total 880 / 880 500 / 500 240 / 240 Output Total 1275 / 1275 2 / 2 200 / 200 Balance -395 / -395 498 / 498 40 / 40 Weight 267 lb Intake: Oral 880 / 880 500 / 500 240 / 240 Output: Urine Catheter Amount 1275 / 1275 Void Amount 200 / 200 # of times incontinent of urine 2 / 2 Other: Meal Lunch Dinner Percent of Meal Consumed 100% 100% Feeding Ability Independent Independent Urine Appearance Clear Urine Color Bright Yellow Dark Yellow Urine Odor Strong Normal Stool Size Large Large Moderate Stool Color Brown Brown Brown Stool Consistency Soft Loose Loose # Voids 1 1 # Bowel Movements 1 1 Exam: Constitutional; Afebrile, cooperative, alert, not in distress. Eyes- No icterus, , No periorbital swelling Ears- Ext ear normal, hearing normal to conversation. Neck- Midline trachea, supple Respiratory system: Air Entry equal on both sides, No crackles or wheezing, no rhonchi. CVS- Rate rhythm regular, S1,S2 heard, no gallop, no rub. Abdomen- Soft nontender abdomen, no organomegaly, no tenderness, no guarding or rigidity, [employer]- AOOx3, moving all extremities, no gross focal deficit noted. Medical - PN: Obj Da - Labs CBC & Chem 7: 07/17/18 04:10 07/17/18 04:10 Labs: Abnormal Lab Results 07/17/18 07/17/18 07/16/18 04:10 04:10 03:50 WBC Hgb 10.4 L Hct 33.2 L MCH 25.5 L MCHC RDW 16.4 H Gran % 86.6 H Lymph % (Auto) 7.6 L Gran # 9.4 H Lymph # (Auto) 0.8 L BUN 39 H 48 H Creatinine 1.3 H Glucose 192 H 267 H Calcium 8.4 L Phosphorus 2.6 L AST 42 H ALT 45 H Lactate Dehydrogenase 253 H 263 H Total Protein 5.6 L Albumin 2.9 L 3.1 L 07/16/18 07/15/18 07/15/18 03:50 03:40 03:40 WBC 15.6 H 20.0 H Hgb 10.4 L 10.5 L Hct 33.7 L 33.7 L MCH 25.3 L 25.5 L MCHC 30.9 L RDW 16.6 H 16.0 H Gran % 95.2 H 96.3 H Lymph % (Auto) 3.3 L 2.4 L Gran # 14.8 H 19.3 H Lymph # (Auto) 0.5 L 0.5 L BUN 50 H Creatinine 1.3 H Glucose 242 H Calcium Phosphorus AST ALT 59 H Lactate Dehydrogenase 260 H Total Protein Albumin Meds: Medications Acetaminophen (Tylenol) 650 mg PO Q4-6HP PRN PRN Reason: PAIN/FEVER > 101 Albuterol/Ipratropium (Duoneb) 3 ml NEB Q6HRT PRN PRN Reason: Shortness Of Breath Or Wheezing [facility] Last Admin: 07/17/18 07:37 Dose: 100 mg Amlodipine Besylate (Norvasc) 5 mg PO QDAY [facility] Last Admin: 07/17/18 07:38 Dose: 5 mg Bisacodyl (Dulcolax) 10 mg ID Q2-3DAYS PRN PRN Reason: Constipation [facility]il[facility] ([facility]) [facility] Last Admin: 07/17/18 07:37 Dose: 25 mg Cefazolin Sodium (Ancef) 2 gm IV Q8H [facility] Dextrose (Dextrose 50%) 0 ml IV UD PRN PRN Reason: Hypoglycemia Diagnostic Test (Pha) (Accu-Chek) 1 each FS ACHS [facility] Last Admin: 07/17/18 11:34 Dose: 1 each Docusate Sodium (Colace) 100 mg PO BID [facility] Last Admin: 07/17/18 07:38 Dose: Not Given Duloxetine HCl (Cymbalta) 60 mg PO DAILY [facility] Last Admin: 07/17/18 07:36 Dose: 60 mg Furosemide (Lasix) 40 mg PO QDAY [facility] Last Admin: 07/17/18 07:37 Dose: 40 mg Gabapentin (Neurontin) 300 mg PO QDAY [facility] Last Admin: 07/17/18 07:37 Dose: 300 mg Glucose (Insta-Glucose) 15 gm PO PRN PRN PRN Reason: Hypoglycemia Heparin Sodium (Porcine) (Heparin) 5,000 unit SQ Q12 [facility] Last Admin: 07/17/18 09:12 Dose: Not Given Heparin Sodium (Porcine) (Heparin Flush) 2 ml IV Q12 [facility] Last Admin: 07/17/18 09:03 Dose: Not Given Hydroxychloroquine Sulfate (Plaquenil) 400 mg PO QDAY [facility] Last Admin: 07/17/18 07:36 Dose: 400 mg Imipramine HCl (Tofranil) 25 mg PO QHS [facility] Last Admin: 07/16/18 20:09 Dose: 25 mg Insulin Glargine (Lantus) 25 unit SQ [facility] Last Admin: 07/16/18 20:23 Dose: 25 units Insulin Human Lispro (Humalog) 0 unit SQ [facility]; Protocol Last Admin: 07/17/18 11:34 Dose: 6 units Magnesium Hydroxide (Milk Of Magnesia) 30 ml PO DAILYP PRN PRN Reason: Constipation Mupirocin (Bactroban Oint 2%) 0 dose TOPICAL BID [facility] Stop: 07/21/18 09:01 Last Admin: 07/17/18 07:42 Dose: 1 dose Naloxone HCl (Narcan) 0.1 mg IV Q2MIN PRN PRN Reason: Opiate Reversal Ondansetron HCl (Zofran) 4 mg IV Q4-6HP PRN PRN Reason: Nausea And Vomiting Pantoprazole [facility] ([facility]) [facility] Last Admin: 07/17/18 07:37 Dose: 40 mg Solifenacin Succinate [Vesicare] 10 Mg Tab 1 dose PO [facility] Last Admin: 07/16/18 20:10 Dose: Not Given Prednisone (Prednisone) 40 mg PO [facility] Last Admin: 07/17/18 07:37 Dose: 40 mg Ropinirole [facility] ([facility]quip) [facility] Last Admin: 07/17/18 07:38 Dose: 1 mg Ropinirole HCl (Requip) 1 mg PO [facility] Last Admin: 07/16/18 20:24 Dose: 1 mg Simvastatin (Zocor) 10 mg PO [facility] Last Admin: 07/16/18 20:08 Dose: 10 mg Sodium Chloride (Saline Flush) 10 ml IV Q8 [facility] Last Admin: 07/17/18 04:11 Dose: 10 ml Sodium Chloride (Saline Flush) 10 ml IV UD PRN PRN Reason: FLUSH Sodium Chloride (Saline Flush) 10 ml IV Q12 [facility] Last Admin: 07/17/18 09:03 Dose: Not Given Trazodone HCl (Desyrel) 100 mg PO [facility] Last Admin: 07/16/18 20:08 Dose: 100 mg Medical - PN: A/P - Time Spent With Patient Total time spent is greater than 50% in coordination of care (as documented) at patient's floor/unit and/or counseling patient: - Narrative A/P Narrative: A/P Acute on Chronic Respiratory failure- off bipap now, back to baseline oxygen needs Acute COPD exacerbation- - Improving. switch to oral steroids, no wheezing noted , prn karl for now to see how she does. Acute parotiditis _ with sepsis improving- IV cefazolin for now, blood cultures positive for staph aureus MSSA. Gram positive bacteremia- Due to acute parotiditis, Urine cultures also growing staph, likely hematogenous spread. repeat blood culture, ID consulted, MENG to be done as inpatient as SNF not wanting to accept pt. CHF/s/p Pacemaker- CXR shows fluid overload, no crackles on exam, d/c thacker. DM- SSI insulin for glucose control. increase dose of lantus to 35 from 25 HTN- monitor bp, resume amlodipine and coreg Morbid obesity- Outpatient follow up Acute Kidney Injury- renal function improving, creat improved, 1.0 Hyperkalemia- K back to normal, resolved. hold KCL supplements for now, DVT hep sq Diet carb consistent FUll code. picc to be planned Medical - PN: Qual - VTE Deep Vein Thrombosis/Pulmonary Embolism Present on Admission: No
[2018-07-17] MEDS: traZODone HCL 50 MG TABLET PO SCH (21:53)
[2018-07-17] MEDS: SIMVASTATIN 10 MG TABLET PO SCH (21:54)
[2018-07-17] MEDS: IMIPRAMINE 25 MG TABLET PO SCH (21:54)
[2018-07-17] MEDS: INSULIN GLARGINE, HUMAN 1 UNIT/0.01 ML SQ SCH (21:55)
[2018-07-17] MEDS: Solifenacin Succinate [Vesicare] 10 mg Tab PO SCH (21:58)
--- NOTE | 2018-07-17 22:15 | Infectious Disease Prog Note ---
Subjective Patient information: Note initiated : 07/17/18 at 10:13 pm Service Date, if different from initiated Date: [] Patient: Stacie Thomas 78 y/o F admitted on 07/13/18 for SOB, neck pain. Chief Complaint: [] Principal diagnosis: Acute kidney injury Interval history: Pt doing fine. Reports no symptoms including fever, chills, n/v, diarrhea. Is scheduled for MENG on Friday. PICC line was placed today Objective Objective Narrative: ao x 3, in nad chest cta s1 s2 normal bs + nttd no edema - Vital Signs Vital signs: Vital Signs Temp Pulse Resp BP Pulse Ox 07/17/18 18:51 36.7 C 66 20 132/65 93 07/17/18 15:45 36.2 C 20 130/64 96 07/17/18 11:55 36.9 C 20 124/56 95 07/17/18 11:28 36.9 C 20 124/56 94 07/17/18 06:52 36.9 C 20 128/76 97 07/17/18 04:00 36.4 C 68 18 138/68 93 07/16/18 23:14 36.2 C 68 20 120/58 93 Intake and Output 07/17/18 07/17/18 07/18/18 13:59 21:59 05:59 Intake Total 240 / 240 800 / 800 Output Total 200 / 200 Balance 40 / 40 800 / 800 Intake: Oral 240 / 240 800 / 800 Output: Void Amount 200 / 200 Other: Meal Dinner Percent of Meal Consumed 100% Feeding Ability Independent Urine Appearance Clear Urine Color Dark Yellow Urine Odor Normal Stool Size Moderate Stool Color Brown Stool Consistency Loose # Voids 1 # Bowel Movements 1 Weight 126.598 kg Patient Weight 07/18/18 05:59 Weight 126.598 kg Intake & Output: Intake & Output 07/17/18 07/17/18 07/18/18 13:59 21:59 05:59 Intake Total 240 / 240 800 / 800 Output Total 200 / 200 Balance 40 / 40 800 / 800 Weight 126.598 kg Intake: Oral 240 / 240 800 / 800 Output: Void Amount 200 / 200 Other: Meal Dinner Percent of Meal Consumed 100% Feeding Ability Independent Urine Appearance Clear Urine Color Dark Yellow Urine Odor Normal Stool Size Moderate Stool Color Brown Stool Consistency Loose # Voids 1 # Bowel Movements 1 - Lab 07/17/18 04:10 07/17/18 04:10 Most recent lab results Calcium 8.4 mg/dl (8.6-10.4) L 07/17/18 04:10 Phosphorus 2.6 mg/dL (2.7-4.5) L 07/17/18 04:10 Magnesium 2.1 mg/dL (1.6-2.5) 07/17/18 04:10 Microbiology 07/14/18 09:15 Blood Blood Culture - Preliminary 07/14/18 09:25 Blood Blood Culture - Preliminary 07/13/18 12:25 Blood Blood Culture - Preliminary Staphylococcus aureus 07/13/18 12:45 Urine - Clean Void Mid-Stream Urine Culture - Final Methicillin resistant s.aureus 07/15/18 16:55 Nose - Both Right and Left MRSA (PCR) - Final MRSA PCR positive 07/13/18 14:03 Blood Blood Culture - Preliminary Gram positive cocci Medications Active Medications: Acetaminophen (Tylenol) 650 mg PO Q4-6HP PRN PRN Reason: PAIN/FEVER > 101 Albuterol/Ipratropium (Duoneb) 3 ml NEB Q6HRT PRN PRN Reason: Shortness Of Breath Or Wheezing [facility]) [facility] Last Admin: 07/17/18 16:46 Dose: 100 mg Admin: 07/17/18 07:37 Dose: 100 mg Admin: 07/16/18 17:16 Dose: 100 mg Admin: 07/16/18 09:36 Dose: 100 mg Admin: 07/15/18 17:10 Dose: 100 mg Amlodipine Besylate (Norvasc) 5 mg PO QDAY [facility] Last Admin: 07/17/18 07:38 Dose: 5 mg Admin: 07/16/18 09:36 Dose: 5 mg Admin: 07/15/18 17:11 Dose: 5 mg Bisacodyl (Dulcolax) 10 mg [place] Q2-3DAYS PRN PRN Reason: Constipation Carvedilol (Coreg) 25 mg PO BIDCC [facility] Last Admin: 07/17/18 16:46 Dose: 25 mg Admin: 07/17/18 07:37 Dose: 25 mg Admin: 07/16/18 17:16 Dose: 25 mg Admin: 07/16/18 09:35 Dose: 25 mg Comments: Admin: 07/15/18 17:10 Dose: 25 mg Cefazolin Sodium (Ancef) 2 gm IV Q8H [facility] Last Admin: 07/17/18 14:58 Dose: 2 gm Dextrose (Dextrose 50%) 0 ml IV UD PRN PRN Reason: Hypoglycemia Diagnostic Test (Pha) (Accu-Chek) 1 each FS ACHS [facility] Last Admin: 07/17/18 21:52 Dose: 1 each Admin: 07/17/18 16:45 Dose: 1 each Admin: 07/17/18 11:34 Dose: 1 each Admin: 07/17/18 07:35 Dose: 1 each Admin: 07/16/18 20:11 Dose: 1 each Admin: 07/16/18 17:14 Dose: 1 each Admin: 07/16/18 11:58 Dose: 1 each Admin: 07/16/18 07:08 Dose: 1 each Admin: 07/15/18 22:36 Dose: 1 each Admin: 07/15/18 16:35 Dose: 1 each Docusate Sodium (Colace) 100 mg PO BID [facility] Last Admin: 07/17/18 21:53 Dose: Not Given Non-Admin Reason: Clinical Judgement Admin: 07/17/18 07:38 Dose: Not Given Non-Admin Reason: Loose Stool Admin: 07/16/18 20:09 Dose: 100 mg Admin: 07/16/18 09:36 Dose: 100 mg Admin: 07/15/18 21:19 Dose: 100 mg Duloxetine HCl (Cymbalta) 60 mg PO DAILY [facility] Last Admin: 07/17/18 07:36 Dose: 60 mg Admin: 07/16/18 09:38 Dose: 60 mg Furosemide (Lasix) 40 mg PO QDAY [facility] Last Admin: 07/17/18 07:37 Dose: 40 mg Admin: 07/16/18 09:37 Dose: 40 mg Gabapentin (Neurontin) 300 mg PO QDAY [facility] Last Admin: 07/17/18 07:37 Dose: 300 mg Admin: 07/16/18 09:36 Dose: 300 mg Glucose (Insta-Glucose) 15 gm PO PRN PRN PRN Reason: Hypoglycemia Heparin Sodium (Porcine) (Heparin) 5,000 unit SQ Q12 [facility] Last Admin: 07/17/18 21:54 Dose: 5,000 unit Admin: 07/17/18 09:12 Dose: Admin: 07/16/18 20:09 Dose: 5,000 unit Admin: 07/16/18 09:38 Dose: 5,000 unit Admin: 07/15/18 21:15 Dose: 5,000 unit Comments: Will get Plaquenil in am; did not get today Heparin Sodium (Porcine) (Heparin Flush) 2 ml IV Q12 [facility] Last Admin: 07/17/18 21:57 Dose: Admin: 07/17/18 09:03 Dose: Not Given Non-Admin Reason: Unable to complete procedure/test Hydroxychloroquine Sulfate (Plaquenil) 400 mg PO QDAY [facility] Last Admin: 07/17/18 07:36 Dose: 400 mg Admin: 07/16/18 09:38 Dose: 400 mg Imipramine HCl (Tofranil) 25 mg PO QHS [facility] Last Admin: 07/17/18 21:54 Dose: 25 mg Admin: 07/16/18 20:09 Dose: 25 mg Admin: 07/15/18 21:19 Dose: 25 mg Insulin Glargine (Lantus) 35 unit SQ [facility] Last Admin: 07/17/18 21:55 Dose: 35 units Insulin Human Lispro (Humalog) 0 unit SQ [facility]; Protocol Last Admin: 07/17/18 21:55 Dose: 10 units Admin: 07/17/18 16:46 Dose: 10 units Admin: 07/17/18 11:34 Dose: 6 units Admin: 07/17/18 07:36 Dose: 4 units Admin: 07/16/18 20:23 Dose: 12 units Admin: 07/16/18 17:15 Dose: 12 units Admin: 07/16/18 11:21 Dose: 10 units Admin: 07/16/18 07:14 Dose: 10 units Admin: 07/15/18 21:13 Dose: 10 units Comments: BG [id number] Admin: 07/15/18 16:53 Dose: 8 units Magnesium Hydroxide (Milk Of Magnesia) 30 ml PO DAILYP PRN PRN Reason: Constipation Mupirocin (Bactroban Oint 2%) 0 dose TOPICAL BID [facility] Stop: 07/21/18 09:01 Last Admin: 07/17/18 21:53 Dose: 1 dose Admin: 07/17/18 07:42 Dose: 1 dose Admin: 07/16/18 20:09 Dose: 1 dose Admin: 07/16/18 11:22 Dose: 1 dose Naloxone HCl (Narcan) 0.1 mg IV Q2MIN PRN PRN Reason: Opiate Reversal Ondansetron HCl (Zofran) 4 mg IV Q4-6HP PRN PRN Reason: Nausea And Vomiting Pantoprazole Sodium (Protonix) [facility] Last Admin: 07/17/18 07:37 Dose: 40 mg Admin: 07/16/18 07:15 Dose: 40 mg Solifenacin Succinate [Vesicare] 10 Mg Tab 1 dose PO [facility] Last Admin: 07/17/18 21:58 Dose: Admin: 07/16/18 20:10 Dose: Not Given Non-Admin Reason: Unavailable Admin: 07/15/18 22:21 Dose: Prednisone (Prednisone) [address] [facility] Last Admin: 07/17/18 07:37 Dose: 40 mg Ropinirole HCl (Requip) 1 mg PO BIDAC [facility] Last Admin: 07/17/18 16:46 Dose: 1 mg Admin: 07/17/18 07:38 Dose: 1 mg Admin: 07/16/18 17:16 Dose: 1 mg Admin: 07/16/18 07:15 Dose: 1 mg Admin: 07/15/18 17:11 Dose: 1 mg Ropinirole HCl (Requip) 1 mg PO [facility] Last Admin: 07/17/18 21:54 Dose: 1 mg Admin: 07/16/18 20:24 Dose: 1 mg Admin: 07/15/18 22:22 Dose: 1 mg Simvastatin (Zocor) 10 mg PO [facility] Last Admin: 07/17/18 21:54 Dose: 10 mg Admin: 07/16/18 20:08 Dose: 10 mg Admin: 07/15/18 21:21 Dose: 10 mg Sodium Chloride (Saline Flush) 10 ml IV Q8 [facility] Last Admin: 07/17/18 21:59 Dose: 10 ml Admin: 07/17/18 14:58 Dose: 10 ml Admin: 07/17/18 04:11 Dose: 10 ml Admin: 07/16/18 20:10 Dose: 10 ml Admin: 07/16/18 17:25 Dose: 10 ml Admin: 07/16/18 06:36 Dose: 10 ml Admin: 07/15/18 22:24 Dose: 10 ml Admin: 07/15/18 15:06 Dose: 10 ml Sodium Chloride (Saline Flush) 10 ml IV UD PRN PRN Reason: FLUSH Sodium Chloride (Saline Flush) 10 ml IV Q12 [facility] Last Admin: 07/17/18 21:59 Dose: 10 ml Admin: 07/17/18 09:03 Dose: Not Given Non-Admin Reason: Unable to complete procedure/test Trazodone HCl (Desyrel) 100 mg PO HS [facility] Last Admin: 07/17/18 21:53 Dose: 100 mg Admin: 07/16/18 20:08 Dose: 100 mg Admin: 07/15/18 21:21 Dose: 100 mg Assessment and Plan - Narrative A/P Narrative: Assessment: 1. MSSA bacteremia with unclear source: Last positive blood culture on 07/13, cultures from 07/14 are no growth till date -TTE negative for any vegetations -MENG is ideal and recommended for ruling out any infection of pacemaker/ICD 2. CHF exacerbation: Patient symptomatically better, on room air 3. Right-sided parotitis: Likely secondary to MSSA bacteremia Recovering 4. 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 will leave final details of duration after MENG on Friday MENG scheduled for Friday. If MENG is negative will treat for 4 weeks of IV antibiotics. If MENG is positive for any lead vegetation or intracardiac infection, will consider a longer treatment course and appropriate surgical intervention day 08/25 for intranasal mupirocin 2% to be applied in both nostrils twice a day and below neck whole body chlorhexidine wipes 2% once daily Will follow Anders Odell MD Infectious disease
[2018-07-18] MEDS: ceFAZolin 1 GM VIAL IV SCH ×3 (06:08→21:52)
[2018-07-18] MEDS: 0.9 % SODIUM CHLORIDE 10 ML SYRINGE IV SCH ×6 (06:08→22:16)
[2018-07-18] MEDS: rOPINIRole 1 MG TABLET PO SCH ×3 (06:51→22:05)
[2018-07-18] MEDS: PANTOPRAZOLE 40 MG TABLET PO SCH (06:51)
[2018-07-18] MEDS: INSULIN LISPRO 1 UNIT/0.01 ML UNIT SQ SCH ×4 (06:54→21:54)
[2018-07-18] MEDS: FUROSEMIDE 20 MG TABLET PO SCH (08:13)
[2018-07-18] MEDS: predniSONE 20 MG TABLET PO SCH (08:13)
[2018-07-18] MEDS: amLODIPine 5 MG TABLET PO SCH (08:14)
[2018-07-18] MEDS: AMIODARONE HCL 200 MG TABLET PO SCH ×2 (08:14→17:25)
[2018-07-18] MEDS: CARVEDILOL 12.5 MG TABLET PO SCH ×2 (08:14→17:26)
[2018-07-18] MEDS: DULoxetine 30 MG CAPSULE PO SCH (08:14)
[2018-07-18] MEDS: HYDROXYCHLOROQUINE 200 MG TABLET PO SCH (08:15)
[2018-07-18] MEDS: GABAPENTIN 300 MG CAPSULE PO SCH (08:15)
[2018-07-18] MEDS: HEPARIN 5,000 UNIT/ML VIAL SQ SCH ×2 (08:18→21:53)
[2018-07-18] MEDS: DOCUSATE SODIUM 100 MG CAPSULE PO SCH ×2 (08:18→21:52)
[2018-07-18] MEDS: MUPIROCIN OINT 2% 22GM TOPICAL SCH ×2 (08:18→22:05)
--- NOTE | 2018-07-18 10:53 | Internal Med Progress Note ---
Medical - PN: Subj Patient information: Note initiated : 07/18/18 at 10:51 am Service Date, if different from initiated Date: [] Patient: Stacie Thomas a 78 y/o F admitted on 07/13/18 for SOB, neck pain. Chief Complaint: [] Interval history: Ms. Thomas is a 78 year old F who was recently discharged from this facility, presents to the hospital with complaints of shortness of breath and pain and swelling on the right side of the face. At the time of my evaluation patient was drowsy confused and was unable to provide any meaningful history. Most of the history from chart review The patient apparently was alert x3 when she presented, and and complained about shortness of breath as well as pain and swelling on the right side of the face that has been bothering her since yesterday. No other acute complaints were reported to the ED provider In the emergency room patient was worked up for same. The patient was hemodynamically stable afebrile with elevated blood pressures on presentation. Saturating 92% on 2 L of oxygen. She had a white blood cell count of 17,000 hemoglobin 10.7 platelets 292 potassium was elevated at 5.9 sodium 138 bicarbonate 25 creatinine 1.7 glucose 146 AST 82 ALT 81 alkaline phosphatase 117. UA suggestive of UTI According to the nurse in the ED as well as the ED provider the patient started to deteriorate after 45 minutes presenting to the ED. Her mental status declined and she started hallucinating and not answering questions appropriately. Given hyperkalemia hyperkalemia protocol was initiated by the ED provider. CT neck showed parotidits On my evaluation the patient was having significant shortness of breath, abdominal breathing she was opening her eyes to verbal stimulus knew she was in the hospital but was not able to maintain any meaningful conversation. ABG was ordered which showed pH of 7.25 PCO2 of 70 and PO2 of 85. Patient is being admitted to PCU status for further management. 07/14 Patient seen and examined no acute overnight events of BiPAP now saturating well hemodynamically stable. Transfer from PCU to telemetry status. She denies any shortness of breath still has pain on the right jaw. Blood cultures positive for staph aureus urine culture positive for staph aureus likely source is parotid gland. Patient is on vancomycin and Zosyn. I reviewed with the CODE STATUS again with her she wishes to be full code. 07/15 Pt seen examined, no acute issues wbc at 20K trending down ID consulted. On IV vanco and anceph per ID Pt has no new complaints or concerns. Parotid gland swelling better 07/16 Pt seen and examined no acute overnight events. WBC continues to trend down. Appreciate ID involvement. Patient is on IV Ancef at this time for MSSA bacteremia. Given that the patient has cardiac pacemaker infectious disease wishes to obtain a transesophageal echo. At this point in time we do not have the ability to get transesophageal echo done at this facility. However since the patient is hemodynamically stable and the fact that transesophageal echo will only change the duration of antibiotic treatment at this time this can be obtained as an outpatient. We will try to arrange this as an outpatient and have the results faxed to infectious disease clinic. 07/17 Pt seen examined, no acute overnight issues, pt feeling much better, MENG as outpatient not possible as SNF not wanting to pay for this study. will try to get this done as inpatient before discharge, likely will happen on friday repeat culture are negative, plan for PICC 07/18 Pt seen examined no complaints, hemodynamically stable low grade temp noted, if persisits/worsens, will get repeat set of blood cultures pt awaiting MENG, PICC pain at the site of parotid infection much improved. Pertinent ROS: Denies headache, dizziness Denies chest pain, palpitations Denies cough or shortness of breath Denies abdominal pain, nausea or vomiting. - Constitutional Vitals: Vital Signs Temp Pulse Resp BP Pulse Ox 99.8 F H 79 20 138/72 96 07/18/18 06:54 07/18/18 03:32 07/18/18 06:54 07/18/18 06:54 07/18/18 06:54 Period Temp Pulse Resp BP Sys/Mcintosh Pulse Ox Last 24 Hr 97.2 F-99.8 F 66-79 20-24 124-142/56-78 92-96 Intake and Output 07/17/18 07/18/18 07/18/18 21:59 05:59 13:59 Intake Total 800 / 800 550 / 550 240 / 240 Output Total 601 / 601 200 / 200 Balance 800 / 800 -51 / -51 40 / 40 Weight 279 lb 1.6 oz Intake & Output: Intake & Output 07/17/18 07/18/18 07/18/18 21:59 05:59 13:59 Intake Total 800 / 800 550 / 550 240 / 240 Output Total 601 / 601 200 / 200 Balance 800 / 800 -51 / -51 40 / 40 Weight 279 lb 1.6 oz Intake: Oral 800 / 800 550 / 550 240 / 240 Output: Void Amount 100 / 100 200 / 200 # of times incontinent of urine 1 / 1 0 / 0 Urine/Stool Mix 500 / 500 Other: Meal Breakfast Percent of Meal Consumed 100% Urine Appearance Cloudy Urine Color Dark Yellow Urine Odor Normal # Voids 1 1 # Bowel Movements 1 1 Exam: Constitutional; Afebrile, cooperative, alert, not in distress. Respiratory system: Air Entry equal on both sides, No crackles or wheezing, no rhonchi. CVS- Rate rhythm regular, S1,S2 heard, no gallop, no rub. Abdomen- Soft nontender abdomen, no organomegaly, no tenderness, no guarding or rigidity, [employer]W- AOOx3, moving all extremities, no gross focal deficit noted. Medical - PN: Obj Da - Labs CBC & Chem 7: 07/17/18 04:10 07/17/18 04:10 Labs: Abnormal Lab Results 07/17/18 07/17/18 07/16/18 04:10 04:10 03:50 WBC Hgb 10.4 L Hct 33.2 L MCH 25.5 L MCHC RDW 16.4 H Gran % 86.6 H Lymph % (Auto) 7.6 L Gran # 9.4 H Lymph # (Auto) 0.8 L BUN 39 H 48 H Creatinine 1.3 H Glucose 192 H 267 H Calcium 8.4 L Phosphorus 2.6 L AST 42 H ALT 45 H Lactate Dehydrogenase 253 H 263 H Total Protein 5.6 L Albumin 2.9 L 3.1 L 07/16/18 03:50 WBC 15.6 H Hgb 10.4 L Hct 33.7 L MCH 25.3 L MCHC 30.9 L RDW 16.6 H Gran % 95.2 H Lymph % (Auto) 3.3 L Gran # 14.8 H Lymph # (Auto) 0.5 L BUN Creatinine Glucose Calcium Phosphorus AST ALT Lactate Dehydrogenase Total Protein Albumin Meds: Medications Acetaminophen (Tylenol) 650 mg PO Q4-6HP PRN PRN Reason: PAIN/FEVER > 101 Albuterol/Ipratropium (Duoneb) 3 ml NEB Q6HRT PRN PRN Reason: Shortness Of Breath Or Wheezing Amiodarone HCl (Cordarone) 100 mg PO BIDCC [facility] Last Admin: 07/18/18 08:14 Dose: 100 mg Amlodipine Besylate (Norvasc) 5 mg PO QDAY [facility] Last Admin: 07/18/18 08:14 Dose: 5 mg Bisacodyl (Dulcolax) 10 mg [place] Q2-3DAYS PRN PRN Reason: Constipation Carvedilol (Coreg) 25 mg PO BIDCC [facility] Last Admin: 07/18/18 08:14 Dose: 25 mg Cefazolin Sodium (Ancef) 2 gm IV Q8H [facility] Last Admin: 07/18/18 06:08 Dose: 2 gm Dextrose (Dextrose 50%) 0 ml IV UD PRN PRN Reason: Hypoglycemia Diagnostic Test (Pha) (Accu-Chek) 1 each FS ACHS [facility] Last Admin: 07/18/18 06:53 Dose: 1 each Docusate Sodium (Colace) 100 mg PO BID [facility] Last Admin: 07/18/18 08:18 Dose: Not Given Duloxetine HCl (Cymbalta) 60 mg PO DAILY [facility] Last Admin: 07/18/18 08:14 Dose: 60 mg Furosemide (Lasix) 40 mg PO QDAY [facility] Last Admin: 07/18/18 08:13 Dose: 40 mg Gabapentin (Neurontin) 300 mg PO QDAY [facility] Last Admin: 07/18/18 08:15 Dose: 300 mg Glucose (Insta-Glucose) 15 gm PO PRN PRN PRN Reason: Hypoglycemia Heparin Sodium (Porcine) (Heparin) 5,000 unit SQ Q12 [facility] Last Admin: 07/18/18 08:18 Dose: 5,000 unit Heparin Sodium (Porcine) (Heparin Flush) 2 ml IV Q12 [facility] Last Admin: 07/18/18 08:19 Dose: Not Given Hydroxychloroquine Sulfate (Plaquenil) 400 mg PO QDAY [facility] Last Admin: 07/18/18 08:15 Dose: 400 mg Imipramine HCl (Tofranil) 25 mg PO QHS [facility] Last Admin: 07/17/18 21:54 Dose: 25 mg Insulin Glargine (Lantus) 35 unit SQ HS [facility] Last Admin: 07/17/18 21:55 Dose: 35 units Insulin Human Lispro (Humalog) 0 unit SQ ACHS [facility]; Protocol Last Admin: 07/18/18 06:54 Dose: Not Given Magnesium Hydroxide (Milk Of Magnesia) 30 ml PO DAILYP PRN PRN Reason: Constipation Mupirocin (Bactroban Oint 2%) 0 dose TOPICAL BID [facility] Stop: 07/21/18 09:01 Last Admin: 07/18/18 08:18 Dose: 1 dose Naloxone HCl (Narcan) 0.1 mg IV Q2MIN PRN PRN Reason: Opiate Reversal Ondansetron HCl (Zofran) 4 mg IV Q4-6HP PRN PRN Reason: Nausea And Vomiting [facility] Last Admin: 07/18/18 06:51 Dose: 40 mg Solifenacin Succinate [Vesicare] 10 Mg Tab 1 dose PO [facility] Last Admin: 07/17/18 21:58 Dose: Not Given Prednisone (Prednisone) 40 mg PO [facility] Last Admin: 07/18/18 08:13 Dose: 40 mg Ropinirole HCl (Requip) 1 mg PO BIDAC [facility] Last Admin: 07/18/18 06:51 Dose: 1 mg Ropinirole HCl (Requip) 1 mg PO [facility] Last Admin: 07/17/18 21:54 Dose: 1 mg Simvastatin (Zocor) 10 mg PO [facility] Last Admin: 07/17/18 21:54 Dose: 10 mg Sodium Chloride (Saline Flush) 10 ml IV Q8 [facility] Last Admin: 07/18/18 06:08 Dose: 10 ml Sodium Chloride (Saline Flush) 10 ml IV UD PRN PRN Reason: FLUSH Sodium Chloride (Saline Flush) 10 ml IV Q12 [facility] Last Admin: 07/18/18 08:19 Dose: 10 ml Trazodone HCl (Desyrel) 100 mg PO [facility] Last Admin: 07/17/18 21:53 Dose: 100 mg Medical - PN: A/P - Time Spent With Patient Total time spent is greater than 50% in coordination of care (as documented) at patient's floor/unit and/or counseling patient: - Narrative A/P Narrative: A/P Acute on Chronic Respiratory failure- off bipap now, back to baseline oxygen needs, Resolved Acute COPD exacerbation- - Improving. switch to oral steroids, no wheezing noted , prn duonebs for now, no sob reported Acute parotiditis _ with sepsis improving- IV cefazolin for now, blood cultures positive for staph aureus MSSA. Gram positive bacteremia- Due to acute parotiditis, Urine cultures also growing staph, likely hematogenous spread. repeat blood culture, ID consulted, MENG to be done as inpatient as SNF not wanting to accept pt. PICC line to be placed. CHF/s/p Pacemaker- CXR shows fluid overload, no crackles on exam, DM- SSI insulin for glucose control. HTN- monitor bp, resume amlodipine and coreg Morbid obesity- Outpatient follow up Acute Kidney Injury- renal function improving, creat improved, 1.0 Hyperkalemia- K back to normal, resolved. hold KCL supplements for now, DVT hep sq Diet carb consistent FUll code. picc to be planned Medical - PN: Qual - VTE Deep Vein Thrombosis/Pulmonary Embolism Present on Admission: No
--- NOTE | 2018-07-18 13:28 | Internal Med Progress Note ---
Medical - PN: Subj Patient information: Note initiated : 07/18/18 at 1:22 pm Service Date, if different from initiated Date: [] Patient: Stacie Thomas a 78 y/o F admitted on 07/13/18 for SOB, neck pain. Chief Complaint: [] Interval history: Ms. Thomas is a 78 year old F who was recently discharged from this facility, presents to the hospital with complaints of shortness of breath and pain and swelling on the right side of the face. At the time of my evaluation patient was drowsy confused and was unable to provide any meaningful history. Most of the history from chart review The patient apparently was alert x3 when she presented, and and complained about shortness of breath as well as pain and swelling on the right side of the face that has been bothering her since yesterday. No other acute complaints were reported to the ED provider In the emergency room patient was worked up for same. The patient was hemodynamically stable afebrile with elevated blood pressures on presentation. Saturating 92% on 2 L of oxygen. She had a white blood cell count of 17,000 hemoglobin 10.7 platelets 292 potassium was elevated at 5.9 sodium 138 bicarbonate 25 creatinine 1.7 glucose 146 AST 82 ALT 81 alkaline phosphatase 117. UA suggestive of UTI According to the nurse in the ED as well as the ED provider the patient started to deteriorate after 45 minutes presenting to the ED. Her mental status declined and she started hallucinating and not answering questions appropriately. Given hyperkalemia hyperkalemia protocol was initiated by the ED provider. CT neck showed parotidits On my evaluation the patient was having significant shortness of breath, abdominal breathing she was opening her eyes to verbal stimulus knew she was in the hospital but was not able to maintain any meaningful conversation. ABG was ordered which showed pH of 7.25 PCO2 of 70 and PO2 of 85. Patient is being admitted to PCU status for further management. 07/14 Patient seen and examined no acute overnight events of BiPAP now saturating well hemodynamically stable. Transfer from PCU to telemetry status. She denies any shortness of breath still has pain on the right jaw. Blood cultures positive for staph aureus urine culture positive for staph aureus likely source is parotid gland. Patient is on vancomycin and Zosyn. I reviewed with the CODE STATUS again with her she wishes to be full code. 07/15 Pt seen examined, no acute issues wbc at 20K trending down ID consulted. On IV vanco and anceph per ID Pt has no new complaints or concerns. Parotid gland swelling better 07/16 Pt seen and examined no acute overnight events. WBC continues to trend down. Appreciate ID involvement. Patient is on IV Ancef at this time for MSSA bacteremia. Given that the patient has cardiac pacemaker infectious disease wishes to obtain a transesophageal echo. At this point in time we do not have the ability to get transesophageal echo done at this facility. However since the patient is hemodynamically stable and the fact that transesophageal echo will only change the duration of antibiotic treatment at this time this can be obtained as an outpatient. We will try to arrange this as an outpatient and have the results faxed to infectious disease clinic. 07/17 Pt seen examined, no acute overnight issues, pt feeling much better, MENG as outpatient not possible as SNF not wanting to pay for this study. will try to get this done as inpatient before discharge, likely will happen on friday repeat culture are negative, plan for PICC 07/18 Pt seen examined no complaints, hemodynamically stable low grade temp noted, if persisits/worsens, will get repeat set of blood cultures pt awaiting MENG, PICC pain at the site of parotid infection much improved. 07/19 - Constitutional Vitals: Vital Signs Temp Pulse Resp BP Pulse Ox 98.9 F 79 20 146/84 91 07/18/18 11:48 07/18/18 03:32 07/18/18 11:48 07/18/18 11:48 07/18/18 11:48 Period Temp Pulse Resp BP Sys/Mcintosh Pulse Ox Last 24 Hr 97.2 F-99.8 F 66-79 20-24 130-146/64-84 91-96 Intake and Output 07/17/18 07/18/18 07/18/18 21:59 05:59 13:59 Intake Total 800 / 800 550 / 550 240 / 240 Output Total 601 / 601 402 / 402 Balance 800 / 800 -51 / -51 -162 / -162 Weight 126.598 kg Intake & Output: Intake & Output 07/17/18 07/18/18 07/18/18 21:59 05:59 13:59 Intake Total 800 / 800 550 / 550 240 / 240 Output Total 601 / 601 402 / 402 Balance 800 / 800 -51 / -51 -162 / -162 Weight 126.598 kg Intake: Oral 800 / 800 550 / 550 240 / 240 Output: Void Amount 100 / 100 400 / 400 # of times incontinent of urine 1 / 1 2 / 2 Urine/Stool Mix 500 / 500 Other: Meal Lunch Percent of Meal Consumed 75% Urine Appearance Cloudy Urine Color Bright Yellow Urine Odor Normal Stool Size Small Stool Color Brown Stool Consistency Yamel # Voids 1 1 # Bowel Movements 1 1 # of times incontinent of 0 Bowels Exam: General: Alert, Awake, No acute Distress Eyes/N/T: EOMI, Head/Neck: neck supple, CV: RRR, No murmurs, Pulm: Clear b/l, no wheezing/rhonchi/rales Abd: soft, nontender, +BS x4 Ext: no clubbing/cyanosis/edema Neuro: Alert, no focal deficits, moves all extremities, CN 2-12 grossly intact, Skin: warm/dry Medical - PN: Obj Da - Labs CBC & Chem 7: 07/17/18 04:10 07/17/18 04:10 Labs: Abnormal Lab Results 07/17/18 07/17/18 07/16/18 04:10 04:10 03:50 WBC Hgb 10.4 L Hct 33.2 L MCH 25.5 L MCHC RDW 16.4 H Gran % 86.6 H Lymph % (Auto) 7.6 L Gran # 9.4 H Lymph # (Auto) 0.8 L BUN 39 H 48 H Creatinine 1.3 H Glucose 192 H 267 H Calcium 8.4 L Phosphorus 2.6 L AST 42 H ALT 45 H Lactate Dehydrogenase 253 H 263 H Total Protein 5.6 L Albumin 2.9 L 3.1 L 07/16/18 03:50 WBC 15.6 H Hgb 10.4 L Hct 33.7 L MCH 25.3 L MCHC 30.9 L RDW 16.6 H Gran % 95.2 H Lymph % (Auto) 3.3 L Gran # 14.8 H Lymph # (Auto) 0.5 L BUN Creatinine Glucose Calcium Phosphorus AST ALT Lactate Dehydrogenase Total Protein Albumin Meds: Medications Acetaminophen (Tylenol) 650 mg PO Q4-6HP PRN PRN Reason: PAIN/FEVER > 101 Albuterol/Ipratropium (Duoneb) 3 ml NEB Q6HRT PRN PRN Reason: Shortness Of Breath Or Wheezing Amiodarone HCl (Cordarone) 100 mg PO BIDCC [facility] Last Admin: 07/18/18 08:14 Dose: 100 mg Amlodipine Besylate (Norvasc) 5 mg PO QDAY [facility] Last Admin: 07/18/18 08:14 Dose: 5 mg Bisacodyl (Dulcolax) 10 mg [place] Q2-3DAYS PRN PRN Reason: Constipation Carvedilol (Coreg) 25 mg PO BIDCC [facility] Last Admin: 07/18/18 08:14 Dose: 25 mg Cefazolin Sodium (Ancef) 2 gm IV Q8H [facility] Last Admin: 07/18/18 13:16 Dose: 2 gm Dextrose (Dextrose 50%) 0 ml IV UD PRN PRN Reason: Hypoglycemia Diagnostic Test (Pha) (Accu-Chek) 1 each FS ACHS [facility] Last Admin: 07/18/18 11:32 Dose: 1 each Docusate Sodium (Colace) 100 mg PO BID [facility] Last Admin: 07/18/18 08:18 Dose: Not Given Duloxetine HCl (Cymbalta) 60 mg PO DAILY [facility] Last Admin: 07/18/18 08:14 Dose: 60 mg Furosemide (Lasix) 40 mg PO QDAY [facility] Last Admin: 07/18/18 08:13 Dose: 40 mg Gabapentin (Neurontin) 300 mg PO QDAY [facility] Last Admin: 07/18/18 08:15 Dose: 300 mg Glucose (Insta-Glucose) 15 gm PO PRN PRN PRN Reason: Hypoglycemia Heparin Sodium (Porcine) (Heparin) 5,000 unit SQ Q12 [facility] Last Admin: 07/18/18 08:18 Dose: 5,000 unit Heparin Sodium (Porcine) (Heparin Flush) 2 ml IV Q12 [facility] Last Admin: 07/18/18 08:19 Dose: Not Given Hydroxychloroquine Sulfate (Plaquenil) 400 mg PO QDAY [facility] Last Admin: 07/18/18 08:15 Dose: 400 mg Imipramine HCl (Tofranil) 25 mg PO QHS [facility] Last Admin: 07/17/18 21:54 Dose: 25 mg Insulin Glargine (Lantus) 35 unit SQ HS [facility] Last Admin: 07/17/18 21:55 Dose: 35 units Insulin Human Lispro (Humalog) 0 unit SQ ACHS [facility]; Protocol Last Admin: 07/18/18 11:38 Dose: 6 units Magnesium Hydroxide (Milk Of Magnesia) 30 ml PO DAILYP PRN PRN Reason: Constipation Mupirocin (Bactroban Oint 2%) 0 dose TOPICAL BID [facility] Stop: 07/21/18 09:01 Last Admin: 07/18/18 08:18 Dose: 1 dose Naloxone HCl (Narcan) 0.1 mg IV Q2MIN PRN PRN Reason: Opiate Reversal Ondansetron HCl (Zofran) 4 mg IV Q4-6HP PRN PRN Reason: Nausea And Vomiting [facility]) [facility] Last Admin: 07/18/18 06:51 Dose: 40 mg Solifenacin Succinate [Vesicare] 10 Mg Tab 1 dose PO [facility] Last Admin: 07/17/18 21:58 Dose: Not Given Prednisone (Prednisone) 40 mg PO [facility] Last Admin: 07/18/18 08:13 Dose: 40 mg Ropinirole HCl (Requip) 1 mg PO BIDAC [facility] Last Admin: 07/18/18 06:51 Dose: 1 mg Ropinirole HCl (Requip) 1 mg PO [facility] Last Admin: 07/17/18 21:54 Dose: 1 mg Simvastatin (Zocor) 10 mg PO [facility] Last Admin: 07/17/18 21:54 Dose: 10 mg Sodium Chloride (Saline Flush) 10 ml IV Q8 [facility] Last Admin: 07/18/18 13:16 Dose: 10 ml Sodium Chloride (Saline Flush) 10 ml IV UD PRN PRN Reason: FLUSH Sodium Chloride (Saline Flush) 10 ml IV Q12 [facility] Last Admin: 07/18/18 08:19 Dose: 10 ml Trazodone HCl (Desyrel) 100 mg PO [facility] Last Admin: 07/17/18 21:53 Dose: 100 mg Medical - PN: A/P - Time Spent With Patient Total time spent is greater than 50% in coordination of care (as documented) at patient's floor/unit and/or counseling patient: - Narrative A/P Narrative: A: *Acute on chronic hypercapnic respiratory failure: -off bipap now, back to baseline oxygen needs *Acute COPD exacerbation: improved *Acute parotitis w/Sepsis: improving *MSSA Bacteremia: /2 above *CHF/s/p Pacemaker *DM *HTN *MOrbid Obesity: *LORE: improved *HYperkalemia: resolved * P: -switch to oral steroids, no wheezing noted, prn duonebs for now, -IV cefazolin for now -ID following, MENG on friday -PICC line placed -SSI -resume norvasc/coreg -hold home potassium supp -ppx: heparin Full Code Medical - PN: Qual - VTE Deep Vein Thrombosis/Pulmonary Embolism Present on Admission: No
--- NOTE | 2018-07-18 19:52 | XRay Report ---
CLINICAL INFORMATION: PICC PLACEMENT COMPARISON: 07/13/2018 FINDINGS: Implantable cardioverter defibrillator in stable satisfactory position. No complication. Mild cardiomegaly is stable. Mediastinum and pulmonary vessels are normal. Right diaphragm chronically elevated. PICC line tip overlies proximal left subclavian vein. No effusion IMPRESSION: No acute disease. Left PICC line tip overlies the proximal left subclavian vein Interpreted and Authenticated by: Inocente Cuellar 07/18/18
--- NOTE | 2018-07-18 19:53 | XRay Report ---
CLINICAL INFORMATION: PICC PLACEMENT COMPARISON: 07/18/2018 - 1440 hours FINDINGS: PICC line tip is been advanced and overlies the SVC brachycephalic junction. Mild cardiomegaly unchanged. Mediastinum and pulmonary vessels are normal. Chronic elevation right diaphragm again noted. No infiltrates IMPRESSION: PICC line now in satisfactory position. No acute disease or change Interpreted and Authenticated by: Inocente Cuellar 07/18/18
[2018-07-18] MEDS: INSULIN GLARGINE, HUMAN 1 UNIT/0.01 ML SQ SCH (21:53)
[2018-07-18] MEDS: IMIPRAMINE 25 MG TABLET PO SCH (21:54)
[2018-07-18] MEDS: Solifenacin Succinate [Vesicare] 10 mg Tab PO SCH (21:56)
[2018-07-18] MEDS: traZODone HCL 50 MG TABLET PO SCH (22:05)
[2018-07-18] MEDS: SIMVASTATIN 10 MG TABLET PO SCH (22:19)
[2018-07-19 05:14] LABS: Basophils # (Auto) 0 K/mcL (0.0-0.3); Basophils % (Auto) 0.2 % (0.0-2.0); Eosinophils # (Auto) 0 K/mcL (0.0-0.7); Eosinophils % (Auto) 0.4 % (0.0-7.0); Granulocytes % (Auto) 65.9 % (38.0-78.0); Lymphocytes % (Auto) 24.4 % (15.5-49.0); Mean Cell Volume 81.1 fL (80.0-100.0); Mean Corpuscular HGB Conc 31.5 g/dL (31.0-36.0); Monocytes # (Auto) 1.1 K/mcL (0.1-0.9); Monocytes % (Auto) 9.1 % (1.0-12.0); Platelet Count 292 K/mcL (140-440); RBC 4.14 M/mcL (4.00-5.20)
[2018-07-19 05:31] LABS: ALT/SGPT 27 U/l (0-40); Albumin 3.1 gm/dL (3.2-5.2); Albumin/Globulin Ratio 1.3 (1.0-2.3); Alkaline Phosphatase 70 U/L (39-117); Bilirubin,Direct < 0.2 mg/dL (0.0-0.3); Blood Urea Nitrogen 21 mg/dl (8-23); Gamma Glutamyl Transpeptidase 36 U/L (5-36); Uric Acid 5.1 mg/dL (2.5-8.0)
[2018-07-19] MEDS: ceFAZolin 1 GM VIAL IV SCH ×3 (05:40→16:21)
[2018-07-19] MEDS: INSULIN LISPRO 1 UNIT/0.01 ML UNIT SQ SCH ×4 (06:44→20:17)
[2018-07-19] MEDS: PANTOPRAZOLE 40 MG TABLET PO SCH (06:44)
[2018-07-19] MEDS: rOPINIRole 1 MG TABLET PO SCH ×3 (06:44→20:14)
[2018-07-19] MEDS ORDERED: POTASSIUM CHLORIDE 20 MEQ TABLET PO ONE (07:11)
--- NOTE | 2018-07-19 07:13 | Internal Med Progress Note ---
Medical - PN: Subj Patient information: Note initiated : 07/19/18 at 7:05 am Service Date, if different from initiated Date: [] Patient: Stacie Thomas a 78 y/o F admitted on 07/13/18 for SOB, neck pain. Chief Complaint: [] Interval history: Ms. Thomas is a 78 year old F who was recently discharged from this facility, presents to the hospital with complaints of shortness of breath and pain and swelling on the right side of the face. At the time of my evaluation patient was drowsy confused and was unable to provide any meaningful history. Most of the history from chart review The patient apparently was alert x3 when she presented, and and complained about shortness of breath as well as pain and swelling on the right side of the face that has been bothering her since yesterday. No other acute complaints were reported to the ED provider In the emergency room patient was worked up for same. The patient was hemodynamically stable afebrile with elevated blood pressures on presentation. Saturating 92% on 2 L of oxygen. She had a white blood cell count of 17,000 hemoglobin 10.7 platelets 292 potassium was elevated at 5.9 sodium 138 bicarbonate 25 creatinine 1.7 glucose 146 AST 82 ALT 81 alkaline phosphatase 117. UA suggestive of UTI According to the nurse in the ED as well as the ED provider the patient started to deteriorate after 45 minutes presenting to the ED. Her mental status declined and she started hallucinating and not answering questions appropriately. Given hyperkalemia hyperkalemia protocol was initiated by the ED provider. CT neck showed parotidits On my evaluation the patient was having significant shortness of breath, abdominal breathing she was opening her eyes to verbal stimulus knew she was in the hospital but was not able to maintain any meaningful conversation. ABG was ordered which showed pH of 7.25 PCO2 of 70 and PO2 of 85. Patient is being admitted to PCU status for further management. 07/14 Patient seen and examined no acute overnight events of BiPAP now saturating well hemodynamically stable. Transfer from PCU to telemetry status. She denies any shortness of breath still has pain on the right jaw. Blood cultures positive for staph aureus urine culture positive for staph aureus likely source is parotid gland. Patient is on vancomycin and Zosyn. I reviewed with the CODE STATUS again with her she wishes to be full code. 07/15 Pt seen examined, no acute issues wbc at 20K trending down ID consulted. On IV vanco and anceph per ID Pt has no new complaints or concerns. Parotid gland swelling better 07/16 Pt seen and examined no acute overnight events. WBC continues to trend down. Appreciate ID involvement. Patient is on IV Ancef at this time for MSSA bacteremia. Given that the patient has cardiac pacemaker infectious disease wishes to obtain a transesophageal echo. At this point in time we do not have the ability to get transesophageal echo done at this facility. However since the patient is hemodynamically stable and the fact that transesophageal echo will only change the duration of antibiotic treatment at this time this can be obtained as an outpatient. We will try to arrange this as an outpatient and have the results faxed to infectious disease clinic. 07/17 Pt seen examined, no acute overnight issues, pt feeling much better, MENG as outpatient not possible as SNF not wanting to pay for this study. will try to get this done as inpatient before discharge, likely will happen on friday repeat culture are negative, plan for PICC 07/18 Pt seen examined no complaints, hemodynamically stable low grade temp noted, if persisits/worsens, will get repeat set of blood cultures pt awaiting MENG, PICC pain at the site of parotid infection much improved. 07/19 Swelling on right side of cheek continues to improve. patient's feeling better. States she has several soft or loose stools each day, patient is on Colace daily. No other complaints. No overnight events. Review of Systems: denies headache/fever/chills/nausea/vomiting/chest or abdominal pain/cough/ dyspnea. Otherwise see above. - Constitutional Vitals: Vital Signs Temp Pulse Resp BP Pulse Ox 98.8 F 74 18 142/75 93 07/19/18 06:22 07/19/18 06:22 07/19/18 06:22 07/19/18 06:22 07/19/18 06:22 Period Temp Pulse Resp BP Sys/Mcintosh Pulse Ox Last 24 Hr 97.8 F-98.9 F 65-75 16-20 128-146/60-84 91-94 Intake and Output 07/18/18 07/19/18 07/19/18 21:59 05:59 13:59 Intake Total 540 / 540 375 / 375 Output Total 501 / 501 701 / 701 Balance 39 / 39 -326 / -326 Weight 125.191 kg Intake & Output: Intake & Output 07/18/18 07/19/18 07/19/18 21:59 05:59 13:59 Intake Total 540 / 540 375 / 375 Output Total 501 / 501 701 / 701 Balance 39 / 39 -326 / -326 Weight 125.191 kg Intake: Oral 540 / 540 375 / 375 Output: Void Amount 500 / 500 250 / 250 # of times incontinent of urine Urine/Stool Mix 450 / 450 Other: Meal Dinner Percent of Meal Consumed 100% Urine Appearance Cloudy Clear Urine Color Bright Yellow Dark Yellow Urine Odor Normal Normal Stool Size Small Moderate Stool Color Brown Brown Stool Consistency Soft Loose # Voids 1 # Bowel Movements 1 1 Exam: General: Alert, Awake, No acute Distress Eyes/N/T: EOMI, Head/Neck: neck supple, CV: RRR, 1/6 SM, Pulm: Clear b/l, no wheezing/rhonchi/rales Abd: soft, nontender, +BS x4 Ext: no clubbing/cyanosis/edema Neuro: Alert, no focal deficits, moves all extremities, Skin: warm/dry Medical - PN: Obj Da - Labs CBC & Chem 7: 07/19/18 04:00 07/19/18 04:00 Labs: Abnormal Lab Results 07/19/18 07/19/18 07/17/18 04:00 04:00 04:10 WBC 12.2 H Hgb 10.6 L Hct 33.6 L MCH 25.6 L RDW 16.0 H Gran % Lymph % (Auto) Gran # Lymph # (Auto) [place] # (Auto) 1.1 H Potassium 3.2 L Carbon Dioxide 33 H BUN 39 H Glucose 192 H Calcium 8.0 L 8.4 L Phosphorus 2.1 L 2.6 L AST 42 H Lactate Dehydrogenase 275 H 253 H Total Protein 5.5 L 5.6 L Albumin 3.1 L 2.9 L 07/17/18 04:10 WBC Hgb 10.4 L Hct 33.2 L MCH 25.5 L RDW 16.4 H Gran % 86.6 H Lymph % (Auto) 7.6 L Gran # 9.4 H Lymph # (Auto) 0.8 L [place] # (Auto) Potassium Carbon Dioxide BUN Glucose Calcium Phosphorus AST Lactate Dehydrogenase Total Protein Albumin Meds: Medications Acetaminophen (Tylenol) 650 mg PO Q4-6HP PRN PRN Reason: PAIN/FEVER > 101 Albuterol/Ipratropium (Duoneb) 3 ml NEB Q6HRT PRN PRN Reason: Shortness Of Breath Or Wheezing Amiodarone HCl (Cordarone) 100 mg PO BIDCC [facility] Last Admin: 07/18/18 17:25 Dose: 100 mg Amlodipine Besylate (Norvasc) 5 mg PO QDAY [facility] Last Admin: 07/18/18 08:14 Dose: 5 mg Bisacodyl (Dulcolax) 10 mg [place] Q2-3DAYS PRN PRN Reason: Constipation [facility] ([facility]) [facility] Last Admin: 07/18/18 17:26 Dose: 25 mg Cefazolin Sodium (Ancef) 2 gm IV Q8H [facility] Last Admin: 07/19/18 05:40 Dose: 2 gm Dextrose (Dextrose 50%) 0 ml IV UD PRN PRN Reason: Hypoglycemia Diagnostic Test (Pha) (Accu-Chek) 1 each FS ACHS [facility] Last Admin: 07/19/18 06:44 Dose: 1 each Docusate Sodium (Colace) 100 mg PO BID [facility] Last Admin: 07/18/18 21:52 Dose: Not Given Duloxetine HCl (Cymbalta) 60 mg PO DAILY [facility] Last Admin: 07/18/18 08:14 Dose: 60 mg Furosemide (Lasix) 40 mg PO QDAY [facility] Last Admin: 07/18/18 08:13 Dose: 40 mg Gabapentin (Neurontin) 300 mg PO QDAY [facility] Last Admin: 07/18/18 08:15 Dose: 300 mg Glucose (Insta-Glucose) 15 gm PO PRN PRN PRN Reason: Hypoglycemia Heparin Sodium (Porcine) (Heparin) 5,000 unit SQ Q12 [facility] Last Admin: 07/18/18 21:53 Dose: 5,000 unit Heparin Sodium (Porcine) (Heparin Flush) 2 ml IV Q12 [facility] Last Admin: 07/18/18 21:55 Dose: 2 ml Hydroxychloroquine Sulfate (Plaquenil) 400 mg PO QDAY [facility] Last Admin: 07/18/18 08:15 Dose: 400 mg Imipramine HCl (Tofranil) 25 mg PO QHS [facility] Last Admin: 07/18/18 21:54 Dose: 25 mg Insulin Glargine (Lantus) 35 unit SQ [facility] Last Admin: 07/18/18 21:53 Dose: 35 units Insulin Human Lispro (Humalog) 0 unit SQ [facility]; Protocol Last Admin: 07/19/18 06:44 Dose: Not Given Magnesium Hydroxide (Milk Of Magnesia) 30 ml PO DAILYP PRN PRN Reason: Constipation Mupirocin (Bactroban Oint 2%) 0 dose TOPICAL BID [facility] Stop: 07/21/18 09:01 Last Admin: 07/18/18 22:05 Dose: 1 dose Naloxone HCl (Narcan) 0.1 mg IV Q2MIN PRN PRN Reason: Opiate Reversal Ondansetron HCl (Zofran) 4 mg IV Q4-6HP PRN PRN Reason: Nausea And Vomiting Pantoprazole S[facility] ([facility]ix) [facility] Last Admin: 07/19/18 06:44 Dose: 40 mg Solifenacin Succinate [Vesicare] 10 Mg Tab 1 dose PO [facility] Last Admin: 07/18/18 21:56 Dose: Not Given Prednisone (Prednisone) 40 mg PO [facility] Last Admin: 07/18/18 08:13 Dose: 40 mg [facility]opini[facility] ([facility]quip) [facility] Last Admin: 07/19/18 06:44 Dose: 1 mg Ropinirole HCl (Requip) 1 mg PO [facility] Last Admin: 07/18/18 22:05 Dose: 1 mg Simvastatin (Zocor) 10 mg PO [facility] Last Admin: 07/18/18 22:19 Dose: 10 mg Sodium Chloride (Saline Flush) 10 ml IV UD PRN PRN Reason: FLUSH Last Admin: 07/19/18 05:41 Dose: 10 ml Sodium Chloride (Saline Flush) 10 ml IV Q12 [facility] Last Admin: 07/18/18 21:55 Dose: 10 ml Trazodone HCl (Desyrel) 100 mg PO [facility] Last Admin: 07/18/18 22:05 Dose: 100 mg Medical - PN: A/P - Time Spent With Patient Total time spent is greater than 50% in coordination of care (as documented) at patient's floor/unit and/or counseling patient: - Narrative A/P Narrative: A: *Acute on chronic hypercapnic respiratory failure: -off bipap now, back to baseline oxygen needs *Acute COPD exacerbation: improved *Acute parotitis w/Sepsis, right: improving *MSSA Bacteremia: 2/2 above -repeat BC's neg *UTI (MRSA): *acute on chronic CHF systolic dysfxn(23%) w/AICD & Grade II diatolic dysfxn Exacerbation: -improved *DM: *HTN: *Morbid Obesity: *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
[2018-07-19] MEDS: predniSONE 20 MG TABLET PO SCH (08:05)
[2018-07-19] MEDS: CARVEDILOL 12.5 MG TABLET PO SCH ×2 (08:05→17:28)
[2018-07-19] MEDS: AMIODARONE HCL 200 MG TABLET PO SCH ×2 (08:05→17:29)
[2018-07-19 08:08] LABS: Anisocytosis 1+ (NONE SEEN); Hypochromasia 1+ (NONE SEEN); Lymphocytes % 29 % (15-49); Monocytes % (Manual) 13 % (1-12); Platelet Estimate NORMAL (NORMAL); RBC Morphology ABNORMAL (NORMAL); Segmented Neutrophils % 57 % (38-78)
[2018-07-19] MEDS ORDERED: VANCOMYCIN PER PHARMACY IV SCH (08:31)
[2018-07-19] MEDS ORDERED: VANCOMYCIN 1,500 MG in 0.9 % SODIUM CHLORIDE 500 ML IV SCH (09:00)
[2018-07-19] MEDS: HYDROXYCHLOROQUINE 200 MG TABLET PO SCH (09:06)
[2018-07-19] MEDS: LACTOBACILLUS 1 CAPSULE PO SCH ×2 (09:06→20:14)
[2018-07-19] MEDS: DULoxetine 30 MG CAPSULE PO SCH (09:06)
[2018-07-19] MEDS: FUROSEMIDE 20 MG TABLET PO SCH (09:06)
[2018-07-19] MEDS: GABAPENTIN 300 MG CAPSULE PO SCH (09:06)
[2018-07-19] MEDS: amLODIPine 5 MG TABLET PO SCH (09:06)
[2018-07-19] MEDS: HEPARIN 5,000 UNIT/ML VIAL SQ SCH ×2 (09:16→20:17)
[2018-07-19] MEDS: MUPIROCIN OINT 2% 22GM TOPICAL SCH ×2 (09:17→20:27)
[2018-07-19] MEDS: 0.9 % SODIUM CHLORIDE 10 ML SYRINGE IV SCH ×2 (09:25→20:27)
[2018-07-19] MEDS: LOPERAMIDE 2 MG CAPSULE PO PRN (19:41)
[2018-07-19] MEDS: traZODone HCL 50 MG TABLET PO SCH (20:13)
[2018-07-19] MEDS: SIMVASTATIN 10 MG TABLET PO SCH (20:14)
[2018-07-19] MEDS: INSULIN GLARGINE, HUMAN 1 UNIT/0.01 ML SQ SCH (20:16)
[2018-07-19] MEDS: Solifenacin Succinate [Vesicare] 10 mg Tab PO SCH (20:27)
[2018-07-19] MEDS: IMIPRAMINE 25 MG TABLET PO SCH (20:38)
[2018-07-20] MEDS: ceFAZolin 1 GM VIAL IV SCH ×3 (00:02→17:43)
[2018-07-20] MEDS: LOPERAMIDE 2 MG CAPSULE PO PRN (04:39)
[2018-07-20 05:56] LABS: Basophils # (Auto) 0 K/mcL (0.0-0.3); Basophils % (Auto) 0.1 % (0.0-2.0); Eosinophils # (Auto) 0.1 K/mcL (0.0-0.7); Eosinophils % (Auto) 0.7 % (0.0-7.0); Granulocytes % (Auto) 71.3 % (38.0-78.0); Lymphocytes # (Auto) 2.6 K/mcL (1.5-4.8); Lymphocytes % (Auto) 20.5 % (15.5-49.0); Mean Cell Volume 81.3 fL (80.0-100.0); Mean Corpuscular HGB Conc 31.1 g/dL (31.0-36.0); Monocytes # (Auto) 0.9 K/mcL (0.1-0.9); Monocytes % (Auto) 7.4 % (1.0-12.0); Platelet Count 278 K/mcL (140-440); RBC 4.46 M/mcL (4.00-5.20); Red Cell Distribution Width 16.1 % (11.5-14.5)
[2018-07-20 06:43] LABS: ALT/SGPT 21 U/l (0-40); Albumin 3.2 gm/dL (3.2-5.2); Albumin/Globulin Ratio 1.3 (1.0-2.3); Alkaline Phosphatase 74 U/L (39-117); Bilirubin,Direct < 0.2 mg/dL (0.0-0.3); Blood Urea Nitrogen 24 mg/dl (8-23); Gamma Glutamyl Transpeptidase 43 U/L (5-36); Uric Acid 5.1 mg/dL (2.5-8.0)
[2018-07-20] MEDS: PANTOPRAZOLE 40 MG TABLET PO SCH (06:47)
[2018-07-20] MEDS: AMIODARONE HCL 200 MG TABLET PO SCH ×2 (06:47→16:55)
[2018-07-20] MEDS: rOPINIRole 1 MG TABLET PO SCH ×3 (06:47→20:21)
[2018-07-20] MEDS: INSULIN LISPRO 1 UNIT/0.01 ML UNIT SQ SCH ×4 (06:53→20:22)
--- NOTE | 2018-07-20 07:02 | Internal Med Progress Note ---
Medical - PN: Subj Patient information: Note initiated : 07/20/18 at 6:59 am Service Date, if different from initiated Date: [] Patient: Stacie Thomas a 78 y/o F admitted on 07/13/18 for SOB, neck pain. Chief Complaint: [] Interval history: Ms. Thomas is a 78 year old F who was recently discharged from this facility, presents to the hospital with complaints of shortness of breath and pain and swelling on the right side of the face. At the time of my evaluation patient was drowsy confused and was unable to provide any meaningful history. Most of the history from chart review The patient apparently was alert x3 when she presented, and and complained about shortness of breath as well as pain and swelling on the right side of the face that has been bothering her since yesterday. No other acute complaints were reported to the ED provider In the emergency room patient was worked up for same. The patient was hemodynamically stable afebrile with elevated blood pressures on presentation. Saturating 92% on 2 L of oxygen. She had a white blood cell count of 17,000 hemoglobin 10.7 platelets 292 potassium was elevated at 5.9 sodium 138 bicarbonate 25 creatinine 1.7 glucose 146 AST 82 ALT 81 alkaline phosphatase 117. UA suggestive of UTI According to the nurse in the ED as well as the ED provider the patient started to deteriorate after 45 minutes presenting to the ED. Her mental status declined and she started hallucinating and not answering questions appropriately. Given hyperkalemia hyperkalemia protocol was initiated by the ED provider. CT neck showed parotidits On my evaluation the patient was having significant shortness of breath, abdominal breathing she was opening her eyes to verbal stimulus knew she was in the hospital but was not able to maintain any meaningful conversation. ABG was ordered which showed pH of 7.25 PCO2 of 70 and PO2 of 85. Patient is being admitted to PCU status for further management. 07/14 Patient seen and examined no acute overnight events of BiPAP now saturating well hemodynamically stable. Transfer from PCU to telemetry status. She denies any shortness of breath still has pain on the right jaw. Blood cultures positive for staph aureus urine culture positive for staph aureus likely source is parotid gland. Patient is on vancomycin and Zosyn. I reviewed with the CODE STATUS again with her she wishes to be full code. 07/15 Pt seen examined, no acute issues wbc at 20K trending down ID consulted. On IV vanco and anceph per ID Pt has no new complaints or concerns. Parotid gland swelling better 07/16 Pt seen and examined no acute overnight events. WBC continues to trend down. Appreciate ID involvement. Patient is on IV Ancef at this time for MSSA bacteremia. Given that the patient has cardiac pacemaker infectious disease wishes to obtain a transesophageal echo. At this point in time we do not have the ability to get transesophageal echo done at this facility. However since the patient is hemodynamically stable and the fact that transesophageal echo will only change the duration of antibiotic treatment at this time this can be obtained as an outpatient. We will try to arrange this as an outpatient and have the results faxed to infectious disease clinic. 07/17 Pt seen examined, no acute overnight issues, pt feeling much better, MENG as outpatient not possible as SNF not wanting to pay for this study. will try to get this done as inpatient before discharge, likely will happen on friday repeat culture are negative, plan for PICC 07/18 Pt seen examined no complaints, hemodynamically stable low grade temp noted, if persisits/worsens, will get repeat set of blood cultures pt awaiting MENG, PICC pain at the site of parotid infection much improved. 07/19 Swelling on right side of cheek continues to improve. patient's feeling better. States she has several soft or loose stools each day, patient is on Colace daily. No other complaints. No overnight events. 07/20 Patient reports episode of diarrhea last night but per nurse was soft stool. Otherwise no complaints and slept well. Review of Systems: denies headache/fever/chills/nausea/vomiting/chest or abdominal pain/cough/ dyspnea. Otherwise see above. - Constitutional Vitals: Vital Signs Temp Pulse Resp BP Pulse Ox 99 F 73 20 132/62 94 07/20/18 06:53 07/20/18 02:58 07/20/18 06:53 07/20/18 06:53 07/20/18 06:53 Period Temp Pulse Resp BP Sys/Mcintosh Pulse Ox Last 24 Hr 97.0 F-99 F 64-76 18-20 120-140/60-80 90-97 Intake and Output 07/19/18 07/20/18 07/20/18 21:59 05:59 13:59 Intake Total 340 / 340 400 / 400 Output Total 252 / 252 351 / 351 Balance 49 / 49 Weight 124.738 kg Intake & Output: Intake & Output 07/19/18 07/20/18 07/20/18 21:59 05:59 13:59 Intake Total 340 / 340 400 / 400 Output Total 252 / 252 351 / 351 Balance 49 / 49 Weight 124.738 kg Intake: Oral 340 / 340 400 / 400 Output: Void Amount 150 / 150 350 / 350 # of times incontinent of urine 2 / 2 Stool 100 / 100 Other: Meal Dinner Percent of Meal Consumed 100% Feeding Ability Independent Urine Appearance Clear Clear Urine Color Pale Bright Yellow Urine Odor Normal Stool Size Small Moderate Stool Color Brown Stool Consistency Loose Liquid Loose # Bowel Movements 1 Exam: General: Alert, Awake, No acute Distress Eyes/N/T: EOMI, Head/Neck: neck supple, CV: RRR, 1/6 SM, Pulm: Clear b/l, no wheezing/rhonchi/rales Abd: soft, nontender, +BS x4 Ext: no clubbing/cyanosis/edema Neuro: Alert, no focal deficits, moves all extremities, Skin: warm/dry Medical - PN: Obj Da - Labs CBC & Chem 7: 07/20/18 04:00 07/20/18 04:00 Labs: Abnormal Lab Results 07/20/18 07/20/18 07/19/18 04:00 04:00 04:00 WBC 12.8 H Hgb 11.3 L Hct MCH 25.3 L RDW 16.1 H Gran # 9.1 H [place] # (Auto) Monocytes % (Manual) 13 H Polychromasia Occ A Hypochromasia 1+ A Anisocytosis 1+ A Potassium Carbon Dioxide 33 H BUN 24 H Glucose 172 H Calcium 8.4 L Phosphorus GGT 43 H Lactate Dehydrogenase 278 H Total Protein 5.7 L Albumin 07/19/18 07/19/18 04:00 04:00 WBC 12.2 H Hgb 10.6 L Hct 33.6 L MCH 25.6 L RDW 16.0 H Gran # [place] # (Auto) 1.1 H Monocytes % (Manual) Polychromasia Hypochromasia Anisocytosis Potassium 3.2 L Carbon Dioxide 33 H BUN Glucose Calcium 8.0 L Phosphorus 2.1 L GGT Lactate Dehydrogenase 275 H Total Protein 5.5 L Albumin 3.1 L Meds: Medications Acetaminophen (Tylenol) 650 mg PO Q4-6HP PRN PRN Reason: PAIN/FEVER > 101 Albuterol/Ipratropium (Duoneb) 3 ml NEB Q6HRT PRN PRN Reason: Shortness Of Breath Or Wheezing Amiodarone HCl (Cordarone) 100 mg PO BIDCC [facility] Last Admin: 07/20/18 06:47 Dose: 100 mg Amlodipine Besylate (Norvasc) 5 mg PO QDAY [facility] Last Admin: 07/19/18 09:06 Dose: 5 mg Bisacodyl (Dulcolax) 10 mg PA Q2-3DAYS PRN PRN Reason: Constipation Carvedilol (Coreg) 25 mg PO BIDCC [facility] Last Admin: 07/19/18 17:28 Dose: 25 mg Cefazolin Sodium (Ancef) 2 gm IV Q8H [facility] Last Admin: 07/20/18 00:02 Dose: 2 gm Dextrose (Dextrose 50%) 0 ml IV UD PRN PRN Reason: Hypoglycemia Diagnostic Test (Pha) (Accu-Chek) 1 each FS ACHS [facility] Last Admin: 07/20/18 06:52 Dose: 1 each Duloxetine HCl (Cymbalta) 60 mg PO DAILY [facility] Last Admin: 07/19/18 09:06 Dose: 60 mg Furosemide (Lasix) 40 mg PO QDAY [facility] Last Admin: 07/19/18 09:06 Dose: 40 mg Gabapentin (Neurontin) 300 mg PO QDAY [facility] Last Admin: 07/19/18 09:06 Dose: 300 mg Glucose (Insta-Glucose) 15 gm PO PRN PRN PRN Reason: Hypoglycemia Heparin Sodium (Porcine) (Heparin) 5,000 unit SQ Q12 [facility] Last Admin: 07/19/18 20:17 Dose: 5,000 unit Heparin Sodium (Porcine) (Heparin Flush) 2 ml IV Q12 [facility] Last Admin: 07/19/18 20:21 Dose: 2 ml Hydroxychloroquine Sulfate (Plaquenil) 400 mg PO QDAY [facility] Last Admin: 07/19/18 09:06 Dose: 400 mg Imipramine HCl (Tofranil) 25 mg PO QHS [facility] Last Admin: 07/19/18 20:38 Dose: 25 mg Insulin Glargine (Lantus) 35 unit SQ [facility] Last Admin: 07/19/18 20:16 Dose: 35 units Insulin Human Lispro (Humalog) 0 unit SQ [facility]; Protocol Last Admin: 07/20/18 06:53 Dose: Not Given Lactobacillus Rhamnosus (Culturelle) 1 cap PO BID [facility] Last Admin: 07/19/18 20:14 Dose: 1 cap Loperamide HCl (Imodium) 2 mg PO PRN PRN PRN Reason: Diarrhea Last Admin: 07/20/18 04:39 Dose: 2 mg Magnesium Hydroxide (Milk Of Magnesia) 30 ml PO DAILYP PRN PRN Reason: Constipation Mupirocin (Bactroban Oint 2%) 0 dose TOPICAL BID [facility] Stop: 07/21/18 09:01 Last Admin: 07/19/18 20:27 Dose: 1 dose Naloxone HCl (Narcan) 0.1 mg IV Q2MIN PRN PRN Reason: Opiate Reversal Ondansetron HCl (Zofran) 4 mg IV Q4-6HP PRN PRN Reason: Nausea And Vomiting [facility]opraz[facility] ([facility]) [facility] Last Admin: 07/20/18 06:47 Dose: 40 mg Solifenacin Succinate [Vesicare] 10 Mg Tab 1 dose PO [facility] Last Admin: 07/19/18 20:27 Dose: Not Given [facility]) [facility] Last Admin: 07/19/18 08:05 Dose: 40 mg Ropinirole HCl (Requip) 1 mg PO BIDAC [facility] Last Admin: 07/20/18 06:47 Dose: 1 mg Ropinirole HCl (Requip) 1 mg PO [facility] Last Admin: 07/19/18 20:14 Dose: 1 mg Simvastatin (Zocor) 10 mg PO [facility] Last Admin: 07/19/18 20:14 Dose: 10 mg Sodium Chloride (Saline Flush) 10 ml IV UD PRN PRN Reason: FLUSH Last Admin: 07/19/18 05:41 Dose: 10 ml Sodium Chloride (Saline Flush) 10 ml IV Q12 [facility] Last Admin: 07/19/18 20:27 Dose: 10 ml Trazodone HCl (Desyrel) 100 mg PO [facility] Last Admin: 07/19/18 20:13 Dose: 100 mg Medical - PN: A/P - Time Spent With Patient Total time spent is greater than 50% in coordination of care (as documented) at patient's floor/unit and/or counseling patient: - Narrative A/P Narrative: A: *Acute on chronic hypercapnic respiratory failure: -off bipap now, back to baseline oxygen needs *Acute COPD exacerbation: improved *Acute parotitis w/Sepsis, right: improving *MSSA Bacteremia: 2/2 above -repeat BC's neg *MRSA carrier: UC reviewed by ID, pt is asymptomatic, culture may suggest contamination from genital colonization *acute on chronic CHF systolic dysfxn(23%) w/AICD & Grade II diatolic dysfxn Exacerbation: -improved *DM: *HTN: *Morbid Obesity: *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
[2018-07-20] MEDS: HEPARIN 5,000 UNIT/ML VIAL SQ SCH ×2 (11:14→20:23)
[2018-07-20] MEDS: MUPIROCIN OINT 2% 22GM TOPICAL SCH ×2 (11:15→20:20)
[2018-07-20] MEDS: amLODIPine 5 MG TABLET PO SCH (11:15)
[2018-07-20] MEDS: FUROSEMIDE 20 MG TABLET PO SCH (11:15)
[2018-07-20] MEDS: LACTOBACILLUS 1 CAPSULE PO SCH ×2 (11:15→20:20)
[2018-07-20] MEDS: CARVEDILOL 12.5 MG TABLET PO SCH ×2 (11:15→16:57)
[2018-07-20] MEDS: predniSONE 20 MG TABLET PO SCH (11:15)
[2018-07-20] MEDS: DULoxetine 30 MG CAPSULE PO SCH (11:16)
[2018-07-20] MEDS: HYDROXYCHLOROQUINE 200 MG TABLET PO SCH (11:16)
[2018-07-20] MEDS: GABAPENTIN 300 MG CAPSULE PO SCH (11:16)
[2018-07-20] MEDS: 0.9 % SODIUM CHLORIDE 10 ML SYRINGE IV SCH ×2 (11:17→20:21)
--- NOTE | 2018-07-20 14:25 | Discharge Summary ---
Medical - DS: Prov Patient information: Note initiated : 07/20/18 at 2:18 pm Service Date, if different from initiated Date: [] Patient: Stacie Thomas 78 y/o F admitted on 07/13/18 for SOB, neck pain. Chief Complaint: [] Date of admission: 07/13/18 16:55 Discharge date: 07/21/18 Primary care physician: Inocente Messer Consults: 07/15/18 08:22 Consult to Physician [CONS] Routine Comment: Consulting Provider: Anders Odell Reason For Exam: Physician to Consult Medical - DS: Meds - Discharge Medications Prescriptions: traMADol HCL [Ultram] 100 mg PO QHS PRN #20 tab PRN Reason: Pain ceFAZolin [Ancef] 2 gm IV Q8H #1 vial Hydrocodone/APAP 7.5/325Mg [[place] 7.5-325Mg] 1 tab PO Q4H PRN #20 tab PRN Reason: pain predniSONE [Prednisone] 20 mg PO QAMCC #1 tab Active and Home Medications: Home Medications duloxetine 60 mg capsule,delayed release 60 mg PO QDAY #90 cap 04/15/17 [Rx Confirmed 07/13/18 Last Taken 07/13/18] liraglutide 0.6 mg/0.1 mL (18 mg/3 mL) subcutaneous pen injector 1.8 mg SUB-Q QDAY #6 ml 04/15/17 [Rx Confirmed 07/13/18 Last Taken 07/13/18] amlodipine 5 mg tablet 5 mg PO QDAY #90 tab 04/17/17 [Rx Confirmed 07/13/18 Last Taken 07/11/18] gabapentin 300 mg capsule 300 mg PO QDAY #90 cap 04/22/17 [Rx Confirmed Last Taken 07/13/18] potassium chloride ER 20 mEq tablet,extended release 20 meq PO QDAY #90 tab 04/06 [Rx Confirmed 07/13/18 Last Taken 07/13/18] hydroxychloroquine 200 mg tablet 400 mg PO QDAY #180 tab 06/16/17 [Rx Confirmed 07/13/18 Last Taken 07/13/18] aluminum-mag hydroxide-simethicone 200 mg-200 mg-20 mg/5 mL oral susp 30 ml PO Q6HP PRN ml 07/02/17 [History Confirmed 07/13/18 Last Taken 06/19/18 09:00] bisacodyl 10 mg rectal suppository 10 mg UT QDAY PRN 07/02/17 [History Confirmed 07/13/18 Last Taken 07/11/18] emollient combination no.93 topical cream 1 applic TOPICAL DAILYP PRN 07/02/17 [ History Confirmed 07/13/18 Last Taken Unknown] magnesium hydroxide 400 mg/5 mL oral suspension 400 mg PO DAILYP PRN 07/02/17 [ History Confirmed 07/13/18 Last Taken 07/10/18] polyvinyl alcohol 1.4 % eye drops 1 drp OPHTHALMIC BID-QID PRN 07/02/17 [ History Confirmed 07/13/18 Last Taken Unknown] simvastatin 20 mg tablet 10 mg PO QPM 07/02/17 [History Confirmed 07/13/18 Last Taken 07/12/18] polyethylene glycol 3350 17 gram oral powder packet 17 g PO QDAY #100 each 09/08 [Rx Confirmed 07/13/18 Last Taken 07/13/18] acetaminophen 500 mg tablet 1,000 mg PO Q6H PRN 09/17/17 [History Confirmed Last Taken 06/20/18 12:00] sennosides 8.6 mg tablet 8.6 mg PO QDAY PRN 09/17/17 [History Confirmed Last Taken Unknown] guaifenesin ER 600 mg tablet, extended release 12 hr 600 mg PO Q12H PRN [History Confirmed 07/13/18 Last Taken 06/20/18 16:16] trolamine salicylate 10 % lotion 1 applic TOPICAL QDAY PRN 06/19/18 [History Confirmed 07/13/18 Last Taken Unknown] Cranberry Conc/C/Bacill Coag [Cranberry Tablet] 1 each PO BID 06/20/18 [History Confirmed 07/13/18 Last Taken 07/13/18] Furosemide [Lasix] 40 mg PO QDAY 06/20/18 [History Confirmed 07/13/18 Last Taken 07/13/18] Imipramine HCl [Tofranil] 25 mg PO QHS 06/20/18 [History Confirmed 07/13/18 Last Taken 07/12/18] Melatonin 5 mg PO QHS PRN 06/20/18 [History Confirmed 07/13/18 Last Taken ] Solifenacin Succinate [Vesicare] 10 mg PO QHS 06/20/18 [History Confirmed Last Taken 07/12/18] guaiFENesin/DEXTROMETHORPHAN [Robafen Dm Cgh-Chest Jaya Syrp] 10 ml PO Q6HP PRN 06/20/18 [History Confirmed 07/13/18 Last Taken Unknown] rOPINIRole HCL [Requip] 1 mg PO BIDAC 06/20/18 [History Confirmed 07/13/18 Last Taken 07/13/18] traZODone HCL [Trazodone HCl] 100 mg PO QHS 06/20/18 [History Confirmed Last Taken 07/12/18] Accu-Chek 1 each FS ACHS strip 06/29/18 [Rx Confirmed 07/13/18 Last Taken 07/13] Amiodarone HCl [Cordarone] 100 mg PO BIDCC tablet 06/29/18 [Rx Confirmed Last Taken 07/13/18] Carvedilol [Coreg] 25 mg PO BIDCC tablet 06/29/18 [Rx Confirmed 07/13/18 Last Taken 07/13/18] Dextrose [Insta-Glucose] 15 gm PO PRN PRN oral.susp 06/29/18 [Rx Confirmed Last Taken Unknown] Hydrocodone/APAP 7.5/325Mg [[place] 7.5-325Mg] 1 tab PO Q4H PRN #30 tab 06/29/18 [ Rx Confirmed 07/13/18 Last Taken 07/13/18] Insulin Glargine, Human [Lantus] 25 unit SQ HS unit 06/29/18 [Rx Confirmed Last Taken 07/12/18] Insulin Lispro [Humalog] See Protocol SQ ACHS unit 06/29/18 [Rx Confirmed 07/13 Last Taken 07/13/18] traMADol HCL [Ultram] 100 mg PO QHS PRN #20 tab 06/29/18 [Rx Confirmed 07/13/18 Last Taken 07/01/18] Acetaminophen 650 mg PO Q4HP PRN 07/13/18 [History Confirmed 07/13/18 Last Taken Unknown] Albuterol Sulfate [Ventolin] 2.5 mg NEB Q4HP PRN 07/13/18 [History Confirmed Last Taken Unknown] Na Phos,M-B/Na Phos,Di-Ba [Fleets Adult] 1 dose UT PRN PRN 07/13/18 [History Confirmed 07/13/18 Last Taken Unknown] rOPINIRole HCL [Requip] 1 mg PO HS 07/13/18 [History Confirmed 07/13/18 Last Taken 07/12/18] Medical - DS: Hosp Hospital course: Ms. Thomas is a 78 year old F who was recently discharged from this facility, presents to the hospital with complaints of shortness of breath and pain and swelling on the right side of the face. At the time of my evaluation patient was drowsy confused and was unable to provide any meaningful history. Most of the history from chart review The patient apparently was alert x3 when she presented, and and complained about shortness of breath as well as pain and swelling on the right side of the face that has been bothering her since yesterday. No other acute complaints were reported to the ED provider In the emergency room patient was worked up for same. The patient was hemodynamically stable afebrile with elevated blood pressures on presentation. Saturating 92% on 2 L of oxygen. She had a white blood cell count of 17,000 hemoglobin 10.7 platelets 292 potassium was elevated at 5.9 sodium 138 bicarbonate 25 creatinine 1.7 glucose 146 AST 82 ALT 81 alkaline phosphatase 117. UA suggestive of UTI According to the nurse in the ED as well as the ED provider the patient started to deteriorate after 45 minutes presenting to the ED. Her mental status declined and she started hallucinating and not answering questions appropriately. Given hyperkalemia hyperkalemia protocol was initiated by the ED provider. CT neck showed parotidits On my evaluation the patient was having significant shortness of breath, abdominal breathing she was opening her eyes to verbal stimulus knew she was in the hospital but was not able to maintain any meaningful conversation. ABG was ordered which showed pH of 7.25 PCO2 of 70 and PO2 of 85. Patient is being admitted to PCU status for further management. 07/14 Patient seen and examined no acute overnight events of BiPAP now saturating well hemodynamically stable. Transfer from PCU to telemetry status. She denies any shortness of breath still has pain on the right jaw. Blood cultures positive for staph aureus urine culture positive for staph aureus likely source is parotid gland. Patient is on vancomycin and Zosyn. I reviewed with the CODE STATUS again with her she wishes to be full code. 07/15 Pt seen examined, no acute issues wbc at 20K trending down ID consulted. On IV vanco and anceph per ID Pt has no new complaints or concerns. Parotid gland swelling better 07/16 Pt seen and examined no acute overnight events. WBC continues to trend down. Appreciate ID involvement. Patient is on IV Ancef at this time for MSSA bacteremia. Given that the patient has cardiac pacemaker infectious disease wishes to obtain a transesophageal echo. At this point in time we do not have the ability to get transesophageal echo done at this facility. However since the patient is hemodynamically stable and the fact that transesophageal echo will only change the duration of antibiotic treatment at this time this can be obtained as an outpatient. We will try to arrange this as an outpatient and have the results faxed to infectious disease clinic. 07/17 Pt seen examined, no acute overnight issues, pt feeling much better, MENG as outpatient not possible as SNF not wanting to pay for this study. will try to get this done as inpatient before discharge, likely will happen on friday repeat culture are negative, plan for PICC 07/18 Pt seen examined no complaints, hemodynamically stable low grade temp noted, if persisits/worsens, will get repeat set of blood cultures pt awaiting MENG, PICC pain at the site of parotid infection much improved. 07/19 Swelling on right side of cheek continues to improve. patient's feeling better. States she has several soft or loose stools each day, patient is on Colace daily. No other complaints. No overnight events. 07/20 Patient reports episode of diarrhea last night but per nurse was soft stool. Otherwise no complaints and slept well. MENG unremarkable for vegetations. DC planning for the morning to SNF. 07/21 Patient feeling good no overnight events. Diarrhea improved. Transfer to swing bed today. Discharge diagnosis: Acute on chronic hypercapnic respiratory failure COPD exacerbation parotiti Secondary discharge diagnosis: MSSA bacteremia acute on chronic heart failure diabetes hypertension morbid obesity acute kidney injury hyperkalemia - Time Spent with Patient Total time spent providing and/or coordinating discharge services: Greater than 30 minutes Medical - DS: Exam - Constitutional Vitals: Vital Signs Temp Pulse Resp BP Pulse Ox 07/20/18 11:12 97.2 F 76 18 148/68 92 07/20/18 06:53 99 F 20 132/62 94 07/20/18 02:58 98.5 F 73 20 130/80 92 07/20/18 00:00 98.0 F 67 18 136/60 90 07/19/18 19:19 97.6 F 64 20 138/70 97 07/19/18 15:59 97.0 F 76 18 120/61 92 Intake and Output 07/20/18 07/20/18 07/20/18 05:59 13:59 21:59 Intake Total 400 / 400 Output Total 351 / 351 Balance 49 / 49 Intake: Oral 400 / 400 Output: Void Amount 350 / 350 # of times incontinent of urine Other: Urine Appearance Clear Urine Color Bright Yellow Stool Size Moderate Stool Consistency Liquid Loose Medical - DS: Data Labs on day of discharge: Labs from last 24 hours 07/20/18 07/20/18 04:00 04:00 WBC 12.8 H RBC 4.46 Hgb 11.3 L Hct 36.3 MCV 81.3 MCH 25.3 L MCHC 31.1 RDW 16.1 H Plt Count 278 MPV 8.4 Gran % 71.3 Lymph % (Auto) 20.5 [place] % (Auto) 7.4 Eos % (Auto) 0.7 Baso % (Auto) 0.1 Gran # 9.1 H Lymph # (Auto) 2.6 [place] # (Auto) 0.9 Eos # (Auto) 0.1 Baso # (Auto) 0 Sodium 142 Potassium 3.9 Chloride 98 Carbon Dioxide 33 H Anion Gap 11.0 BUN 24 H Creatinine 0.9 GFR Calculation 61 Glucose 172 H Uric Acid 5.1 Calcium 8.4 L Phosphorus 2.8 Magnesium 1.8 Total Bilirubin 0.3 Direct Bilirubin < 0.2 GGT 43 H AST 24 ALT 21 Alkaline Phosphatase 74 Lactate Dehydrogenase 278 H Total Protein 5.7 L Albumin 3.2 Globulin 2.5 Albumin/Globulin Ratio 1.3 Triglycerides 122 Medical - DS: A/P - Patient/Caregiver Discharge Instructions Activity: as per physical therapy Diet: Consistent Carbohydrate Additional Instructions: Continue IV cefazolin 2 g every 8 hours through left arm PICC line with stop date of 08/12/18 - recommend once weekly CBC and CMP for the duration of antibiotic therapy, with results faxed to ID clinic at [phone]. Stop date on Abx is 08/12/2017, then d/c PICC. - ID f/u scheduled for 08/10/18 Prescriptions: traMADol HCL [Ultram] 100 mg PO QHS PRN #20 tab PRN Reason: Pain ceFAZolin [Ancef] 2 gm IV Q8H #1 vial Hydrocodone/APAP 7.5/325Mg [[place] 7.5-325Mg] 1 tab PO Q4H PRN #20 tab PRN Reason: pain predniSONE [Prednisone] 20 mg PO QAMCC #1 tab - Follow up Plan Follow up with: Anders Odell MD [Physician] - 08/10/18 9:45 am Inocente Messer DO [Primary Care Provider] - (Please call/schedule hospital follow up.) Disposition: Xfer SNF Prognosis: Serious Rehab Potential: Fair I certify that the patient requires SNF services: Yes Overall status at discharge: patient is progressing back to baseline Medical - DS: Qual - VTE Deep Vein Thrombosis/Pulmonary Embolism Present on Admission: No
--- NOTE | 2018-07-20 15:48 | Infectious Disease Prog Note ---
Subjective Patient information: Note initiated : 07/20/18 at 3:45 pm Service Date, if different from initiated Date: [] Patient: Stacie Thomas 78 y/o F admitted on 07/13/18 for SOB, neck pain. Chief Complaint: [] Principal diagnosis: Acute kidney injury Interval history: pt is doing well. She had her MENG done today. Denied any fever, chills, n/v, pain or redness at the PICC line site. Endorses diarrhea; 3 times today. Objective Objective Narrative: ao x 3, chest cta s1 s2 normal bs ++ nttd no edema The PICC line site looks fine. - Vital Signs Vital signs: Vital Signs Temp Pulse Resp BP Pulse Ox 07/20/18 11:12 36.2 C 76 18 148/68 92 07/20/18 06:53 37.2 C 20 132/62 94 07/20/18 02:58 36.9 C 73 20 130/80 92 07/20/18 00:00 36.7 C 67 18 136/60 90 07/19/18 19:19 36.4 C 64 20 138/70 97 07/19/18 15:59 36.1 C 76 18 120/61 92 Intake and Output 07/20/18 07/20/18 07/20/18 05:59 13:59 21:59 Intake Total 400 / 400 Output Total 351 / 351 800 / 800 Balance 49 / 49 -800 / -800 Intake: Oral 400 / 400 Output: Void Amount 350 / 350 # of times incontinent of urine 1 / 1 Urine/Stool Mix 800 / 800 Other: Urine Appearance Clear Urine Color Bright Yellow Stool Size Moderate Stool Consistency Liquid Loose Intake & Output: Intake & Output 07/20/18 07/20/18 07/20/18 05:59 13:59 21:59 Intake Total 400 / 400 Output Total 351 / 351 800 / 800 Balance 49 / 49 -800 / -800 Intake: Oral 400 / 400 Output: Void Amount 350 / 350 # of times incontinent of urine 1 / 1 Urine/Stool Mix 800 / 800 Other: Urine Appearance Clear Urine Color Bright Yellow Stool Size Moderate Stool Consistency Liquid Loose - Lab 07/20/18 04:00 07/20/18 04:00 Most recent lab results Calcium 8.4 mg/dl (8.6-10.4) L 07/20/18 04:00 Phosphorus 2.8 mg/dL (2.7-4.5) 07/20/18 04:00 Magnesium 1.8 mg/dL (1.6-2.5) 07/20/18 04:00 Microbiology 07/13/18 14:03 Blood Blood Culture - Final 07/19/18 14:22 Stool C. difficile GDH Antigen & Toxins - Final 07/14/18 09:15 Blood Blood Culture - Final 07/14/18 09:25 Blood Blood Culture - Final 07/13/18 12:25 Blood Blood Culture - Final Staphylococcus aureus 07/13/18 12:45 Urine - Clean Void Mid-Stream Urine Culture - Final Methicillin resistant s.aureus 07/15/18 16:55 Nose - Both Right and Left MRSA (PCR) - Final MRSA PCR positive Medications Active Medications: Acetaminophen (Tylenol) 650 mg PO Q4-6HP PRN PRN Reason: PAIN/FEVER > 101 Albuterol/Ipratropium (Duoneb) 3 ml NEB Q6HRT PRN PRN Reason: Shortness Of Breath Or Wheezing Amiodarone HCl (Cordarone) 100 mg PO BIDCC COUNT INCLUDES [facility] Last Admin: 07/20/18 06:47 Dose: 100 mg Admin: 07/19/18 17:29 Dose: 100 mg Admin: 07/19/18 08:05 Dose: 100 mg Admin: 07/18/18 17:25 Dose: 100 mg Admin: 07/18/18 08:14 Dose: 100 mg Admin: 07/17/18 16:46 Dose: 100 mg Admin: 07/17/18 07:37 Dose: 100 mg Admin: 07/16/18 17:16 Dose: 100 mg Admin: 07/16/18 09:36 Dose: 100 mg Admin: 07/15/18 17:10 Dose: 100 mg Amlodipine Besylate (Norvasc) 5 mg PO QDAY COUNT INCLUDES [facility] Last Admin: 07/20/18 11:15 Dose: 5 mg Admin: 07/19/18 09:06 Dose: 5 mg Admin: 07/18/18 08:14 Dose: 5 mg Admin: 07/17/18 07:38 Dose: 5 mg Admin: 07/16/18 09:36 Dose: 5 mg Admin: 07/15/18 17:11 Dose: 5 mg Bisacodyl (Dulcolax) 10 mg LA Q2-3DAYS PRN PRN Reason: Constipation Carvedilol (Coreg) 25 mg PO BIDCC COUNT INCLUDES [facility] Last Admin: 07/20/18 11:15 Dose: 25 mg Admin: 07/19/18 17:28 Dose: 25 mg Admin: 07/19/18 08:05 Dose: 25 mg Admin: 07/18/18 17:26 Dose: 25 mg Admin: 07/18/18 08:14 Dose: 25 mg Admin: 07/17/18 16:46 Dose: 25 mg Admin: 07/17/18 07:37 Dose: 25 mg Admin: 07/16/18 17:16 Dose: 25 mg Admin: 07/16/18 09:35 Dose: 25 mg Comments: Admin: 07/15/18 17:10 Dose: 25 mg Cefazolin Sodium (Ancef) 2 gm IV Q8H COUNT INCLUDES THE [facility] Last Admin: 07/20/18 11:24 Dose: 2 gm Admin: 07/20/18 00:02 Dose: 2 gm Admin: 07/19/18 16:21 Dose: 2 gm Admin: 07/19/18 09:08 Dose: 2 gm Dextrose (Dextrose 50%) 0 ml IV UD PRN PRN Reason: Hypoglycemia Diagnostic Test (Pha) (Accu-Chek) 1 each FS ACHS COUNT INCLUDES THE [facility] Last Admin: 07/20/18 11:26 Dose: 1 each Admin: 07/20/18 06:52 Dose: 1 each Admin: 07/19/18 20:14 Dose: 1 each Admin: 07/19/18 16:34 Dose: 1 each Admin: 07/19/18 11:53 Dose: 1 each Admin: 07/19/18 06:44 Dose: 1 each Admin: 07/18/18 21:52 Dose: 1 each Admin: 07/18/18 17:18 Dose: 1 each Admin: 07/18/18 11:32 Dose: 1 each Admin: 07/18/18 06:53 Dose: 1 each Admin: 07/17/18 21:52 Dose: 1 each Admin: 07/17/18 16:45 Dose: 1 each Admin: 07/17/18 11:34 Dose: 1 each Admin: 07/17/18 07:35 Dose: 1 each Admin: 07/16/18 20:11 Dose: 1 each Admin: 07/16/18 17:14 Dose: 1 each Admin: 07/16/18 11:58 Dose: 1 each Admin: 07/16/18 07:08 Dose: 1 each Admin: 07/15/18 22:36 Dose: 1 each Admin: 07/15/18 16:35 Dose: 1 each Duloxetine HCl (Cymbalta) 60 mg PO DAILY COUNT [facility]CLUDES [facility] Last Admin: 07/20/18 11:16 Dose: 60 mg Admin: 07/19/18 09:06 Dose: 60 mg Admin: 07/18/18 08:14 Dose: 60 mg Admin: 07/17/18 07:36 Dose: 60 mg Admin: 07/16/18 09:38 Dose: 60 mg Furosemide (Lasix) 40 mg PO QDAY COUNT INCLUDES [facility] Last Admin: 07/20/18 11:15 Dose: 40 mg Admin: 07/19/18 09:06 Dose: 40 mg Admin: 07/18/18 08:13 Dose: 40 mg Admin: 07/17/18 07:37 Dose: 40 mg Admin: 07/16/18 09:37 Dose: 40 mg Gabapentin (Neurontin) 300 mg PO QDAY COUNT INCLUDES [facility] Last Admin: 07/20/18 11:16 Dose: 300 mg Admin: 07/19/18 09:06 Dose: 300 mg Admin: 07/18/18 08:15 Dose: 300 mg Admin: 07/17/18 07:37 Dose: 300 mg Admin: 07/16/18 09:36 Dose: 300 mg Glucose (Insta-Glucose) 15 gm PO PRN PRN PRN Reason: Hypoglycemia Heparin Sodium (Porcine) (Heparin) 5,000 unit SQ Q12 COUNT [facility]CLUDES [facility] Last Admin: 07/20/18 11:14 Dose: 5,000 unit Admin: 07/19/18 20:17 Dose: 5,000 unit Admin: 07/19/18 09:16 Dose: 5,000 unit Admin: 07/18/18 21:53 Dose: 5,000 unit Admin: 07/18/18 08:18 Dose: 5,000 unit Admin: 07/17/18 21:54 Dose: 5,000 unit Admin: 07/17/18 09:12 Dose: Admin: 07/16/18 20:09 Dose: 5,000 unit Admin: 07/16/18 09:38 Dose: 5,000 unit Admin: 07/15/18 21:15 Dose: 5,000 unit Comments: Will get Plaquenil in am; did not get today Heparin Sodium (Porcine) (Heparin Flush) 2 ml IV Q12 COUNT [facility]CLUDES [facility] Last Admin: 07/20/18 11:16 Dose: 2 ml Admin: 07/19/18 20:21 Dose: 2 ml Comments: 2 ml per port per protocol Admin: 07/19/18 09:25 Dose: 2 ml Admin: 07/18/18 21:55 Dose: 2 ml Admin: 07/18/18 16:18 Dose: 2 ml Admin: 07/18/18 08:19 Dose: Admin: 07/17/18 21:57 Dose: Admin: 07/17/18 09:03 Dose: Not Given Non-Admin Reason: Unable to complete procedure/test Hydroxychloroquine Sulfate (Plaquenil) 400 mg PO QDAY COUNT INCLUDES [facility] Last Admin: 07/20/18 11:16 Dose: 400 mg Admin: 07/19/18 09:06 Dose: 400 mg Admin: 07/18/18 08:15 Dose: 400 mg Admin: 07/17/18 07:36 Dose: 400 mg Admin: 07/16/18 09:38 Dose: 400 mg Imipramine HCl (Tofranil) 25 mg PO QHS COUNT [facility]CLUDES [facility] Last Admin: 07/19/18 20:38 Dose: 25 mg Admin: 07/18/18 21:54 Dose: 25 mg Admin: 07/17/18 21:54 Dose: 25 mg Admin: 07/16/18 20:09 Dose: 25 mg Admin: 07/15/18 21:19 Dose: 25 mg Insulin Glargine (Lantus) 35 unit SQ [facility] Last Admin: 07/19/18 20:16 Dose: 35 units Admin: 07/18/18 21:53 Dose: 35 units Admin: 07/17/18 21:55 Dose: 35 units Insulin Human Lispro (Humalog) 0 unit SQ [facility]; Protocol Last Admin: 07/20/18 11:26 Dose: Not Given Non-Admin Reason: No Coverage Needed Admin: 07/20/18 06:53 Dose: Not Given Non-Admin Reason: NPO Admin: 07/19/18 20:17 Dose: 12 units Admin: 07/19/18 17:28 Dose: 10 units Admin: 07/19/18 11:53 Dose: 6 units Admin: 07/19/18 06:44 Dose: Not Given Non-Admin Reason: No Coverage Needed Admin: 07/18/18 21:54 Dose: 8 units Admin: 07/18/18 17:18 Dose: 12 units Admin: 07/18/18 11:38 Dose: 6 units Admin: 07/18/18 06:54 Dose: Not Given Non-Admin Reason: No Coverage Needed Admin: 07/17/18 21:55 Dose: 10 units Admin: 07/17/18 16:46 Dose: 10 units Admin: 07/17/18 11:34 Dose: 6 units Admin: 07/17/18 07:36 Dose: 4 units Admin: 07/16/18 20:23 Dose: 12 units Admin: 07/16/18 17:15 Dose: 12 units Admin: 07/16/18 11:21 Dose: 10 units Admin: 07/16/18 07:14 Dose: 10 units Admin: 07/15/18 21:13 Dose: 10 units Comments: BG 334 Admin: 07/15/18 16:53 Dose: 8 units Lactobacillus Rhamnosus (Culturelle) 1 cap PO BID COUNT INCLUDES [facility] Last Admin: 07/20/18 11:15 Dose: 1 cap Admin: 07/19/18 20:14 Dose: 1 cap Admin: 07/19/18 09:06 Dose: 1 cap Loperamide HCl (Imodium) 2 mg PO PRN PRN PRN Reason: Diarrhea Last Admin: 07/20/18 04:39 Dose: 2 mg Admin: 07/19/18 19:41 Dose: 2 mg Magnesium Hydroxide (Milk Of Magnesia) 30 ml PO DAILYP PRN PRN Reason: Constipation Mupirocin (Bactroban Oint 2%) 0 dose TOPICAL BID COUNT INCLUDES [facility] Stop: 07/21/18 09:01 Last Admin: 07/20/18 11:15 Dose: 1 dose Admin: 07/19/18 20:27 Dose: 1 dose Admin: 07/19/18 09:17 Dose: 1 dose Admin: 07/18/18 22:05 Dose: 1 dose Admin: 07/18/18 08:18 Dose: 1 dose Admin: 07/17/18 21:53 Dose: 1 dose Admin: 07/17/18 07:42 Dose: 1 dose Admin: 07/16/18 20:09 Dose: 1 dose Admin: 07/16/18 11:22 Dose: 1 dose Naloxone HCl (Narcan) 0.1 mg IV Q2MIN PRN PRN Reason: Opiate Reversal Ondansetron HCl (Zofran) 4 mg IV Q4-6HP PRN PRN Reason: Nausea And Vomiting Pantoprazole Sodium (Protonix) [facility] Last Admin: 07/20/18 06:47 Dose: 40 mg Admin: 07/19/18 06:44 Dose: 40 mg Admin: 07/18/18 06:51 Dose: 40 mg Admin: 07/17/18 07:37 Dose: 40 mg Admin: 07/16/18 07:15 Dose: 40 mg Solifenacin Succinate [Vesicare] 10 Mg Tab 1 dose PO [facility] Last Admin: 07/19/18 20:27 Dose: Admin: 07/18/18 21:56 Dose: Not Given Non-Admin Reason: Unavailable Admin: 07/17/18 21:58 Dose: Admin: 07/16/18 20:10 Dose: Not Given Non-Admin Reason: Unavailable Admin: 07/15/18 22:21 Dose: Prednisone (Prednisone) 20 mg PO [facility] R[facility] ([facility]) [facility] Last Admin: 07/20/18 06:47 Dose: 1 mg Admin: 07/19/18 16:33 Dose: 1 mg Admin: 07/19/18 06:44 Dose: 1 mg Admin: 07/18/18 17:25 Dose: 1 mg Admin: 07/18/18 06:51 Dose: 1 mg Admin: 07/17/18 16:46 Dose: 1 mg Admin: 07/17/18 07:38 Dose: 1 mg Admin: 07/16/18 17:16 Dose: 1 mg Admin: 07/16/18 07:15 Dose: 1 mg Admin: 07/15/18 17:11 Dose: 1 mg Ropinirole HCl (Requip) 1 mg PO [facility] Last Admin: 07/19/18 20:14 Dose: 1 mg Admin: 07/18/18 22:05 Dose: 1 mg Admin: 07/17/18 21:54 Dose: 1 mg Admin: 07/16/18 20:24 Dose: 1 mg Admin: 07/15/18 22:22 Dose: 1 mg Simvastatin (Zocor) 10 mg PO [facility] Last Admin: 07/19/18 20:14 Dose: 10 mg Admin: 07/18/18 22:19 Dose: 10 mg Admin: 07/17/18 21:54 Dose: 10 mg Admin: 07/16/18 20:08 Dose: 10 mg Admin: 07/15/18 21:21 Dose: 10 mg Sodium Chloride (Saline Flush) 10 ml IV UD PRN PRN Reason: FLUSH Last Admin: 07/19/18 05:41 Dose: 10 ml Sodium Chloride (Saline Flush) 10 ml IV Q12 [facility] Last Admin: 07/20/18 11:17 Dose: 10 ml Admin: 07/19/18 20:27 Dose: 10 ml Admin: 07/19/18 09:25 Dose: 10 ml Admin: 07/18/18 21:55 Dose: 10 ml Admin: 07/18/18 08:19 Dose: 10 ml Admin: 07/17/18 21:59 Dose: 10 ml Admin: 07/17/18 09:03 Dose: Not Given Non-Admin Reason: Unable to complete procedure/test Trazodone HCl (Desyrel) 100 mg PO HS [facility] Last Admin: 07/19/18 20:13 Dose: 100 mg Admin: 07/18/18 22:05 Dose: 100 mg Admin: 07/17/18 21:53 Dose: 100 mg Admin: 07/16/18 20:08 Dose: 100 mg Admin: 07/15/18 21:21 Dose: 100 mg Assessment and Plan - Narrative A/P Narrative: Assessment: 1. MSSA bacteremia with unclear source: Last positive blood culture on 07/13, cultures from 07/14 neg at day 5 -TTE and MENG negative for any vegetations 2. CHF exacerbation: Patient symptomatically better, on room air 3. Right-sided parotitis: Likely secondary to MSSA bacteremia Recovered 4. 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
[2018-07-20] MEDS: traZODone HCL 50 MG TABLET PO SCH (20:20)
[2018-07-20] MEDS: SIMVASTATIN 10 MG TABLET PO SCH (20:21)
[2018-07-20] MEDS: IMIPRAMINE 25 MG TABLET PO SCH (20:21)
[2018-07-20] MEDS: INSULIN GLARGINE, HUMAN 1 UNIT/0.01 ML SQ SCH (20:22)
[2018-07-20] MEDS: Solifenacin Succinate [Vesicare] 10 mg Tab PO SCH (20:22)
[2018-07-21] MEDS: ceFAZolin 1 GM VIAL IV SCH ×2 (00:22→09:13)
[2018-07-21] MEDS ORDERED: predniSONE 20 MG TABLET PO SCH (08:00)
[2018-07-21] MEDS: INSULIN LISPRO 1 UNIT/0.01 ML UNIT SQ SCH (08:09)
[2018-07-21] MEDS: PANTOPRAZOLE 40 MG TABLET PO SCH (08:09)
[2018-07-21] MEDS: AMIODARONE HCL 200 MG TABLET PO SCH (08:09)
[2018-07-21] MEDS: rOPINIRole 1 MG TABLET PO SCH (08:10)
[2018-07-21] MEDS: CARVEDILOL 12.5 MG TABLET PO SCH (08:10)
--- NOTE | 2018-07-21 08:14 | Internal Med Progress Note ---
Medical - PN: Subj Patient information: Note initiated : 07/21/18 at 8:12 am Service Date, if different from initiated Date: [] Patient: Stacie Thomas a 78 y/o F admitted on 07/13/18 for SOB, neck pain. Chief Complaint: [] Interval history: Ms. Thomas is a 78 year old F who was recently discharged from this facility, presents to the hospital with complaints of shortness of breath and pain and swelling on the right side of the face. At the time of my evaluation patient was drowsy confused and was unable to provide any meaningful history. Most of the history from chart review The patient apparently was alert x3 when she presented, and and complained about shortness of breath as well as pain and swelling on the right side of the face that has been bothering her since yesterday. No other acute complaints were reported to the ED provider In the emergency room patient was worked up for same. The patient was hemodynamically stable afebrile with elevated blood pressures on presentation. Saturating 92% on 2 L of oxygen. She had a white blood cell count of 17,000 hemoglobin 10.7 platelets 292 potassium was elevated at 5.9 sodium 138 bicarbonate 25 creatinine 1.7 glucose 146 AST 82 ALT 81 alkaline phosphatase 117. UA suggestive of UTI According to the nurse in the ED as well as the ED provider the patient started to deteriorate after 45 minutes presenting to the ED. Her mental status declined and she started hallucinating and not answering questions appropriately. Given hyperkalemia hyperkalemia protocol was initiated by the ED provider. CT neck showed parotidits On my evaluation the patient was having significant shortness of breath, abdominal breathing she was opening her eyes to verbal stimulus knew she was in the hospital but was not able to maintain any meaningful conversation. ABG was ordered which showed pH of 7.25 PCO2 of 70 and PO2 of 85. Patient is being admitted to PCU status for further management. 07/14 Patient seen and examined no acute overnight events of BiPAP now saturating well hemodynamically stable. Transfer from PCU to telemetry status. She denies any shortness of breath still has pain on the right jaw. Blood cultures positive for staph aureus urine culture positive for staph aureus likely source is parotid gland. Patient is on vancomycin and Zosyn. I reviewed with the CODE STATUS again with her she wishes to be full code. 07/15 Pt seen examined, no acute issues wbc at 20K trending down ID consulted. On IV vanco and anceph per ID Pt has no new complaints or concerns. Parotid gland swelling better 07/16 Pt seen and examined no acute overnight events. WBC continues to trend down. Appreciate ID involvement. Patient is on IV Ancef at this time for MSSA bacteremia. Given that the patient has cardiac pacemaker infectious disease wishes to obtain a transesophageal echo. At this point in time we do not have the ability to get transesophageal echo done at this facility. However since the patient is hemodynamically stable and the fact that transesophageal echo will only change the duration of antibiotic treatment at this time this can be obtained as an outpatient. We will try to arrange this as an outpatient and have the results faxed to infectious disease clinic. 07/17 Pt seen examined, no acute overnight issues, pt feeling much better, MENG as outpatient not possible as SNF not wanting to pay for this study. will try to get this done as inpatient before discharge, likely will happen on friday repeat culture are negative, plan for PICC 07/18 Pt seen examined no complaints, hemodynamically stable low grade temp noted, if persisits/worsens, will get repeat set of blood cultures pt awaiting MENG, PICC pain at the site of parotid infection much improved. 07/19 Swelling on right side of cheek continues to improve. patient's feeling better. States she has several soft or loose stools each day, patient is on Colace daily. No other complaints. No overnight events. 07/20 Patient reports episode of diarrhea last night but per nurse was soft stool. Otherwise no complaints and slept well. 07/21 Patient feeling good no overnight events. Diarrhea improved. Review of Systems: denies headache/fever/chills/nausea/vomiting/chest or abdominal pain/cough/ dyspnea. Otherwise see above. - Constitutional Vitals: Vital Signs Temp Pulse Resp BP Pulse Ox 98.7 F 71 24 H 140/80 96 07/21/18 04:52 07/21/18 04:52 07/21/18 04:52 07/21/18 04:52 07/21/18 04:52 Period Temp Pulse Resp BP Sys/Mcintosh Pulse Ox Last 24 Hr 97.2 F-98.7 F 65-76 18-24 124-148/60-80 92-96 Intake and Output 07/20/18 07/21/18 07/21/18 21:59 05:59 13:59 Intake Total 180 / 180 240 / 240 Output Total 1300 / 1300 251 / 251 Balance -1120 / -1120 Weight 124.284 kg Intake & Output: Intake & Output 07/20/18 07/21/18 07/21/18 21:59 05:59 13:59 Intake Total 180 / 180 240 / 240 Output Total 1300 / 1300 251 / 251 Balance -1120 / -1120 Weight 124.284 kg Intake: Oral 180 / 180 240 / 240 Output: Void Amount 500 / 500 250 / 250 # of times incontinent of urine Urine/Stool Mix 800 / 800 Other: Meal Tuna sandwich without crust Percent of Meal Consumed 100% Feeding Ability Independent Urine Appearance Clear Clear Urine Color Bright Yellow Bright Yellow Exam: General: Alert, Awake, No acute Distress Eyes/N/T: EOMI, Head/Neck: neck supple, CV: RRR, 1/6 SM, Pulm: Clear b/l, no wheezing/rhonchi/rales Abd: soft, nontender, +BS x4 Ext: no clubbing/cyanosis/edema Neuro: Alert, no focal deficits, moves all extremities, Skin: warm/dry Medical - PN: Obj Da - Labs CBC & Chem 7: 07/20/18 04:00 07/20/18 04:00 Labs: Abnormal Lab Results 07/20/18 07/20/18 07/19/18 04:00 04:00 04:00 WBC 12.8 H Hgb 11.3 L Hct MCH 25.3 L RDW 16.1 H Gran # 9.1 H [place] # (Auto) Monocytes % (Manual) 13 H Polychromasia Occ A Hypochromasia 1+ A Anisocytosis 1+ A Potassium Carbon Dioxide 33 H BUN 24 H Glucose 172 H Calcium 8.4 L Phosphorus GGT 43 H Lactate Dehydrogenase 278 H Total Protein 5.7 L Albumin 07/19/18 07/19/18 04:00 04:00 WBC 12.2 H Hgb 10.6 L Hct 33.6 L MCH 25.6 L RDW 16.0 H Gran # [place] # (Auto) 1.1 H Monocytes % (Manual) Polychromasia Hypochromasia Anisocytosis Potassium 3.2 L Carbon Dioxide 33 H BUN Glucose Calcium 8.0 L Phosphorus 2.1 L GGT Lactate Dehydrogenase 275 H Total Protein 5.5 L Albumin 3.1 L Meds: Medications Acetaminophen (Tylenol) 650 mg PO Q4-6HP PRN PRN Reason: PAIN/FEVER > 101 Albuterol/Ipratropium (Duoneb) 3 ml NEB Q6HRT PRN PRN Reason: Shortness Of Breath Or Wheezing Amiod[facility] ([facility]) [facility] Last Admin: 07/21/18 08:09 Dose: 100 mg Amlodipine Besylate (Norvasc) 5 mg PO QDAY [facility] Last Admin: 07/20/18 11:15 Dose: 5 mg Bisacodyl (Dulcolax) 10 mg UT Q2-3DAYS PRN PRN Reason: Constipation Carvedilol (Coreg) [facility] Last Admin: 07/21/18 08:10 Dose: 25 mg Cefazolin Sodium (Ancef) 2 gm IV Q8H [facility] Last Admin: 07/21/18 00:22 Dose: 2 gm Dextrose (Dextrose 50%) 0 ml IV UD PRN PRN Reason: Hypoglycemia Diagnostic Test (Pha) (Accu-Chek) 1 each FS ACHS [facility] Last Admin: 07/21/18 08:08 Dose: 1 each Duloxetine HCl (Cymbalta) 60 mg PO DAILY [facility] Last Admin: 07/20/18 11:16 Dose: 60 mg Furosemide (Lasix) 40 mg PO QDAY [facility] Last Admin: 07/20/18 11:15 Dose: 40 mg Gabapentin (Neurontin) 300 mg PO QDAY [facility] Last Admin: 07/20/18 11:16 Dose: 300 mg Glucose (Insta-Glucose) 15 gm PO PRN PRN PRN Reason: Hypoglycemia Heparin Sodium (Porcine) (Heparin) 5,000 unit SQ Q12 [facility] Last Admin: 07/20/18 20:23 Dose: 5,000 unit Heparin Sodium (Porcine) (Heparin Flush) 2 ml IV Q12 [facility] Last Admin: 07/20/18 20:23 Dose: 2 ml Hydroxychloroquine Sulfate (Plaquenil) 400 mg PO QDAY [facility] Last Admin: 07/20/18 11:16 Dose: 400 mg Imipramine HCl (Tofranil) 25 mg PO QHS [facility] Last Admin: 07/20/18 20:21 Dose: 25 mg Insulin Glargine (Lantus) 35 unit SQ [facility] Last Admin: 07/20/18 20:22 Dose: 35 units Insulin Human Lispro (Humalog) 0 unit SQ [facility]; Protocol Last Admin: 07/21/18 08:09 Dose: Not Given Lactobacillus Rhamnosus (Culturelle) 1 cap PO BID [facility] Last Admin: 07/20/18 20:20 Dose: 1 cap Loperamide HCl (Imodium) 2 mg PO PRN PRN PRN Reason: Diarrhea Last Admin: 07/20/18 04:39 Dose: 2 mg Magnesium Hydroxide (Milk Of Magnesia) 30 ml PO DAILYP PRN PRN Reason: Constipation Mupirocin (Bactroban Oint 2%) 0 dose TOPICAL BID [facility] Stop: 07/21/18 09:01 Last Admin: 07/20/18 20:20 Dose: 1 dose Naloxone HCl (Narcan) 0.1 mg IV Q2MIN PRN PRN Reason: Opiate Reversal Ondansetron HCl (Zofran) 4 mg IV Q4-6HP PRN PRN Reason: Nausea And Vomiting Pantoprazole Sodium (Protonix) [facility] Last Admin: 07/21/18 08:09 Dose: 40 mg Solifenacin Succinate [Vesicare] 10 Mg Tab 1 dose PO [facility] Last Admin: 07/20/18 20:22 Dose: Not Given Prednisone (Prednisone) 20 mg PO [facility] Last Admin: 07/21/18 08:09 Dose: 20 mg [facility] Last Admin: 07/21/18 08:10 Dose: 1 mg Ropinirole HCl (Requip) 1 mg PO [facility] Last Admin: 07/20/18 20:21 Dose: 1 mg Simvastatin (Zocor) 10 mg PO [facility] Last Admin: 07/20/18 20:21 Dose: 10 mg Sodium Chloride (Saline Flush) 10 ml IV UD PRN PRN Reason: FLUSH Last Admin: 07/19/18 05:41 Dose: 10 ml Sodium Chloride (Saline Flush) 10 ml IV Q12 [facility] Last Admin: 07/20/18 20:21 Dose: 10 ml Trazodone HCl (Desyrel) 100 mg PO [facility] Last Admin: 07/20/18 20:20 Dose: 100 mg Medical - PN: A/P - Time Spent With Patient Total time spent is greater than 50% in coordination of care (as documented) at patient's floor/unit and/or counseling patient: - Narrative A/P Narrative: A: *Acute on chronic hypercapnic respiratory failure: -off bipap now, back to baseline oxygen needs *Acute COPD exacerbation: improved *Acute parotitis w/Sepsis, right: improving *MSSA Bacteremia: 2/2 above -repeat BC's neg -MENG no vegetations *MRSA carrier: UC reviewed by ID, pt is asymptomatic, culture may suggest contamination from genital colonization *acute on chronic CHF systolic dysfxn(23%) w/AICD & Grade II diatolic dysfxn Exacerbation: -improved *DM: blood glucose labile *HTN: *Morbid Obesity: *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
--- NOTE | 2018-07-21 08:30 | Discharge Summary ---
Medical - DS: Prov Patient information: Note initiated : 07/21/18 at 8:28 am Service Date, if different from initiated Date: [] Patient: Stacie Thomas 78 y/o F admitted on 07/13/18 for SOB, neck pain. Chief Complaint: [] Date of admission: 07/13/18 16:55 Discharge date: 07/21/18 Primary care physician: Inocente Messer Consults: 07/15/18 08:22 Consult to Physician [CONS] Routine Comment: Consulting Provider: Anders Odell Reason For Exam: Physician to Consult 07/20/18 16:12 Consult to Physician [CONS] Routine Comment: Consulting Provider: Mitali Hammond Reason For Exam: Physician to Consult Medical - DS: Meds - Discharge Medications Prescriptions: traMADol HCL [Ultram] 100 mg PO QHS PRN #20 tab PRN Reason: Pain ceFAZolin [Ancef] 2 gm IV Q8H #1 vial Hydrocodone/APAP 7.5/325Mg [[place] 7.5-325Mg] 1 tab PO Q4H PRN #20 tab PRN Reason: pain predniSONE [Prednisone] 20 mg PO QAMCC #1 tab Active and Home Medications: Home Medications duloxetine 60 mg capsule,delayed release 60 mg PO QDAY #90 cap 04/15/17 [Rx Confirmed 07/13/18 Last Taken 07/13/18] liraglutide 0.6 mg/0.1 mL (18 mg/3 mL) subcutaneous pen injector 1.8 mg SUB-Q QDAY #6 ml 04/15/17 [Rx Confirmed 07/13/18 Last Taken 07/13/18] amlodipine 5 mg tablet 5 mg PO QDAY #90 tab 04/17/17 [Rx Confirmed 07/13/18 Last Taken 07/11/18] gabapentin 300 mg capsule 300 mg PO QDAY #90 cap 04/22/17 [Rx Confirmed Last Taken 07/13/18] potassium chloride ER 20 mEq tablet,extended release 20 meq PO QDAY #90 tab 04/06 [Rx Confirmed 07/13/18 Last Taken 07/13/18] hydroxychloroquine 200 mg tablet 400 mg PO QDAY #180 tab 06/16/17 [Rx Confirmed 07/13/18 Last Taken 07/13/18] aluminum-mag hydroxide-simethicone 200 mg-200 mg-20 mg/5 mL oral susp 30 ml PO Q6HP PRN ml 07/02/17 [History Confirmed 07/13/18 Last Taken 06/19/18 09:00] bisacodyl 10 mg rectal suppository 10 mg NV QDAY PRN 07/02/17 [History Confirmed 07/13/18 Last Taken 07/11/18] emollient combination no.93 topical cream 1 applic TOPICAL DAILYP PRN 07/02/17 [ History Confirmed 07/13/18 Last Taken Unknown] magnesium hydroxide 400 mg/5 mL oral suspension 400 mg PO DAILYP PRN 07/02/17 [ History Confirmed 07/13/18 Last Taken 07/10/18] polyvinyl alcohol 1.4 % eye drops 1 drp OPHTHALMIC BID-QID PRN 07/02/17 [ History Confirmed 07/13/18 Last Taken Unknown] simvastatin 20 mg tablet 10 mg PO QPM 07/02/17 [History Confirmed 07/13/18 Last Taken 07/12/18] polyethylene glycol 3350 17 gram oral powder packet 17 g PO QDAY #100 each 09/08 [Rx Confirmed 07/13/18 Last Taken 07/13/18] acetaminophen 500 mg tablet 1,000 mg PO Q6H PRN 09/17/17 [History Confirmed Last Taken 06/20/18 12:00] sennosides 8.6 mg tablet 8.6 mg PO QDAY PRN 09/17/17 [History Confirmed Last Taken Unknown] guaifenesin ER 600 mg tablet, extended release 12 hr 600 mg PO Q12H PRN [History Confirmed 07/13/18 Last Taken 06/20/18 16:16] trolamine salicylate 10 % lotion 1 applic TOPICAL QDAY PRN 06/19/18 [History Confirmed 07/13/18 Last Taken Unknown] Cranberry Conc/C/Bacill Coag [Cranberry Tablet] 1 each PO BID 06/20/18 [History Confirmed 07/13/18 Last Taken 07/13/18] Furosemide [Lasix] 40 mg PO QDAY 06/20/18 [History Confirmed 07/13/18 Last Taken 07/13/18] Imipramine HCl [Tofranil] 25 mg PO QHS 06/20/18 [History Confirmed 07/13/18 Last Taken 07/12/18] Melatonin 5 mg PO QHS PRN 06/20/18 [History Confirmed 07/13/18 Last Taken ] Solifenacin Succinate [Vesicare] 10 mg PO QHS 06/20/18 [History Confirmed Last Taken 07/12/18] guaiFENesin/DEXTROMETHORPHAN [Robafen Dm Cgh-Chest Jaya Syrp] 10 ml PO Q6HP PRN 06/20/18 [History Confirmed 07/13/18 Last Taken Unknown] rOPINIRole HCL [Requip] 1 mg PO BIDAC 06/20/18 [History Confirmed 07/13/18 Last Taken 07/13/18] traZODone HCL [Trazodone HCl] 100 mg PO QHS 06/20/18 [History Confirmed Last Taken 07/12/18] Accu-Chek 1 each FS ACHS strip 06/29/18 [Rx Confirmed 07/13/18 Last Taken 07/13] Amiodarone HCl [Cordarone] 100 mg PO BIDCC tablet 06/29/18 [Rx Confirmed Last Taken 07/13/18] Carvedilol [Coreg] 25 mg PO BIDCC tablet 06/29/18 [Rx Confirmed 07/13/18 Last Taken 07/13/18] Dextrose [Insta-Glucose] 15 gm PO PRN PRN oral.susp 06/29/18 [Rx Confirmed Last Taken Unknown] Insulin Glargine, Human [Lantus] 25 unit SQ HS unit 06/29/18 [Rx Confirmed Last Taken 07/12/18] Insulin Lispro [Humalog] See Protocol SQ ACHS unit 06/29/18 [Rx Confirmed 07/13 Last Taken 07/13/18] Acetaminophen 650 mg PO Q4HP PRN 07/13/18 [History Confirmed 07/13/18 Last Taken Unknown] Albuterol Sulfate [Ventolin] 2.5 mg NEB Q4HP PRN 07/13/18 [History Confirmed Last Taken Unknown] Na Phos,M-B/Na Phos,Di-Ba [Fleets Adult] 1 dose NV PRN PRN 07/13/18 [History Confirmed 07/13/18 Last Taken Unknown] rOPINIRole HCL [Requip] 1 mg PO HS 07/13/18 [History Confirmed 07/13/18 Last Taken 07/12/18] ceFAZolin [Ancef] 2 gm IV Q8H #1 vial 07/20/18 [Rx Last Taken Unknown] predniSONE [Prednisone] 20 mg PO QAMCC #1 tab 07/20/18 [Rx Last Taken Unknown] Hydrocodone/APAP 7.5/325Mg [[place] 7.5-325Mg] 1 tab PO Q4H PRN #20 tab 07/21/18 [ Rx Last Taken Unknown] traMADol HCL [Ultram] 100 mg PO QHS PRN #20 tab 07/21/18 [Rx Last Taken Unknown] Medical - DS: Hosp Hospital course: Mr. Thomas is a 78 year old F Discharge diagnosis: Acute on chronic hypoxia respiratory failure COPD exacerbation parotitis Secondary discharge diagnosis: MSSA bacteremia - Time Spent with Patient Total time spent providing and/or coordinating discharge services: Greater than 30 minutes Medical - DS: Exam - Constitutional Vitals: Vital Signs Temp Pulse Resp BP Pulse Ox 07/21/18 08:00 99.3 F H 69 24 H 130/62 96 07/21/18 04:52 98.7 F 71 24 H 140/80 96 07/21/18 00:37 70 20 130/70 92 07/20/18 19:50 98.0 F 65 18 124/60 96 07/20/18 15:47 98.4 F 20 129/67 94 07/20/18 11:12 97.2 F 76 18 148/68 92 Intake and Output 07/20/18 07/21/18 07/21/18 21:59 05:59 13:59 Intake Total 180 / 180 240 / 240 Output Total 1300 / 1300 251 / 251 Balance -1120 / -1120 - Intake: Oral 180 / 180 240 / 240 Output: Void Amount 500 / 500 250 / 250 # of times incontinent of urine Urine/Stool Mix 800 / 800 Other: Meal Tuna sandwich without crust Percent of Meal Consumed 100% Feeding Ability Independent Urine Appearance Clear Clear Urine Color Bright Yellow Bright Yellow Weight 124.284 kg Medical - DS: A/P - Patient/Caregiver Discharge Instructions Activity: as per physical therapy Diet: Consistent Carbohydrate Additional Instructions: Continue IV cefazolin 2 g every 8 hours through left arm PICC line with stop date of 08/12/18 - recommend once weekly CBC and CMP for the duration of antibiotic therapy, with results faxed to [facility] clinic at [phone]. Stop date on Abx is 08/12/2017, then d/c PICC. - ID f/u scheduled for 08/10/18 Prescriptions: traMADol HCL [Ultram] 100 mg PO QHS PRN #20 tab PRN Reason: Pain ceFAZolin [Ancef] 2 gm IV Q8H #1 vial Hydrocodone/APAP 7.5/325Mg [[place] 7.5-325Mg] 1 tab PO Q4H PRN #20 tab PRN Reason: pain predniSONE [Prednisone] 20 mg PO QAC #1 tab - Follow up Plan Follow up with: Anders Odell MD [Physician] - 08/10/18 9:45 am Inocente Messer DO [Primary Care Provider] - (Please call/schedule hospital follow up.) Disposition: Xfer SNF Prognosis: Serious Rehab Potential: Fair I certify that the patient requires SNF services: Yes Overall status at discharge: patient is progressing back to baseline Medical - DS: Qual - VTE Deep Vein Thrombosis/Pulmonary Embolism Present on Admission: No
[2018-07-21] MEDS: HEPARIN 5,000 UNIT/ML VIAL SQ SCH (09:13)
[2018-07-21] MEDS: LACTOBACILLUS 1 CAPSULE PO SCH (09:14)
[2018-07-21] MEDS: DULoxetine 30 MG CAPSULE PO SCH (09:14)
[2018-07-21] MEDS: 0.9 % SODIUM CHLORIDE 10 ML SYRINGE IV SCH (09:14)
[2018-07-21] MEDS: MUPIROCIN OINT 2% 22GM TOPICAL SCH (09:14)
[2018-07-21] MEDS: GABAPENTIN 300 MG CAPSULE PO SCH (09:15)
[2018-07-21] MEDS: FUROSEMIDE 20 MG TABLET PO SCH (09:15)
[2018-07-21] MEDS: amLODIPine 5 MG TABLET PO SCH (09:15)
[2018-07-21] MEDS: HYDROXYCHLOROQUINE 200 MG TABLET PO SCH (09:16)
== END 2018-07-21 08:31 | disposition swing bed (61) | DRG 871 ==
LOC: ED 12:00 → ICU 16:55 → MEDSUR 07-15 13:17
PROVIDERS: ADMIT Internal Medicine; ATTEND Internal Medicine